=== PATIENT | male | born 1960 | race Two or more races ===

== ENCOUNTER 2017-05-01 08:45 | Inpatient (IN) | payer OTHER ==
[2017-05-01 10:04] VITALS: BMI 36.1
--- NOTE | 2017-05-01 12:11 | HP ---
CIWA Score - CIWA Score Nausea/Vomitin Muscle Tremors: 3 Anxiety: 3 Agitation: 3 Paroxysmal Sweats: 2 Orientation: 0-Oriented Tacttile Disturbances: 1-Very Mild Itch/Numbness Auditory Disturbances: 1-Very Mild Visual Disturbances: 0-None Headache: 2-Mild CIWA-Ar Total Score: 18 Admission ROS BHS - HPI Chief Complaint: I NEED HELP TO STOP DRINKING ALCOHOL AND COCAINE Allergies/Adverse Reactions: Allergies Allergy/AdvReac Type Severity Reaction Status Date / Time No Known Allergies Allergy Verified 05/01/17 10:07 History of Present Illness: THIS 56 YEARS OLD MALE WITH ALCOHOL AND COCAINE DEPENDENCE,SEEKING DETOX,LAST TREATMENT 04/30/16 05/04/16 SYNCOPE ALCOHOL RELATED HTN NO MED GERD LOW BACK PAIN LONGEST PERIOD OF SOBRIETY 3 MONTHS Exam Limitations: No Limitations - Ebola screening Have you been sick,other than usual withdrawal symptoms: No - Review of Systems Constitutional: Loss of Appetite, Malaise, Night Sweats, Changes in sleep, Weakness EENT: reports: Nose Congestion Respiratory: reports: No Symptoms reported GI: reports: Diarrhea, Nausea, Vomiting, Abdominal cramping Musculoskeletal: reports: No Symptoms Reported Integumentary: reports: Dryness Neuro: reports: Headache, Tremors Endocrine: reports: No Symptoms Reported Hematology: reports: No Symptoms Reported Psychiatric: reports: Depressed Other Systems: Reviewed and Negative Patient History - Patient Medical History Hx Anemia: Yes (NO CURRENT MED) Hx Asthma: No Hx Chronic Obstructive Pulmonary Disease (COPD): No Hx Cancer: No Hx Cardiac Disorders: No Hx Congestive Heart Failure: No Hx Hypertension: Yes (NON COMPLIANCE) Hx Hypercholesterolemia: No Hx Pacemaker: No HX Cerebrovascular Accident: No Hx Seizures: No Hx Dementia: No Hx Diabetes: No Hx Gastrointestinal Disorders: Yes (peptic ulcer) Hx Liver Disease: No Hx Genitourinary Disorders: No Hx Sexually Transmitted Disorders: No Hx Renal Disease (ESRD): No Hx Thyroid Disease: No Hx Human Immunodeficiency Virus (HIV): No (NEGATIVE HX) Hx Hepatitis C: No Hx Depression: Yes Hx Suicide Attempt: No Hx Bipolar Disorder: No Hx Schizophrenia: No Other Medical History: NO SUICIDAL,NO HOMICIDAL - Patient Surgical History Past Surgical History: Yes Hx Neurologic Surgery: No Hx Cataract Extraction: No Hx Cardiac Surgery: No Hx Lung Surgery: No Hx Breast Surgery: No Hx Breast Biopsy: No Hx Abdominal Surgery: No Hx Appendectomy: No Hx Cholecystectomy: No Hx Genitourinary Surgery: No Hx Section: No Hx Orthopedic Surgery: Yes (fx, left thumb in 2006) Other Surgical History: nasal fx in 1987 Anesthesia Reaction: No - PPD History Previous Implant?: Yes Documented Results: Negative w/proof Implanted On Prior [facility] Admission?: Yes Date: 05/02/16 Results: 0 mm PPD to be Administered?: Yes - Smoking Cessation Smoking history: Never smoked Have you smoked in the past 12 months: No Aproximately how many cigarettes per day: 0 Hx Chewing Tobacco Use: No Initiated information on smoking cessation: No - Substance & Tx. History Hx Alcohol Use: Yes Hx Substance Use: Yes Substance Use Type: Alcohol, Cocaine Hx Substance Use Treatment: Yes ([facility] 04/30/16 TO 05/04/16) - Substances Abused Cocaine Route: Inhalation Frequency: Daily Amount used: $40 Age of first use: 17 Date of Last Use: 05/01/17 Alcohol-vodka/beer Route: Oral Frequency: Daily Amount used: 2 pts./2-6 pks. Age of first use: 14 Date of Last Use: 05/01/17 Family Disease History - Family Disease History Family Disease History: Other: Father (alcoholic/), Mother () Admission Physical Exam S - Vital Signs Vital Signs: Vital Signs - 24 hr 05/01/17 09:54 Temperature 97.4 F L Pulse Rate 89 Respiratory 20 Rate Blood Pressure 154/93 - Physical General Appearance: Yes: Moderate Distress, Tremorous, Irritable, Sweating, Anxious HEENTM: Yes: Normal ENT Inspection, LISSA, Pharynx Normal Respiratory: Yes: Lungs Clear, Normal Breath Sounds, No Respiratory Distress Neck: Yes: Within Normal Limits, Supple, Trachea in good position Breast: Yes: Within Normal Limits Cardiology: Yes: Within Normal Limits, Regular Rhythm, Regular Rate, S1, S2 Abdominal: Yes: Normal Bowel Sounds, Non Tender, Flat, Soft, Organomegaly Genitourinary: Yes: Within Normal Limits Back: Yes: Muscle Spasm Musculoskeletal: Yes: Back pain, Muscle Pain Extremities: Yes: Tremors 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: Yes: 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 NML intact, Fully Oriented, Alert, Motor Strength 5/5 Integumentary: Yes: Within Normal Limits Lymphatic: Yes: Within Normal Limits - Diagnostic (1) Cocaine dependence Current Visit: No Status: Acute Qualifiers: Substance use status: uncomplicated Qualified Code(s): F14.20 - Cocaine dependence, uncomplicated (2) Acid reflux Current Visit: No Status: Chronic Qualifiers: Esophagitis presence: without esophagitis Qualified Code(s): K21.9 - Gastro-esophageal reflux disease without esophagitis (3) Alcohol dependence with uncomplicated withdrawal Current Visit: No Status: Chronic (4) Hypertension Current Visit: No Status: Chronic Qualifiers: Hypertension type: essential hypertension Cleared for Admission [facility] - Detox or Rehab [facility] Level of Care: Medically Managed Detox Regimen/Protocol: Librium [facility] Breath Alcohol Content Breath Alcohol Content: 0.046 Urine Drug Screen - Results Drug Screen Negative: No Urine Drug Screen Results: MATTIE-Cocaine, BZO-Benzodiazepines
[2017-05-01] MEDS ORDERED: MAGNESIUM CITRATE 300 ML BOTTLE PO PRN (12:22)
[2017-05-01] MEDS ORDERED: IBUPROFEN 400 MG TABLET (FP) PO PRN (12:22)
[2017-05-01] MEDS ORDERED: MAGNESIUM HYDROX 2400MG/30ML ORAL SUSPENSION 30 ML CUP PO PRN (12:22)
[2017-05-01] MEDS ORDERED: P-EPHED 60MG/TRIPROLIDI 2.5MG TABLET PO PRN (12:22)
[2017-05-01] MEDS ORDERED: MAG HYDROX/AL HYDROX/SIMETH 30 ML UNIT-DOSE CUP PO PRN (12:22)
[2017-05-01] MEDS ORDERED: chlordiazePOXIDE HCL 25 MG CAPSULE PO PRN (12:22)
[2017-05-01] MEDS ORDERED: chlordiazePOXIDE HCL 25 MG CAPSULE PO ONE (12:43)
[2017-05-01] MEDS: amLODIPine BESYLATE 5 MG TABLET (FP) PO SCH (14:47)
[2017-05-01 17:10] LABS: URINE APPEARANCE TURBID; URINE BILIRUBIN NEGATIVE (NEGATIVE); URINE BLOOD NEGATIVE (NEGATIVE); URINE COLOR YELLOW; URINE GLUCOSE (UA) NEGATIVE (NEGATIVE); URINE KETONE TRACE (NEGATIVE); URINE LEUK ESTERASE NEGATIVE (NEGATIVE); URINE NITRITE NEGATIVE (NEGATIVE); URINE UROBILINOGEN NEGATIVE mg/dL (0.2-1.0)
[2017-05-01 17:12] LABS: URINE PROTEIN 1+ (NEGATIVE)
[2017-05-01 17:47] LABS: URINE MUCUS MANY; URINE RBC 2 /hpf (0-3); URINE WBC 155 /hpf (3-5)
[2017-05-01] MEDS: chlordiazePOXIDE HCL 25 MG CAPSULE PO SCH ×2 (18:07→22:26)
[2017-05-01 18:49] LABS: HIV 1 & 2 AB NEGATIVE; HIV 1 AGp24 NEGATIVE
[2017-05-01] MEDS: THIAMINE HCL 100 MG TABLET (FP) PO SCH (22:25)
[2017-05-01] MEDS: ACETAMINOPHEN 325 MG TABLET (FP) PO PRN (22:26)
[2017-05-01] MEDS: diphenhydrAMINE HCL 50 MG CAPSULE PO PRN (22:27)
[2017-05-02] MEDS: chlordiazePOXIDE HCL 25 MG CAPSULE PO SCH ×4 (05:40→22:38)
[2017-05-02 10:16] LABS: MCH 28.8 pg (25.7-33.7); MCHC 32.2 g/dl (32.0-35.9); MEAN CELL VOLUME 89.6 fl (80-96); MEAN PLT VOLUME 9.2 fl (7.5-11.1); PLATELET COUNT 201 K/MM3 (134-434); RDW 17.6 % (11.9-15.9); WHITE BLOOD COUNT 4.7 K/mm3 (4.0-10.0)
[2017-05-02 10:35] LABS: ALBUMIN 3.3 g/dl (3.4-5.0); ALK PHOS 115 U/L (45-117); ANION GAP 8 (8-16); BILIRUBIN,TOTAL 0.6 mg/dL (0.2-1.0); CALCIUM 8.5 mg/dL (8.5-10.1); CO2 29 mmol/L (21-32); CREATININE 0.7 mg/dL (0.7-1.3); GLUCOSE,RANDOM 94 mg/dL (74-106); SGOT/AST 75 U/L (15-37); SGPT/ALT 47 U/L (12-78); TOT PROT 7.4 g/dl (6.4-8.2)
[2017-05-02] MEDS ORDERED: CYCLOBENZAPRINE HCL 10 MG TABLET (FP) PO ONE (10:55)
[2017-05-02] MEDS: amLODIPine BESYLATE 5 MG TABLET (FP) PO SCH (11:07)
[2017-05-02] MEDS: PRENATAL VITAMINS W/ FOLIC ACID TABLET (FP) PO SCH (11:07)
[2017-05-02] MEDS: PANTOPRAZOLE 40 MG TABLET (FP) PO SCH (11:07)
--- NOTE | 2017-05-02 11:40 | CONSULT ---
[facility] Psychiatric Consult - Data Date of interview: 05/02/17 Admission source: [facility] Identifying data: This is 56 years old male with psychiatric hospitalization history, history of MDD, intopxicated with: Alcohol and Nicotine Substance Abuse History: - Smoking Cessation. Smoking history: Never smoked. Have you smoked in the past 12 months: No. Aproximately how many cigarettes per day: 0. Hx Chewing Tobacco Use: No. Initiated information on smoking cessation: No. - Substance & Tx. History. Hx Alcohol Use: Yes. Hx Substance Use: Yes. Substance Use Type: Alcohol, Cocaine. Hx Substance Use Treatment: Yes ([facility] 04/30/16 TO 05/04/16). - Substances Abused. Cocaine. Route: Inhalation. Frequency: Daily. Amount used: $40. Age of first use: 17. Date of Last Use: 05/01/17. Alcohol-vodka/beer. Route: Oral. Frequency: Daily. Amount used: 2 pts./2-6 pks. Age of first use: 14. Date of Last Use: Medical History: Anemia history, GERD, Obesity, HTN, PUD, Pancreatitis history, Psychiatric History: Patient reports history of MDD, reports most recent psychiatriuc admission fore safety at [facility] on about 5 yerars ago, reports currently taking: Zoloft 25mg po qhs Physical/Sexual Abuse/Trauma History: Denies Additional Comment: Zoloft 25mg po qhs Mental Status Exam - Mental Status Exam Alert and Oriented to: Person Cognitive Function: Fair Patient Appearance: Unkempt Mood: Sad Affect: Flat Patient Behavior: Sedated Speech Pattern: Delayed Voice Loudness: Normal Thought Process: Circumstantial Thought Disorder: Being Controlled Hallucinations: Denies Suicidal Ideation: Denies Homicidal Ideation: Denies Insight/Judgement: Fair Sleep: Difficulty falling asleep Appetite: Weight gain Muscle strength/Tone: Normal Gait/Station: Shuffling Additional Comments: Zoloft 25mg po qhs Psychiatric Findings - Problem List ([place] 1, 2,3) (1) Alcoholic gastritis Current Visit: No Status: Acute (2) Cocaine dependence Current Visit: No Status: Acute Qualifiers: Substance use status: uncomplicated Qualified Code(s): F14.20 - Cocaine dependence, uncomplicated (3) Major depressive disorder, recurrent severe without psychotic features Current Visit: No Status: Acute (4) Substance induced mood disorder Current Visit: No Status: Acute (5) Alcohol dependence Current Visit: No Status: Chronic (6) Alcohol dependence with uncomplicated withdrawal Current Visit: No Status: Chronic (7) Drug-induced mood disorder Current Visit: Yes Status: Acute - Initial Treatment Plan Initial Treatment Plan: Zoloft 25mg po qhs
[2017-05-02] MEDS: SULFAMETHOXAZOLE/TRIMETHOPRIM 800MG/160MG D.S. TABLET PO SCH ×2 (11:42→22:38)
[2017-05-02] MEDS: hydrOXYzine PAMOATE 50 MG CAPSULE (FP) PO PRN (11:42)
[2017-05-02] MEDS ORDERED: FLU VACCINE QUAD 60 MCG/0.5 ML (MDV 17-18) IM ONE (12:00)
--- NOTE | 2017-05-02 13:08 | PN ---
S CIWA - CIWA Score Nausea/Vomitin Muscle Tremors: 3 Anxiety: 3 Agitation: 3 Paroxysmal Sweats: 1-Minimal Palms Moist Orientation: 0-Oriented Tacttile Disturbances: 1-Very Mild Itch/Numbness Auditory Disturbances: 1-Very Mild Visual Disturbances: 1-Very Mild Sensitivity Headache: 2-Mild CIWA-Ar Total Score: 18 S Progress Note (SOAP) Subjective: alert,irritable,anxious,interrupted sleep,tremor,pain in the back,diarrhea Objective: 05/02/17 13:06 Vital Signs Temperature 97.9 F 05/02/17 09:49 Pulse Rate 92 H 05/02/17 09:49 Respiratory Rate 18 05/02/17 09:49 Blood Pressure 144/78 05/02/17 09:49 O2 Sat by Pulse Oximetry (%) 05/02/17 13:06 ekg nsr inverted t in v2,v3 no chest pain,no sob,no dizziness Laboratory Last Values WBC 4.7 K/mm3 (4.0-10.0) D 05/02/17 06:00 RBC 4.23 M/mm3 (4.00-5.60) 05/02/17 06:00 Hgb 12.2 GM/dL (11.7-16.9) 05/02/17 06:00 Hct 37.9 % (35.4-49) 05/02/17 06:00 MCV 89.6 fl (80-96) 05/02/17 06:00 MCH 28.8 pg (25.7-33.7) 05/02/17 06:00 MCHC 32.2 g/dl (32.0-35.9) 05/02/17 06:00 RDW 17.6 % (11.9-15.9) H D 05/02/17 06:00 Plt Count 201 K/MM3 (134-434) D 05/02/17 06:00 MPV 9.2 fl (7.5-11.1) D 05/02/17 06:00 Sodium 138 mmol/L (136-145) 05/02/17 06:00 Potassium 3.8 mmol/L (3.5-5.1) 05/02/17 06:00 Chloride 101 mmol/L (98-107) 05/02/17 06:00 Carbon Dioxide 29 mmol/L (21-32) 05/02/17 06:00 Anion Gap 8 (8-16) 05/02/17 06:00 BUN 8 mg/dL (7-18) 05/02/17 06:00 Creatinine 0.7 mg/dL (0.7-1.3) D 05/02/17 06:00 Creat Clearance w eGFR > 60 (>60) 05/02/17 06:00 Random Glucose 94 mg/dL (74-106) 05/02/17 06:00 Calcium 8.5 mg/dL (8.5-10.1) 05/02/17 06:00 Total Bilirubin 0.6 mg/dL (0.2-1.0) D 05/02/17 06:00 AST 75 U/L (15-37) H D 05/02/17 06:00 ALT 47 U/L (12-78) D 05/02/17 06:00 Alkaline Phosphatase 115 U/L (45-117) 05/02/17 06:00 Total Protein 7.4 g/dl (6.4-8.2) 05/02/17 06:00 Albumin 3.3 g/dl (3.4-5.0) L 05/02/17 06:00 Urine Color Yellow 05/01/17 15:00 Urine Appearance Turbid 05/01/17 15:00 Urine pH 5.0 (5.0-8.0) 05/01/17 15:00 Ur Specific [place] >= 1.030 (1.005-1.025) H 05/01/17 15:00 Urine Protein 1+ (NEGATIVE) H 05/01/17 15:00 Urine Glucose (UA) Negative (NEGATIVE) 05/01/17 15:00 Urine Ketones Trace (NEGATIVE) H 05/01/17 15:00 Urine Blood Negative (NEGATIVE) 05/01/17 15:00 Urine Nitrite Negative (NEGATIVE) 05/01/17 15:00 Urine Bilirubin Negative (NEGATIVE) 05/01/17 15:00 Urine Urobilinogen Negative mg/dL (0.2-1.0) 05/01/17 15:00 Urine RBC 2 /hpf (0-3) 05/01/17 15:00 Urine WBC 155 /hpf (3-5) 05/01/17 15:00 Ur Epithelial Cells Rare /hpf (FEW) 05/01/17 15:00 Urine Mucus Many 05/01/17 15:00 RPR Titer Nonreactive (NONREACTIVE) 05/02/17 06:00 HIV 1&2 Antibody Screen Negative 05/01/17 12:00 HIV P24 Antigen Negative 05/01/17 12:00 Assessment: 05/02/17 13:06 Plan: continue detox,r/o uti,urine for c/s,bactrim ds 1 tab po bid
[2017-05-02] MEDS: IBUPROFEN 600 MG TABLET (FP) PO PRN (15:02)
--- NOTE | 2017-05-02 16:03 | EKG ---
Test Reason : Blood Pressure : / mmHG Vent. Rate : 087 BPM Atrial Rate : 087 BPM P-R Int : 154 ms QRS Dur : 106 ms QT Int : 432 ms P-R-T Axes : 044 -26 048 degrees QTc Int : 519 ms NORMAL SINUS RHYTHM POSSIBLE LEFT ATRIAL ENLARGEMENT INFERIOR INFARCT , AGE UNDETERMINED ANTEROSEPTAL INFARCT , AGE UNDETERMINED PROLONGED QT ABNORMAL ECG WHEN COMPARED WITH ECG OF 22-SEP-2013 19:33, ANTEROSEPTAL INFARCT IS NOW PRESENT INFERIOR INFARCT IS NOW PRESENT T WAVE INVERSION NOW EVIDENT IN ANTERIOR LEADS Confirmed by SAHIL RAPP MD ([id number]) on 05/02/2017 4:02:53 PM Referred By: Confirmed By:SAHIL RAPP MD
[2017-05-02] MEDS: CYCLOBENZAPRINE HCL 10 MG TABLET (FP) PO PRN ×2 (18:39→22:38)
[2017-05-02] MEDS: THIAMINE HCL 100 MG TABLET (FP) PO SCH (22:38)
[2017-05-02] MEDS: ACETAMINOPHEN 325 MG TABLET (FP) PO PRN (22:39)
[2017-05-02] MEDS: guaiFENesin/D-METHORPHAN HB 10 ML UNIT-DOSE CUPS PO PRN (22:53)
[2017-05-02] MEDS: SERTRALINE HCL 25 MG TABLET (FP) PO SCH (22:53)
[2017-05-03] MEDS: LOPERAMIDE HCL 2 MG CAPSULE PO PRN ×2 (04:41→12:42)
[2017-05-03] MEDS: PRENATAL VITAMINS W/ FOLIC ACID TABLET (FP) PO SCH (11:05)
[2017-05-03] MEDS: diazePAM 5 MG TABLET PO SCH ×2 (11:05→22:55)
[2017-05-03] MEDS: SULFAMETHOXAZOLE/TRIMETHOPRIM 800MG/160MG D.S. TABLET PO SCH ×2 (11:05→23:07)
[2017-05-03] MEDS: IBUPROFEN 600 MG TABLET (FP) PO PRN ×2 (11:05→23:10)
[2017-05-03] MEDS: hydrOXYzine PAMOATE 50 MG CAPSULE (FP) PO PRN (11:05)
[2017-05-03] MEDS: CYCLOBENZAPRINE HCL 10 MG TABLET (FP) PO PRN ×2 (11:06→23:10)
[2017-05-03] MEDS: PANTOPRAZOLE 40 MG TABLET (FP) PO SCH (11:06)
[2017-05-03] MEDS: amLODIPine BESYLATE 5 MG TABLET (FP) PO SCH (11:06)
[2017-05-03] MEDS: guaiFENesin/D-METHORPHAN HB 10 ML UNIT-DOSE CUPS PO PRN ×2 (11:09→18:28)
--- NOTE | 2017-05-03 11:58 | PN ---
BHS CIWA - CIWA Score Nausea/Vomitin Muscle Tremors: 3 Anxiety: 2 Agitation: 3 Paroxysmal Sweats: 1-Minimal Palms Moist Orientation: 0-Oriented Tacttile Disturbances: 1-Very Mild Itch/Numbness Auditory Disturbances: 1-Very Mild Visual Disturbances: 0-None Headache: 2-Mild CIWA-Ar Total Score: 16 BHS Progress Note (SOAP) Subjective: alert,irritable,anxious,interrupted sleep,tremor,lose bowel movement Objective: 05/03/17 11:57 Vital Signs Temperature 97.3 F L 05/03/17 09:54 Pulse Rate 97 H 05/03/17 09:54 Respiratory Rate 18 05/03/17 09:54 Blood Pressure 137/89 05/03/17 09:54 O2 Sat by Pulse Oximetry (%) Assessment: 05/03/17 11:57 withdrawal symptom Plan: continue detox,patient would like regimen to change to valium
[2017-05-03] MEDS ORDERED: chlordiazePOXIDE 5 MG CAPSULE PO SCH (17:00)
[2017-05-03] MEDS: diphenhydrAMINE HCL 50 MG CAPSULE PO PRN (23:12)
[2017-05-03] MEDS: THIAMINE HCL 100 MG TABLET (FP) PO SCH (23:12)
[2017-05-03] MEDS: SERTRALINE HCL 25 MG TABLET (FP) PO SCH (23:13)
[2017-05-04] MEDS: guaiFENesin/D-METHORPHAN HB 10 ML UNIT-DOSE CUPS PO PRN (02:42)
[2017-05-04] MEDS: MENTHOL/PHENOL 1 EACH UD MM PRN ×4 (05:42→19:06)
[2017-05-04] MEDS: chlordiazePOXIDE HCL 25 MG CAPSULE PO SCH (07:49)
[2017-05-04] MEDS: PRENATAL VITAMINS W/ FOLIC ACID TABLET (FP) PO SCH (11:01)
[2017-05-04] MEDS: amLODIPine BESYLATE 5 MG TABLET (FP) PO SCH (11:01)
[2017-05-04] MEDS: PANTOPRAZOLE 40 MG TABLET (FP) PO SCH (11:01)
[2017-05-04] MEDS: IBUPROFEN 600 MG TABLET (FP) PO PRN (11:03)
[2017-05-04] MEDS: diazePAM 5 MG TABLET PO SCH ×2 (11:05→22:59)
[2017-05-04] MEDS: CYCLOBENZAPRINE HCL 10 MG TABLET (FP) PO PRN ×2 (11:06→23:21)
[2017-05-04] MEDS: SULFAMETHOXAZOLE/TRIMETHOPRIM 800MG/160MG D.S. TABLET PO SCH ×2 (11:08→22:59)
--- NOTE | 2017-05-04 13:12 | PN ---
BHS Progress Note (SOAP) Subjective: alert,irritable,anxious,interrupted sleep Objective: 05/04/17 13:10 Vital Signs Temperature 96.3 F L 05/04/17 11:03 Pulse Rate 96 H 05/04/17 11:03 Respiratory Rate 20 05/04/17 11:03 Blood Pressure 125/68 05/04/17 11:03 O2 Sat by Pulse Oximetry (%) Assessment: 05/04/17 13:10 Vital Signs Temperature 96.3 F L 05/04/17 11:03 Pulse Rate 96 H 05/04/17 11:03 Respiratory Rate 05/04/17 11:03 Blood Pressure 125/68 05/04/17 11:03 O2 Sat by Pulse Oximetry (%) 05/04/17 13:10 05/04/17 13:11 urine for c/s no growth Plan: continue detox,fluid,discharge in am
[2017-05-04] MEDS ORDERED: chlordiazePOXIDE HCL 10 MG CAPSULE PO SCH (17:00)
[2017-05-04] MEDS: SERTRALINE HCL 25 MG TABLET (FP) PO SCH (22:59)
[2017-05-04] MEDS: THIAMINE HCL 100 MG TABLET (FP) PO SCH (22:59)
[2017-05-05] MEDS: LOPERAMIDE HCL 2 MG CAPSULE PO PRN (04:34)
[2017-05-05] MEDS: MENTHOL/PHENOL 1 EACH UD MM PRN (05:39)
[2017-05-05] MEDS ORDERED: diazePAM 5 MG TABLET PO ONE (06:00)
[2017-05-05 06:52] VITALS: BP 122/85; PULSE 85; TEMP 97.5
== END 2017-05-05 07:15 | disposition home or self-care (01) | DRG 774 ==
LOC: YASAS 08:45 → Y6N 12:19
PROVIDERS: ADMIT Internal Medicine; ATTEND Internal Medicine
PROC: HZ2ZZZZ Detoxification Services for Substance Abuse Treatment (ICD-10-PCS; principal; 2017-05-01)
DX: F10.230 Alcohol dependence with withdrawal, uncomplicated (principal); F14.20 Cocaine dependence, uncomplicated; F33.2 Major depressive disorder, recurrent severe without psychotic features; F19.24 Other psychoactive substance dependence with psychoactive substance-induced mood disorder; I10 Essential (primary) hypertension; K21.9 Gastro-esophageal reflux disease without esophagitis; D50.9 Iron deficiency anemia, unspecified; Z87.11 Personal history of peptic ulcer disease
CPT/HCPCS: 36415; 80053; 81003; 81015; 85027; 86593; 87086; 87389; 90688; 93005; 93010; G0008

== ENCOUNTER 2017-07-15 08:38 | Inpatient (IN) | payer OTHER ==
[2017-07-15 10:54] VITALS: BMI 33.4
[2017-07-15] MEDS ORDERED: MAGNESIUM CITRATE 300 ML BOTTLE PO PRN (12:34)
[2017-07-15] MEDS ORDERED: MAGNESIUM HYDROX 2400MG/30ML ORAL SUSPENSION 30 ML CUP PO PRN (12:34)
[2017-07-15] MEDS ORDERED: MAG HYDROX/AL HYDROX/SIMETH 30 ML UNIT-DOSE CUP PO PRN (12:34)
[2017-07-15] MEDS ORDERED: ACETAMINOPHEN 325 MG TABLET (FP) PO PRN (12:34)
[2017-07-15] MEDS ORDERED: LOPERAMIDE HCL 2 MG CAPSULE PO PRN (12:34)
[2017-07-15] MEDS ORDERED: chlordiazePOXIDE HCL 25 MG CAPSULE PO PRN (12:34)
[2017-07-15] MEDS ORDERED: hydrOXYzine PAMOATE 50 MG CAPSULE (FP) PO PRN (12:34)
--- NOTE | 2017-07-15 12:34 | HP ---
CIWA Score - CIWA Score Nausea/Vomitin-Int. Nausea w/Dry Heave Muscle Tremors: 3 Anxiety: 3 Agitation: 3 Paroxysmal Sweats: 3 Orientation: 0-Oriented Tacttile Disturbances: 2-Mild Itch/Numbness/Burn Auditory Disturbances: 0-None Visual Disturbances: 0-None Headache: 1-Very Mild CIWA-Ar Total Score: 19 Admission ROS BHS - HPI Chief Complaint: alcohol withdrawal sx Allergies/Adverse Reactions: Allergies Allergy/AdvReac Type Severity Reaction Status Date / Time No Known Allergies Allergy Verified 07/15/17 10:34 History of Present Illness: 56 yo m with h/o chronic alcoholism admitted for inpaient detoxification because of alcohol withdrwal ss, patient reports daily alcohol and sniffing cocaine when he has money. PMHX obesity, no suicidal ideation at this time, depression, reprot being thirsty. no h/o seizures, no DTs. no suicide attmpets in the past. Exam Limitations: No Limitations - Ebola screening Have you traveled outside of the country in the last 21 days: No Have you had contact with anyone from an Ebola affected area: No Have you been sick,other than usual withdrawal symptoms: No - Review of Systems Constitutional: Chills, Diaphoresis, Malaise, Night Sweats, Changes in sleep, Weight Stable EENT: reports: Nose Congestion, Throat Pain, Throat Swelling Respiratory: reports: Cough, SOB with Exertion Cardiac: reports: No Symptoms Reported GI: reports: Diarrhea, Nausea, Poor Appetite, Poor Fluid Intake, Indigestion, Abdominal cramping : reports: No Symptoms Reported Musculoskeletal: reports: Back Pain, Joint Pain, Muscle Pain Integumentary: reports: Flushing, Sweating Neuro: reports: Headache, Numbness, Tingling, Tremors Endocrine: reports: No Symptoms Reported Hematology: reports: No Symptoms Reported Psychiatric: reports: Judgement Intact, Mood/Affect Appropiate, Agitated, Anxious, Depressed Other Systems: Reviewed and Negative Patient History - Patient Medical History Hx Anemia: Yes (NO CURRENT MED) Hx Asthma: No Hx Chronic Obstructive Pulmonary Disease (COPD): No Hx Cancer: No Hx Cardiac Disorders: Yes (reports mi 2 months ago) Hx Congestive Heart Failure: No Hx Hypertension: Yes Hx Hypercholesterolemia: No Hx Pacemaker: No HX Cerebrovascular Accident: No Hx Seizures: No Hx Dementia: No Hx Diabetes: No Hx Gastrointestinal Disorders: Yes (acid reflux) Hx Liver Disease: No Hx Genitourinary Disorders: No Hx Sexually Transmitted Disorders: No Hx Renal Disease (ESRD): No Hx Thyroid Disease: No Hx Human Immunodeficiency Virus (HIV): No (NEGATIVE HX) Hx Hepatitis C: No Hx Depression: Yes Hx Suicide Attempt: No (no SI at his time) Hx Bipolar Disorder: No Hx Schizophrenia: No Other Medical History: no h/o of od - Patient Surgical History Past Surgical History: Yes Hx Neurologic Surgery: No Hx Cataract Extraction: No Hx Cardiac Surgery: No Hx Lung Surgery: No Hx Breast Surgery: No Hx Breast Biopsy: No Hx Abdominal Surgery: No Hx Appendectomy: No Hx Cholecystectomy: No Hx Genitourinary Surgery: No Hx Section: No Hx Orthopedic Surgery: Yes (fx, left thumb in 2006) Other Surgical History: nasal fx in 1987 Anesthesia Reaction: No - PPD History Previous Implant?: Yes Documented Results: Negative w/proof Implanted On Prior [facility] Admission?: Yes Date: 05/03/17 Results: 0 mm PPD to be Administered?: No - Reproductive History Patient is a Female of Child Bearing Age (11 -55 yrs old): No Patient : No - Smoking Cessation Smoking history: Never smoked Have you smoked in the past 12 months: No Aproximately how many cigarettes per day: 0 Hx Chewing Tobacco Use: No Initiated information on smoking cessation: No 'Breaking Loose' booklet given: 07/15/17 - Substance & Tx. History Hx Alcohol Use: Yes Hx Substance Use: Yes Substance Use Type: Alcohol, Cocaine Hx Substance Use Treatment: Yes ([facility] inpatient detox) - Substances Abused Cocaine Route: Inhalation Frequency: 1-2 times per week Amount used: $50 Age of first use: 17 Date of Last Use: 07/14/17 Alcohol-vodka/beer Route: Oral Frequency: Daily Amount used: 2 pts./2-3 6 pks. Age of first use: 14 Date of Last Use: 07/15/17 Family Disease History - Family Disease History Family Disease History: Other: Father (alcoholic/), Mother () Admission Physical Exam BHS - Vital Signs Vital Signs: Vital Signs - 24 hr 07/15/17 10:41 Temperature 96.4 F L Pulse Rate 92 H Respiratory 20 Rate Blood Pressure 140/84 - Physical General Appearance: Yes: Nourished, Appropriately Dressed, Disheveled, Mild Distress, Obese, Tremorous, Irritable, Sweating, Anxious HEENTM: Yes: EOMI, Hearing grossly Normal, Normocephalic, Normal Voice, LISSA, Nasal Congestion, Rhinorrhea Respiratory: Yes: Within Normal Limits, Chest Non-Tender, Lungs Clear, Normal Breath Sounds, No Respiratory Distress, No Accessory Muscle Use Neck: Yes: Within Normal Limits, No masses,lesions,Nodules, Supple, Trachea in good position Breast: Yes: Breast Exam Deferred Cardiology: Yes: Within Normal Limits, Regular Rhythm, Regular Rate, S1, S2 Abdominal: Yes: Normal Bowel Sounds, Non Tender, Soft, Increased Bowel Sounds, Protuberent, Distended Genitourinary: Yes: Within Normal Limits Back: Yes: Within Normal Limits, Normal Inspection Musculoskeletal: Yes: full range of Motion, Gait Steady, Pelvis Stable Extremities: Yes: Normal Capillary Refill, Normal Inspection, Normal Range of Motion, Tremors 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: 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: 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, Fully Oriented, Alert, Motor Strength 5/5, Normal Response Integumentary: Yes: Normal Color, Warm, Diaphoresis, Moist Lymphatic: Yes: Within Normal Limits - Addiitonal Findings: withdrawal sx - Diagnostic (1) Alcoholic gastritis Current Visit: No Status: Acute (2) Cocaine dependence Current Visit: No Status: Acute (3) Drug-induced mood disorder Current Visit: No Status: Acute (4) Major depressive disorder, recurrent severe without psychotic features Current Visit: No Status: Acute (5) Substance induced mood disorder Current Visit: No Status: Acute (6) Acid reflux Current Visit: No Status: Chronic Qualifiers: (7) Alcohol dependence with uncomplicated withdrawal Current Visit: No Status: Chronic (8) Hypertension Current Visit: No Status: Chronic (9) Obesity Current Visit: No Status: Chronic (10) URTI (acute upper respiratory infection) Current Visit: Yes Status: Acute Cleared for Admission [facility] - Detox or Rehab [facility] Level of Care: Medically Managed Detox Regimen/Protocol: Librium [facility] Breath Alcohol Content Breath Alcohol Content: 0.009 Urine Drug Screen - Results Drug Screen Negative: No Urine Drug Screen Results: MATTIE-Cocaine, BZO-Benzodiazepines
[2017-07-15] MEDS ORDERED: PANTOPRAZOLE 40 MG TABLET (FP) PO SCH (12:45)
[2017-07-15] MEDS ORDERED: chlordiazePOXIDE HCL 25 MG CAPSULE PO ONE (14:00)
[2017-07-15 14:22] LABS: MCH 29.6 pg (25.7-33.7); MCHC 32.2 g/dl (32.0-35.9); MEAN CELL VOLUME 92.1 fl (80-96); PLATELET COUNT 176 K/MM3 (134-434); RDW 16.1 % (11.9-15.9); WHITE BLOOD COUNT 5.2 K/mm3 (4.0-10.0)
[2017-07-15 14:31] LABS: ALBUMIN 3.2 g/dl (3.4-5.0); ANION GAP 9 (8-16); CALCIUM 7.8 mg/dL (8.5-10.1); CO2 26 mmol/L (21-32); CREATININE 0.7 mg/dL (0.7-1.3); GLUCOSE,RANDOM 87 mg/dL (74-106); SGOT/AST 60 U/L (15-37); SGPT/ALT 37 U/L (12-78)
[2017-07-15 14:33] LABS: ALK PHOS 119 U/L (45-117); BILIRUBIN,TOTAL 0.6 mg/dL (0.2-1.0); TOT PROT 7.6 g/dl (6.4-8.2)
[2017-07-15] MEDS: PANTOPRAZOLE 40 MG TABLET (FP) PO SCH (14:58)
--- NOTE | 2017-07-15 16:10 | EKG ---
Test Reason : Blood Pressure : / mmHG Vent. Rate : 073 BPM Atrial Rate : 073 BPM P-R Int : 158 ms QRS Dur : 110 ms QT Int : 432 ms P-R-T Axes : 048 -33 032 degrees QTc Int : 475 ms NORMAL SINUS RHYTHM POSSIBLE LEFT ATRIAL ENLARGEMENT LEFT AXIS DEVIATION LEFT VENTRICULAR HYPERTROPHY ANTEROSEPTAL INFARCT (CITED ON OR BEFORE 01-MAY-2017) ABNORMAL ECG WHEN COMPARED WITH ECG OF 01-MAY-2017 13:57, T WAVE VARIATION Confirmed by MARY FLORES MD ([id number]) on 07/15/2017 4:10:07 PM Referred By: Confirmed By:MARY FLORES MD
[2017-07-15] MEDS: chlordiazePOXIDE HCL 25 MG CAPSULE PO SCH ×2 (17:09→22:10)
[2017-07-15] MEDS: IBUPROFEN 400 MG TABLET (FP) PO PRN ×2 (17:11→23:11)
--- NOTE | 2017-07-15 17:13 | CONSULT ---
[facility] Psychiatric Consult - Data Date of interview: 07/15/17 Admission source: [facility] Identifying data: Another admission to [facility] for this 56 y/o male seeking detox treatment on for alcohol and cocaine dependence.Patient is single without children,homeless,unemployed and supported on SSI benefits. Substance Abuse History: Confirmed by patient in this interview.See details in current [facility] report as follows : Smoking Cessation. Smoking history: Never smoked. Have you smoked in the past 12 months: No. Aproximately how many cigarettes per day: 0. Hx Chewing Tobacco Use: No. Initiated information on smoking cessation: No. 'Breaking Loose' booklet given: 07/15/17. - Substance & Tx. History. Hx Alcohol Use: Yes. Hx Substance Use: Yes. Substance Use Type : Alcohol, Cocaine. Hx Substance Use Treatment: Yes ([facility] inpatient detox ). - Substances Abused. Cocaine. Route: Inhalation. Frequency: 1-2 times per week. Amount used: $50. Age of first use: 17. Date of Last Use: . Alcohol-vodka/beer. Route: Oral. Frequency: Daily. Amount used: 2 pts./2-3 6 pks. Age of first use: 14. Date of Last Use: 07/15/17 Medical History: History of peptic ulcer disease,GERD anemia,hypertension, arthritis in right knee and past surgery for fracture of nasal bones (1987). Psychiatric History: History of multiple psychiatric hospitalizations institutions ([facility] and [facility]).Diagnosed with MDD.Prescribed sertraline in the past.Mr Fournier is known for chronic non adherence to OPD care + medications.No regular follow up care." I don't have a psychiatrist." I go to emergency room whenever I need medications." Off psychotropic medications for several months.No reported history of suicide attempts. Physical/Sexual Abuse/Trauma History: Patient denies. Additional Comment: Urine Drug Screen Results: MATTIE-Cocaine, BZO- Benzodiazepines.Noted. Mental Status Exam - Mental Status Exam Alert and Oriented to: Time, Place, Person Cognitive Function: Good Patient Appearance: Unkempt, Disheveled Mood: Nervous, Withdrawn Affect: Mood Congruent Patient Behavior: Fatigued, Cooperative Speech Pattern: Clear, Appropriate Voice Loudness: Normal Thought Process: Goal Oriented Thought Disorder: Not Present Hallucinations: Denies Suicidal Ideation: Denies Homicidal Ideation: Denies Insight/Judgement: Poor Sleep: Poorly, Difficulty falling asleep Appetite: Good Muscle strength/Tone: Normal Gait/Station: Normal Psychiatric Findings - Problem List ([place] 1, 2,3) (1) Alcohol dependence with uncomplicated withdrawal Current Visit: Yes Status: Chronic (2) Cocaine dependence Current Visit: Yes Status: Acute (3) Substance induced mood disorder Current Visit: Yes Status: Acute (4) Insomnia Current Visit: Yes Status: Acute - Initial Treatment Plan Initial Treatment Plan: Psychoeducation.Detoxification.Sleep hygiene.Patient declines to be on any psychotropic medications other than agents for detoxification + ambien for insomnia.Ambien 10 mg po hs prn.Patient is made aware of potential for parasomnias.He agrees with this careplan.Observation.
[2017-07-15 20:20] LABS: URINE APPEARANCE CLEAR; URINE BILIRUBIN NEGATIVE (NEGATIVE); URINE BLOOD NEGATIVE (NEGATIVE); URINE COLOR YELLOW; URINE GLUCOSE (UA) NEGATIVE (NEGATIVE); URINE KETONE 1+ (NEGATIVE); URINE NITRITE NEGATIVE (NEGATIVE); URINE PROTEIN NEGATIVE (NEGATIVE); URINE UROBILINOGEN NEGATIVE mg/dL (0.2-1.0)
[2017-07-15] MEDS: MENTHOL/PHENOL 1 EACH UD MM PRN (21:04)
[2017-07-15] MEDS: P-EPHED 60MG/TRIPROLIDI 2.5MG TABLET PO PRN (21:04)
[2017-07-15] MEDS: THIAMINE HCL 100 MG TABLET (FP) PO SCH (22:09)
[2017-07-15 22:27] LABS: URINE LEUK ESTERASE Negative (NEGATIVE)
[2017-07-15 22:55] LABS: HIV 1 & 2 AB NEGATIVE; HIV 1 AGp24 NEGATIVE
[2017-07-16] MEDS: chlordiazePOXIDE HCL 25 MG CAPSULE PO SCH ×4 (06:15→22:05)
[2017-07-16] MEDS: PRENATAL VITAMINS W/ FOLIC ACID TABLET (FP) PO SCH (10:29)
[2017-07-16] MEDS: PANTOPRAZOLE 40 MG TABLET (FP) PO SCH (10:29)
[2017-07-16] MEDS: IBUPROFEN 400 MG TABLET (FP) PO PRN ×3 (10:30→22:12)
[2017-07-16] MEDS: guaiFENesin/D-METHORPHAN HB 10 ML UNIT-DOSE CUPS PO PRN ×3 (10:32→22:12)
[2017-07-16] MEDS: P-EPHED 60MG/TRIPROLIDI 2.5MG TABLET PO PRN ×2 (10:33→17:06)
--- NOTE | 2017-07-16 13:39 | PN ---
[facility] CIWA - CIWA Score Nausea/Vomitin-No Nausea/No Vomiting Muscle Tremors: 4-Moderate,w/Arms Extend Anxiety: 5 Agitation: 4-Moderately Restless Paroxysmal Sweats: No Perspiration Orientation: 0-Oriented Tacttile Disturbances: 2-Mild Itch/Numbness/Burn Auditory Disturbances: 2-Mild Harshness/Frighten Visual Disturbances: 2-Mild Sensitivity Headache: 0-None Present CIWA-Ar Total Score: 19 S Progress Note (SOAP) Subjective: Stomach Cramping, Body Aches, Tremors, Anxious. Objective: PT. A & O X 3, OBSERVED AMBULATING ON UNIT. NO ACUTE DISTRESS. 07/16/17 13:37 Vital Signs Temperature 96.0 F L 07/16/17 13:31 Pulse Rate 89 07/16/17 13:31 Respiratory Rate 20 07/16/17 13:31 Blood Pressure 112/73 07/16/17 13:31 O2 Sat by Pulse Oximetry (%) Laboratory Tests 07/15/17 07/15/17 07/15/17 10:50 12:00 12:00 WBC 5.2 RBC 4.18 Hgb 12.4 Hct 38.5 MCV 92.1 MCH 29.6 MCHC 32.2 RDW 16.1 H Plt Count 176 MPV 9.0 Sodium 137 Potassium 3.7 Chloride 102 Carbon Dioxide 26 Anion Gap 9 BUN 12 D Creatinine 0.7 Creat Clearance w eGFR > 60 Random Glucose 87 Calcium 7.8 L Total Bilirubin 0.6 AST 60 H ALT 37 D Alkaline Phosphatase 119 H Total Protein 7.6 Albumin 3.2 L Urine Color Urine Appearance Urine pH Ur Specific [place] Urine Protein Urine Glucose (UA) Urine Ketones Urine Blood Urine Nitrite Urine Bilirubin Urine Urobilinogen Ur Leukocyte Esterase RPR Titer HIV 1&2 Antibody Screen Negative HIV P24 Antigen Negative 07/15/17 07/15/17 12:00 19:40 WBC RBC Hgb Hct MCV MCH MCHC RDW Plt Count MPV Sodium Potassium Chloride Carbon Dioxide Anion Gap BUN Creatinine Creat Clearance w eGFR Random Glucose Calcium Total Bilirubin AST ALT Alkaline Phosphatase Total Protein Albumin Urine Color Yellow Urine Appearance Clear Urine pH 5.0 Ur Specific [place] 1.023 Urine Protein Negative Urine Glucose (UA) Negative Urine Ketones 1+ H Urine Blood Negative Urine Nitrite Negative Urine Bilirubin Negative Urine Urobilinogen Negative Ur Leukocyte Esterase Negative RPR Titer Nonreactive HIV 1&2 Antibody Screen HIV P24 Antigen LABS NOTED. Assessment: 07/16/17 13:38 WITHDRAWAL SYMPTOMS. Plan: CONTINUE DETOX.
[2017-07-16] MEDS: MENTHOL/PHENOL 1 EACH UD MM PRN (17:07)
[2017-07-16] MEDS: ZOLPIDEM TARTRATE 10 MG TABLET (PARK CARE ONLY) PO PRN (22:04)
[2017-07-16] MEDS: THIAMINE HCL 100 MG TABLET (FP) PO SCH (22:05)
[2017-07-17] MEDS: P-EPHED 60MG/TRIPROLIDI 2.5MG TABLET PO PRN ×3 (00:03→22:05)
[2017-07-17] MEDS: MENTHOL/PHENOL 1 EACH UD MM PRN ×3 (03:16→22:05)
[2017-07-17] MEDS: guaiFENesin/D-METHORPHAN HB 10 ML UNIT-DOSE CUPS PO PRN ×3 (04:23→22:05)
[2017-07-17] MEDS: PANTOPRAZOLE 40 MG TABLET (FP) PO SCH (05:16)
[2017-07-17] MEDS: chlordiazePOXIDE HCL 25 MG CAPSULE PO SCH ×2 (05:17→10:29)
[2017-07-17] MEDS: PRENATAL VITAMINS W/ FOLIC ACID TABLET (FP) PO SCH (10:29)
[2017-07-17] MEDS: CYCLOBENZAPRINE HCL 10 MG TABLET (FP) PO PRN ×2 (10:29→22:07)
--- NOTE | 2017-07-17 13:18 | PN ---
[facility] CIWA - CIWA Score Nausea/Vomitin-No Nausea/No Vomiting Muscle Tremors: 3 Anxiety: 5 Agitation: 3 Paroxysmal Sweats: No Perspiration Orientation: 0-Oriented Tacttile Disturbances: 2-Mild Itch/Numbness/Burn Auditory Disturbances: 2-Mild Harshness/Frighten Visual Disturbances: 1-Very Mild Sensitivity Headache: 0-None Present CIWA-Ar Total Score: 16 BHS Progress Note (SOAP) Subjective: Anxious, Body Aches, Nasal Congestion. Objective: PT. A & O X 3, OBSERVED AMBULATING ON UNIT. NO ACUTE DISTRESS. 07/17/17 13:15 Vital Signs Temperature 98.0 F 07/17/17 13:05 Pulse Rate 93 H 07/17/17 13:05 Respiratory Rate 20 07/17/17 13:05 Blood Pressure 129/79 07/17/17 13:05 O2 Sat by Pulse Oximetry (%) Laboratory Tests 07/15/17 07/15/17 07/15/17 10:50 12:00 12:00 WBC 5.2 RBC 4.18 Hgb 12.4 Hct 38.5 MCV 92.1 MCH 29.6 MCHC 32.2 RDW 16.1 H Plt Count 176 MPV 9.0 Sodium 137 Potassium 3.7 Chloride 102 Carbon Dioxide 26 Anion Gap 9 BUN 12 D Creatinine 0.7 Creat Clearance w eGFR > 60 Random Glucose 87 Calcium 7.8 L Total Bilirubin 0.6 AST 60 H ALT 37 D Alkaline Phosphatase 119 H Total Protein 7.6 Albumin 3.2 L Urine Color Urine Appearance Urine pH Ur Specific [place] Urine Protein Urine Glucose (UA) Urine Ketones Urine Blood Urine Nitrite Urine Bilirubin Urine Urobilinogen Ur Leukocyte Esterase RPR Titer HIV 1&2 Antibody Screen Negative HIV P24 Antigen Negative 07/15/17 07/15/17 12:00 19:40 WBC RBC Hgb Hct MCV MCH MCHC RDW Plt Count MPV Sodium Potassium Chloride Carbon Dioxide Anion Gap BUN Creatinine Creat Clearance w eGFR Random Glucose Calcium Total Bilirubin AST ALT Alkaline Phosphatase Total Protein Albumin Urine Color Yellow Urine Appearance Clear Urine pH 5.0 Ur Specific [place] 1.023 Urine Protein Negative Urine Glucose (UA) Negative Urine Ketones 1+ H Urine Blood Negative Urine Nitrite Negative Urine Bilirubin Negative Urine Urobilinogen Negative Ur Leukocyte Esterase Negative RPR Titer Nonreactive HIV 1&2 Antibody Screen HIV P24 Antigen LABS NOTED. Assessment: 07/17/17 13:16 WITHDRAWAL SYMPTOMS. Plan: CONTINUE DETOX. INCREASE DAILY PO FLUID INTAKE.
[2017-07-17] MEDS: chlordiazePOXIDE 5 MG CAPSULE PO SCH ×2 (16:39→22:04)
[2017-07-17] MEDS: THIAMINE HCL 100 MG TABLET (FP) PO SCH (22:04)
[2017-07-17] MEDS: ZOLPIDEM TARTRATE 10 MG TABLET (PARK CARE ONLY) PO PRN (22:04)
[2017-07-18] MEDS: PANTOPRAZOLE 40 MG TABLET (FP) PO SCH (05:32)
[2017-07-18] MEDS: chlordiazePOXIDE 5 MG CAPSULE PO SCH ×2 (05:32→10:40)
[2017-07-18] MEDS: PRENATAL VITAMINS W/ FOLIC ACID TABLET (FP) PO SCH (10:40)
[2017-07-18 13:09] VITALS: BP 130/74; PULSE 90; TEMP 97.6
--- NOTE | 2017-07-18 14:03 | DS ---
[facility] Detox Discharge Summary Admission Date: 07/15/17 Discharge Date: 07/18/17 - History Present History: Alcohol Dependence, Cocaine Dependence Additional Comments: PATIENT DOES NOT WISH TO STAY TO COMPLETE DETOX REGIMEN. RISKS OF LEAVING DETOX UNIT PRIOR TO COMPLETION OF DETOX REGIMEN EXPLAINED TO PATIENT. PATIENT ADVISED TO GO IMMEDIATELY TO NEAREST ER SHOULD ANY INTOLERABLE DETOX SYMPTOMS DEVELOP AT ANY TIME. PATIENT LEFT DETOX UNIT IN STABLE MEDICAL CONDITION. Pertinent Past History: History of Anemia, History of [place], Alcoholic Gastritis, Acid Reflux, URTI, Insomnia, HTN, Depression, Nicotine Dependence. - Physical Exam Results Vital Signs: Vital Signs Temperature 97.6 F 07/18/17 13:08 Pulse Rate 90 07/18/17 13:08 Respiratory Rate 20 07/18/17 13:08 Blood Pressure 130/74 07/18/17 13:08 O2 Sat by Pulse Oximetry (%) Pertinent Admission Physical Exam Findings: WITHDRAWAL SYMPTOMS. Laboratory Tests 07/15/17 07/15/17 07/15/17 10:50 12:00 12:00 WBC 5.2 RBC 4.18 Hgb 12.4 Hct 38.5 MCV 92.1 MCH 29.6 MCHC 32.2 RDW 16.1 H Plt Count 176 MPV 9.0 Sodium 137 Potassium 3.7 Chloride 102 Carbon Dioxide 26 Anion Gap 9 BUN 12 D Creatinine 0.7 Creat Clearance w eGFR > 60 Random Glucose 87 Calcium 7.8 L Total Bilirubin 0.6 AST 60 H ALT 37 D Alkaline Phosphatase 119 H Total Protein 7.6 Albumin 3.2 L Urine Color Urine Appearance Urine pH Ur Specific [place] Urine Protein Urine Glucose (UA) Urine Ketones Urine Blood Urine Nitrite Urine Bilirubin Urine Urobilinogen Ur Leukocyte Esterase RPR Titer HIV 1&2 Antibody Screen Negative HIV P24 Antigen Negative 07/15/17 07/15/17 12:00 19:40 WBC RBC Hgb Hct MCV MCH MCHC RDW Plt Count MPV Sodium Potassium Chloride Carbon Dioxide Anion Gap BUN Creatinine Creat Clearance w eGFR Random Glucose Calcium Total Bilirubin AST ALT Alkaline Phosphatase Total Protein Albumin Urine Color Yellow Urine Appearance Clear Urine pH 5.0 Ur Specific [place] 1.023 Urine Protein Negative Urine Glucose (UA) Negative Urine Ketones 1+ H Urine Blood Negative Urine Nitrite Negative Urine Bilirubin Negative Urine Urobilinogen Negative Ur Leukocyte Esterase Negative RPR Titer Nonreactive HIV 1&2 Antibody Screen HIV P24 Antigen LABS NOTED. - Treatment Hospital Course: Detoxed Safely - Medication Discharge Medications: Ambulatory Orders Esomeprazole Magnesium [Nexium 24Hr] 40 mg PO DAILY 04/30/16 Sertraline HCl [Zoloft -] 25 mg PO HS #30 tablet 05/02/17 - Diagnosis (1) Cocaine dependence Current Visit: Yes Status: Acute Qualifiers: Substance use status: uncomplicated Qualified Code(s): F14.20 - Cocaine dependence, uncomplicated (2) Alcohol dependence with uncomplicated withdrawal Current Visit: Yes Status: Acute (3) Insomnia Current Visit: Yes Status: Acute Qualifiers: Insomnia type: unspecified Qualified Code(s): G47.00 - Insomnia, unspecified (4) Substance induced mood disorder Current Visit: Yes Status: Acute (5) URTI (acute upper respiratory infection) Current Visit: Yes Status: Acute (6) Alcoholic gastritis Current Visit: No Status: Acute Qualifiers: Chronicity: unspecified Gastritis bleeding: presence of bleeding unspecified Qualified Code(s): K29.20 - Alcoholic gastritis without bleeding (7) Drug-induced mood disorder Current Visit: No Status: Acute (8) Major depressive disorder, recurrent severe without psychotic features Current Visit: No Status: Acute (9) Acid reflux Current Visit: No Status: Chronic Qualifiers: Esophagitis presence: esophagitis presence not specified Qualified Code(s) : K21.9 - Gastro-esophageal reflux disease without esophagitis (10) Hypertension Current Visit: No Status: Chronic Qualifiers: Hypertension type: unspecified Qualified Code(s): I10 - Essential (primary ) hypertension (11) Obesity Current Visit: No Status: Chronic Qualifiers: Obesity type: unspecified obesity type Obesity classification: adult class 1 (BMI 30 - 34.9) Serious obesity comorbidity presence: unspecified whether serious comorbidity present Body mass index: BMI 33.0-33.9 Qualified Code(s) : E66.9 - Obesity, unspecified; Z68.33 - Body mass index (BMI) 33.0-33.9, adult ; Z68.33 - Body mass index (BMI) 33.0-33.9, adult - AMA Did Patient Leave Against Medical Advice: Yes (PATIENT DOES NOT WISH TO STAY TO COMPLETE DETOX REGIMEN.)
[2017-07-18] MEDS ORDERED: chlordiazePOXIDE HCL 10 MG CAPSULE PO SCH (17:00)
== END 2017-07-18 13:30 | disposition left against medical advice (07) | DRG 770 ==
LOC: YASAS 08:38 → Y3N 13:12
PROVIDERS: ADMIT Internal Medicine; ATTEND Internal Medicine
PROC: HZ2ZZZZ Detoxification Services for Substance Abuse Treatment (ICD-10-PCS; principal; 2017-07-15)
DX: F10.230 Alcohol dependence with withdrawal, uncomplicated (principal); F14.20 Cocaine dependence, uncomplicated; F19.24 Other psychoactive substance dependence with psychoactive substance-induced mood disorder; F33.2 Major depressive disorder, recurrent severe without psychotic features; G47.00 Insomnia, unspecified; I10 Essential (primary) hypertension; K21.9 Gastro-esophageal reflux disease without esophagitis; K29.20 Alcoholic gastritis without bleeding; J06.9 Acute upper respiratory infection, unspecified; E66.9 Obesity, unspecified; Z68.33 Body mass index [BMI] 33.0-33.9, adult
CPT/HCPCS: 36415; 80053; 81003; 85027; 86593; 87389; 93005; 93010

== ENCOUNTER 2018-03-06 09:13 | Inpatient (IN) | payer OTHER ==
[2018-03-06 09:37] VITALS: BMI 31.3
--- NOTE | 2018-03-06 12:50 | HP ---
CIWA Score - CIWA Score Nausea/Vomitin (DIARRHEA) Muscle Tremors: 4-Moderate,w/Arms Extend Anxiety: 4-Mod. Anxious/Guarded Agitation: 2 Paroxysmal Sweats: No Perspiration Orientation: 0-Oriented Tacttile Disturbances: 0-None Auditory Disturbances: 0-None Visual Disturbances: 0-None Headache: 0-None Present CIWA-Ar Total Score: 13 Admission ROS BHS - HPI Chief Complaint: ALCOHOL WITHDRAWAL SX Allergies/Adverse Reactions: Allergies Allergy/AdvReac Type Severity Reaction Status Date / Time No Known Allergies Allergy Verified 03/06/18 09:44 History of Present Illness: 57 Y/O H/MALE WITH AN EXTENSIVE HX OF ALCOHOL AND COCAINE DEPENDENCE SEEKING DETOX TX. PT REPORTS HE WAS AT [facility] LAST NIGHT FOR C/O RIGHT KNEE PAIN AND SEVERE "HEARTBURN" DUE TO "DRINKING TOO MUCH". PT STATES HE WAS DISCHARGED THIS MORNING AND REFERRED TO DETOX. PT DID NOT BRING HIS DISCHARGE PAPERS STATING HE MIGHT HAVE FORGOTTEN THEM ON THE STRETCHER WHERE HE WAS SLEEPING IN THE HOSPITAL. PT REPORTS HE HAS A HX OF FALL 2 WEEKS AGO SUSTAINING PAIN AND SWELLING TO THE RIGHT KNEE. PT STATES " I ALWAYS FALL", WHEN INTOXICATED HE SAYS. PT HAS A HX DM- ON METFORMIN 500 MG PO BID; GERD- ON ZANTAC 150 MG PO BID;HTN- ON AMLODIPINE 5 MG DAILY. HAS NOT BEEN CURRENTLY TAKING MEDS REGULARLY. Exam Limitations: No Limitations - Ebola screening Have you traveled outside of the country in the last 21 days: No Have you had contact with anyone from an Ebola affected area: No Have you been sick,other than usual withdrawal symptoms: No Do you have a fever: No - Review of Systems Constitutional: Changes in sleep (ON ZOLOFT) EENT: reports: Blurred Vision, Nose Congestion, Dental Problems (MISSING UPPER TEETH) Respiratory: reports: No Symptoms reported Cardiac: reports: Lightheadedness GI: reports: Diarrhea, Nausea, Poor Fluid Intake, Vomiting : reports: No Symptoms Reported Musculoskeletal: reports: Back Pain, Joint Pain, Joint Swelling (RIGHT KNEE), Muscle Pain Integumentary: reports: Bruising Neuro: reports: Tremors, Unsteady Gait (FREQUENT FALLS DUE TO ALCOHOL INTOXICATION), Dizziness Endocrine: reports: Increased Thirst Hematology: reports: Anemia Psychiatric: reports: Orientated x3, Anxious, Depressed Other Systems: Reviewed and Negative Patient History - Patient Medical History Hx Anemia: Yes (NO CURRENT MED) Hx Asthma: No Hx Chronic Obstructive Pulmonary Disease (COPD): No Hx Cancer: No Hx Cardiac Disorders: No Hx Congestive Heart Failure: No Hx Hypertension: Yes (AMLODIPINE 5 MG PO DAILY) Hx Hypercholesterolemia: No Hx Pacemaker: No HX Cerebrovascular Accident: No Hx Seizures: No Hx Dementia: No Hx Diabetes: Yes (NIDDM-ON METFORMIN) Hx Gastrointestinal Disorders: Yes (peptic ulcer/acid reflux-ZANTAC) Hx Liver Disease: No Hx Genitourinary Disorders: No Hx Sexually Transmitted Disorders: No Hx Renal Disease (ESRD): No Hx Thyroid Disease: No Hx Human Immunodeficiency Virus (HIV): No (NEGATIVE HX) Hx Hepatitis C: No Hx Depression: Yes (ON ZOLOFT) Hx Suicide Attempt: No Hx Bipolar Disorder: No Hx Schizophrenia: No - Patient Surgical History Past Surgical History: Yes Hx Neurologic Surgery: No Hx Cataract Extraction: No Hx Cardiac Surgery: No Hx Lung Surgery: No Hx Breast Surgery: No Hx Breast Biopsy: No Hx Abdominal Surgery: No Hx Appendectomy: No Hx Cholecystectomy: No Hx Genitourinary Surgery: No Hx Orthopedic Surgery: Yes (fx, left thumb in 2006) Other Surgical History: nasal fx in 1987 Anesthesia Reaction: No - PPD History Previous Implant?: Yes Documented Results: Negative w/proof Implanted On Prior [facility] Admission?: Yes Date: 05/03/17 Results: 0 mm PPD to be Administered?: No - Reproductive History Patient is a Female of Child Bearing Age (11 -55 yrs old): No (MALE) - Smoking Cessation Smoking history: Never smoked Have you smoked in the past 12 months: No Aproximately how many cigarettes per day: 0 Hx Chewing Tobacco Use: No Initiated information on smoking cessation: No - Substance & Tx. History Hx Alcohol Use: Yes (VODKA) Hx Substance Use: Yes (COCAINE) Substance Use Type: Alcohol, Cocaine Hx Substance Use Treatment: Yes (LAST TX AT [facility]) - Substances Abused Cocaine Route: Inhalation Frequency: 1-2 times per week Amount used: $100 Age of first use: 17 Date of Last Use: 03/05/18 Alcohol-vodka/beer Route: Oral Frequency: Daily Amount used: 2 pts./3-6 pks. Age of first use: 14 Date of Last Use: 03/06/18 Family Disease History - Family Disease History Family Disease History: Other: Father (alcoholic/), Mother () Admission Physical Exam [facility] - Vital Signs Vital Signs: Vital Signs - 24 hr 03/06/18 09:33 Temperature 97.9 F Pulse Rate 85 Respiratory 19 Rate Blood Pressure 148/81 - Physical General Appearance: Yes: Moderate Distress, Obese, Irritable, Anxious HEENTM: Yes: EOMI, Normocephalic, LISSA, Pharynx Normal, Nasal Congestion, Rhinorrhea Respiratory: Yes: Chest Non-Tender, Lungs Clear, Normal Breath Sounds, No Respiratory Distress Neck: Yes: No masses,lesions,Nodules, Supple, Trachea in good position Breast: Yes: Breast Exam Deferred Cardiology: Yes: Regular Rhythm, Regular Rate, S1, S2 Abdominal: Yes: Normal Bowel Sounds, Non Tender, Soft, Protuberent Genitourinary: Yes: Other (N/C) Back: Yes: Within Normal Limits Musculoskeletal: Yes: full range of Motion, Gait Steady, Joint swelling (right knee but able to flex and extend actively with verbal slight pain.) Extremities: Yes: Normal Range of Motion, Non-Tender, Tremors, Swelling (lower extremities, non-pitting.) 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: Yes: errand runner II-XII NML intact, Fully Oriented, Alert, Motor Strength 5/5 Integumentary: Yes: Dry, Warm Lymphatic: Yes: Within Normal Limits - Diagnostic (1) Acid reflux Current Visit: Yes Status: Chronic Qualifiers: Esophagitis presence: esophagitis presence not specified Qualified Code(s) : K21.9 - Gastro-esophageal reflux disease without esophagitis (2) Alcohol dependence with uncomplicated withdrawal Current Visit: Yes Status: Acute (3) Anemia Current Visit: Yes Status: Chronic Qualifiers: Anemia type: unspecified type Qualified Code(s): D64.9 - Anemia, unspecified Comment: BY HISTORY--TO CHECK STATUS WITH BLOOD WORK RESULT (4) Cocaine dependence Current Visit: Yes Status: Acute Qualifiers: Substance use status: uncomplicated Qualified Code(s): F14.20 - Cocaine dependence, uncomplicated (5) Diabetes mellitus type II, controlled Current Visit: Yes Status: Chronic Qualifiers: Diabetes mellitus meterman insulin use: without care home use Diabetes mellitus complication status: with unspecified complications Qualified Code(s) : E11.8 - Type 2 diabetes mellitus with unspecified complications (6) Hypertension Current Visit: Yes Status: Chronic Qualifiers: Hypertension type: unspecified Qualified Code(s): I10 - Essential (primary ) hypertension (7) Obesity Current Visit: Yes Status: Chronic Qualifiers: Obesity type: unspecified obesity type Obesity classification: adult class 1 (BMI 30 - 34.9) Serious obesity comorbidity presence: unspecified whether serious comorbidity present Body mass index: BMI 33.0-33.9 Qualified Code(s) : E66.9 - Obesity, unspecified; Z68.33 - Body mass index (BMI) 33.0-33.9, adult ; Z68.33 - Body mass index (BMI) 33.0-33.9, adult Cleared for Admission S - Detox or Rehab [facility] Level of Care: Medically Managed Detox Regimen/Protocol: Librium [facility] Breath Alcohol Content Breath Alcohol Content: 0 Urine Drug Screen - Results Drug Screen Negative: No Urine Drug Screen Results: MATTIE-Cocaine, BZO-Benzodiazepines
[2018-03-06] MEDS ORDERED: guaiFENesin/D-METHORPHAN HB 10 ML UNIT-DOSE CUPS PO PRN (13:04)
[2018-03-06] MEDS ORDERED: MAG HYDROX/AL HYDROX/SIMETH 30 ML UNIT-DOSE CUP PO PRN (13:04)
[2018-03-06] MEDS ORDERED: P-EPHED 60MG/TRIPROLIDI 2.5MG TABLET PO PRN (13:04)
[2018-03-06] MEDS ORDERED: MAGNESIUM HYDROX 2400MG/30ML ORAL SUSPENSION 30 ML CUP PO PRN (13:04)
[2018-03-06] MEDS ORDERED: ACETAMINOPHEN 325 MG TABLET (FP) PO PRN (13:04)
[2018-03-06] MEDS ORDERED: MENTHOL/PHENOL 1 EACH UD MM PRN (13:04)
[2018-03-06] MEDS ORDERED: LOPERAMIDE HCL 2 MG CAPSULE PO PRN (13:04)
[2018-03-06] MEDS ORDERED: chlordiazePOXIDE HCL 25 MG CAPSULE PO PRN (13:04)
[2018-03-06] MEDS ORDERED: MAGNESIUM CITRATE 300 ML BOTTLE PO PRN (13:04)
--- NOTE | 2018-03-06 14:36 | CONSULT ---
[facility] Psychiatric Consult - Data Date of interview: 03/06/18 Admission source: [facility] Identifying data: Patient is a 57 year old single male, father of one, currently in the process of transitioning into an apartment and is supported by [facility] benefits. This is one of multiple admissions for patient. Pt. admitted to for alcohol and cocaine dependence. Substance Abuse History: Smoking Cessation. Smoking history: Never smoked. Have you smoked in the past 12 months: No. Aproximately how many cigarettes per day: 0. Hx Chewing Tobacco Use: No. Initiated information on smoking cessation: No. - Substance & Tx. History. Hx Alcohol Use: Yes (VODKA). Hx Substance Use: Yes (COCAINE). Substance Use Type: Alcohol, Cocaine. Hx Substance Use Treatment: Yes (LAST TX AT [facility]). - Substances Abused. Cocaine. Route: Inhalation. Frequency: 1-2 times per week. Amount used: $ 100. Age of first use: 17. Date of Last Use: 03/05/18. Alcohol-vodka/ beer. Route: Oral. Frequency: Daily. Amount used: 2 pts./3-6 pks. Age of first use: 14. Date of Last Use: 03/06/18 Medical History: Anemia, hypertension, diabetes, fx left thumb in 2006, nasal fx in 1987 Psychiatric History: Patient reports multiple psychiatric hospitalizations, most recently four year ago at [facility] for depression. Pt. is also known to [facility]. OPD is provided at [facility]. States he is prescribed risperdal and zoloft although reports sub- optimal adherence. Pt. denies h/o suicide attempt. Physical/Sexual Abuse/Trauma History: Denies. Mental Status Exam - Mental Status Exam Alert and Oriented to: Time, Place, Person Cognitive Function: Good Patient Appearance: Well Groomed Mood: Euthymic Affect: Mood Congruent Patient Behavior: Cooperative Speech Pattern: Appropriate Voice Loudness: Normal Thought Process: Intact, Goal Oriented Thought Disorder: Not Present Hallucinations: Denies Suicidal Ideation: Denies Homicidal Ideation: Denies Insight/Judgement: Poor Sleep: Fair Appetite: Fair Muscle strength/Tone: Normal Gait/Station: Normal Psychiatric Findings - Problem List ([place] 1, 2,3) (1) Cocaine dependence Current Visit: Yes Status: Acute Qualifiers: Substance use status: uncomplicated Qualified Code(s): F14.20 - Cocaine dependence, uncomplicated (2) Alcohol dependence with uncomplicated withdrawal Current Visit: Yes Status: Acute (3) Substance induced mood disorder Current Visit: Yes Status: Acute - Initial Treatment Plan Initial Treatment Plan: Psychoeducation provided. Detoxification in progress. Patient declines to accept psychotropic medications. Observation.
[2018-03-06] MEDS: amLODIPine BESYLATE 5 MG TABLET (FP) PO SCH (15:35)
[2018-03-06 17:07] LABS: URINE APPEARANCE TURBID; URINE BILIRUBIN NEGATIVE (<2.0 mg/dL); URINE COLOR AMBER; URINE GLUCOSE (UA) NEGATIVE (NEGATIVE); URINE KETONE NEGATIVE (NEGATIVE); URINE LEUK ESTERASE NEGATIVE (NEGATIVE); URINE NITRITE NEGATIVE (NEGATIVE); URINE PROTEIN NEGATIVE (NEGATIVE); URINE UROBILINOGEN NEGATIVE mg/dL (0.2-1.0)
[2018-03-06] MEDS: chlordiazePOXIDE HCL 25 MG CAPSULE PO SCH ×2 (17:25→22:50)
[2018-03-06] MEDS: RANITIDINE HCL 150 MG TABLET (FP) PO SCH (19:27)
[2018-03-06] MEDS: IBUPROFEN 400 MG TABLET (FP) PO PRN (19:30)
[2018-03-06] MEDS: THIAMINE HCL 100 MG TABLET (FP) PO SCH (22:50)
[2018-03-07] MEDS: chlordiazePOXIDE HCL 25 MG CAPSULE PO SCH ×4 (05:36→22:41)
[2018-03-07] MEDS: RANITIDINE HCL 150 MG TABLET (FP) PO SCH ×2 (06:51→18:48)
[2018-03-07 10:05] LABS: HEMATOCRIT 37.8 % (35.4-49); HEMOGLOBIN 12.5 GM/dL (11.7-16.9); MCH 30.8 pg (25.7-33.7); MCHC 33.2 g/dl (32.0-35.9); MEAN CELL VOLUME 92.9 fl (80-96); MEAN PLT VOLUME 9.9 fl (7.5-11.1); PLATELET COUNT 216 K/MM3 (134-434); RBC 4.07 M/mm3 (4.00-5.60); RDW 17.5 % (11.9-15.9); WHITE BLOOD COUNT 3.7 K/mm3 (4.0-10.0)
[2018-03-07 10:06] LABS: CHLORIDE 103 mmol/L (98-107); POTASSIUM 4.1 mmol/L (3.5-5.1); SODIUM 141 mmol/L (136-145)
[2018-03-07 10:12] LABS: ALBUMIN 3.4 g/dl (3.4-5.0); ALK PHOS 95 U/L (45-117); ANION GAP 10 (8-16); BILIRUBIN,TOTAL 0.4 mg/dL (0.2-1.0); BLOOD UREA NITROGEN 11 mg/dL (7-18); CALCIUM 8.5 mg/dL (8.5-10.1); CO2 28 mmol/L (21-32); CREATININE 0.8 mg/dL (0.7-1.3); GLUCOSE,RANDOM 97 mg/dL (74-106); SGOT/AST 47 U/L (15-37); SGPT/ALT 29 U/L (12-78); TOT PROT 7.5 g/dl (6.4-8.2)
[2018-03-07] MEDS: IBUPROFEN 400 MG TABLET (FP) PO PRN ×2 (10:24→18:04)
[2018-03-07] MEDS: PRENATAL VITAMINS W/ FOLIC ACID TABLET (FP) PO SCH (10:24)
[2018-03-07] MEDS: amLODIPine BESYLATE 5 MG TABLET (FP) PO SCH (10:24)
--- NOTE | 2018-03-07 11:36 | EKG ---
Test Reason : Blood Pressure : / mmHG Vent. Rate : 089 BPM Atrial Rate : 089 BPM P-R Int : 166 ms QRS Dur : 104 ms QT Int : 420 ms P-R-T Axes : 050 -42 054 degrees QTc Int : 511 ms NORMAL SINUS RHYTHM POSSIBLE LEFT ATRIAL ENLARGEMENT LEFT AXIS DEVIATION LEFT VENTRICULAR HYPERTROPHY ANTEROSEPTAL INFARCT (CITED ON OR BEFORE 01-MAY-2017) PROLONGED QT ABNORMAL ECG WHEN COMPARED WITH ECG OF 23-OCT-2017 14:00, NO SIGNIFICANT CHANGE WAS FOUND Confirmed by LILLIANA DE JESUS, HAO ([id number]) on 03/07/2018 11:36:03 AM Referred By: Confirmed By:HAO TIJERINA MD
--- NOTE | 2018-03-07 13:00 | PN ---
[facility] CIWA - CIWA Score Nausea/Vomitin-No Nausea/No Vomiting Muscle Tremors: 2 Anxiety: 4-Mod. Anxious/Guarded Agitation: 4-Moderately Restless Paroxysmal Sweats: No Perspiration Orientation: 0-Oriented Tacttile Disturbances: 3-Moderate Itch/Numb/Burn Auditory Disturbances: 3-Moderate Harsh/Frighten Visual Disturbances: 0-None Headache: 0-None Present CIWA-Ar Total Score: 16 S Progress Note (SOAP) Subjective: Body Aches, Fatigue, Anxious, Interrupted Sleep. Objective: PATIENT A & O X 3, OBSERVED AMBULATING ON UNIT. NO ACUTE DISTRESS. 03/07/18 12:57 Vital Signs Temperature 96.9 F L 03/07/18 09:22 Pulse Rate 73 03/07/18 09:22 Respiratory Rate 18 03/07/18 09:22 Blood Pressure 126/71 03/07/18 09:22 O2 Sat by Pulse Oximetry (%) Laboratory Tests 03/06/18 03/06/18 03/06/18 10:03 14:00 14:00 WBC RBC Hgb Hct MCV MCH MCHC RDW Plt Count MPV Sodium Potassium Chloride Carbon Dioxide Anion Gap BUN Creatinine Creat Clearance w eGFR POC Glucometer 96 Random Glucose Calcium Total Bilirubin AST ALT Alkaline Phosphatase Total Protein Albumin Urine Color [place] Urine Appearance Turbid Urine pH 5.0 Ur Specific [place] 1.030 Urine Protein Negative Urine Glucose (UA) Negative Urine Ketones Negative Urine Blood Negative Urine Nitrite Negative Urine Bilirubin Negative Urine Urobilinogen Negative Ur Leukocyte Esterase Negative RPR Titer HIV 1&2 Antibody Screen Negative HIV P24 Antigen Negative 03/06/18 03/07/18 03/07/18 16:21 05:35 06:00 WBC 3.7 L RBC 4.07 Hgb 12.5 Hct 37.8 MCV 92.9 MCH 30.8 MCHC 33.2 RDW 17.5 H Plt Count 216 MPV 9.9 Sodium Potassium Chloride Carbon Dioxide Anion Gap BUN Creatinine Creat Clearance w eGFR POC Glucometer 125 78 Random Glucose Calcium Total Bilirubin AST ALT Alkaline Phosphatase Total Protein Albumin Urine Color Urine Appearance Urine pH Ur Specific [place] Urine Protein Urine Glucose (UA) Urine Ketones Urine Blood Urine Nitrite Urine Bilirubin Urine Urobilinogen Ur Leukocyte Esterase RPR Titer HIV 1&2 Antibody Screen HIV P24 Antigen 03/07/18 03/07/18 03/07/18 06:00 06:00 11:18 WBC RBC Hgb Hct MCV MCH MCHC RDW Plt Count MPV Sodium 141 Potassium 4.1 Chloride 103 Carbon Dioxide 28 D Anion Gap 10 BUN 11 Creatinine 0.8 Creat Clearance w eGFR > 60 POC Glucometer 120 Random Glucose 97 D Calcium 8.5 Total Bilirubin 0.4 AST 47 H D ALT 29 Alkaline Phosphatase 95 Total Protein 7.5 Albumin 3.4 Urine Color Urine Appearance Urine pH Ur Specific [place] Urine Protein Urine Glucose (UA) Urine Ketones Urine Blood Urine Nitrite Urine Bilirubin Urine Urobilinogen Ur Leukocyte Esterase RPR Titer Nonreactive HIV 1&2 Antibody Screen HIV P24 Antigen LABS NOTED. Assessment: 03/07/18 12:57 WITHDRAWAL SYMPTOMS. Plan: CONTINUE DETOX. PATIENT REPORTS THAT HE HAS NOT TAKEN PRESCRIPTION METFORMIN FOR APPROX. 2 MONTHS PRIOR TO TIME OF ADMISSION TO DETOX. WILL CONTINUE TO MONITOR PATIENT'S BGM READINGS BEFORE DETERMINING WHETHER OR NOT TO RE-START METFORMIN.
[2018-03-07] MEDS: THIAMINE HCL 100 MG TABLET (FP) PO SCH (22:41)
[2018-03-07] MEDS: MELATONIN 5 MG TABLETS PO PRN (22:42)
[2018-03-08] MEDS: chlordiazePOXIDE HCL 25 MG CAPSULE PO SCH ×2 (05:28→10:24)
[2018-03-08] MEDS: RANITIDINE HCL 150 MG TABLET (FP) PO SCH ×2 (06:54→20:24)
[2018-03-08] MEDS: PRENATAL VITAMINS W/ FOLIC ACID TABLET (FP) PO SCH (10:24)
[2018-03-08] MEDS: amLODIPine BESYLATE 5 MG TABLET (FP) PO SCH (10:24)
[2018-03-08] MEDS: IBUPROFEN 400 MG TABLET (FP) PO PRN ×2 (10:26→17:45)
[2018-03-08] MEDS: chlordiazePOXIDE 5 MG CAPSULE PO SCH ×2 (17:42→22:20)
--- NOTE | 2018-03-08 18:05 | PN ---
[facility] CIWA - CIWA Score Nausea/Vomitin-No Nausea/No Vomiting Muscle Tremors: None Anxiety: 4-Mod. Anxious/Guarded Agitation: 4-Moderately Restless Paroxysmal Sweats: No Perspiration Orientation: 0-Oriented Tacttile Disturbances: 2-Mild Itch/Numbness/Burn Auditory Disturbances: 0-None Visual Disturbances: 2-Mild Sensitivity Headache: 0-None Present CIWA-Ar Total Score: 12 BHS Progress Note (SOAP) Subjective: Body Aches, Anxious, Interrupted Sleep. Objective: PATIENT A & O X 3, OBSERVED AMBULATING ON UNIT. NO ACUTE DISTRESS. 03/08/18 18:04 Vital Signs Temperature 98.4 F 03/08/18 14:38 Pulse Rate 71 03/08/18 14:38 Respiratory Rate 18 03/08/18 14:38 Blood Pressure 128/80 03/08/18 14:38 O2 Sat by Pulse Oximetry (%) Laboratory Tests 03/06/18 03/06/18 03/06/18 10:03 14:00 14:00 WBC RBC Hgb Hct MCV MCH MCHC RDW Plt Count MPV Sodium Potassium Chloride Carbon Dioxide Anion Gap BUN Creatinine Creat Clearance w eGFR POC Glucometer 96 Random Glucose Calcium Total Bilirubin AST ALT Alkaline Phosphatase Total Protein Albumin Urine Color Elvia Urine Appearance Turbid Urine pH 5.0 Ur Specific [place] 1.030 Urine Protein Negative Urine Glucose (UA) Negative Urine Ketones Negative Urine Blood Negative Urine Nitrite Negative Urine Bilirubin Negative Urine Urobilinogen Negative Ur Leukocyte Esterase Negative RPR Titer HIV 1&2 Antibody Screen Negative HIV P24 Antigen Negative 03/06/18 03/07/18 03/07/18 16:21 05:35 06:00 WBC 3.7 L RBC 4.07 Hgb 12.5 Hct 37.8 MCV 92.9 MCH 30.8 MCHC 33.2 RDW 17.5 H Plt Count 216 MPV 9.9 Sodium Potassium Chloride Carbon Dioxide Anion Gap BUN Creatinine Creat Clearance w eGFR POC Glucometer 125 78 Random Glucose Calcium Total Bilirubin AST ALT Alkaline Phosphatase Total Protein Albumin Urine Color Urine Appearance Urine pH Ur Specific [place] Urine Protein Urine Glucose (UA) Urine Ketones Urine Blood Urine Nitrite Urine Bilirubin Urine Urobilinogen Ur Leukocyte Esterase RPR Titer HIV 1&2 Antibody Screen HIV P24 Antigen 03/07/18 03/07/18 03/07/18 06:00 06:00 11:18 WBC RBC Hgb Hct MCV MCH MCHC RDW Plt Count MPV Sodium 141 Potassium 4.1 Chloride 103 Carbon Dioxide 28 D Anion Gap 10 BUN 11 Creatinine 0.8 Creat Clearance w eGFR > 60 POC Glucometer 120 Random Glucose 97 D Calcium 8.5 Total Bilirubin 0.4 AST 47 H D ALT 29 Alkaline Phosphatase 95 Total Protein 7.5 Albumin 3.4 Urine Color Urine Appearance Urine pH Ur Specific [place] Urine Protein Urine Glucose (UA) Urine Ketones Urine Blood Urine Nitrite Urine Bilirubin Urine Urobilinogen Ur Leukocyte Esterase RPR Titer Nonreactive HIV 1&2 Antibody Screen HIV P24 Antigen 03/07/18 03/07/18 03/08/18 16:20 21:53 05:30 WBC RBC Hgb Hct MCV MCH MCHC RDW Plt Count MPV Sodium Potassium Chloride Carbon Dioxide Anion Gap BUN Creatinine Creat Clearance w eGFR POC Glucometer 101 95 94 Random Glucose Calcium Total Bilirubin AST ALT Alkaline Phosphatase Total Protein Albumin Urine Color Urine Appearance Urine pH Ur Specific [place] Urine Protein Urine Glucose (UA) Urine Ketones Urine Blood Urine Nitrite Urine Bilirubin Urine Urobilinogen Ur Leukocyte Esterase RPR Titer HIV 1&2 Antibody Screen HIV P24 Antigen LABS NOTED. Assessment: 03/08/18 18:04 WITHDRAWAL SYMPTOMS. Plan: CONTINUE DETOX.
[2018-03-08] MEDS: THIAMINE HCL 100 MG TABLET (FP) PO SCH (22:20)
[2018-03-08] MEDS: MELATONIN 5 MG TABLETS PO PRN (22:21)
[2018-03-09] MEDS: chlordiazePOXIDE 5 MG CAPSULE PO SCH ×2 (05:28→10:15)
[2018-03-09] MEDS: RANITIDINE HCL 150 MG TABLET (FP) PO SCH ×2 (06:26→20:33)
[2018-03-09] MEDS: amLODIPine BESYLATE 5 MG TABLET (FP) PO SCH (10:14)
[2018-03-09] MEDS: PRENATAL VITAMINS W/ FOLIC ACID TABLET (FP) PO SCH (10:14)
[2018-03-09] MEDS: IBUPROFEN 400 MG TABLET (FP) PO PRN ×2 (10:16→16:50)
[2018-03-09] MEDS: chlordiazePOXIDE HCL 10 MG CAPSULE PO SCH ×2 (16:49→22:00)
--- NOTE | 2018-03-09 17:03 | PN ---
BHS Progress Note (SOAP) Subjective: pt wants to go home early tomorrow. says all is OK. Objective: 03/09/18 17:01 Vital Signs - 24 hr 03/08/18 03/08/18 03/09/18 18:24 22:36 06:33 Temperature 97.2 F L 97.0 F L 97.2 F L Pulse Rate 74 71 79 Respiratory 20 18 18 Rate Blood Pressure 109/65 135/84 131/85 03/09/18 03/09/18 09:11 13:25 Temperature 96.9 F L 98.2 F Pulse Rate 83 96 H Respiratory 18 20 Rate Blood Pressure 125/78 121/83 Laboratory Tests 03/06/18 03/06/18 03/06/18 10:03 14:00 14:00 WBC RBC Hgb Hct MCV MCH MCHC RDW Plt Count MPV Sodium Potassium Chloride Carbon Dioxide Anion Gap BUN Creatinine Creat Clearance w eGFR POC Glucometer 96 Random Glucose Calcium Total Bilirubin AST ALT Alkaline Phosphatase Total Protein Albumin Urine Color [place]via Urine Appearance Turbid Urine pH 5.0 Ur Specific [place] 1.030 Urine Protein Negative Urine Glucose (UA) Negative Urine Ketones Negative Urine Blood Negative Urine Nitrite Negative Urine Bilirubin Negative Urine Urobilinogen Negative Ur Leukocyte Esterase Negative RPR Titer HIV 1&2 Antibody Screen Negative HIV P24 Antigen Negative 03/06/18 03/07/18 03/07/18 16:21 05:35 06:00 WBC 3.7 L RBC 4.07 Hgb 12.5 Hct 37.8 MCV 92.9 MCH 30.8 MCHC 33.2 RDW 17.5 H Plt Count 216 MPV 9.9 Sodium Potassium Chloride Carbon Dioxide Anion Gap BUN Creatinine Creat Clearance w eGFR POC Glucometer 125 78 Random Glucose Calcium Total Bilirubin AST ALT Alkaline Phosphatase Total Protein Albumin Urine Color Urine Appearance Urine pH Ur Specific [place] Urine Protein Urine Glucose (UA) Urine Ketones Urine Blood Urine Nitrite Urine Bilirubin Urine Urobilinogen Ur Leukocyte Esterase RPR Titer HIV 1&2 Antibody Screen HIV P24 Antigen 03/07/18 03/07/18 03/07/18 06:00 06:00 11:18 WBC RBC Hgb Hct MCV MCH MCHC RDW Plt Count MPV Sodium 141 Potassium 4.1 Chloride 103 Carbon Dioxide 28 D Anion Gap 10 BUN 11 Creatinine 0.8 Creat Clearance w eGFR > 60 POC Glucometer 120 Random Glucose 97 D Calcium 8.5 Total Bilirubin 0.4 AST 47 H D ALT 29 Alkaline Phosphatase 95 Total Protein 7.5 Albumin 3.4 Urine Color Urine Appearance Urine pH Ur Specific [place] Urine Protein Urine Glucose (UA) Urine Ketones Urine Blood Urine Nitrite Urine Bilirubin Urine Urobilinogen Ur Leukocyte Esterase RPR Titer Nonreactive HIV 1&2 Antibody Screen HIV P24 Antigen 03/07/18 03/07/18 03/08/18 16:20 21:53 05:30 WBC RBC Hgb Hct MCV MCH MCHC RDW Plt Count MPV Sodium Potassium Chloride Carbon Dioxide Anion Gap BUN Creatinine Creat Clearance w eGFR POC Glucometer 101 95 94 Random Glucose Calcium Total Bilirubin AST ALT Alkaline Phosphatase Total Protein Albumin Urine Color Urine Appearance Urine pH Ur Specific [place] Urine Protein Urine Glucose (UA) Urine Ketones Urine Blood Urine Nitrite Urine Bilirubin Urine Urobilinogen Ur Leukocyte Esterase RPR Titer HIV 1&2 Antibody Screen HIV P24 Antigen 03/09/18 03/09/18 03/09/18 05:30 11:01 16:14 WBC RBC Hgb Hct MCV MCH MCHC RDW Plt Count MPV Sodium Potassium Chloride Carbon Dioxide Anion Gap BUN Creatinine Creat Clearance w eGFR POC Glucometer 98 109 82 Random Glucose Calcium Total Bilirubin AST ALT Alkaline Phosphatase Total Protein Albumin Urine Color Urine Appearance Urine pH Ur Specific [place] Urine Protein Urine Glucose (UA) Urine Ketones Urine Blood Urine Nitrite Urine Bilirubin Urine Urobilinogen Ur Leukocyte Esterase RPR Titer HIV 1&2 Antibody Screen HIV P24 Antigen labs KATYA AVITIA Assessment: 03/09/18 17:02 ALCOHOL WITHDRAWAL SX Plan: continue alcohol detox protocol d/c order done and home meds ordered/submitted
[2018-03-09] MEDS: THIAMINE HCL 100 MG TABLET (FP) PO SCH (21:58)
[2018-03-09] MEDS: MELATONIN 5 MG TABLETS PO PRN (22:00)
[2018-03-10] MEDS: chlordiazePOXIDE HCL 10 MG CAPSULE PO SCH (04:08)
[2018-03-10] MEDS: IBUPROFEN 400 MG TABLET (FP) PO PRN (05:24)
[2018-03-10 06:18] VITALS: BP 128/75; PULSE 68; TEMP 97
--- NOTE | 2018-03-10 10:19 | PN ---
BHS Progress Note Note: PT D/C'D EARLIER THIS MORNING DURING PREVIOUS SHIFT. Vital Signs 03/10/18 06:00 Temperature 97 F L Pulse Rate 68 Respiratory 18 Rate Blood Pressure 128/75
== END 2018-03-10 06:12 | disposition home or self-care (01) | DRG 774 ==
LOC: YASAS 09:13 → Y3N 13:12
PROVIDERS: ADMIT Surgery; ATTEND Surgery
PROC: HZ2ZZZZ Detoxification Services for Substance Abuse Treatment (ICD-10-PCS; principal; 2018-03-06)
DX: F10.230 Alcohol dependence with withdrawal, uncomplicated (principal); F14.20 Cocaine dependence, uncomplicated; F19.24 Other psychoactive substance dependence with psychoactive substance-induced mood disorder; E11.9 Type 2 diabetes mellitus without complications; Z79.84 Long term (current) use of oral hypoglycemic drugs; I10 Essential (primary) hypertension; K21.9 Gastro-esophageal reflux disease without esophagitis; D64.9 Anemia, unspecified; E66.9 Obesity, unspecified; Z68.31 Body mass index [BMI] 31.0-31.9, adult
CPT/HCPCS: 36415; 80053; 81003; 82962; 85027; 86593; 87389; 93005; 93010

== ENCOUNTER 2018-06-04 09:29 | Inpatient (IN) | payer OTHER ==
[2018-06-04 10:12] VITALS: BMI 31.6
--- NOTE | 2018-06-04 12:06 | HP ---
CIWA Score - CIWA Score Nausea/Vomitin Muscle Tremors: 2 Anxiety: 2 Agitation: 2 Paroxysmal Sweats: 1-Minimal Palms Moist Orientation: 0-Oriented Tacttile Disturbances: 1-Very Mild Itch/Numbness Auditory Disturbances: 1-Very Mild Visual Disturbances: 0-None Headache: 2-Mild CIWA-Ar Total Score: 13 Admission ROS BHS - HPI Chief Complaint: i need help to stop drinking alcohol and cocaine Allergies/Adverse Reactions: Allergies Allergy/AdvReac Type Severity Reaction Status Date / Time No Known Allergies Allergy Verified 06/04/18 10:22 History of Present Illness: this 57 years old male with alcohol,cocaine dependence,seeking detox,withdrawal symptom,last detox [facility] 03/06/18 to 03/10/18 syncope multiple admissions in detox but keep relapsing history of hypertension,type 2 dm,gerd bipolar and depression ambulation with cane arthritis of right knee longest time of sobriety 17 months - Ebola screening Have you traveled outside of the country in the last 21 days: No Have you had contact with anyone from an Ebola affected area: No Have you been sick,other than usual withdrawal symptoms: No Do you have a fever: No - Review of Systems Constitutional: Loss of Appetite, Malaise, Changes in sleep, Weakness EENT: reports: Nose Congestion Respiratory: reports: No Symptoms reported Cardiac: reports: No Symptoms Reported GI: reports: Nausea, Indigestion, Abdominal cramping : reports: No Symptoms Reported Musculoskeletal: reports: Muscle Pain Integumentary: reports: Dryness Neuro: reports: Tremors Endocrine: reports: No Symptoms Reported Hematology: reports: No Symptoms Reported Psychiatric: reports: No Sypmtoms Reported, Judgement Intact, Mood/Affect Appropiate, Orientated x3 (bipolar disorder), Depressed Patient History - Patient Medical History Hx Anemia: Yes (NO CURRENT MED) Hx Asthma: No Hx Chronic Obstructive Pulmonary Disease (COPD): No Hx Cancer: No Hx Cardiac Disorders: No Hx Congestive Heart Failure: No Hx Hypertension: Yes Hx Hypercholesterolemia: No Hx Pacemaker: No HX Cerebrovascular Accident: No Hx Seizures: No Hx Dementia: No Hx Diabetes: Yes (NIDDM non compliance) Hx Gastrointestinal Disorders: Yes (acid reflux) Hx Liver Disease: No Hx Genitourinary Disorders: No Hx Sexually Transmitted Disorders: No Hx Renal Disease (ESRD): No Hx Thyroid Disease: No Hx Human Immunodeficiency Virus (HIV): No (NEGATIVE HX last 02/26) Hx Hepatitis C: No Hx Depression: Yes Hx Suicide Attempt: No Hx Bipolar Disorder: Yes Hx Schizophrenia: No Other Medical History: no suicidal.no homicidal - Patient Surgical History Past Surgical History: Yes Hx Neurologic Surgery: No Hx Cataract Extraction: No Hx Cardiac Surgery: No Hx Lung Surgery: No Hx Breast Surgery: No Hx Breast Biopsy: No Hx Abdominal Surgery: No Hx Appendectomy: No Hx Cholecystectomy: No Hx Genitourinary Surgery: No Hx Section: No Hx Orthopedic Surgery: Yes (fx, left thumb in 2006) Other Surgical History: nasal fx in 1987 Anesthesia Reaction: No - PPD History Previous Implant?: Yes Documented Results: Negative w/o proof Implanted On Prior [facility] Admission?: Yes Date: 05/03/17 Results: 0 mm PPD to be Administered?: Yes - Smoking Cessation Smoking history: Never smoked Have you smoked in the past 12 months: No Aproximately how many cigarettes per day: 0 Hx Chewing Tobacco Use: No Initiated information on smoking cessation: No - Substance & Tx. History Hx Alcohol Use: Yes Hx Substance Use: Yes Substance Use Type: Alcohol, Cocaine Hx Substance Use Treatment: Yes ([facility] 03/06/18 to 03/10/18) - Substances Abused Cocaine Route: Inhalation Frequency: 1-2 times per week Amount used: $200 Age of first use: 17 Date of Last Use: 05/30/18 Alcohol-vodka/beer Route: Oral Frequency: Daily Amount used: 1-2 pts./2-6 pks. Age of first use: 14 Date of Last Use: 06/04/18 Family Disease History - Family Disease History Family Disease History: Other: Father (alcoholic/), Mother () Admission Physical Exam S - Vital Signs Vital Signs: Vital Signs - 24 hr 06/04/18 10:11 Temperature 97.9 F Pulse Rate 81 Respiratory 20 Rate Blood Pressure 152/85 - Physical General Appearance: Yes: Moderate Distress, Tremorous, Anxious HEENTM: Yes: Within Normal Limits, Hearing grossly Normal, Normal ENT Inspection , LISSA Respiratory: Yes: Within Normal Limits, Lungs Clear, Normal Breath Sounds Neck: Yes: Within Normal Limits Breast: Yes: Within Normal Limits Cardiology: Yes: Within Normal Limits, Regular Rhythm, Regular Rate Abdominal: Yes: Within Normal Limits, Normal Bowel Sounds, Non Tender, Soft Genitourinary: Yes: Within Normal Limits Back: Yes: Within Normal Limits, Normal Inspection Musculoskeletal: Yes: Back pain, Muscle Pain Extremities: Yes: Tremors 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: Yes: Within Normal Limits, automatic engraver II-XII NML intact, Fully Oriented, Alert, Motor Strength 5/5 Integumentary: Yes: Dry Lymphatic: Yes: Within Normal Limits - Diagnostic (1) Alcohol dependence with uncomplicated withdrawal Current Visit: Yes Status: Acute (2) Cocaine dependence Current Visit: No Status: Acute Qualifiers: Substance use status: uncomplicated Qualified Code(s): F14.20 - Cocaine dependence, uncomplicated (3) Cannabis dependence Current Visit: Yes Status: Acute (4) Nicotine dependence Current Visit: Yes Status: Acute (5) Acid reflux Current Visit: No Status: Chronic Qualifiers: Esophagitis presence: esophagitis presence not specified Qualified Code(s) : K21.9 - Gastro-esophageal reflux disease without esophagitis (6) Bipolar disorder Current Visit: Yes Status: Acute (7) Arthritis of right knee Current Visit: Yes Status: Acute (8) Ambulates with cane Current Visit: Yes Status: Acute (9) Syncope Current Visit: Yes Status: Acute (10) Acute bronchitis Current Visit: Yes Status: Acute Cleared for Admission [facility] - Detox or Rehab [facility] Level of Care: Medically Managed Detox Regimen/Protocol: Librium [facility] Breath Alcohol Content Breath Alcohol Content: 0.058 Urine Drug Screen - Results Drug Screen Negative: Yes
[2018-06-04] MEDS ORDERED: MAG HYDROX/AL HYDROX/SIMETH 30 ML UNIT-DOSE CUP PO PRN (12:16)
[2018-06-04] MEDS ORDERED: LOPERAMIDE HCL 2 MG CAPSULE PO PRN (12:16)
[2018-06-04] MEDS ORDERED: hydrOXYzine PAMOATE 25 MG CAPSULE (FP) PO PRN (12:16)
[2018-06-04] MEDS ORDERED: guaiFENesin/D-METHORPHAN HB 10 ML UNIT-DOSE CUPS PO PRN (12:16)
[2018-06-04] MEDS ORDERED: MAGNESIUM CITRATE 300 ML BOTTLE PO PRN (12:16)
[2018-06-04] MEDS ORDERED: MAGNESIUM HYDROX 2400MG/30ML ORAL SUSPENSION 30 ML CUP PO PRN (12:16)
[2018-06-04] MEDS ORDERED: IBUPROFEN 400 MG TABLET (FP) PO PRN (12:16)
[2018-06-04] MEDS ORDERED: ACETAMINOPHEN 325 MG TABLET (FP) PO PRN (12:16)
[2018-06-04] MEDS ORDERED: P-EPHED 60MG/TRIPROLIDI 2.5MG TABLET PO PRN (12:16)
[2018-06-04] MEDS ORDERED: MENTHOL/PHENOL 1 EACH UD MM PRN (12:16)
[2018-06-04] MEDS ORDERED: chlordiazePOXIDE HCL 25 MG CAPSULE PO PRN (12:16)
[2018-06-04] MEDS: amLODIPine BESYLATE 5 MG TABLET (FP) PO SCH (13:04)
[2018-06-04] MEDS: AMOXICILLIN 500 MG CAPSULE (FP) PO SCH ×2 (15:15→22:46)
--- NOTE | 2018-06-04 15:15 | EKG ---
Test Reason : Blood Pressure : / mmHG Vent. 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
--- NOTE | 2018-06-04 16:17 | CONSULT ---
[facility] Psychiatric Consult - Data Date of interview: 06/04/18 Admission source: [facility] Identifying data: Patient is a 57 year old single male, without children, unemployed, residing with sister and supported by [facility] benefits. This is one of multiple admissions for patient. Patient admitted to for alcohol dependence. Substance Abuse History: Smoking Cessation. Smoking history: Never smoked. Have you smoked in the past 12 months: No. Aproximately how many cigarettes per day: 0. Hx Chewing Tobacco Use: No. Initiated information on smoking cessation: No. - Substance & Tx. History. Hx Alcohol Use: Yes. Hx Substance Use: Yes. Substance Use Type: Alcohol, Cocaine. Hx Substance Use Treatment: Yes ([facility] 03/06/18 to 03/10/18). - Substances Abused. Cocaine. Route: Inhalation. Frequency: 1-2 times per week. Amount used: $200. Age of first use: 17. Date of Last Use: 05/30/18. Alcohol-vodka/beer. Route: Oral. Frequency: Daily. Amount used: 1-2 pts./2-6 pks. Age of first use: 14. Date of Last Use: 06/04/18 Medical History: Anemia, hypertension, diabetes, nasal fx in 1987, fx, left thumb in 2006 Psychiatric History: Patient's first psychiatric contact was approximately 15 years ago. He was admitted to [facility] and diagnosed with bipolar disorder. Patient is also known to [facility]. Outpatient psychiatric care is [facility]. Patient is currently prescribed risperdal 2mg qhs + Zoloft 50mg. He last took accepted his medications five days ago. He denies h/o suicide attempt. Physical/Sexual Abuse/Trauma History: denies. Mental Status Exam - Mental Status Exam Alert and Oriented to: Time, Place, Person Cognitive Function: Good Patient Appearance: Well Groomed Mood: Euthymic Affect: Mood Congruent Patient Behavior: Appropriate, Cooperative Speech Pattern: Appropriate (Ivorian speaking) Voice Loudness: Normal Thought Process: Intact, Goal Oriented Hallucinations: Denies Suicidal Ideation: Denies Homicidal Ideation: Denies Insight/Judgement: Poor Sleep: Fair Appetite: Fair Muscle strength/Tone: Normal Gait/Station: Normal Psychiatric Findings - Problem List ([place] 1, 2,3) (1) Alcohol dependence with uncomplicated withdrawal Current Visit: Yes Status: Acute (2) Mood disorder Current Visit: Yes Status: Chronic - Initial Treatment Plan Initial Treatment Plan: Psychoeducation provided. Detoxification in progress. Will order Zoloft 50mg + Risperdal 1mg BID. Benefits and side effects discussed. Verbal consent given.
[2018-06-04] MEDS: chlordiazePOXIDE HCL 25 MG CAPSULE PO SCH ×2 (17:34→22:47)
[2018-06-04] MEDS: metFORMIN HCL 500 MG TABLET (FP) PO SCH (17:35)
[2018-06-04 19:02] LABS: URINE APPEARANCE CLEAR; URINE BILIRUBIN NEGATIVE (<2.0 mg/dL); URINE COLOR STRAW; URINE GLUCOSE (UA) NEGATIVE (NEGATIVE); URINE KETONE NEGATIVE (NEGATIVE); URINE LEUK ESTERASE NEGATIVE (NEGATIVE); URINE NITRITE NEGATIVE (NEGATIVE); URINE PROTEIN NEGATIVE (NEGATIVE); URINE UROBILINOGEN NEGATIVE mg/dL (0.2-1.0)
[2018-06-04] MEDS: RANITIDINE HCL 150 MG TABLET (FP) PO SCH (20:00)
[2018-06-04] MEDS ORDERED: risperiDONE 2 MG TABLET PO SCH (22:00)
[2018-06-04] MEDS: SERTRALINE HCL 25 MG TABLET (FP) PO SCH (22:45)
[2018-06-04] MEDS: THIAMINE HCL 100 MG TABLET (FP) PO SCH (22:46)
[2018-06-04] MEDS: MELATONIN 5 MG TABLETS PO PRN (22:48)
[2018-06-05] MEDS: AMOXICILLIN 500 MG CAPSULE (FP) PO SCH ×3 (05:25→22:23)
[2018-06-05] MEDS: chlordiazePOXIDE HCL 25 MG CAPSULE PO SCH ×4 (05:25→22:23)
[2018-06-05] MEDS: metFORMIN HCL 500 MG TABLET (FP) PO SCH ×2 (07:07→17:29)
[2018-06-05] MEDS: RANITIDINE HCL 150 MG TABLET (FP) PO SCH ×2 (07:07→20:00)
[2018-06-05] MEDS: PRENATAL VITAMINS W/ FOLIC ACID TABLET (FP) PO SCH (10:12)
[2018-06-05] MEDS: risperiDONE 1 MG TABLET (FP) PO SCH ×2 (10:12→22:23)
[2018-06-05] MEDS: amLODIPine BESYLATE 5 MG TABLET (FP) PO SCH (10:12)
[2018-06-05 10:56] LABS: HEMOGLOBIN 12.8 GM/dL (11.7-16.9); MCH 28.9 pg (25.7-33.7); MCHC 32.1 g/dl (32.0-35.9); PLATELET COUNT 263 K/MM3 (134-434); RBC 4.45 M/mm3 (4.00-5.60); RDW 17.1 % (11.9-15.9); WHITE BLOOD COUNT 3.8 K/mm3 (4.0-10.0)
[2018-06-05 11:25] LABS: ALBUMIN 3.5 g/dl (3.4-5.0); ALK PHOS 99 U/L (45-117); ANION GAP 11 MMOL/L (8-16); BILIRUBIN,TOTAL 0.4 mg/dL (0.2-1); BLOOD UREA NITROGEN 12 mg/dL (7-18); CALCIUM 8.8 mg/dL (8.5-10.1); CHLORIDE 105 mmol/L (98-107); CO2 25 mmol/L (21-32); CREATININE 0.8 mg/dL (0.55-1.3); GLUCOSE,RANDOM 102 mg/dL (74-106); SGOT/AST 27 U/L (15-37); SGPT/ALT 23 U/L (13-61); SODIUM 142 mmol/L (136-145); TOT PROT 8.2 g/dl (6.4-8.2)
--- NOTE | 2018-06-05 12:44 | PN ---
S CIWA - CIWA Score Nausea/Vomitin Muscle Tremors: None Anxiety: 2 Agitation: 2 Paroxysmal Sweats: 2 Orientation: 0-Oriented Tacttile Disturbances: 0-None Auditory Disturbances: 0-None Visual Disturbances: 0-None Headache: 0-None Present CIWA-Ar Total Score: 8 BHS Progress Note (SOAP) Subjective: PATIENT C/O NAUSEA/DIARRHEA, ANXIETY/RESTLESSNESS AND SWEATING. Objective: 06/05/18 12:42 Vital Signs Temperature 97.1 F L 06/05/18 09:47 Pulse Rate 92 H 06/05/18 09:47 Respiratory Rate 20 06/05/18 09:47 Blood Pressure 137/78 06/05/18 09:47 O2 Sat by Pulse Oximetry (%) Laboratory Tests 06/04/18 06/04/18 06/04/18 10:36 11:50 15:50 WBC RBC Hgb Hct MCV MCH MCHC RDW Plt Count MPV Sodium Potassium Chloride Carbon Dioxide Anion Gap BUN Creatinine Creat Clearance w eGFR POC Glucometer 110 Random Glucose Calcium Total Bilirubin AST ALT Alkaline Phosphatase Total Protein Albumin Urine Color Straw Urine Appearance Clear Urine pH 6.0 Ur Specific [place] 1.005 L Urine Protein Negative Urine Glucose (UA) Negative Urine Ketones Negative Urine Blood Negative Urine Nitrite Negative Urine Bilirubin Negative Urine Urobilinogen Negative Ur Leukocyte Esterase Negative RPR Titer HIV 1&2 Antibody Screen Negative HIV P24 Antigen Negative 06/04/18 06/05/18 06/05/18 16:32 05:25 06:00 WBC 3.8 L RBC 4.45 Hgb 12.8 Hct 40.0 MCV 90.0 MCH 28.9 MCHC 32.1 RDW 17.1 H Plt Count 263 D MPV 10.0 Sodium Potassium Chloride Carbon Dioxide Anion Gap BUN Creatinine Creat Clearance w eGFR POC Glucometer 92 94 Random Glucose Calcium Total Bilirubin AST ALT Alkaline Phosphatase Total Protein Albumin Urine Color Urine Appearance Urine pH Ur Specific [place] Urine Protein Urine Glucose (UA) Urine Ketones Urine Blood Urine Nitrite Urine Bilirubin Urine Urobilinogen Ur Leukocyte Esterase RPR Titer HIV 1&2 Antibody Screen HIV P24 Antigen 06/05/18 06/05/18 06:00 06:00 WBC RBC Hgb Hct MCV MCH MCHC RDW Plt Count MPV Sodium 142 Potassium 4.0 Chloride 105 Carbon Dioxide 25 Anion Gap 11 BUN 12 Creatinine 0.8 Creat Clearance w eGFR > 60 POC Glucometer Random Glucose 102 Calcium 8.8 Total Bilirubin 0.4 AST 27 ALT 23 Alkaline Phosphatase 99 Total Protein 8.2 Albumin 3.5 Urine Color Urine Appearance Urine pH Ur Specific [place] Urine Protein Urine Glucose (UA) Urine Ketones Urine Blood Urine Nitrite Urine Bilirubin Urine Urobilinogen Ur Leukocyte Esterase RPR Titer Nonreactive HIV 1&2 Antibody Screen HIV P24 Antigen SKIN WARM AND MOIST CAR S1S2 RESP CTA BL EXT NO EDEMA, FULL ROM, NO TREMORS ALERT AND ORIENTED X 3 Assessment: 06/05/18 12:43 WITHDRAWAL SX Plan: CONTINUE DETOX ENCOURAGE ORAL FLUIDS CONTINUE TO MONITOR CLINICALLY
--- NOTE | 2018-06-05 16:59 | EKG ---
Test Reason : Blood Pressure : / mmHG Vent. Rate : 088 BPM Atrial Rate : 088 BPM P-R Int : 158 ms QRS Dur : 112 ms QT Int : 396 ms P-R-T Axes : 042 -40 065 degrees QTc Int : 479 ms SINUS RHYTHM WITH OCCASIONAL PREMATURE VENTRICULAR COMPLEXES POSSIBLE LEFT ATRIAL ENLARGEMENT LEFT AXIS DEVIATION LEFT VENTRICULAR HYPERTROPHY ANTEROSEPTAL INFARCT (CITED ON OR BEFORE 01-MAY-2017) ABNORMAL ECG WHEN COMPARED WITH ECG OF 04-JUN-2018 13:35, PREMATURE VENTRICULAR COMPLEXES ARE NOW PRESENT Confirmed by SAHIL RAPP MD ([id number]) on 06/05/2018 4:59:20 PM Referred By: Confirmed By:SAHIL RAPP MD
[2018-06-05] MEDS: THIAMINE HCL 100 MG TABLET (FP) PO SCH (22:23)
[2018-06-05] MEDS: SERTRALINE HCL 25 MG TABLET (FP) PO SCH (22:23)
[2018-06-05] MEDS: MELATONIN 5 MG TABLETS PO PRN (22:24)
[2018-06-06] MEDS: AMOXICILLIN 500 MG CAPSULE (FP) PO SCH ×3 (05:45→22:29)
[2018-06-06] MEDS: chlordiazePOXIDE HCL 25 MG CAPSULE PO SCH ×2 (05:46→10:26)
[2018-06-06] MEDS: RANITIDINE HCL 150 MG TABLET (FP) PO SCH ×2 (06:13→19:20)
[2018-06-06] MEDS: metFORMIN HCL 500 MG TABLET (FP) PO SCH ×2 (06:14→17:44)
[2018-06-06] MEDS: amLODIPine BESYLATE 5 MG TABLET (FP) PO SCH (10:26)
[2018-06-06] MEDS: risperiDONE 1 MG TABLET (FP) PO SCH ×2 (10:26→22:29)
[2018-06-06] MEDS: PRENATAL VITAMINS W/ FOLIC ACID TABLET (FP) PO SCH (10:26)
--- NOTE | 2018-06-06 11:34 | PN ---
S CIWA - CIWA Score Nausea/Vomitin-No Nausea/No Vomiting Muscle Tremors: None Anxiety: 3 Agitation: 1-Slight > Activity Paroxysmal Sweats: No Perspiration Orientation: 0-Oriented Tacttile Disturbances: 0-None Auditory Disturbances: 0-None Visual Disturbances: 0-None Headache: 2-Mild CIWA-Ar Total Score: 6 BHS Progress Note (SOAP) Subjective: PATIENT C/O ANXIETY, INTERMITTENT RESTLESSNESS AND HEADACHE. Objective: 06/06/18 11:32 Vital Signs Temperature 97.9 F 06/06/18 09:22 Pulse Rate 90 06/06/18 09:22 Respiratory Rate 109 H 06/06/18 09:22 Blood Pressure 144/88 06/06/18 09:22 O2 Sat by Pulse Oximetry (%) Laboratory Tests 06/04/18 06/04/18 06/04/18 10:36 11:50 15:50 WBC RBC Hgb Hct MCV MCH MCHC RDW Plt Count MPV Sodium Potassium Chloride Carbon Dioxide Anion Gap BUN Creatinine Creat Clearance w eGFR POC Glucometer 110 Random Glucose Calcium Total Bilirubin AST ALT Alkaline Phosphatase Total Protein Albumin Urine Color Straw Urine Appearance Clear Urine pH 6.0 Ur Specific [place] 1.005 L Urine Protein Negative Urine Glucose (UA) Negative Urine Ketones Negative Urine Blood Negative Urine Nitrite Negative Urine Bilirubin Negative Urine Urobilinogen Negative Ur Leukocyte Esterase Negative RPR Titer HIV 1&2 Antibody Screen Negative HIV P24 Antigen Negative 06/04/18 06/05/18 06/05/18 16:32 05:25 06:00 WBC 3.8 L RBC 4.45 Hgb 12.8 Hct 40.0 MCV 90.0 MCH 28.9 MCHC 32.1 RDW 17.1 H Plt Count 263 D MPV 10.0 Sodium Potassium Chloride Carbon Dioxide Anion Gap BUN Creatinine Creat Clearance w eGFR POC Glucometer 92 94 Random Glucose Calcium Total Bilirubin AST ALT Alkaline Phosphatase Total Protein Albumin Urine Color Urine Appearance Urine pH Ur Specific [place] Urine Protein Urine Glucose (UA) Urine Ketones Urine Blood Urine Nitrite Urine Bilirubin Urine Urobilinogen Ur Leukocyte Esterase RPR Titer HIV 1&2 Antibody Screen HIV P24 Antigen 06/05/18 06/05/18 06/05/18 06:00 06:00 16:21 WBC RBC Hgb Hct MCV MCH MCHC RDW Plt Count MPV Sodium 142 Potassium 4.0 Chloride 105 Carbon Dioxide 25 Anion Gap 11 BUN 12 Creatinine 0.8 Creat Clearance w eGFR > 60 POC Glucometer 93 Random Glucose 102 Calcium 8.8 Total Bilirubin 0.4 AST 27 ALT 23 Alkaline Phosphatase 99 Total Protein 8.2 Albumin 3.5 Urine Color Urine Appearance Urine pH Ur Specific [place] Urine Protein Urine Glucose (UA) Urine Ketones Urine Blood Urine Nitrite Urine Bilirubin Urine Urobilinogen Ur Leukocyte Esterase RPR Titer Nonreactive HIV 1&2 Antibody Screen HIV P24 Antigen 06/06/18 05:45 WBC RBC Hgb Hct MCV MCH MCHC RDW Plt Count MPV Sodium Potassium Chloride Carbon Dioxide Anion Gap BUN Creatinine Creat Clearance w eGFR POC Glucometer 112 Random Glucose Calcium Total Bilirubin AST ALT Alkaline Phosphatase Total Protein Albumin Urine Color Urine Appearance Urine pH Ur Specific [place] Urine Protein Urine Glucose (UA) Urine Ketones Urine Blood Urine Nitrite Urine Bilirubin Urine Urobilinogen Ur Leukocyte Esterase RPR Titer HIV 1&2 Antibody Screen HIV P24 Antigen SKIN WARM AND DRY CAR S1S2 RESP CTA BL EXT FULL ROM NO TREMORS ANXIOUS/PACING IN HALLWAY ALERT AND ORIENTED X 3 Assessment: 06/06/18 11:33 WITHDRAWAL SX Plan: CONTINUE DETOX ENCOURAGE ORAL FLUIDS CONTINUE TO MONITOR CLINICALLY
[2018-06-06] MEDS: chlordiazePOXIDE 5 MG CAPSULE PO SCH ×2 (17:45→22:29)
[2018-06-06] MEDS: SERTRALINE HCL 25 MG TABLET (FP) PO SCH (22:29)
[2018-06-06] MEDS: THIAMINE HCL 100 MG TABLET (FP) PO SCH (22:29)
[2018-06-06] MEDS: MELATONIN 5 MG TABLETS PO PRN (22:30)
[2018-06-07] MEDS: AMOXICILLIN 500 MG CAPSULE (FP) PO SCH ×3 (05:12→22:23)
[2018-06-07] MEDS: chlordiazePOXIDE 5 MG CAPSULE PO SCH ×2 (05:12→10:20)
[2018-06-07] MEDS: metFORMIN HCL 500 MG TABLET (FP) PO SCH ×2 (06:11→17:34)
[2018-06-07] MEDS: RANITIDINE HCL 150 MG TABLET (FP) PO SCH ×2 (06:12→19:23)
[2018-06-07] MEDS: PRENATAL VITAMINS W/ FOLIC ACID TABLET (FP) PO SCH (10:19)
[2018-06-07] MEDS: risperiDONE 1 MG TABLET (FP) PO SCH ×2 (10:20→22:23)
[2018-06-07] MEDS: amLODIPine BESYLATE 5 MG TABLET (FP) PO SCH (10:20)
--- NOTE | 2018-06-07 16:29 | PN ---
[facility] Progress Note Note: Vital Signs Temperature 97.3 F L 06/07/18 14:02 Pulse Rate 85 06/07/18 14:02 Respiratory Rate 18 06/07/18 14:02 Blood Pressure 132/82 06/07/18 14:02 O2 Sat by Pulse Oximetry (%) Laboratory Last Values WBC 3.8 K/mm3 (4.0-10.0) L 06/05/18 06:00 RBC 4.45 M/mm3 (4.00-5.60) 06/05/18 06:00 Hgb 12.8 GM/dL (11.7-16.9) 06/05/18 06:00 Hct 40.0 % (35.4-49) 06/05/18 06:00 MCV 90.0 fl (80-96) 06/05/18 06:00 MCH 28.9 pg (25.7-33.7) 06/05/18 06:00 MCHC 32.1 g/dl (32.0-35.9) 06/05/18 06:00 RDW 17.1 % (11.9-15.9) H 06/05/18 06:00 Plt Count 263 K/MM3 (134-434) D 06/05/18 06:00 MPV 10.0 fl (7.5-11.1) 06/05/18 06:00 Sodium 142 mmol/L (136-145) 06/05/18 06:00 Potassium 4.0 mmol/L (3.5-5.1) 06/05/18 06:00 Chloride 105 mmol/L (98-107) 06/05/18 06:00 Carbon Dioxide 25 mmol/L (21-32) 06/05/18 06:00 Anion Gap 11 MMOL/L (8-16) 06/05/18 06:00 BUN 12 mg/dL (7-18) 06/05/18 06:00 Creatinine 0.8 mg/dL (0.55-1.3) 06/05/18 06:00 Creat Clearance w eGFR > 60 (>60) 06/05/18 06:00 POC Glucometer 104 UNITS (80-120) 06/07/18 06:13 Random Glucose 102 mg/dL (74-106) 06/05/18 06:00 Calcium 8.8 mg/dL (8.5-10.1) 06/05/18 06:00 Total Bilirubin 0.4 mg/dL (0.2-1) 06/05/18 06:00 AST 27 U/L (15-37) 06/05/18 06:00 ALT 23 U/L (13-61) 06/05/18 06:00 Alkaline Phosphatase 99 U/L (45-117) 06/05/18 06:00 Total Protein 8.2 g/dl (6.4-8.2) 06/05/18 06:00 Albumin 3.5 g/dl (3.4-5.0) 06/05/18 06:00 Urine Color Straw 06/04/18 15:50 Urine Appearance Clear 06/04/18 15:50 Urine pH 6.0 (5.0-8.0) 06/04/18 15:50 Ur Specific [place] 1.005 (1.010-1.035) L 06/04/18 15:50 Urine Protein Negative (NEGATIVE) 06/04/18 15:50 Urine Glucose (UA) Negative (NEGATIVE) 06/04/18 15:50 Urine Ketones Negative (NEGATIVE) 06/04/18 15:50 Urine Blood Negative (NEGATIVE) 06/04/18 15:50 Urine Nitrite Negative (NEGATIVE) 06/04/18 15:50 Urine Bilirubin Negative (<2.0 mg/dL) 06/04/18 15:50 Urine Urobilinogen Negative mg/dL (0.2-1.0) 06/04/18 15:50 Ur Leukocyte Esterase Negative (NEGATIVE) 06/04/18 15:50 RPR Titer Nonreactive (NONREACTIVE) 06/05/18 06:00 HIV 1&2 Antibody Screen Negative 06/04/18 11:50 HIV P24 Antigen Negative 06/04/18 11:50 c/o of interrupted sleep, anxious Aox3 no adventitious breath sounds full ROM ambulating in the unit withdrawal symptoms increase po fluids continue detox d/c in the AM Lab results reviewed with patient, patient to follow up with PCP in 1 - 2 weeks
[2018-06-07] MEDS: chlordiazePOXIDE HCL 10 MG CAPSULE PO SCH ×2 (17:34→22:23)
[2018-06-07] MEDS: SERTRALINE HCL 25 MG TABLET (FP) PO SCH (22:23)
[2018-06-07] MEDS: THIAMINE HCL 100 MG TABLET (FP) PO SCH (22:23)
[2018-06-07] MEDS: MELATONIN 5 MG TABLETS PO PRN (22:24)
[2018-06-08] MEDS: AMOXICILLIN 500 MG CAPSULE (FP) PO SCH (05:23)
[2018-06-08] MEDS: chlordiazePOXIDE HCL 10 MG CAPSULE PO SCH (05:23)
[2018-06-08 06:14] VITALS: BP 136/84; PULSE 87; TEMP 96.8
[2018-06-08] MEDS: metFORMIN HCL 500 MG TABLET (FP) PO SCH (06:16)
[2018-06-08] MEDS: RANITIDINE HCL 150 MG TABLET (FP) PO SCH (06:17)
--- NOTE | 2018-06-08 11:01 | DS ---
[facility] Detox Discharge Summary Admission Date: 06/04/18 Discharge Date: 06/08/18 - History Present History: Alcohol Dependence, Cannabis Dependence, Cocaine Dependence Pertinent Past History: Alcohol dependence Cocaine dependence Cannabis dependence DMT2 with hyperglycemia Nicotine dependence GERD Bipolar disorder Arthritis right knee - Physical Exam Results Vital Signs: Vital Signs Temperature 96.8 F L 06/08/18 06:13 Pulse Rate 87 06/08/18 06:13 Respiratory Rate 18 06/08/18 06:13 Blood Pressure 136/84 06/08/18 06:13 O2 Sat by Pulse Oximetry (%) Pertinent Admission Physical Exam Findings: Withdrawal symptoms Laboratory Tests 06/04/18 06/04/18 06/04/18 10:36 11:50 15:50 WBC RBC Hgb Hct MCV MCH MCHC RDW Plt Count MPV Sodium Potassium Chloride Carbon Dioxide Anion Gap BUN Creatinine Creat Clearance w eGFR POC Glucometer 110 Random Glucose Calcium Total Bilirubin AST ALT Alkaline Phosphatase Total Protein Albumin Urine Color Straw Urine Appearance Clear Urine pH 6.0 Ur Specific [place] 1.005 L Urine Protein Negative Urine Glucose (UA) Negative Urine Ketones Negative Urine Blood Negative Urine Nitrite Negative Urine Bilirubin Negative Urine Urobilinogen Negative Ur Leukocyte Esterase Negative RPR Titer HIV 1&2 Antibody Screen Negative HIV P24 Antigen Negative 06/04/18 06/05/18 06/05/18 16:32 05:25 06:00 WBC 3.8 L RBC 4.45 Hgb 12.8 Hct 40.0 MCV 90.0 MCH 28.9 MCHC 32.1 RDW 17.1 H Plt Count 263 D MPV 10.0 Sodium Potassium Chloride Carbon Dioxide Anion Gap BUN Creatinine Creat Clearance w eGFR POC Glucometer 92 94 Random Glucose Calcium Total Bilirubin AST ALT Alkaline Phosphatase Total Protein Albumin Urine Color Urine Appearance Urine pH Ur Specific [place] Urine Protein Urine Glucose (UA) Urine Ketones Urine Blood Urine Nitrite Urine Bilirubin Urine Urobilinogen Ur Leukocyte Esterase RPR Titer HIV 1&2 Antibody Screen HIV P24 Antigen 06/05/18 06/05/18 06/05/18 06:00 06:00 16:21 WBC RBC Hgb Hct MCV MCH MCHC RDW Plt Count MPV Sodium 142 Potassium 4.0 Chloride 105 Carbon Dioxide 25 Anion Gap 11 BUN 12 Creatinine 0.8 Creat Clearance w eGFR > 60 POC Glucometer 93 Random Glucose 102 Calcium 8.8 Total Bilirubin 0.4 AST 27 ALT 23 Alkaline Phosphatase 99 Total Protein 8.2 Albumin 3.5 Urine Color Urine Appearance Urine pH Ur Specific [place] Urine Protein Urine Glucose (UA) Urine Ketones Urine Blood Urine Nitrite Urine Bilirubin Urine Urobilinogen Ur Leukocyte Esterase RPR Titer Nonreactive HIV 1&2 Antibody Screen HIV P24 Antigen 06/06/18 06/06/18 06/07/18 05:45 16:29 06:13 WBC RBC Hgb Hct MCV MCH MCHC RDW Plt Count MPV Sodium Potassium Chloride Carbon Dioxide Anion Gap BUN Creatinine Creat Clearance w eGFR POC Glucometer 112 101 104 Random Glucose Calcium Total Bilirubin AST ALT Alkaline Phosphatase Total Protein Albumin Urine Color Urine Appearance Urine pH Ur Specific [place] Urine Protein Urine Glucose (UA) Urine Ketones Urine Blood Urine Nitrite Urine Bilirubin Urine Urobilinogen Ur Leukocyte Esterase RPR Titer HIV 1&2 Antibody Screen HIV P24 Antigen 06/07/18 06/08/18 16:20 05:25 WBC RBC Hgb Hct MCV MCH MCHC RDW Plt Count MPV Sodium Potassium Chloride Carbon Dioxide Anion Gap BUN Creatinine Creat Clearance w eGFR POC Glucometer 110 106 Random Glucose Calcium Total Bilirubin AST ALT Alkaline Phosphatase Total Protein Albumin Urine Color Urine Appearance Urine pH Ur Specific [place] Urine Protein Urine Glucose (UA) Urine Ketones Urine Blood Urine Nitrite Urine Bilirubin Urine Urobilinogen Ur Leukocyte Esterase RPR Titer HIV 1&2 Antibody Screen HIV P24 Antigen Labs reviewed - Treatment Hospital Course: Detox Protocol Followed, Detoxed Safely, Responded well, Discharged Condition Good - Medication Discharge Medications: Ambulatory Orders Sertraline HCl [Zoloft -] 25 mg PO HS #30 tablet 05/02/17 Amlodipine Besylate 5 mg PO DAILY #30 tablet 03/09/18 Ranitidine [Zantac -] 150 mg PO BID@0700,1900 #60 tablet 03/09/18 metFORMIN HCL [Glucophage -] 500 mg PO BID #60 tablet 03/09/18 Risperidone [Risperdal] 1 mg PO BID 06/04/18 - Diagnosis (1) Alcohol dependence with uncomplicated withdrawal Status: Acute (2) Arthritis of right knee Status: Chronic (3) Bipolar disorder Status: Chronic (4) Cannabis dependence Status: Chronic (5) Cocaine dependence Status: Chronic Qualifiers: Substance use status: uncomplicated Qualified Code(s): F14.20 - Cocaine dependence, uncomplicated (6) Nicotine dependence Status: Chronic (7) Acid reflux Status: Chronic Qualifiers: Esophagitis presence: esophagitis presence not specified Qualified Code(s) : K21.9 - Gastro-esophageal reflux disease without esophagitis (8) Obesity Status: Chronic Qualifiers: Obesity type: unspecified obesity type Obesity classification: adult class 1 (BMI 30 - 34.9) Serious obesity comorbidity presence: unspecified whether serious comorbidity present Body mass index: BMI 33.0-33.9 Qualified Code(s) : E66.9 - Obesity, unspecified; Z68.33 - Body mass index (BMI) 33.0-33.9, adult ; Z68.33 - Body mass index (BMI) 33.0-33.9, adult (9) Diabetes mellitus type II, controlled Status: Chronic Qualifiers: Diabetes mellitus group home insulin use: without group home use Diabetes mellitus complication status: with unspecified complications Qualified Code(s) : E11.8 - Type 2 diabetes mellitus with unspecified complications - AMA Did Patient Leave Against Medical Advice: No (F/U with your PCP within 1-2 weeks )
== END 2018-06-08 08:36 | disposition home or self-care (01) | DRG 774 ==
LOC: YASAS 09:29 → Y3N 12:11
PROC: HZ2ZZZZ Detoxification Services for Substance Abuse Treatment (ICD-10-PCS; principal; 2018-06-04)
DX: F10.230 Alcohol dependence with withdrawal, uncomplicated (principal); F14.20 Cocaine dependence, uncomplicated; F12.20 Cannabis dependence, uncomplicated; F17.210 Nicotine dependence, cigarettes, uncomplicated; F31.9 Bipolar disorder, unspecified; F39 Unspecified mood [affective] disorder; I10 Essential (primary) hypertension; E11.9 Type 2 diabetes mellitus without complications; Z79.84 Long term (current) use of oral hypoglycemic drugs; K21.9 Gastro-esophageal reflux disease without esophagitis; D64.9 Anemia, unspecified; M13.861 Other specified arthritis, right knee; R55 Syncope and collapse; E66.9 Obesity, unspecified; Z68.31 Body mass index [BMI] 31.0-31.9, adult; R26.89 Other abnormalities of gait and mobility; Z99.89 Dependence on other enabling machines and devices; J20.9 Acute bronchitis, unspecified
CPT/HCPCS: 36415; 80053; 81003; 82962; 85027; 86593; 87389; 93005; 93010; J2794

== ENCOUNTER 2018-07-27 08:57 | Inpatient (IN) | payer OTHER ==
[2018-07-27 09:19] VITALS: BMI 31.3
--- NOTE | 2018-07-27 10:55 | HP ---
CIWA Score Nausea/Vomitin-Mild Nausea/No Vomiting Muscle Tremors: 3 Anxiety: 2 Agitation: 2 Paroxysmal Sweats: 3 Orientation: 0-Oriented Tacttile Disturbances: 0-None Auditory Disturbances: 0-None Visual Disturbances: 0-None Headache: 0-None Present CIWA-Ar Total Score: 11 - Admission Criteria OASAS Guidelines: Admission for Medically Managed Detox: Requires at least one of the followin. CIWA greater than 12 2. Seizures within the past 24 hours 3. Delirium tremens within the past 24 hours 4. Hallucinations within the past 24 hours 5. Acute intervention needed for co occurring medical disorder 6. Acute intervention needed for co occurring psychiatric disorder 7. Severe withdrawal that cannot be handled at a lower level of care (continued vomiting, continued diarrhea, abnormal vital signs) requiring intravenous medication and/or fluids 8. Patient presents the following: Seizures, delirium tremens or hallucinations in the past 12 hours Admission Criteria Met: Admission criteria met Admission ROS S - [facility] Chief Complaint: "I want to stop" Allergies/Adverse Reactions: Allergies Allergy/AdvReac Type Severity Reaction Status Date / Time No Known Allergies Allergy Verified 07/27/18 10:03 History of Present Illness: 57 y/o male presents for alcohol detox. Pt is known to this program , last visit last may 2018. WHIT 0.118,CIWA score - 11, Pt states he drinks "everyday, all day", last drink was this a.m prior to coming and starting to feel sick. Pt denies seizures, but endorses blackouts Hx: HTN, DM, Heartburn, Depression, Bipolar, Denies past nor current SI/HI - Ebola screening Have you traveled outside of the country in the last 21 days: No Have you had contact with anyone from an Ebola affected area: No Have you been sick,other than usual withdrawal symptoms: No Do you have a fever: No - Review of Systems Constitutional: Night Sweats, Changes in sleep EENT: reports: No Symptoms Reported Respiratory: reports: No Symptoms reported Cardiac: reports: No Symptoms Reported GI: reports: No Symptoms Reported : reports: No Symptoms Reported Musculoskeletal: reports: Back Pain, Joint Pain, Muscle Pain Integumentary: reports: No Symptoms Reported Neuro: reports: No Symptoms reported Endocrine: reports: No Symptoms Reported Hematology: reports: No Symptoms Reported Psychiatric: reports: No Sypmtoms Reported Other Systems: Reviewed and Negative Patient History - Patient Medical History Hx Anemia: Yes (NO CURRENT MED) Hx Asthma: No Hx Chronic Obstructive Pulmonary Disease (COPD): No Hx Cancer: No Hx Cardiac Disorders: No Hx Congestive Heart Failure: No Hx Hypertension: Yes Hx Hypercholesterolemia: No Hx Pacemaker: No HX Cerebrovascular Accident: No Hx Seizures: No Hx Dementia: No Hx Diabetes: Yes Hx Gastrointestinal Disorders: Yes (GERD) Hx Liver Disease: No Hx Genitourinary Disorders: No Hx Sexually Transmitted Disorders: No Hx Renal Disease (ESRD): No Hx Thyroid Disease: No Hx Human Immunodeficiency Virus (HIV): No (NEGATIVE HX last 02/26) Hx Hepatitis C: No Hx Depression: Yes Hx Suicide Attempt: No Hx Bipolar Disorder: Yes Hx Schizophrenia: No - Patient Surgical History Past Surgical History: Yes Hx Neurologic Surgery: No Hx Cataract Extraction: No Hx Cardiac Surgery: No Hx Lung Surgery: No Hx Breast Surgery: No Hx Breast Biopsy: No Hx Abdominal Surgery: No Hx Appendectomy: No Hx Cholecystectomy: No Hx Genitourinary Surgery: No Hx Section: No Hx Orthopedic Surgery: Yes (fx, left thumb in 2006) Other Surgical History: nasal fx in 1987 Anesthesia Reaction: No - PPD History Previous Implant?: Yes Documented Results: Negative w/proof Date: 06/06/18 Results: 0 mm PPD to be Administered?: No - Reproductive History Patient is a Female of Child Bearing Age (11 -55 yrs old): No - Smoking Cessation Smoking history: Never smoked Have you smoked in the past 12 months: No Aproximately how many cigarettes per day: 0 Hx Chewing Tobacco Use: No - Substance & Tx. History Hx Alcohol Use: Yes Hx Substance Use: Yes Substance Use Type: Alcohol, Cocaine Hx Substance Use Treatment: Yes - Substances Abused Alcohol Route: Oral Frequency: Daily Amount used: 2-3 PINTS OF VODKA Age of first use: 14 Date of Last Use: 07/27/18 Cocaine Route: Inhalation Frequency: Daily Amount used: 1 GRAM Age of first use: 17 Date of Last Use: 07/26/18 Family Disease History - Family Disease History Family Disease History: Other: Father (alcoholic/), Mother () Admission Physical Exam BHS - Vital Signs Vital Signs: Vital Signs - 24 hr 07/27/18 09:17 Temperature 96.4 F L Pulse Rate 79 Respiratory 20 Rate Blood Pressure 138/73 - Physical General Appearance: Yes: Disheveled, Mild Distress HEENTM: Yes: Within Normal Limits Respiratory: Yes: Lungs Clear, Normal Breath Sounds, No Respiratory Distress Neck: Yes: No masses,lesions,Nodules, Trachea in good position Breast: Yes: Breast Exam Deferred Cardiology: Yes: Regular Rate Abdominal: Yes: Non Tender, Soft, Distended Genitourinary: Yes: Within Normal Limits Back: Yes: Normal Inspection Musculoskeletal: Yes: full range of Motion, Gait Steady Extremities: Yes: Normal Capillary Refill, Normal Range of Motion 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: Yes: Fully Oriented, Alert, Motor Strength 5/5 Integumentary: Yes: Normal Color, Warm Lymphatic: Yes: Within Normal Limits - Diagnostic (1) Alcohol dependence with uncomplicated withdrawal Current Visit: Yes Status: Acute (2) Cocaine dependence Current Visit: No Status: Chronic Qualifiers: Substance use status: uncomplicated Qualified Code(s): F14.20 - Cocaine dependence, uncomplicated (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 Qualifiers: Chronicity: unspecified Gastritis bleeding: presence of bleeding unspecified Qualified Code(s): K29.20 - Alcoholic gastritis without bleeding (4) Drug-induced mood disorder Current Visit: Yes Status: Chronic (5) Major depressive disorder, recurrent severe without psychotic features Current Visit: No Status: Acute (6) Bipolar disorder Current Visit: Yes Status: Chronic (7) Diabetes mellitus type II, controlled Current Visit: No Status: Chronic Qualifiers: Diabetes 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 insulin use: without detention use Diabetes mellitus complication status: with unspecified complications Qualified Code(s) : E11.8 - Type 2 diabetes mellitus with unspecified complications (8) Hypertension Current Visit: Yes Status: Chronic Qualifiers: Hypertension type: unspecified Qualified Code(s): I10 - Essential (primary ) hypertension (9) Substance induced mood disorder Current Visit: Yes Status: Chronic Cleared for Admission S - Detox or Rehab [facility] Level of Care: Medically Managed Detox Regimen/Protocol: Librium [facility] Breath Alcohol Content Breath Alcohol Content: 0.118 Urine Drug Screen - Results Drug Screen Negative: No Urine Drug Screen Results: MATTIE-Cocaine, BZO-Benzodiazepines
[2018-07-27] MEDS ORDERED: MAGNESIUM HYDROX 2400MG/30ML ORAL SUSPENSION 30 ML CUP PO PRN (11:15)
[2018-07-27] MEDS ORDERED: chlordiazePOXIDE HCL 25 MG CAPSULE PO PRN (11:15)
[2018-07-27] MEDS ORDERED: MAG HYDROX/AL HYDROX/SIMETH 30 ML UNIT-DOSE CUP PO PRN (11:15)
[2018-07-27] MEDS ORDERED: P-EPHED 60MG/TRIPROLIDI 2.5MG TABLET PO PRN (11:15)
[2018-07-27] MEDS ORDERED: MAGNESIUM CITRATE 300 ML BOTTLE PO PRN (11:15)
[2018-07-27] MEDS ORDERED: ACETAMINOPHEN 325 MG TABLET (FP) PO PRN (11:15)
[2018-07-27] MEDS ORDERED: MENTHOL/PHENOL 1 EACH UD MM PRN (11:15)
[2018-07-27] MEDS ORDERED: PANTOPRAZOLE 20 MG TABLET (FP) PO SCH (11:30)
[2018-07-27] MEDS ORDERED: chlordiazePOXIDE HCL 25 MG CAPSULE PO ONE (12:00)
[2018-07-27] MEDS: amLODIPine BESYLATE 5 MG TABLET (FP) PO SCH (12:35)
[2018-07-27] MEDS: IBUPROFEN 400 MG TABLET (FP) PO PRN ×2 (12:37→22:53)
[2018-07-27] MEDS: chlordiazePOXIDE HCL 25 MG CAPSULE PO SCH ×2 (17:39→22:52)
[2018-07-27] MEDS: LOPERAMIDE HCL 2 MG CAPSULE PO PRN (20:58)
[2018-07-27] MEDS: THIAMINE HCL 100 MG TABLET (FP) PO SCH (22:52)
[2018-07-27] MEDS: MELATONIN 5 MG TABLETS PO PRN (22:53)
[2018-07-28] MEDS: chlordiazePOXIDE HCL 25 MG CAPSULE PO SCH ×4 (05:34→22:09)
[2018-07-28] MEDS: PANTOPRAZOLE 20 MG TABLET (FP) PO SCH ×2 (06:42)
[2018-07-28] MEDS: amLODIPine BESYLATE 5 MG TABLET (FP) PO SCH (10:10)
[2018-07-28] MEDS: PRENATAL VITAMINS W/ FOLIC ACID TABLET (FP) PO SCH (10:10)
[2018-07-28 10:12] LABS: HEMATOCRIT 39.9 % (35.4-49); HEMOGLOBIN 12.5 GM/dL (11.7-16.9); MCH 28.2 pg (25.7-33.7); MCHC 31.4 g/dl (32.0-35.9); MEAN CELL VOLUME 89.8 fl (80-96); MEAN PLT VOLUME 9.7 fl (7.5-11.1); PLATELET COUNT 182 K/MM3 (134-434); RBC 4.44 M/mm3 (4.00-5.60); RDW 17.6 % (11.9-15.9); WHITE BLOOD COUNT 3.6 K/mm3 (4.0-10.0)
[2018-07-28] MEDS: IBUPROFEN 400 MG TABLET (FP) PO PRN ×2 (10:12→22:11)
[2018-07-28] MEDS: guaiFENesin/D-METHORPHAN HB 10 ML UNIT-DOSE CUPS PO PRN ×2 (10:13→22:09)
[2018-07-28 10:25] LABS: ALBUMIN 3.1 g/dl (3.4-5.0); ALK PHOS 142 U/L (45-117); ANION GAP 8 MMOL/L (8-16); BILIRUBIN,TOTAL 0.8 mg/dL (0.2-1); BLOOD UREA NITROGEN 11 mg/dL (7-18); CALCIUM 8.1 mg/dL (8.5-10.1); CHLORIDE 102 mmol/L (98-107); CO2 25 mmol/L (21-32); CREATININE 0.7 mg/dL (0.55-1.3); GLUCOSE,RANDOM 82 mg/dL (74-106); POTASSIUM 3.6 mmol/L (3.5-5.1); SGOT/AST 64 U/L (15-37); SGPT/ALT 32 U/L (13-61); SODIUM 136 mmol/L (136-145); TOT PROT 7.2 g/dl (6.4-8.2)
--- NOTE | 2018-07-28 12:40 | PN ---
S CIWA - CIWA Score Nausea/Vomitin-Mild Nausea/No Vomiting Muscle Tremors: 3 Anxiety: 3 Agitation: 2 Paroxysmal Sweats: 1-Minimal Palms Moist Orientation: 1-Uncertain about Date Tacttile Disturbances: 1-Very Mild Itch/Numbness Auditory Disturbances: 0-None Visual Disturbances: 0-None Headache: 1-Very Mild CIWA-Ar Total Score: 13 BHS Progress Note (SOAP) Subjective: tremor sweat anxious dry skin trouble sleep through the night Objective: 07/28/18 12:44 Vital Signs Temperature 96.8 F L 07/28/18 09:55 Pulse Rate 90 07/28/18 09:55 Respiratory Rate 18 07/28/18 09:55 Blood Pressure 134/81 07/28/18 09:55 O2 Sat by Pulse Oximetry (%) Laboratory Last Values WBC 3.6 K/mm3 (4.0-10.0) L 07/28/18 07:00 RBC 4.44 M/mm3 (4.00-5.60) 07/28/18 07:00 Hgb 12.5 GM/dL (11.7-16.9) 07/28/18 07:00 Hct 39.9 % (35.4-49) 07/28/18 07:00 MCV 89.8 fl (80-96) 07/28/18 07:00 MCH 28.2 pg (25.7-33.7) 07/28/18 07:00 MCHC 31.4 g/dl (32.0-35.9) L 07/28/18 07:00 RDW 17.6 % (11.9-15.9) H 07/28/18 07:00 Plt Count 182 K/MM3 (134-434) D 07/28/18 07:00 MPV 9.7 fl (7.5-11.1) 07/28/18 07:00 Sodium 136 mmol/L (136-145) 07/28/18 07:00 Potassium 3.6 mmol/L (3.5-5.1) 07/28/18 07:00 Chloride 102 mmol/L (98-107) 07/28/18 07:00 Carbon Dioxide 25 mmol/L (21-32) 07/28/18 07:00 Anion Gap 8 MMOL/L (8-16) 07/28/18 07:00 BUN 11 mg/dL (7-18) 07/28/18 07:00 Creatinine 0.7 mg/dL (0.55-1.3) 07/28/18 07:00 Creat Clearance w eGFR > 60 (>60) 07/28/18 07:00 POC Glucometer 77 UNITS (80-120) 07/28/18 05:32 Random Glucose 82 mg/dL (74-106) 07/28/18 07:00 Calcium 8.1 mg/dL (8.5-10.1) L 07/28/18 07:00 Total Bilirubin 0.8 mg/dL (0.2-1) 07/28/18 07:00 AST 64 U/L (15-37) H 07/28/18 07:00 ALT 32 U/L (13-61) 07/28/18 07:00 Alkaline Phosphatase 142 U/L (45-117) H 07/28/18 07:00 Total Protein 7.2 g/dl (6.4-8.2) 07/28/18 07:00 Albumin 3.1 g/dl (3.4-5.0) L 07/28/18 07:00 lab noted Assessment: 07/28/18 12:45 withdrawal sx Plan: continue detox
--- NOTE | 2018-07-28 14:24 | CONSULT ---
[facility] Psychiatric Consult - Data Date of interview: 07/28/18 Admission source: [facility] Identifying data: Readmission to [facility] for this 57 y/o male seeking detox treatment, on , for alcohol and cocaine dependence. Patient is single without children, homeless, unemployed and supported on SSI benefits. Substance Abuse History: Confirmed by the patient in this session. Details in current session : Smoking history: Never smoked. Have you smoked in the past 12 months: No. Aproximately how many cigarettes per day: 0. Hx Chewing Tobacco Use: No. - Substance & Tx. History. Hx Alcohol Use: Yes. Hx Substance Use: Yes. Substance Use Type: Alcohol, Cocaine. Hx Substance Use Treatment: Yes. - Substances Abused. Alcohol. Route: Oral. Frequency: Daily. Amount used: 2-3 PINTS OF VODKA. Age of first use: 14. Date of Last Use: 07/27/18. Cocaine. Route: Inhalation. Frequency: Daily. Amount used : 1 GRAM. Age of first use: 17. Date of Last Use: 07/26/18 Medical History: History of myocardial infarction in 2016, peptic ulcer disease , GERD anemia, hypertension, arthritis (right knee) and past surgery for fracture of nasal bones (1987). Psychiatric History: Patient endorses a history of multiple psychiatric hospitalizations ([facility] and [facility]). Diagnosed with MDD.Mr Fournier states that he is prescribed risperdal and sertraline. Keeps no contact with psychiatric care providers. Uses CPEP settings to get refills of medications. Patient denies history of suicide attempts. Physical/Sexual Abuse/Trauma History: Patient denies. Additional Comment: Urine Drug Screen Results: MATTIE-Cocaine, BZO- Benzodiazepines. Noted. Mental Status Exam - Mental Status Exam Alert and Oriented to: Time, Place, Person Patient Appearance: Well Groomed Mood: Withdrawn Affect: Mood Congruent, Constricted Patient Behavior: Fatigued, Cooperative Speech Pattern: Clear Voice Loudness: Normal Thought Process: Goal Oriented Thought Disorder: Not Present Hallucinations: Denies Suicidal Ideation: Denies Homicidal Ideation: Denies Insight/Judgement: Poor Sleep: Well Appetite: Good Muscle strength/Tone: Normal Gait/Station: Normal Psychiatric Findings - Problem List ([place] 1, 2,3) (1) Alcohol dependence with uncomplicated withdrawal Current Visit: Yes Status: Acute (2) Cocaine dependence Current Visit: Yes Status: Chronic Qualifiers: Substance use status: uncomplicated Qualified Code(s): F14.20 - Cocaine dependence, uncomplicated (3) Substance induced mood disorder Current Visit: Yes Status: Chronic (4) Schizoaffective disorder Current Visit: Yes Status: Chronic (5) Non-compliant patient Current Visit: Yes Status: Chronic - Initial Treatment Plan Initial Treatment Plan: Psychoeducation. Sleep hygiene. Detoxification. Medications : zoloft 50 mg po daily + risperdal 1 mg po bid. Side effects/ benefits of both drugs are discussed with the patient. Made aware of the risk of sexual dysfunction, abnormal involuntary movements, dyskinesias, cardiovacular adverse events, galactorrhea and gynecomastia. Mr Fournier insists on staying on these medications (confirmed by refills of 07/02/18 at [facility]). 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 Observation.
[2018-07-28] MEDS: CLOTRIMAZOLE 1% CREAM 15 GM TUBE TP SCH ×2 (15:06→22:27)
[2018-07-28] MEDS: MINERAL OIL/PETROLAT/WATER TOPICAL CREAM 113 GM JAR TP SCH (15:06)
[2018-07-28] MEDS: THIAMINE HCL 100 MG TABLET (FP) PO SCH (22:09)
[2018-07-28] MEDS: risperiDONE 1 MG TABLET (FP) PO SCH (22:09)
[2018-07-28] MEDS: MELATONIN 5 MG TABLETS PO PRN (22:10)
[2018-07-29] MEDS: chlordiazePOXIDE HCL 25 MG CAPSULE PO SCH ×2 (05:42→10:31)
[2018-07-29] MEDS: PANTOPRAZOLE 20 MG TABLET (FP) PO SCH (05:42)
[2018-07-29] MEDS: PRENATAL VITAMINS W/ FOLIC ACID TABLET (FP) PO SCH (10:31)
[2018-07-29] MEDS: amLODIPine BESYLATE 5 MG TABLET (FP) PO SCH (10:31)
[2018-07-29] MEDS: CLOTRIMAZOLE 1% CREAM 15 GM TUBE TP SCH ×2 (10:31→22:17)
[2018-07-29] MEDS: MINERAL OIL/PETROLAT/WATER TOPICAL CREAM 113 GM JAR TP SCH (10:32)
[2018-07-29] MEDS: risperiDONE 1 MG TABLET (FP) PO SCH ×2 (10:33→22:15)
[2018-07-29] MEDS: SERTRALINE HCL 50 MG TABLET (FP) PO SCH (10:33)
[2018-07-29] MEDS: IBUPROFEN 400 MG TABLET (FP) PO PRN ×2 (10:35→22:15)
[2018-07-29] MEDS: guaiFENesin/D-METHORPHAN HB 10 ML UNIT-DOSE CUPS PO PRN ×2 (10:35→22:16)
[2018-07-29] MEDS: LOPERAMIDE HCL 2 MG CAPSULE PO PRN (13:45)
[2018-07-29] MEDS: SODIUM CHLORIDE NASAL SPRAY 44 ML BOTTLE NS SCH ×2 (13:45→22:16)
--- NOTE | 2018-07-29 14:50 | PN ---
S CIWA - CIWA Score Nausea/Vomitin-Mild Nausea/No Vomiting Muscle Tremors: 3 Anxiety: 3 Agitation: 2 Paroxysmal Sweats: 1-Minimal Palms Moist Orientation: 0-Oriented Tacttile Disturbances: 0-None Auditory Disturbances: 0-None Visual Disturbances: 0-None Headache: 2-Mild CIWA-Ar Total Score: 12 BHS Progress Note (SOAP) Subjective: tremor stuffy nose sweat restlessness anxiety trouble concentration Objective: 07/29/18 14:49 Vital Signs Temperature 96.5 F L 07/29/18 09:16 Pulse Rate 109 H 07/29/18 09:16 Respiratory Rate 17 07/29/18 09:16 Blood Pressure 128/78 07/29/18 09:16 O2 Sat by Pulse Oximetry (%) Laboratory Last Values WBC 3.6 K/mm3 (4.0-10.0) L 07/28/18 07:00 RBC 4.44 M/mm3 (4.00-5.60) 07/28/18 07:00 Hgb 12.5 GM/dL (11.7-16.9) 07/28/18 07:00 Hct 39.9 % (35.4-49) 07/28/18 07:00 MCV 89.8 fl (80-96) 07/28/18 07:00 MCH 28.2 pg (25.7-33.7) 07/28/18 07:00 MCHC 31.4 g/dl (32.0-35.9) L 07/28/18 07:00 RDW 17.6 % (11.9-15.9) H 07/28/18 07:00 Plt Count 182 K/MM3 (134-434) D 07/28/18 07:00 MPV 9.7 fl (7.5-11.1) 07/28/18 07:00 Sodium 136 mmol/L (136-145) 07/28/18 07:00 Potassium 3.6 mmol/L (3.5-5.1) 07/28/18 07:00 Chloride 102 mmol/L (98-107) 07/28/18 07:00 Carbon Dioxide 25 mmol/L (21-32) 07/28/18 07:00 Anion Gap 8 MMOL/L (8-16) 07/28/18 07:00 BUN 11 mg/dL (7-18) 07/28/18 07:00 Creatinine 0.7 mg/dL (0.55-1.3) 07/28/18 07:00 Creat Clearance w eGFR > 60 (>60) 07/28/18 07:00 POC Glucometer 116 UNITS (80-120) 07/28/18 16:34 Random Glucose 82 mg/dL (74-106) 07/28/18 07:00 Calcium 8.1 mg/dL (8.5-10.1) L 07/28/18 07:00 Total Bilirubin 0.8 mg/dL (0.2-1) 07/28/18 07:00 AST 64 U/L (15-37) H 07/28/18 07:00 ALT 32 U/L (13-61) 07/28/18 07:00 Alkaline Phosphatase 142 U/L (45-117) H 07/28/18 07:00 Total Protein 7.2 g/dl (6.4-8.2) 07/28/18 07:00 Albumin 3.1 g/dl (3.4-5.0) L 07/28/18 07:00 RPR Titer Nonreactive (NONREACTIVE) 07/28/18 07:00 lab noted Assessment: 07/29/18 14:50 withdrawal sx Plan: continue detox
[2018-07-29] MEDS: chlordiazePOXIDE 5 MG CAPSULE PO SCH ×2 (17:08→22:15)
[2018-07-29] MEDS: THIAMINE HCL 100 MG TABLET (FP) PO SCH (22:18)
[2018-07-30] MEDS: chlordiazePOXIDE 5 MG CAPSULE PO SCH ×2 (05:36→10:15)
[2018-07-30] MEDS: SODIUM CHLORIDE NASAL SPRAY 44 ML BOTTLE NS SCH ×3 (06:10→22:05)
[2018-07-30] MEDS: PANTOPRAZOLE 20 MG TABLET (FP) PO SCH (06:10)
[2018-07-30] MEDS: CLOTRIMAZOLE 1% CREAM 15 GM TUBE TP SCH ×2 (09:29→22:05)
[2018-07-30] MEDS: MINERAL OIL/PETROLAT/WATER TOPICAL CREAM 113 GM JAR TP SCH (09:29)
[2018-07-30] MEDS: PRENATAL VITAMINS W/ FOLIC ACID TABLET (FP) PO SCH (09:30)
[2018-07-30] MEDS: risperiDONE 1 MG TABLET (FP) PO SCH ×2 (09:30→22:04)
[2018-07-30] MEDS: amLODIPine BESYLATE 5 MG TABLET (FP) PO SCH (09:30)
[2018-07-30] MEDS: SERTRALINE HCL 50 MG TABLET (FP) PO SCH (09:30)
[2018-07-30] MEDS: guaiFENesin/D-METHORPHAN HB 10 ML UNIT-DOSE CUPS PO PRN ×2 (09:32→22:29)
[2018-07-30] MEDS: IBUPROFEN 400 MG TABLET (FP) PO PRN ×2 (09:33→22:07)
[2018-07-30] MEDS ORDERED: LIDOCAINE 5% TOPICAL PATCH TP SCH (10:00)
--- NOTE | 2018-07-30 11:11 | PN ---
[facility] Progress Note Note: PATIENT CONTINUES WITH DETOX REGIMEN. C/O LBP BUT OTHERWISE, REPORTS FEELING BETTER. Vital Signs Temperature 97.5 F L 07/30/18 06:12 Pulse Rate 93 H 07/30/18 09:03 Respiratory Rate 18 07/30/18 09:03 Blood Pressure 122/81 07/30/18 09:03 O2 Sat by Pulse Oximetry (%) Laboratory Tests 07/27/18 07/28/18 07/28/18 10:26 05:32 07:00 WBC 3.6 L RBC 4.44 Hgb 12.5 Hct 39.9 MCV 89.8 MCH 28.2 MCHC 31.4 L RDW 17.6 H Plt Count 182 D MPV 9.7 Sodium Potassium Chloride Carbon Dioxide Anion Gap BUN Creatinine Creat Clearance w eGFR POC Glucometer 173 77 Random Glucose Calcium Total Bilirubin AST ALT Alkaline Phosphatase Total Protein Albumin RPR Titer 07/28/18 07/28/18 07/28/18 07:00 07:00 16:34 WBC RBC Hgb Hct MCV MCH MCHC RDW Plt Count MPV Sodium 136 Potassium 3.6 Chloride 102 Carbon Dioxide 25 Anion Gap 8 BUN 11 Creatinine 0.7 Creat Clearance w eGFR > 60 POC Glucometer 116 Random Glucose 82 Calcium 8.1 L Total Bilirubin 0.8 AST 64 H ALT 32 Alkaline Phosphatase 142 H Total Protein 7.2 Albumin 3.1 L RPR Titer Nonreactive PE: ALERT AND ORIENTED X 3 SKIN WARM AND DRY CAR S1S2 RESP CTA BL EXT FULL ROM, AMB AD YARITZA A/P WITHDRAWAL SX CONTINUE DETOX FOR D/C IN AM ALL HOME MEDS REFILLED 07/02/18, PATIENT REPORTS HAVING MEDS AT HOME PATIENT TO FOLLOW UP WITH PCP WITHIN ON E WEEK OF D/C ORAL FLUIDS ENCOURAGED.
[2018-07-30] MEDS: chlordiazePOXIDE HCL 10 MG CAPSULE PO SCH ×2 (17:31→22:04)
[2018-07-30] MEDS ORDERED: LIDOCAINE PATCH REMOVAL MC SCH (22:00)
[2018-07-30] MEDS: THIAMINE HCL 100 MG TABLET (FP) PO SCH (22:06)
[2018-07-30] MEDS: MELATONIN 5 MG TABLETS PO PRN (22:08)
[2018-07-31] MEDS: SODIUM CHLORIDE NASAL SPRAY 44 ML BOTTLE NS SCH (05:41)
[2018-07-31] MEDS: PANTOPRAZOLE 20 MG TABLET (FP) PO SCH (05:41)
[2018-07-31] MEDS: chlordiazePOXIDE HCL 10 MG CAPSULE PO SCH (05:41)
[2018-07-31 06:25] VITALS: BP 132/83; PULSE 88; TEMP 97.9
--- NOTE | 2018-07-31 13:23 | DS ---
[facility] Detox Discharge Summary Admission Date: 07/27/18 Discharge Date: 07/31/18 - History Present History: Alcohol Dependence Pertinent Past History: PATIENT COMPLETED DETOX WITHOUT ADVERSE EVENT. PATIENT D/C HOME CLINICALLY STABLE AND DENIES SI/HI. PATIENT ENCOURAGED TO ATTEND AA TO PREVENT RELAPSE AND TO FOLLOW UP WITH PCP WITHIN ONE WEEK OF D/C. D/C INSTRUCTIONS PROVIDED TO PATIENT BY STAFF. - Physical Exam Results Vital Signs: Vital Signs Temperature 97.9 F 07/31/18 06:24 Pulse Rate 88 07/31/18 06:24 Respiratory Rate 18 07/31/18 06:24 Blood Pressure 132/83 07/31/18 06:24 O2 Sat by Pulse Oximetry (%) - Treatment Hospital Course: Detox Protocol Followed, Detoxed Safely, Responded well, Discharged Condition Good - Medication Discharge Medications: Ambulatory Orders Sertraline HCl [Zoloft -] 25 mg PO HS #30 tablet 05/02/17 Amlodipine Besylate 5 mg PO DAILY #30 tablet 03/09/18 Risperidone [Risperdal] 1 mg PO BID 06/04/18 Omeprazole 20 mg PO DAILY 06/30/18 - Diagnosis (1) Alcohol dependence with uncomplicated withdrawal Status: Resolved - AMA Did Patient Leave Against Medical Advice: No
== END 2018-07-31 09:25 | disposition home or self-care (01) | DRG 774 ==
LOC: YASAS 08:57 → Y3N 11:38
PROC: HZ2ZZZZ Detoxification Services for Substance Abuse Treatment (ICD-10-PCS; principal; 2018-07-27)
DX: F10.230 Alcohol dependence with withdrawal, uncomplicated (principal); F14.20 Cocaine dependence, uncomplicated; F25.9 Schizoaffective disorder, unspecified; F19.24 Other psychoactive substance dependence with psychoactive substance-induced mood disorder; F33.2 Major depressive disorder, recurrent severe without psychotic features; I10 Essential (primary) hypertension; I25.2 Old myocardial infarction; K21.9 Gastro-esophageal reflux disease without esophagitis; K29.20 Alcoholic gastritis without bleeding; M13.861 Other specified arthritis, right knee; E11.9 Type 2 diabetes mellitus without complications; Z91.14 Patient's other noncompliance with medication regimen
CPT/HCPCS: 36415; 80053; 82962; 85027; 86593; J2794

== ENCOUNTER 2018-10-31 21:02 | Inpatient (IN) | payer OTHER ==
[2018-10-31 22:17] VITALS: BMI 25.8
--- NOTE | 2018-10-31 22:29 | HP ---
CIWA Score Nausea/Vomitin-Mild Nausea/No Vomiting Muscle Tremors: 4-Moderate,w/Arms Extend Anxiety: 4-Mod. Anxious/Guarded Agitation: 4-Moderately Restless Paroxysmal Sweats: 3 Orientation: 1-Uncertain about Date Tacttile Disturbances: 0-None Auditory Disturbances: 2-Mild Harshness/Frighten Visual Disturbances: 2-Mild Sensitivity Headache: 3-Moderate CIWA-Ar Total Score: 24 - Admission Criteria OASAS Guidelines: Admission for Medically Managed Detox: Requires at least one of the followin. CIWA greater than 12 2. Seizures within the past 24 hours 3. Delirium tremens within the past 24 hours 4. Hallucinations within the past 24 hours 5. Acute intervention needed for co occurring medical disorder 6. Acute intervention needed for co occurring psychiatric disorder 7. Severe withdrawal that cannot be handled at a lower level of care (continued vomiting, continued diarrhea, abnormal vital signs) requiring intravenous medication and/or fluids 8. Patient presents the following: CIWA greater than 12 (ciwa 24), Acute intervention needed for co-occurring med or psych disorder (htn, gerd, anemia, hx/o pancreatitis) Admission Criteria Met: Admission criteria met Admission ROS [facility] Chief Complaint: C/O WORSENING WITHDRAWAL SX'S. SEEKING DETOX Allergies/Adverse Reactions: Allergies Allergy/AdvReac Type Severity Reaction Status Date / Time No Known Allergies Allergy Verified 10/31/18 21:57 History of Present Illness: 58 Y.O. MALE WITH HX/O ALCOHOLISM HERE FOR DETOX. HE ADMITS TO OTHER ILLICIT SUBSTANCE ABUSE COCAINE.CLIENT IS KNOWN TO THIS THIS PROGRAM. SELF REFERRED. LAST ADMIT 07/2018. PRESENTS TODAY WITH C/O WORSENING WITHDRAWAL SX'S. CIWA 24. WHIT 0.139 UTOX + MATTIE, BZO. REPORTS LONGEST CLEAN TIME 17 MONTHS WHILE INCARCERATED. DENIES ANY RECENT CLEAN TIME. REPORTS HX/O BLACK OUTS BUT DENIES HX/O SEIZURES, SI/HI, AVH. HOMELESS, UNEMPLOYED, DENIES LEGALS. PMHX- GERD, HTN, ANEMIA,HX/O PANCREATITIS PSYCH- BIPOLAR, DEPRESSION Exam Limitations: No Limitations - Ebola screening Have you traveled outside of the country in the last 21 days: No (N) Have you had contact with anyone from an Ebola affected area: No Have you been sick,other than usual withdrawal symptoms: Yes Do you have a fever: No - Review of Systems Constitutional: Changes in sleep EENT: reports: Dental Problems (MISSING TEETH) Respiratory: reports: Cough, Shortness of Breath Cardiac: reports: No Symptoms Reported GI: reports: Nausea, Poor Fluid Intake, Indigestion : reports: No Symptoms Reported Musculoskeletal: reports: No Symptoms Reported Integumentary: reports: Flushing Neuro: reports: Other Endocrine: reports: Other (PRE- DM) Hematology: reports: Anemia (HX/O) Psychiatric: reports: Orientated x3, Agitated, Anxious, Depressed Other Systems: Reviewed and Negative Patient History - Patient Medical History Hx Anemia: Yes (NO CURRENT MED) Hx Asthma: No Hx Chronic Obstructive Pulmonary Disease (COPD): No Hx Cancer: No Hx Cardiac Disorders: No Hx Congestive Heart Failure: No Hx Hypertension: Yes Hx Hypercholesterolemia: No Hx Pacemaker: No HX Cerebrovascular Accident: No Hx Seizures: No Hx Dementia: No Hx Diabetes: No Hx Gastrointestinal Disorders: Yes (GERD) Hx Liver Disease: No Hx Genitourinary Disorders: No Hx Sexually Transmitted Disorders: No Hx Renal Disease (ESRD): No Hx Thyroid Disease: No Hx Human Immunodeficiency Virus (HIV): No Hx Hepatitis C: No Hx Depression: Yes Hx Suicide Attempt: No Hx Bipolar Disorder: Yes Hx Schizophrenia: No Other Medical History: DENIES - Patient Surgical History Past Surgical History: Yes Hx Neurologic Surgery: No Hx Cataract Extraction: No Hx Cardiac Surgery: No Hx Lung Surgery: No Hx Breast Surgery: No Hx Breast Biopsy: No Hx Abdominal Surgery: No Hx Appendectomy: No Hx Cholecystectomy: No Hx Genitourinary Surgery: No Hx Section: No Hx Orthopedic Surgery: Yes (fx, left thumb in 2006) Other Surgical History: nasal fx in 1987 Anesthesia Reaction: No - PPD History Previous Implant?: Yes Documented Results: Negative w/o proof Implanted On Prior [facility] Admission?: Yes Date: 06/06/18 Results: 0 mm PPD to be Administered?: No - Smoking Cessation Smoking history: Never smoked Have you smoked in the past 12 months: No Aproximately how many cigarettes per day: 0 Cigars Per Day: 0 Hx Chewing Tobacco Use: No Initiated information on smoking cessation: No - Substance & Tx. History Hx Alcohol Use: Yes Hx Substance Use: Yes Substance Use Type: Alcohol, Cocaine Hx Substance Use Treatment: Yes ([facility]) - Substances Abused Alcohol Route: Oral Frequency: Daily Amount used: liquor- 5 pints, beer- 2 six packs Age of first use: 14 Date of Last Use: 10/31/18 Cocaine Route: Inhalation Frequency: Daily Amount used: 5 bags Age of first use: 17 Date of Last Use: 10/31/18 Family Disease History - Family Disease History Family Disease History: Other: Father (alcoholic/), Mother () Admission Physical Exam S - Vital Signs Vital Signs: Vital Signs - 24 hr 10/31/18 21:58 Temperature 97.5 F L Pulse Rate 97 H Respiratory 18 Rate Blood Pressure 128/72 - Physical General Appearance: Yes: Appropriately Dressed, Moderate Distress, Tremorous, Irritable, Sweating, Anxious HEENTM: Yes: EOMI, Normocephalic, Normal Voice, LISSA, Pharynx Normal, Other ( POOR DENTITION WITH MISSING TEETH) Respiratory: Yes: Chest Non-Tender, Lungs Clear, Normal Breath Sounds, No Respiratory Distress, No Accessory Muscle Use Neck: Yes: No masses,lesions,Nodules, Supple, Trachea in good position Breast: Yes: Breast Exam Deferred Cardiology: Yes: Regular Rhythm, Regular Rate, S1, S2 Abdominal: Yes: Soft, Increased Bowel Sounds, Protuberent, Tenderness (LLQ) Genitourinary: Yes: Other (NO C/O OFFERED) Back: Yes: Normal Inspection Musculoskeletal: Yes: Gait Steady Extremities: Yes: Normal Range of Motion, Non-Tender, Tremors 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: Yes: Fully Oriented, Alert, Motor Strength 5/5, Depressed Affect Integumentary: Yes: Warm, Other (FLUSHED SKIN) Lymphatic: Yes: Within Normal Limits - Diagnostic (1) Alcohol induced insomnia Current Visit: Yes Status: Chronic (2) Acid reflux Current Visit: Yes Status: Chronic Qualifiers: Esophagitis presence: esophagitis presence not specified Qualified Code(s) : K21.9 - Gastro-esophageal reflux disease without esophagitis (3) Anemia Current Visit: Yes Status: Chronic Qualifiers: Anemia type: unspecified type Qualified Code(s): D64.9 - Anemia, unspecified (4) Bipolar disorder Current Visit: Yes Status: Chronic (5) Cocaine dependence Current Visit: Yes Status: Chronic Qualifiers: Substance use status: uncomplicated Qualified Code(s): F14.20 - Cocaine dependence, uncomplicated (6) Hypertension Current Visit: Yes Status: Chronic Qualifiers: Hypertension type: unspecified Qualified Code(s): I10 - Essential (primary ) hypertension (7) PUD (peptic ulcer disease) Current Visit: Yes Status: Chronic (8) Schizoaffective disorder Current Visit: Yes Status: Chronic Qualifiers: Schizoaffective disorder type: bipolar Qualified Code(s): F25.0 - Schizoaffective disorder, bipolar type (9) Substance induced mood disorder Current Visit: Yes Status: Chronic (10) Depressive disorder Current Visit: Yes Status: Chronic (11) Alcohol dependence with uncomplicated withdrawal Current Visit: Yes Status: Acute Cleared for Admission [facility] - Detox or Rehab [facility] Level of Care: Medically Managed Detox Regimen/Protocol: Librium Claeared for Rehab Admission: No S Breath Alcohol Content Breath Alcohol Content: 0.162 Urine Drug Screen - Results Drug Screen Negative: No Urine Drug Screen Results: MATTIE-Cocaine, BZO-Benzodiazepines Inpatient Rehab Admission - Rehab Decision to Admit Inpatient rehab admission?: No
[2018-10-31] MEDS ORDERED: MELATONIN 5 MG TABLETS PO PRN (22:45)
[2018-10-31] MEDS ORDERED: P-EPHED 60MG/TRIPROLIDI 2.5MG TABLET PO PRN (22:45)
[2018-10-31] MEDS ORDERED: guaiFENesin 200 MG/10 ML 10 ML UNIT-DOSE CUPS PO PRN (22:45)
[2018-10-31] MEDS ORDERED: hydrOXYzine PAMOATE 25 MG CAPSULE (FP) PO PRN (22:45)
[2018-10-31] MEDS ORDERED: MAGNESIUM CITRATE 300 ML BOTTLE PO PRN (22:45)
[2018-10-31] MEDS ORDERED: chlordiazePOXIDE HCL 25 MG CAPSULE PO PRN (22:45)
[2018-10-31] MEDS ORDERED: MAGNESIUM HYDROX 2400MG/30ML ORAL SUSPENSION 30 ML CUP PO PRN (22:45)
[2018-10-31] MEDS ORDERED: ONDANSETRON *ODT* 4 MG TABLET SL PRN (22:45)
[2018-10-31] MEDS ORDERED: ACETAMINOPHEN 325 MG TABLET (FP) PO PRN (22:45)
[2018-10-31] MEDS ORDERED: MAG HYDROX/AL HYDROX/SIMETH 30 ML UNIT-DOSE CUP PO PRN (22:45)
[2018-10-31] MEDS: IBUPROFEN 400 MG TABLET (FP) PO PRN (23:26)
[2018-10-31] MEDS: chlordiazePOXIDE HCL 25 MG CAPSULE PO SCH (23:26)
[2018-11-01] MEDS: chlordiazePOXIDE HCL 25 MG CAPSULE PO SCH ×4 (05:35→22:50)
[2018-11-01] MEDS: DICYCLOMINE HCL 10 MG CAPSULE PO PRN ×2 (05:37→17:43)
[2018-11-01] MEDS: PRENATAL VITAMINS W/ FOLIC ACID TABLET (FP) PO SCH (10:30)
[2018-11-01] MEDS: METHOCARBAMOL 500 MG TABLET PO PRN ×2 (10:31→23:04)
[2018-11-01 10:59] LABS: ALK PHOS 92 U/L (45-117); ANION GAP 7 MMOL/L (8-16); BILIRUBIN,TOTAL 0.5 mg/dL (0.2-1); BLOOD UREA NITROGEN 12 mg/dL (7-18); CALCIUM 8.1 mg/dL (8.5-10.1); CHLORIDE 103 mmol/L (98-107); CO2 27 mmol/L (21-32); CREATININE 0.7 mg/dL (0.55-1.3); GLUCOSE,RANDOM 83 mg/dL (74-106); POTASSIUM 3.6 mmol/L (3.5-5.1); SGOT/AST 30 U/L (15-37); SGPT/ALT 25 U/L (13-61); SODIUM 137 mmol/L (136-145); TOT PROT 6.7 g/dl (6.4-8.2)
[2018-11-01 11:16] LABS: HEMATOCRIT 31.2 % (35.4-49); HEMOGLOBIN 10.6 GM/dL (11.7-16.9); MCH 30.4 pg (25.7-33.7); MCHC 33.9 g/dl (32.0-35.9); MEAN CELL VOLUME 89.7 fl (80-96); MEAN PLT VOLUME 8.5 fl (7.5-11.1); PLATELET COUNT 211 K/MM3 (134-434); RBC 3.48 M/mm3 (4.00-5.60); WHITE BLOOD COUNT 2.8 K/mm3 (4.0-10.0)
[2018-11-01] MEDS: FLUTICASONE PROP 0.05% 16 GM NASAL SPRAY NS SCH ×2 (11:21→22:50)
--- NOTE | 2018-11-01 13:27 | PN ---
[facility] CIWA - CIWA Score Nausea/Vomitin-No Nausea/No Vomiting Muscle Tremors: 3 Anxiety: 3 Agitation: 2 Paroxysmal Sweats: No Perspiration Orientation: 0-Oriented Tacttile Disturbances: 3-Moderate Itch/Numb/Burn Auditory Disturbances: 1-Very Mild Visual Disturbances: 2-Mild Sensitivity Headache: 0-None Present CIWA-Ar Total Score: 14 S Progress Note (SOAP) Subjective: Anxious, Tremors, Body Aches. Objective: PATIENT A & O X 3, OBSERVED AMBULATING ON UNIT. IN NO ACUTE DISTRESS. 11/01/18 13:28 Vital Signs Temperature 97 F L 11/01/18 09:43 Pulse Rate 109 H 11/01/18 09:43 Respiratory Rate 20 11/01/18 09:43 Blood Pressure 147/84 11/01/18 09:43 O2 Sat by Pulse Oximetry (%) Laboratory Tests 11/01/18 11/01/18 11/01/18 07:30 07:30 07:30 WBC 2.8 L RBC 3.48 L Hgb 10.6 L Hct 31.2 L D MCV 89.7 MCH 30.4 MCHC 33.9 RDW 17.0 H Plt Count 211 MPV 8.5 D Sodium 137 Potassium 3.6 Chloride 103 Carbon Dioxide 27 Anion Gap 7 L BUN 12 Creatinine 0.7 Creat Clearance w eGFR 115.83 Random Glucose 83 Calcium 8.1 L Total Bilirubin 0.5 AST 30 ALT 25 Alkaline Phosphatase 92 Total Protein 6.7 Albumin 3.0 L RPR Titer Nonreactive LABS NOTED. PATIENT HAS HAD LOW WBC LEVELS AND BEEN ANEMIC ON PREVIOUS ADMISSIONS. 11/01/18 13:34 Assessment: 11/01/18 13:30 WITHDRAWAL SYMPTOMS. ANEMIA. LEUKOPENIA. 11/01/18 13:32 Plan: CONTINUE DETOX. INCREASE DAILY PO FLUID INTAKE. PATIENT IS CURRENTLY RECEIVING DAILY MVI CONTAINING B VITAMINS AND IRON WHILE ADMITTED FOR DETOX. REPEAT CBC ON 11/03/2018 TO SEE IF ANY CHANGE IN WBC, HGB, HCT, AND RBC LEVELS.
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
--- NOTE | 2018-11-01 14:15 | CONSULT ---
[facility] Psychiatric Consult - Data Date of interview: 11/01/18 Admission source: [facility] Identifying data: Another admission to [facility] for this 58 y/o male self-referred for detoxification (alcohol, cocaine). Interviewed on . Patient is single without children, homeless, unemployed and supported on SSI benefits. Substance Abuse History: Confirmed by the patient in this interview. Details in current [facility] report as follows : Smoking history: Never smoked. Have you smoked in the past 12 months: No. Aproximately how many cigarettes per day: 0. Cigars Per Day: 0. Hx Chewing Tobacco Use: No. Initiated information on smoking cessation: No. - Substance & Tx. History. Hx Alcohol Use: Yes. Hx Substance Use: Yes. Substance Use Type: Alcohol, Cocaine. Hx Substance Use Treatment: Yes ([facility]). - Substances Abused. Alcohol. Route: Oral. Frequency: Daily. Amount used: liquor- 5 pints, beer- 2 six packs. Age of first use: 14. Date of Last Use: 10/31/18. Cocaine. Route: Inhalation. Frequency: Daily. Amount used: 5 bags. Age of first use: 17. Date of Last Use : 10/31/18 Medical History: History of myocardial infarction in 2017, peptic ulcer disease , GERD anemia, hypertension, arthritis (right knee) and past surgery for fracture of nasal bones (1987). Psychiatric History: History of multiple psychiatric hospitalizations ([facility], [facility], [facility], [facility]) . Diagnosed with MDD and bipolar Disorder.Mr Fournier is reportedly prescribed risperdal 2 mg/hs + zoloft (dose not recalled). No afiliation with psychiatric care providers. Patient admits to frequent utilization of local [facility] settings for refills of medications. No history of suicide attempts. Physical/Sexual Abuse/Trauma History: None reported. Additional Comment: Urine Drug Screen Results: MATTIE-Cocaine, BZO- Benzodiazepines. Noted. Mental Status Exam - Mental Status Exam Alert and Oriented to: Time, Place, Person Cognitive Function: Good Patient Appearance: Well Groomed Mood: Hopeful, Euthymic Affect: Appropriate, Normal Range Patient Behavior: Fatigued, Appropriate, Cooperative Speech Pattern: Clear Voice Loudness: Normal Thought Process: Goal Oriented Thought Disorder: Not Present Hallucinations: Denies Suicidal Ideation: Denies Homicidal Ideation: Denies Insight/Judgement: Poor Sleep: Well, Poorly Appetite: Good Muscle strength/Tone: Normal Gait/Station: Normal Psychiatric Findings - Problem List ([place] 1, 2,3) (1) Alcohol dependence with uncomplicated withdrawal Current Visit: Yes Status: Acute (2) Cocaine dependence Current Visit: Yes Status: Chronic Qualifiers: Substance use status: uncomplicated Qualified Code(s): F14.20 - Cocaine dependence, uncomplicated (3) Schizoaffective disorder Current Visit: Yes Status: Chronic Qualifiers: Schizoaffective disorder type: bipolar Qualified Code(s): F25.0 - Schizoaffective disorder, bipolar type (4) Non-compliant patient Current Visit: Yes Status: Chronic - Initial Treatment Plan Initial Treatment Plan: Psychoeducation. Groups. AA meetings. MAT (medication- assisted treatment for relapse prevention) and AA fellowships : discussed in this session. Mr Fournier has expressed the wish to resume risperdal. Records revisited. Ordered : risperdal 1 mg po bid. Side effects/benefits discussed with the patient (abnormal involuntary movements, dyskinesias, akathisia, neuroleptic malignant syndrome, cardiovascular adverse events, endocrine complications such as galactorrhea, gynecomastia, sexual impotence). Paient denies any history of adverse effects while on risperidone. Consent (verbal) received from patient. Observation.
[2018-11-01] MEDS: CALCIUM 500MG/VIT-D 200 UNITS COMBO TABLET (FP) PO SCH ×2 (14:47→22:50)
[2018-11-01] MEDS: AMMONIUM LACTATE 12% LOTION 225 GM BOTTLE TP SCH ×2 (14:47→22:50)
[2018-11-01] MEDS: TOLNAFTATE 1% CREAM 15 GM TUBE TP SCH ×2 (14:47→23:01)
[2018-11-01] MEDS: MENTHOL/PHENOL 1 EACH UD MM PRN (14:48)
[2018-11-01] MEDS: BISMUTH SUBSALICYLATE 524 MG/30 ML UD PO PRN (18:43)
--- NOTE | 2018-11-01 18:48 | PN ---
[facility] Progress Note Note: REPORTED BY RN PATIENT HAD TWO EPISODES OF DIARRHEA WITH BLOOD PRESENT. NURSE STATES TOILET WATER WAS PINK WHEN SHE LOOKED IN TOILET. PATIENT HAS HX OF GERD, PANCREATITIS AND ANEMIA. PATIENT STATES IT HAS HAPPENED IN PAST BUT DID NOT HAVE COLONOSCOPY. PATIENT DENIES N/V/D, ABDOMINAL PAIN AND FEVER. Vital Signs Temperature 98 F 11/01/18 17:32 Pulse Rate 79 11/01/18 17:32 Respiratory Rate 18 11/01/18 17:32 Blood Pressure 128/81 11/01/18 17:32 O2 Sat by Pulse Oximetry (%) Laboratory Tests 11/01/18 11/01/18 11/01/18 07:30 07:30 07:30 WBC 2.8 L RBC 3.48 L Hgb 10.6 L Hct 31.2 L D MCV 89.7 MCH 30.4 MCHC 33.9 RDW 17.0 H Plt Count 211 MPV 8.5 D Sodium 137 Potassium 3.6 Chloride 103 Carbon Dioxide 27 Anion Gap 7 L BUN 12 Creatinine 0.7 Creat Clearance w eGFR 115.83 Random Glucose 83 Calcium 8.1 L Total Bilirubin 0.5 AST 30 ALT 25 Alkaline Phosphatase 92 Total Protein 6.7 Albumin 3.0 L RPR Titer Nonreactive PE: ALERT AND ORIENTED X 3 SKIN WARM AND DRY CAR S1S2 RESP CTA BL GI SOFT, BS+, NT EXT FULL ROM, NO TREMORS A/P: DIARRHEA BLOODY STOOLS ANEMIA CONTINUE ORAL FLUIDS PEPTO BISMUL PER PRN REPEAT CBC MONITOR CLINICALLY, IF CONTINUES CONSIDER TRANSFER TO ER
[2018-11-01 18:59] LABS: EPI CELLS 1.3 /HPF (0-5); HYALINE CASTS 2 /hpf (0-8); PH,URINE 8.5 (5.0-8.0); URINE APPEARANCE CLEAR; URINE BACTERIA 21.33 /hpf (NEGATIVE); URINE BILIRUBIN NEGATIVE (<2.0 mg/dL); URINE COLOR DK YELLOW; URINE GLUCOSE (UA) NEGATIVE (NEGATIVE); URINE KETONE TRACE (NEGATIVE); URINE LEUK ESTERASE TRACE (NEGATIVE); URINE NITRITE NEGATIVE (NEGATIVE); URINE PROTEIN 1+ (NEGATIVE); URINE RBC 4 /hpf (0-4); URINE WBC 0 /hpf (0-5)
[2018-11-01] MEDS ORDERED: SERTRALINE HCL 25 MG TABLET (FP) PO SCH (22:00)
[2018-11-01] MEDS: THIAMINE HCL 100 MG TABLET (FP) PO SCH (22:03)
[2018-11-01] MEDS: risperiDONE 1 MG TABLET (FP) PO SCH (22:50)
[2018-11-02] MEDS: chlordiazePOXIDE HCL 25 MG CAPSULE PO SCH ×3 (05:26→17:14)
[2018-11-02] MEDS: DICYCLOMINE HCL 10 MG CAPSULE PO PRN (05:27)
[2018-11-02] MEDS: CALCIUM 500MG/VIT-D 200 UNITS COMBO TABLET (FP) PO SCH ×2 (10:11→22:00)
[2018-11-02] MEDS: TOLNAFTATE 1% CREAM 15 GM TUBE TP SCH ×2 (10:11→22:02)
[2018-11-02] MEDS: PRENATAL VITAMINS W/ FOLIC ACID TABLET (FP) PO SCH (10:11)
[2018-11-02] MEDS: risperiDONE 1 MG TABLET (FP) PO SCH ×2 (10:11→22:00)
[2018-11-02] MEDS: FLUTICASONE PROP 0.05% 16 GM NASAL SPRAY NS SCH ×2 (10:12→22:01)
[2018-11-02] MEDS: AMMONIUM LACTATE 12% LOTION 225 GM BOTTLE TP SCH ×2 (10:12→22:01)
[2018-11-02] MEDS: METHOCARBAMOL 500 MG TABLET PO PRN ×2 (10:13→17:17)
[2018-11-02] MEDS: MENTHOL/PHENOL 1 EACH UD MM PRN (10:14)
[2018-11-02 11:10] LABS: BASO % 0.6 % (0-2.0); EOS % 4.2 % (0-4.5); HEMATOCRIT 31.4 % (35.4-49); HEMOGLOBIN 10.6 GM/dL (11.7-16.9); LYMPH % 30.6 % (8-40); MCH 30.6 pg (25.7-33.7); MCHC 33.8 g/dl (32.0-35.9); MEAN CELL VOLUME 90.4 fl (80-96); MEAN PLT VOLUME 8.4 fl (7.5-11.1); MONO % 7.6 % (3.8-10.2); PLATELET COUNT 195 K/MM3 (134-434); RBC 3.47 M/mm3 (4.00-5.60); RDW 17.1 % (11.9-15.9); WHITE BLOOD COUNT 2.8 K/mm3 (4.0-10.0)
[2018-11-02] MEDS: BISMUTH SUBSALICYLATE 524 MG/30 ML UD PO PRN ×2 (15:28→17:17)
--- NOTE | 2018-11-02 15:29 | PN ---
S CIWA - CIWA Score Nausea/Vomitin-No Nausea/No Vomiting Muscle Tremors: 3 Anxiety: 1-Mildly Anxious Agitation: 2 Paroxysmal Sweats: 1-Minimal Palms Moist Orientation: 1-Uncertain about Date Tacttile Disturbances: 0-None Auditory Disturbances: 0-None Visual Disturbances: 0-None Headache: 1-Very Mild CIWA-Ar Total Score: 9 B[facility] Progress Note (SOAP) Subjective: doing well denies body aches ambulating on hallway social with peers in day room Objective: 11/02/18 15:29 Vital Signs Temperature 98.3 F 11/02/18 13:06 Pulse Rate 85 11/02/18 13:06 Respiratory Rate 18 11/02/18 13:06 Blood Pressure 140/79 11/02/18 13:06 O2 Sat by Pulse Oximetry (%) Laboratory Last Values WBC 2.8 K/mm3 (4.0-10.0) L 11/02/18 07:20 RBC 3.47 M/mm3 (4.00-5.60) L 11/02/18 07:20 Hgb 10.6 GM/dL (11.7-16.9) L 11/02/18 07:20 Hct 31.4 % (35.4-49) L 11/02/18 07:20 MCV 90.4 fl (80-96) 11/02/18 07:20 MCH 30.6 pg (25.7-33.7) 11/02/18 07:20 MCHC 33.8 g/dl (32.0-35.9) 11/02/18 07:20 RDW 17.1 % (11.9-15.9) H 11/02/18 07:20 Plt Count 195 K/MM3 (134-434) 11/02/18 07:20 MPV 8.4 fl (7.5-11.1) 11/02/18 07:20 Absolute Neuts (auto) 1.6 K/mm3 (1.5-8.0) 11/02/18 07:20 Neutrophils % 57.0 % (42.8-82.8) 11/02/18 07:20 Lymphocytes % 30.6 % (8-40) 11/02/18 07:20 Monocytes % 7.6 % (3.8-10.2) 11/02/18 07:20 Eosinophils % 4.2 % (0-4.5) 11/02/18 07:20 Basophils % 0.6 % (0-2.0) 11/02/18 07:20 Nucleated RBC % 0 % (0-0) 11/02/18 07:20 Sodium 137 mmol/L (136-145) 11/01/18 07:30 Potassium 3.6 mmol/L (3.5-5.1) 11/01/18 07:30 Chloride 103 mmol/L (98-107) 11/01/18 07:30 Carbon Dioxide 27 mmol/L (21-32) 11/01/18 07:30 Anion Gap 7 MMOL/L (8-16) L 11/01/18 07:30 BUN 12 mg/dL (7-18) 11/01/18 07:30 Creatinine 0.7 mg/dL (0.55-1.3) 11/01/18 07:30 Creat Clearance w eGFR 115.83 (>60) 11/01/18 07:30 Random Glucose 83 mg/dL (74-106) 11/01/18 07:30 Calcium 8.1 mg/dL (8.5-10.1) L 11/01/18 07:30 Total Bilirubin 0.5 mg/dL (0.2-1) 11/01/18 07:30 AST 30 U/L (15-37) 11/01/18 07:30 ALT 25 U/L (13-61) 11/01/18 07:30 Alkaline Phosphatase 92 U/L (45-117) 11/01/18 07:30 Total Protein 6.7 g/dl (6.4-8.2) 11/01/18 07:30 Albumin 3.0 g/dl (3.4-5.0) L 11/01/18 07:30 Urine Color Dk yellow 11/01/18 09:05 Urine Appearance Clear 11/01/18 09:05 Urine pH 8.5 (5.0-8.0) H D 11/01/18 09:05 Ur Specific [place] 1.025 (1.010-1.035) 11/01/18 09:05 Urine Protein 1+ (NEGATIVE) 11/01/18 09:05 Urine Glucose (UA) Negative (NEGATIVE) 11/01/18 09:05 Urine Ketones Trace (NEGATIVE) H 03/23/19 09:05 Urine Blood Negative (NEGATIVE) 11/01/18 09:05 Urine Nitrite Negative (NEGATIVE) 11/01/18 09:05 Urine Bilirubin Negative (<2.0 mg/dL) 11/01/18 09:05 Urine Urobilinogen 1.0 mg/dL (0.2-1.0) 11/01/18 09:05 Ur Leukocyte Esterase Trace (NEGATIVE) 11/01/18 09:05 Urine WBC (Auto) 0 /hpf (0-5) 11/01/18 09:05 Urine RBC (Auto) 4 /hpf (0-4) 11/01/18 09:05 Urine Casts (Auto) 2 /hpf (0-8) 11/01/18 09:05 U Epithel Cells (Auto) 1.3 /HPF (0-5) 11/01/18 09:05 Urine Bacteria (Auto) 21.33 /hpf (NEGATIVE) 11/01/18 09:05 RPR Titer Nonreactive (NONREACTIVE) 11/01/18 07:30 lab noted 11/02/18 15:31 leukocytosis encourage the patient follow up with community primary care provider for low wbc bring lab report to [facility] hemotology for follow up 11/02/18 15:32 Assessment: 11/02/18 15:31 alcohol withdrawal sx Plan: continue detox
[2018-11-02] MEDS: chlordiazePOXIDE HCL 10 MG CAPSULE PO SCH (22:00)
[2018-11-02] MEDS: THIAMINE HCL 100 MG TABLET (FP) PO SCH (22:00)
[2018-11-02] MEDS: IBUPROFEN 400 MG TABLET (FP) PO PRN (22:03)
[2018-11-02] MEDS ORDERED: chlordiazePOXIDE HCL 10 MG CAPSULE PO PRN (23:00)
[2018-11-03] MEDS: chlordiazePOXIDE HCL 10 MG CAPSULE PO SCH (05:08)
[2018-11-03] MEDS: DICYCLOMINE HCL 10 MG CAPSULE PO PRN (05:49)
[2018-11-03 09:24] VITALS: BP 135/80; PULSE 77; TEMP 96.5
--- NOTE | 2018-11-03 11:23 | DS ---
[facility] Detox Discharge Summary Admission Date: 10/31/18 Discharge Date: 11/03/18 - History Present History: Alcohol Dependence Additional Comments: 58 years old male admitted on 10/31/18 for alcohol withdrawal stabilization completed detox patient refused revelation Pertinent Past History: keep medication list in wallet bring in medication list and bottles of medication to follow up appointment bring in lab report to aftercare appointment strong recommend the patient to engage with community health services bring in lab report to [facility] etc - Physical Exam Results Vital Signs: Vital Signs Temperature 96.5 F L 11/03/18 09:23 Pulse Rate 77 11/03/18 09:23 Respiratory Rate 18 11/03/18 09:23 Blood Pressure 135/80 11/03/18 09:23 O2 Sat by Pulse Oximetry (%) Pertinent Admission Physical Exam Findings: alcohol withdrawal sx Laboratory Last Values WBC 2.8 K/mm3 (4.0-10.0) L 11/02/18 07:20 RBC 3.47 M/mm3 (4.00-5.60) L 11/02/18 07:20 Hgb 10.6 GM/dL (11.7-16.9) L 11/02/18 07:20 Hct 31.4 % (35.4-49) L 11/02/18 07:20 MCV 90.4 fl (80-96) 11/02/18 07:20 MCH 30.6 pg (25.7-33.7) 11/02/18 07:20 MCHC 33.8 g/dl (32.0-35.9) 11/02/18 07:20 RDW 17.1 % (11.9-15.9) H 11/02/18 07:20 Plt Count 195 K/MM3 (134-434) 11/02/18 07:20 MPV 8.4 fl (7.5-11.1) 11/02/18 07:20 Absolute Neuts (auto) 1.6 K/mm3 (1.5-8.0) 11/02/18 07:20 Neutrophils % 57.0 % (42.8-82.8) 11/02/18 07:20 Lymphocytes % 30.6 % (8-40) 11/02/18 07:20 Monocytes % 7.6 % (3.8-10.2) 11/02/18 07:20 Eosinophils % 4.2 % (0-4.5) 11/02/18 07:20 Basophils % 0.6 % (0-2.0) 11/02/18 07:20 Nucleated RBC % 0 % (0-0) 11/02/18 07:20 Sodium 137 mmol/L (136-145) 11/01/18 07:30 Potassium 3.6 mmol/L (3.5-5.1) 11/01/18 07:30 Chloride 103 mmol/L (98-107) 11/01/18 07:30 Carbon Dioxide 27 mmol/L (21-32) 11/01/18 07:30 Anion Gap 7 MMOL/L (8-16) L 11/01/18 07:30 BUN 12 mg/dL (7-18) 11/01/18 07:30 Creatinine 0.7 mg/dL (0.55-1.3) 11/01/18 07:30 Creat Clearance w eGFR 115.83 (>60) 11/01/18 07:30 Random Glucose 83 mg/dL (74-106) 11/01/18 07:30 Calcium 8.1 mg/dL (8.5-10.1) L 11/01/18 07:30 Total Bilirubin 0.5 mg/dL (0.2-1) 11/01/18 07:30 AST 30 U/L (15-37) 11/01/18 07:30 ALT 25 U/L (13-61) 11/01/18 07:30 Alkaline Phosphatase 92 U/L (45-117) 11/01/18 07:30 Total Protein 6.7 g/dl (6.4-8.2) 11/01/18 07:30 Albumin 3.0 g/dl (3.4-5.0) L 11/01/18 07:30 Urine Color Dk yellow 11/01/18 09:05 Urine Appearance Clear 11/01/18 09:05 Urine pH 8.5 (5.0-8.0) H D 11/01/18 09:05 Ur Specific [place] 1.025 (1.010-1.035) 11/01/18 09:05 Urine Protein 1+ (NEGATIVE) 11/01/18 09:05 Urine Glucose (UA) Negative (NEGATIVE) 11/01/18 09:05 Urine Ketones Trace (NEGATIVE) H 03/23/19 09:05 Urine Blood Negative (NEGATIVE) 11/01/18 09:05 Urine Nitrite Negative (NEGATIVE) 11/01/18 09:05 Urine Bilirubin Negative (<2.0 mg/dL) 11/01/18 09:05 Urine Urobilinogen 1.0 mg/dL (0.2-1.0) 11/01/18 09:05 Ur Leukocyte Esterase Trace (NEGATIVE) 11/01/18 09:05 Urine WBC (Auto) 0 /hpf (0-5) 11/01/18 09:05 Urine RBC (Auto) 4 /hpf (0-4) 11/01/18 09:05 Urine Casts (Auto) 2 /hpf (0-8) 11/01/18 09:05 U Epithel Cells (Auto) 1.3 /HPF (0-5) 11/01/18 09:05 Urine Bacteria (Auto) 21.33 /hpf (NEGATIVE) 11/01/18 09:05 RPR Titer Nonreactive (NONREACTIVE) 11/01/18 07:30 lab noted low wbc - Treatment Hospital Course: Detox Protocol Followed, Detoxed Safely, Responded well, Discharged Condition Good, Rehab Referral Accepted Patient has Accepted a Rehab Referral to: [facility] - Medication Discharge Medications: Ambulatory Orders Sertraline HCl [Zoloft -] 25 mg PO HS #30 tablet 05/02/17 Amlodipine Besylate 5 mg PO DAILY #30 tablet 03/09/18 Risperidone [Risperdal] 1 mg PO BID 06/04/18 Omeprazole 20 mg PO DAILY 06/30/18 - Diagnosis (1) Nicotine dependence Status: Acute Qualifiers: Nicotine product type: cigarettes Substance use status: in withdrawal Qualified Code(s): F17.213 - Nicotine dependence, cigarettes, with withdrawal (2) Ambulates with cane Status: Chronic (3) Hypertension Status: Chronic Qualifiers: Hypertension type: unspecified Qualified Code(s): I10 - Essential (primary ) hypertension (4) Alcohol dependence with uncomplicated withdrawal Status: Acute (5) Substance induced mood disorder Status: Suspected - AMA Did Patient Leave Against Medical Advice: No
[2018-11-03] MEDS ORDERED: chlordiazePOXIDE HCL 10 MG CAPSULE PO SCH (23:00)
== END 2018-11-03 10:02 | disposition home or self-care (01) | DRG 774 ==
LOC: YASAS 21:02 → Y3N 22:42
PROVIDERS: ADMIT Surgery; ATTEND Surgery
PROC: HZ2ZZZZ Detoxification Services for Substance Abuse Treatment (ICD-10-PCS; principal; 2018-10-31)
DX: F10.230 Alcohol dependence with withdrawal, uncomplicated (principal); F14.20 Cocaine dependence, uncomplicated; F17.213 Nicotine dependence, cigarettes, with withdrawal; F19.24 Other psychoactive substance dependence with psychoactive substance-induced mood disorder; F25.9 Schizoaffective disorder, unspecified; I10 Essential (primary) hypertension; D64.9 Anemia, unspecified; K92.1 Melena; K21.9 Gastro-esophageal reflux disease without esophagitis; I25.2 Old myocardial infarction; M13.861 Other specified arthritis, right knee; D72.819 Decreased white blood cell count, unspecified; R26.2 Difficulty in walking, not elsewhere classified; Z99.89 Dependence on other enabling machines and devices; Z91.19 Patient's noncompliance with other medical treatment and regimen; Z87.11 Personal history of peptic ulcer disease
CPT/HCPCS: 36415; 80053; 81003; 85025; 85027; 86593; J2794; Q0162

== ENCOUNTER 2018-11-21 19:19 | Inpatient (IN) | payer OTHER ==
[2018-11-21 20:27] VITALS: BMI 31.0
--- NOTE | 2018-11-21 21:54 | HP ---
CIWA Score Nausea/Vomitin-Mild Nausea/No Vomiting Muscle Tremors: 5 Anxiety: 4-Mod. Anxious/Guarded Agitation: 2 Paroxysmal Sweats: 1-Minimal Palms Moist Orientation: 0-Oriented Tacttile Disturbances: 0-None Auditory Disturbances: 0-None Visual Disturbances: 0-None Headache: 0-None Present CIWA-Ar Total Score: 13 - Admission Criteria OASAS Guidelines: Admission for Medically Managed Detox: Requires at least one of the followin. CIWA greater than 12 2. Seizures within the past 24 hours 3. Delirium tremens within the past 24 hours 4. Hallucinations within the past 24 hours 5. Acute intervention needed for co occurring medical disorder 6. Acute intervention needed for co occurring psychiatric disorder 7. Severe withdrawal that cannot be handled at a lower level of care (continued vomiting, continued diarrhea, abnormal vital signs) requiring intravenous medication and/or fluids 8. Admission ROS [facility] Chief Complaint: Alcohol withdrawal symptoms Allergies/Adverse Reactions: Allergies Allergy/AdvReac Type Severity Reaction Status Date / Time No Known Allergies Allergy Verified 11/21/18 20:17 History of Present Illness: 58 years old male with a long history of alcohol dependence is seeking admission to detox. Patient's last detox was 10/31/2018- 11/03/2018. He reports 17 months of sobriety. He has medical history of hypertension, GERD and depression. He denies suicide attempt and suicidal ideation at this time. Patient reports alcohol induced black outs. Exam Limitations: No Limitations - Ebola screening Have you traveled outside of the country in the last 21 days: No Have you had contact with anyone from an Ebola affected area: No Have you been sick,other than usual withdrawal symptoms: No Do you have a fever: No - Review of Systems Constitutional: Chills, Loss of Appetite, Malaise EENT: reports: Nose Congestion Respiratory: reports: No Symptoms reported Cardiac: reports: No Symptoms Reported GI: reports: Difficulty Swallowing, Poor Fluid Intake, Vomiting, Abdominal cramping : reports: No Symptoms Reported Musculoskeletal: reports: Back Pain, Joint Pain, Muscle Weakness Integumentary: reports: Dryness Neuro: reports: Tremors Endocrine: reports: [place] Hematology: reports: No Symptoms Reported Psychiatric: reports: Depressed Other Systems: Reviewed and Negative Patient History - Patient Medical History Hx Anemia: Yes (NO CURRENT MED) Hx Asthma: No Hx Chronic Obstructive Pulmonary Disease (COPD): No Hx Cancer: No Hx Cardiac Disorders: No Hx Congestive Heart Failure: No Hx Hypertension: Yes (NOT ON MEDICATION) Hx Hypercholesterolemia: No Hx Pacemaker: No HX Cerebrovascular Accident: No Hx Seizures: No Hx Dementia: No Hx Diabetes: No Hx Gastrointestinal Disorders: Yes (GERD- XEXIUM) Hx Liver Disease: No Hx Genitourinary Disorders: No Hx Sexually Transmitted Disorders: No Hx Renal Disease (ESRD): No Hx Thyroid Disease: No Hx Human Immunodeficiency Virus (HIV): No Hx Hepatitis C: No Hx Depression: Yes (RISPERDAL) Hx Suicide Attempt: No Hx Bipolar Disorder: Yes (RISPERDAL AND ZOLOFT) Hx Schizophrenia: No - Patient Surgical History Past Surgical History: Yes Hx Neurologic Surgery: No Hx Cataract Extraction: No Hx Cardiac Surgery: No Hx Lung Surgery: No Hx Breast Surgery: No Hx Breast Biopsy: No Hx Abdominal Surgery: No Hx Appendectomy: No Hx Cholecystectomy: No Hx Genitourinary Surgery: No Hx Section: No Hx Orthopedic Surgery: Yes (fx, left thumb in 2006) Other Surgical History: nasal fx in 1987 Anesthesia Reaction: No - PPD History Previous Implant?: Yes Documented Results: Negative w/proof Date: 06/06/18 Results: 0 mm PPD to be Administered?: No - Reproductive History Patient is a Female of Child Bearing Age (11 -55 yrs old): No (MALE) - Smoking Cessation Smoking history: Never smoked Have you smoked in the past 12 months: No Aproximately how many cigarettes per day: 0 Cigars Per Day: 0 Hx Chewing Tobacco Use: No Initiated information on smoking cessation: No - Substance & Tx. History Hx Alcohol Use: No Hx Substance Use: Yes Substance Use Type: Alcohol Hx Substance Use Treatment: Yes ([facility]) - Substances abused Alcohol Substance route: Oral Frequency: Daily Amount used: VODKA -2 pints Age of first use: 14 Date of last use: 11/21/18 Cocaine Substance route: Inhalation Frequency: 3-6 times per week Amount used: 1 gram Age of first use: 17 Date of last use: 11/20/18 Family Disease History - Family Disease History Family Disease History: Other: Father (alcoholic/), Mother () Admission Physical Exam BHS - Vital Signs Vital Signs: Vital Signs - 24 hr 11/21/18 20:16 Temperature 98.2 F Pulse Rate 80 Respiratory 18 Rate Blood Pressure 126/80 - Physical General Appearance: Yes: Moderate Distress, Tremorous, Sweating HEENTM: Yes: EOMI, Normal Voice Respiratory: Yes: Lungs Clear, Normal Breath Sounds, No Respiratory Distress Neck: Yes: Supple Breast: Yes: Breast Exam Deferred Cardiology: Yes: Regular Rhythm, Regular Rate Abdominal: Yes: Normal Bowel Sounds Genitourinary: Yes: Within Normal Limits Back: Yes: Normal Inspection Musculoskeletal: Yes: Within Normal Limits Extremities: Yes: Tremors 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: Yes: Alert, Normal Mood/Affect Integumentary: Yes: Warm Lymphatic: Yes: Within Normal Limits - Diagnostic (1) Alcohol dependence with uncomplicated withdrawal Current Visit: Yes Status: Chronic (2) Anemia Current Visit: Yes Status: Chronic Qualifiers: Anemia type: unspecified type Qualified Code(s): D64.9 - Anemia, unspecified (3) Cannabis dependence Current Visit: Yes Status: Chronic (4) Depressive disorder Current Visit: Yes Status: Chronic (5) Hypertension Current Visit: No Status: Chronic Qualifiers: Hypertension type: unspecified Qualified Code(s): I10 - Essential (primary ) hypertension Cleared for Admission S - Detox or Rehab [facility] Level of Care: Medically Managed Detox Regimen/Protocol: Librium Breathalyzer - Breathalyzer Breathalyzer: 0.045 Urine Drug Screen - Test Device Lot number: [id number] Expiration date: 07/11/20 - Control Is test valid?: Yes - Results Drug screen NEGATIVE: No Urine drug screen results: BZO-Benzodiazepines Inpatient Rehab Admission - Rehab Decision to Admit Inpatient rehab admission?: No
[2018-11-21] MEDS ORDERED: MAGNESIUM CITRATE 300 ML BOTTLE PO PRN (22:06)
[2018-11-21] MEDS ORDERED: hydrOXYzine PAMOATE 25 MG CAPSULE (FP) PO PRN (22:06)
[2018-11-21] MEDS ORDERED: METHOCARBAMOL 500 MG TABLET PO PRN (22:06)
[2018-11-21] MEDS ORDERED: MENTHOL/PHENOL 1 EACH UD MM PRN (22:06)
[2018-11-21] MEDS ORDERED: chlordiazePOXIDE HCL 25 MG CAPSULE PO PRN (22:06)
[2018-11-21] MEDS ORDERED: MAGNESIUM HYDROX 2400MG/30ML ORAL SUSPENSION 30 ML CUP PO PRN (22:06)
[2018-11-21] MEDS ORDERED: ACETAMINOPHEN 325 MG TABLET (FP) PO PRN ×2 (22:06)
[2018-11-21] MEDS ORDERED: MAG HYDROX/AL HYDROX/SIMETH 30 ML UNIT-DOSE CUP PO PRN (22:06)
[2018-11-21] MEDS ORDERED: BISMUTH SUBSALICYLATE 524 MG/30 ML UD PO PRN (22:06)
[2018-11-21] MEDS: chlordiazePOXIDE HCL 25 MG CAPSULE PO SCH (23:10)
[2018-11-22] MEDS: chlordiazePOXIDE HCL 25 MG CAPSULE PO SCH ×4 (05:15→22:08)
[2018-11-22] MEDS: PRENATAL VITAMINS W/ FOLIC ACID TABLET (FP) PO SCH (09:56)
[2018-11-22] MEDS: amLODIPine BESYLATE 5 MG TABLET (FP) PO SCH (09:56)
[2018-11-22] MEDS: IBUPROFEN 400 MG TABLET (FP) PO PRN ×2 (09:59→22:10)
[2018-11-22 10:57] LABS: ALK PHOS 78 U/L (45-117); ANION GAP 7 MMOL/L (8-16); BILIRUBIN,TOTAL 0.5 mg/dL (0.2-1); BLOOD UREA NITROGEN 12 mg/dL (7-18); CALCIUM 7.7 mg/dL (8.5-10.1); CHLORIDE 104 mmol/L (98-107); CO2 28 mmol/L (21-32); CREATININE 0.7 mg/dL (0.55-1.3); GLUCOSE,RANDOM 87 mg/dL (74-106); POTASSIUM 3.2 mmol/L (3.5-5.1); SGOT/AST 22 U/L (15-37); SGPT/ALT 18 U/L (13-61); SODIUM 138 mmol/L (136-145); TOT PROT 6.7 g/dl (6.4-8.2)
[2018-11-22 11:02] LABS: HEMATOCRIT 33.8 % (35.4-49); HEMOGLOBIN 10.9 GM/dL (11.7-16.9); MCH 29.3 pg (25.7-33.7); MCHC 32.3 g/dl (32.0-35.9); MEAN CELL VOLUME 90.7 fl (80-96); MEAN PLT VOLUME 8.8 fl (7.5-11.1); PLATELET COUNT 184 K/MM3 (134-434); RBC 3.73 M/mm3 (4.00-5.60); RDW 16.8 % (11.9-15.9); WHITE BLOOD COUNT 2.9 K/mm3 (4.0-10.0)
[2018-11-22] MEDS ORDERED: guaiFENesin 200 MG/10 ML 10 ML UNIT-DOSE CUPS PO PRN (11:48)
--- NOTE | 2018-11-22 12:10 | PN ---
S CIWA - CIWA Score Nausea/Vomitin Muscle Tremors: 2 Anxiety: 2 Agitation: 2 Paroxysmal Sweats: 2 Orientation: 0-Oriented Tacttile Disturbances: 2-Mild Itch/Numbness/Burn Auditory Disturbances: 0-None Visual Disturbances: 0-None Headache: 2-Mild CIWA-Ar Total Score: 14 S Progress Note (SOAP) Subjective: Sweats, tremors,body aches, cough with runny nose Objective: 11/22/18 12:10 Vital Signs 11/22/18 11/22/18 06:28 10:00 Temperature 97.8 F 98.1 F Pulse Rate 95 H 74 Respiratory 18 16 Rate Blood Pressure 134/70 141/80 Laboratory Last Values WBC 2.9 K/mm3 (4.0-10.0) L 11/22/18 07:30 RBC 3.73 M/mm3 (4.00-5.60) L 11/22/18 07:30 Hgb 10.9 GM/dL (11.7-16.9) L 11/22/18 07:30 Hct 33.8 % (35.4-49) L 11/22/18 07:30 MCV 90.7 fl (80-96) 11/22/18 07:30 MCH 29.3 pg (25.7-33.7) 11/22/18 07:30 MCHC 32.3 g/dl (32.0-35.9) 11/22/18 07:30 RDW 16.8 % (11.9-15.9) H 11/22/18 07:30 Plt Count 184 K/MM3 (134-434) 11/22/18 07:30 MPV 8.8 fl (7.5-11.1) 11/22/18 07:30 Sodium 138 mmol/L (136-145) 11/22/18 07:30 Potassium 3.2 mmol/L (3.5-5.1) L 11/22/18 07:30 Chloride 104 mmol/L (98-107) 11/22/18 07:30 Carbon Dioxide 28 mmol/L (21-32) 11/22/18 07:30 Anion Gap 7 MMOL/L (8-16) L 11/22/18 07:30 BUN 12 mg/dL (7-18) 11/22/18 07:30 Creatinine 0.7 mg/dL (0.55-1.3) 11/22/18 07:30 Creat Clearance w eGFR 115.83 (>60) 11/22/18 07:30 Random Glucose 87 mg/dL (74-106) 11/22/18 07:30 Calcium 7.7 mg/dL (8.5-10.1) L 11/22/18 07:30 Total Bilirubin 0.5 mg/dL (0.2-1) 11/22/18 07:30 AST 22 U/L (15-37) 11/22/18 07:30 ALT 18 U/L (13-61) 11/22/18 07:30 Alkaline Phosphatase 78 U/L (45-117) 11/22/18 07:30 Total Protein 6.7 g/dl (6.4-8.2) 11/22/18 07:30 Albumin 3.0 g/dl (3.4-5.0) L 11/22/18 07:30 RPR Titer Nonreactive (NONREACTIVE) 11/22/18 07:30 Labs noted-low potassium level Alert with no distress, lungs clear, no SOB or dyspnea Epigastric discomfort Assessment: 11/22/18 12:12 Withdrawal sx Hyponatremia GERD-On Prilosec at home Common cold Plan: Continue detox Potassium supplement, repeat BMP on 11/24 Pantoprazole 20mg 6AM as per resident's request Robitussin 10ml Q6hrs PRN
[2018-11-22] MEDS ORDERED: POTASSIUM CHLORIDE TABS 20 MEQ TABLET.ER (FP) PO ONE (12:15)
--- NOTE | 2018-11-22 13:11 | CONSULT ---
[facility] Psychiatric Consult - Data Date of interview: 11/22/18 Admission source: [facility] Identifying data: Readmission to [facility] for this 58 y/o male who presented to [facility] with a withdrawal syndrome (alcohol) and requested admission to undergo detoxification treatment. Substances of abuse : alcohol + cocaine. Examined on . Patient is single without children, domiciled (lives with sisiter), unemployed and supported on SSI benefits. Substance Abuse History: Confirmed by the patient. Details in current [facility] report : Smoking history: Never smoked. Have you smoked in the past 12 months: No. Aproximately how many cigarettes per day: 0. Cigars Per Day: 0. Hx Chewing Tobacco Use: No. Initiated information on smoking cessation: No. - Substance & Tx. History. Hx Alcohol Use: No. Hx Substance Use: Yes. Substance Use Type: Alcohol. Hx Substance Use Treatment: Yes ([facility]). - Substances abused. Alcohol. Substance route: Oral. Frequency: Daily. Amount used: VODKA -2 pints. Age of first use: 14. Date of last use: . Cocaine. Substance route: Inhalation. Frequency: 3-6 times per week. Amount used: 1 gram. Age of first use: 17. Date of last use: 11/20/18 Medical History: Remarkable for a history of myocardial infarction (2016), peptic ulcer disease, GERD, anemia, hypertension, arthritis (right knee) and past surgery for fracture of nasal bones (1987). Psychiatric History: No change in psychiatric profile since encounter of 2018. History as follows : patient admits to a history of multiple psychiatric hospitalizations ([facility], [facility], [facility], [facility]). Diagnosed with MDD and bipolar Disorder.Mr Fournier is reportedly prescribed risperdal 2 mg/hs + zoloft (dose not recalled). No afiliation with psychiatric care providers. Patient admits to frequent utilization of local [facility] settings for refills of medications. No history of suicide attempts. Physical/Sexual Abuse/Trauma History: Patient denies. Additional Comment: Urine drug screen results: BZO-Benzodiazepines. Noted. Mental Status Exam - Mental Status Exam Alert and Oriented to: Time, Place, Person Cognitive Function: Good Patient Appearance: Disheveled Mood: Nervous, Withdrawn Affect: Appropriate, Normal Range Patient Behavior: Fatigued, Cooperative Speech Pattern: Clear, Appropriate Voice Loudness: Normal Thought Process: Goal Oriented Thought Disorder: Not Present Hallucinations: Denies Suicidal Ideation: Denies Homicidal Ideation: Denies Insight/Judgement: Poor Sleep: Fair Appetite: Good Muscle strength/Tone: Normal Gait/Station: Normal Psychiatric Findings - Problem List ([place] 1, 2,3) (1) Alcohol dependence with uncomplicated withdrawal Current Visit: Yes Status: Acute (2) Substance induced mood disorder Current Visit: Yes Status: Chronic (3) Mood disorder Current Visit: Yes Status: Chronic (4) Schizoaffective disorder Current Visit: Yes Status: Chronic Qualifiers: Schizoaffective disorder type: bipolar Qualified Code(s): F25.0 - Schizoaffective disorder, bipolar type Comment: By history. (5) Non-compliant patient Current Visit: Yes Status: Chronic - Initial Treatment Plan Initial Treatment Plan: Psychoeducation. Sleep hygiene. Support. Detoxification in progress. AA meetings. Relapse prevention (MAT options) : discussed with the patient. Medications : risperdal 1 mg po bid + zoloft 50 mg po daily. Side effects/benefits of both drugs are discussed with the patient. This includes the risk fo abnomal involuntary movement disorders, tardive dyskinesia, akathisia, neuroleptic malignant syndrome, galactorrhea, gynecomastia,sexual impotence, suicidal ideation and priapism. Patient is agreeable with this plan of care. Consent (verbal) granted to MD. Dunne.
[2018-11-22] MEDS: THIAMINE HCL 100 MG TABLET (FP) PO SCH (22:08)
[2018-11-22] MEDS: MELATONIN 5 MG TABLETS PO PRN (22:08)
[2018-11-23] MEDS: PANTOPRAZOLE 20 MG TABLET (FP) PO SCH ×2 (05:49→10:25)
[2018-11-23] MEDS: chlordiazePOXIDE HCL 25 MG CAPSULE PO SCH ×3 (05:49→17:10)
[2018-11-23] MEDS ORDERED: TOLNAFTATE 1% CREAM 15 GM TUBE TP SCH (10:00)
[2018-11-23] MEDS: amLODIPine BESYLATE 5 MG TABLET (FP) PO SCH (10:25)
[2018-11-23] MEDS: POTASSIUM CHLORIDE TABS 20 MEQ TABLET.ER (FP) PO SCH (10:25)
[2018-11-23] MEDS: PRENATAL VITAMINS W/ FOLIC ACID TABLET (FP) PO SCH (10:25)
[2018-11-23] MEDS: IBUPROFEN 400 MG TABLET (FP) PO PRN ×2 (10:28→22:09)
--- NOTE | 2018-11-23 11:54 | PN ---
S CIWA - CIWA Score Nausea/Vomitin-No Nausea/No Vomiting Muscle Tremors: None Anxiety: 2 Agitation: 2 Paroxysmal Sweats: No Perspiration Orientation: 0-Oriented Tacttile Disturbances: 2-Mild Itch/Numbness/Burn Auditory Disturbances: 0-None Visual Disturbances: 0-None Headache: 0-None Present CIWA-Ar Total Score: 6 BHS Progress Note (SOAP) Subjective: PATIENT C/O ITCHING TO FEET, NASAL STUFFINESS, MILD ANXIETY AND RESTLESSNESS. Objective: 11/23/18 11:51 Laboratory Tests 11/22/18 11/22/18 11/22/18 07:30 07:30 07:30 WBC 2.9 L RBC 3.73 L Hgb 10.9 L Hct 33.8 L MCV 90.7 MCH 29.3 MCHC 32.3 RDW 16.8 H Plt Count 184 MPV 8.8 Sodium 138 Potassium 3.2 L Chloride 104 Carbon Dioxide 28 Anion Gap 7 L BUN 12 Creatinine 0.7 Creat Clearance w eGFR 115.83 Random Glucose 87 Calcium 7.7 L Total Bilirubin 0.5 AST 22 ALT 18 Alkaline Phosphatase 78 Total Protein 6.7 Albumin 3.0 L RPR Titer Nonreactive Vital Signs Temperature 98 F 11/23/18 09:23 Pulse Rate 80 11/23/18 09:23 Respiratory Rate 16 11/23/18 09:23 Blood Pressure 113/77 11/23/18 09:23 O2 Sat by Pulse Oximetry (%) PE: ALERT AND ORIENTED X 3 SKIN WARM AND DRY ENT+PERRLA, +NASAL CONGESTION GI SOFT, BS+, NT, ND EXT NO VISIBLE TREMORS, NO SWELLING MILD REDNESS IN BETWEEN TOES Assessment: 11/23/18 11:52 WITHDRAWAL SX ATHLETES FOOT RHINITIS ANEMIA (KNOWN HX) Plan: CONTINUE DETOX FLONASE/TINACTIN POWDER ORDERED ENCOURAGE FLUIDS REPEAT CBC, BMP IN AM
[2018-11-23] MEDS: FLUTICASONE PROP 0.05% 16 GM NASAL SPRAY NS SCH (13:47)
[2018-11-23] MEDS: TOLNAFTATE 1% POWDER 45 GM POW TP SCH ×2 (13:48→22:08)
[2018-11-23] MEDS: MELATONIN 5 MG TABLETS PO PRN (22:07)
[2018-11-23] MEDS: chlordiazePOXIDE HCL 10 MG CAPSULE PO SCH (22:08)
[2018-11-23] MEDS: THIAMINE HCL 100 MG TABLET (FP) PO SCH (22:08)
[2018-11-23] MEDS ORDERED: chlordiazePOXIDE HCL 10 MG CAPSULE PO PRN (23:00)
[2018-11-24] MEDS: chlordiazePOXIDE HCL 10 MG CAPSULE PO SCH ×3 (05:27→16:56)
[2018-11-24] MEDS: PANTOPRAZOLE 20 MG TABLET (FP) PO SCH (06:29)
[2018-11-24 10:02] LABS: ANION GAP 6 MMOL/L (8-16); BLOOD UREA NITROGEN 13 mg/dL (7-18); CHLORIDE 105 mmol/L (98-107); CO2 29 mmol/L (21-32); CREATININE 0.7 mg/dL (0.55-1.3); GLUCOSE,RANDOM 93 mg/dL (74-106); HEMOGLOBIN 11.4 GM/dL (11.7-16.9); MCHC 32.5 g/dl (32.0-35.9); MEAN CELL VOLUME 92.4 fl (80-96); MEAN PLT VOLUME 9.5 fl (7.5-11.1); PLATELET COUNT 179 K/MM3 (134-434); RBC 3.78 M/mm3 (4.00-5.60); RDW 17.1 % (11.9-15.9); SODIUM 139 mmol/L (136-145); WHITE BLOOD COUNT 2.6 K/mm3 (4.0-10.0)
[2018-11-24] MEDS: PRENATAL VITAMINS W/ FOLIC ACID TABLET (FP) PO SCH (10:06)
[2018-11-24] MEDS: amLODIPine BESYLATE 5 MG TABLET (FP) PO SCH (10:06)
[2018-11-24] MEDS: POTASSIUM CHLORIDE TABS 20 MEQ TABLET.ER (FP) PO SCH (10:06)
[2018-11-24] MEDS: TOLNAFTATE 1% POWDER 45 GM POW TP SCH (10:06)
[2018-11-24] MEDS: FLUTICASONE PROP 0.05% 16 GM NASAL SPRAY NS SCH (10:08)
--- NOTE | 2018-11-24 10:28 | PN ---
BHS Progress Note (SOAP) Subjective: agitation sweats shakes interrupted sleep Objective: 11/24/18 10:27 Vital Signs Temperature 97.8 F 11/24/18 09:48 Pulse Rate 92 H 11/24/18 09:48 Respiratory Rate 18 11/24/18 09:48 Blood Pressure 124/74 11/24/18 09:48 O2 Sat by Pulse Oximetry (%) Laboratory Tests 11/22/18 11/22/18 11/22/18 07:30 07:30 07:30 WBC 2.9 L RBC 3.73 L Hgb 10.9 L Hct 33.8 L MCV 90.7 MCH 29.3 MCHC 32.3 RDW 16.8 H Plt Count 184 MPV 8.8 Sodium 138 Potassium 3.2 L Chloride 104 Carbon Dioxide 28 Anion Gap 7 L BUN 12 Creatinine 0.7 Creat Clearance w eGFR 115.83 Random Glucose 87 Calcium 7.7 L Total Bilirubin 0.5 AST 22 ALT 18 Alkaline Phosphatase 78 Total Protein 6.7 Albumin 3.0 L RPR Titer Nonreactive 11/24/18 11/24/18 07:00 07:00 WBC 2.6 L RBC 3.78 L Hgb 11.4 L Hct 35.0 L MCV 92.4 MCH 30.0 MCHC 32.5 RDW 17.1 H Plt Count 179 MPV 9.5 Sodium 139 Potassium 4.0 Chloride 105 Carbon Dioxide 29 Anion Gap 6 L BUN 13 Creatinine 0.7 Creat Clearance w eGFR 115.83 Random Glucose 93 Calcium 8.0 L Total Bilirubin AST ALT Alkaline Phosphatase Total Protein Albumin RPR Titer labs noted H:H slowly improving iron supplements ordered aaox3 ambulating no acute distress Assessment: 11/24/18 10:28 withdrawal sx Plan: continue detox increase fluids
[2018-11-24] MEDS ORDERED: FERROUS SO4 325 MG TABLET (FP) PO ONE (10:45)
[2018-11-24] MEDS: FERROUS SO4 325 MG TABLET (FP) PO SCH ×2 (12:35→16:56)
[2018-11-24] MEDS: IBUPROFEN 400 MG TABLET (FP) PO PRN (12:36)
[2018-11-24 16:26] VITALS: BP 137/77; PULSE 76; TEMP 98.3
--- NOTE | 2018-11-24 18:27 | PN ---
S Progress Note Note: Vital Signs Temperature 98.3 F 11/24/18 16:25 Pulse Rate 76 11/24/18 16:25 Respiratory Rate 18 11/24/18 16:25 Blood Pressure 137/77 11/24/18 16:25 O2 Sat by Pulse Oximetry (%) Patient insist on leaving AMA. Patient aware of risk. Patient to follow up with out patient referrals. If worsening symptoms to seek medical attention.
--- NOTE | 2018-11-24 19:04 | DS ---
[facility] Detox Discharge Summary Admission Date: 11/21/18 Discharge Date: 11/24/18 - History Present History: Alcohol Dependence, Cannabis Dependence - Physical Exam Results Vital Signs: Vital Signs Temperature 98.3 F 11/24/18 16:25 Pulse Rate 76 11/24/18 16:25 Respiratory Rate 18 11/24/18 16:25 Blood Pressure 137/77 11/24/18 16:25 O2 Sat by Pulse Oximetry (%) Pertinent Admission Physical Exam Findings: Patient left AMA. Left ins table condition. Follow up with out patient referrals. If worsening symptoms, seek medical attention. - Treatment Hospital Course: Discharged Condition Good - Medication Discharge Medications: Ambulatory Orders Sertraline HCl [Zoloft -] 25 mg PO HS #30 tablet 05/02/17 Amlodipine Besylate 5 mg PO DAILY #30 tablet 03/09/18 Risperidone [Risperdal] 1 mg PO BID 06/04/18 Omeprazole 20 mg PO DAILY 06/30/18 - Diagnosis (1) Alcohol dependence with uncomplicated withdrawal Current Visit: Yes Status: Acute (2) Anemia Current Visit: Yes Status: Chronic Qualifiers: Anemia type: unspecified type Qualified Code(s): D64.9 - Anemia, unspecified (3) Non-compliant patient Current Visit: Yes Status: Chronic (4) Nicotine dependence Current Visit: Yes Status: Acute Qualifiers: Nicotine product type: cigarettes Substance use status: in withdrawal Qualified Code(s): F17.213 - Nicotine dependence, cigarettes, with withdrawal (5) Acid reflux Current Visit: Yes Status: Chronic Qualifiers: Esophagitis presence: esophagitis presence not specified Qualified Code(s) : K21.9 - Gastro-esophageal reflux disease without esophagitis (6) Hypertension Current Visit: No Status: Chronic Qualifiers: Hypertension type: unspecified Qualified Code(s): I10 - Essential (primary ) hypertension - AMA Did Patient Leave Against Medical Advice: Yes
[2018-11-24] MEDS ORDERED: risperiDONE 1 MG TABLET (FP) PO SCH (22:00)
[2018-11-24] MEDS ORDERED: SERTRALINE HCL 25 MG TABLET (FP) PO SCH (22:00)
[2018-11-24] MEDS ORDERED: chlordiazePOXIDE HCL 10 MG CAPSULE PO SCH (23:00)
[2018-11-25] MEDS ORDERED: PANTOPRAZOLE 20 MG TABLET (FP) PO SCH (06:00)
== END 2018-11-24 07:01 | disposition left against medical advice (07) | DRG 770 ==
LOC: YASAS 19:19 → Y6N 22:13
PROVIDERS: ADMIT Surgery; ATTEND Surgery
PROC: HZ2ZZZZ Detoxification Services for Substance Abuse Treatment (ICD-10-PCS; principal; 2018-11-21)
DX: F10.230 Alcohol dependence with withdrawal, uncomplicated (principal); F17.213 Nicotine dependence, cigarettes, with withdrawal; F32.9 Major depressive disorder, single episode, unspecified; F19.24 Other psychoactive substance dependence with psychoactive substance-induced mood disorder; F39 Unspecified mood [affective] disorder; F25.9 Schizoaffective disorder, unspecified; D64.9 Anemia, unspecified; K21.9 Gastro-esophageal reflux disease without esophagitis; I10 Essential (primary) hypertension; B35.3 Tinea pedis; J31.0 Chronic rhinitis; I25.2 Old myocardial infarction; M13.861 Other specified arthritis, right knee; E87.1 Hypo-osmolality and hyponatremia; Z91.19 Patient's noncompliance with other medical treatment and regimen
CPT/HCPCS: 36415; 80048; 80053; 85027; 86593

== ENCOUNTER 2019-01-13 17:47 | Emergency (ER) | payer OTHER | END 2019-01-13 22:06 | disposition short-term general hospital (02) | LOC: JER 17:47 ==

== ENCOUNTER 2019-01-14 04:06 | Inpatient (IN) | payer OTHER ==
[2019-01-14 08:43] VITALS: BMI 30.1
--- NOTE | 2019-01-14 08:53 | HP ---
CIWA Score Nausea/Vomitin Muscle Tremors: 2 Anxiety: 2 Agitation: 2 Paroxysmal Sweats: 1-Minimal Palms Moist Orientation: 0-Oriented Tacttile Disturbances: 1-Very Mild Itch/Numbness Auditory Disturbances: 1-Very Mild Visual Disturbances: 0-None Headache: 2-Mild CIWA-Ar Total Score: 13 - Admission Criteria OASAS Guidelines: Admission for Medically Managed Detox: Requires at least one of the followin. CIWA greater than 12 2. Seizures within the past 24 hours 3. Delirium tremens within the past 24 hours 4. Hallucinations within the past 24 hours 5. Acute intervention needed for co occurring medical disorder 6. Acute intervention needed for co occurring psychiatric disorder 7. Severe withdrawal that cannot be handled at a lower level of care (continued vomiting, continued diarrhea, abnormal vital signs) requiring intravenous medication and/or fluids 8. Admission ROS [facility]HS - HPI Chief Complaint: i need help to stop drinking alcohol and cocaine Allergies/Adverse Reactions: Allergies Allergy/AdvReac Type Severity Reaction Status Date / Time No Known Allergies Allergy Verified 01/14/19 08:32 History of Present Illness: this58 years old male with alcohol and cocaine dependence,seeking detox, withdrawal symptom, seen in er at [facility] 01/13/19 multiple admission in detox last detox [facility] 11/21/18 to 11/24/18 hypertension, bipolar and depression longest sobriety 17 months plan for rehab after detox history of gerd Exam Limitations: No Limitations - Ebola screening Have you traveled outside of the country in the last 21 days: No - Review of Systems Constitutional: Loss of Appetite, Malaise, Night Sweats, Changes in sleep, Weakness EENT: reports: Nose Congestion Respiratory: reports: No Symptoms reported Cardiac: reports: No Symptoms Reported GI: reports: Nausea, Vomiting, Abdominal cramping : reports: No Symptoms Reported Musculoskeletal: reports: Back Pain, Muscle Pain Integumentary: reports: Dryness Neuro: reports: Headache, Tremors Endocrine: reports: No Symptoms Reported Hematology: reports: No Symptoms Reported Psychiatric: reports: No Sypmtoms Reported, Judgement Intact, Mood/Affect Appropiate, Orientated x3, Depressed, other (bipolar disorder) Patient History - Patient Medical History Hx Anemia: Yes (NO CURRENT MED) Hx Asthma: No Hx Chronic Obstructive Pulmonary Disease (COPD): No Hx Cancer: No Hx Cardiac Disorders: No Hx Congestive Heart Failure: No Hx Hypertension: Yes (NOT ON MEDICATION) Hx Hypercholesterolemia: No Hx Pacemaker: No HX Cerebrovascular Accident: No Hx Seizures: No Hx Dementia: No Hx Diabetes: No Hx Gastrointestinal Disorders: Yes (GERD- NEXIUM) Hx Liver Disease: No Hx Genitourinary Disorders: No Hx Sexually Transmitted Disorders: No Hx Renal Disease (ESRD): No Hx Thyroid Disease: No Hx Human Immunodeficiency Virus (HIV): No (last 11/28 negative) Hx Hepatitis C: No Hx Depression: Yes (RISPERDAL) Hx Suicide Attempt: No Hx Bipolar Disorder: Yes (RISPERDAL AND ZOLOFT) Hx Schizophrenia: No Other Medical History: no suicidal,no suicidal - Patient Surgical History Past Surgical History: Yes Hx Neurologic Surgery: No Hx Cataract Extraction: No Hx Cardiac Surgery: No Hx Lung Surgery: No Hx Breast Surgery: No Hx Breast Biopsy: No Hx Abdominal Surgery: No Hx Appendectomy: No Hx Cholecystectomy: No Hx Genitourinary Surgery: No Hx Section: No Hx Orthopedic Surgery: Yes (fx, left thumb in 2006) Other Surgical History: nasal fx in 1987 Anesthesia Reaction: No - PPD History Previous Implant?: Yes Documented Results: Negative w/proof Date: 06/06/18 Results: 0 mm PPD to be Administered?: No - Smoking Cessation Smoking history: Never smoked Have you smoked in the past 12 months: No Aproximately how many cigarettes per day: 0 Cigars Per Day: 0 Hx Chewing Tobacco Use: No - Substance & Tx. History Hx Alcohol Use: Yes Hx Substance Use: Yes Substance Use Type: Alcohol, Cocaine Hx Substance Use Treatment: Yes ([facility] 11/21/18 to 11/24/18) - Substances abused Alcohol Substance route: Oral Frequency: Daily Amount used: VODKA -2 pints Age of first use: 14 Date of last use: 01/13/19 Cocaine Substance route: Inhalation Frequency: 1-2 times per week Amount used: 1 gram Age of first use: 17 Date of last use: 01/13/19 Family Disease History - Family Disease History Family Disease History: Other: Father (alcoholic/), Mother () Admission Physical Exam BHS - Vital Signs Vital Signs: Vital Signs - 24 hr 01/14/19 08:37 Temperature 96.9 F L Pulse Rate 53 L Respiratory 18 Rate Blood Pressure 138/77 - Physical General Appearance: Yes: Moderate Distress, Tremorous, Sweating, Anxious HEENTM: Yes: Normocephalic, LISSA, Pharynx Normal Respiratory: Yes: Within Normal Limits, Lungs Clear, Normal Breath Sounds Neck: Yes: Within Normal Limits, Supple, Trachea in good position Breast: Yes: Within Normal Limits Cardiology: Yes: Bradycardia Abdominal: Yes: Within Normal Limits, Normal Bowel Sounds, Non Tender, Flat, Soft Genitourinary: Yes: Within Normal Limits Back: Yes: Muscle Spasm Musculoskeletal: Yes: Back pain, Muscle Pain Extremities: Yes: Tremors 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: Yes: Within Normal Limits, Alert, Motor Strength 5/5 Integumentary: Yes: Dry, Other (tinea pedis) Lymphatic: Yes: Within Normal Limits - Diagnostic (1) Alcohol dependence with uncomplicated withdrawal Current Visit: No Status: Acute (2) Syncope Current Visit: No Status: Acute (3) Arthritis of right knee Current Visit: No Status: Chronic (4) Bipolar disorder Current Visit: No Status: Chronic (5) GERD (gastroesophageal reflux disease) Current Visit: Yes Status: Acute (6) Acid reflux Current Visit: No Status: Chronic Qualifiers: Esophagitis presence: esophagitis presence not specified Qualified Code(s) : K21.9 - Gastro-esophageal reflux disease without esophagitis (7) Tinea pedis Current Visit: Yes Status: Acute (8) Arthritis of right knee Current Visit: Yes Status: Acute (9) Cocaine abuse Current Visit: Yes Status: Acute Cleared for Admission S - Detox or Rehab [facility] Level of Care: Medically Managed Detox Regimen/Protocol: Librium Breathalyzer - Breathalyzer Breathalyzer: 0.045 Urine Drug Screen - Test Device Lot number: [id number] Expiration date: 07/11/20 - Control Is test valid?: Yes - Results Drug screen NEGATIVE: No Urine drug screen results: BZO-Benzodiazepines Inpatient Rehab Admission - Rehab Decision to Admit Inpatient rehab admission?: No
[2019-01-14] MEDS ORDERED: MAG HYDROX/AL HYDROX/SIMETH 30 ML UNIT-DOSE CUP PO PRN (09:00)
[2019-01-14] MEDS ORDERED: MAGNESIUM CITRATE 300 ML BOTTLE PO PRN (09:00)
[2019-01-14] MEDS ORDERED: chlordiazePOXIDE HCL 25 MG CAPSULE PO PRN (09:00)
[2019-01-14] MEDS ORDERED: METHOCARBAMOL 500 MG TABLET PO PRN (09:00)
[2019-01-14] MEDS ORDERED: MAGNESIUM HYDROX 2400MG/30ML ORAL SUSPENSION 30 ML CUP PO PRN (09:00)
[2019-01-14] MEDS ORDERED: P-EPHED 60MG/TRIPROLIDI 2.5MG TABLET PO PRN (09:00)
[2019-01-14] MEDS ORDERED: hydrOXYzine PAMOATE 25 MG CAPSULE (FP) PO PRN (09:00)
[2019-01-14] MEDS ORDERED: BISMUTH SUBSALICYLATE 262 MG/15 ML BTL PO PRN (09:00)
[2019-01-14] MEDS ORDERED: MENTHOL/PHENOL 1 EACH UD MM PRN (09:00)
[2019-01-14] MEDS ORDERED: ACETAMINOPHEN 325 MG TABLET (FP) PO PRN ×2 (09:00)
[2019-01-14] MEDS ORDERED: guaiFENesin 200 MG/10 ML 10 ML UNIT-DOSE CUPS PO PRN (09:00)
[2019-01-14] MEDS: amLODIPine BESYLATE 5 MG TABLET (FP) PO SCH (10:03)
[2019-01-14] MEDS: chlordiazePOXIDE HCL 25 MG CAPSULE PO SCH ×3 (10:03→22:11)
[2019-01-14] MEDS: PRENATAL VITAMINS W/ FOLIC ACID TABLET (FP) PO SCH (10:03)
[2019-01-14] MEDS: PANTOPRAZOLE 40 MG TABLET (FP) PO SCH (10:03)
[2019-01-14 12:47] LABS: HEMATOCRIT 38.7 % (35.4-49); HEMOGLOBIN 12.4 GM/dL (11.7-16.9); MCH 28.3 pg (25.7-33.7); MCHC 31.9 g/dl (32.0-35.9); MEAN CELL VOLUME 88.6 fl (80-96); PLATELET COUNT 183 K/MM3 (134-434); RBC 4.37 M/mm3 (4.00-5.60); RDW 16.8 % (11.9-15.9); WHITE BLOOD COUNT 3.2 K/mm3 (4.0-10.0)
[2019-01-14 12:51] LABS: ALBUMIN 3.5 g/dl (3.4-5.0); BILIRUBIN,TOTAL 0.3 mg/dL (0.2-1); CALCIUM 9.1 mg/dL (8.5-10.1); CREATININE 0.7 mg/dL (0.55-1.3); POTASSIUM 3.8 mmol/L (3.5-5.1); TOT PROT 7.8 g/dl (6.4-8.2)
[2019-01-14 15:09] LABS: URINE APPEARANCE TURBID; URINE BILIRUBIN 1+ (NEGATIVE); URINE COLOR DK YELLOW; URINE GLUCOSE (UA) NEGATIVE (NEGATIVE); URINE KETONE TRACE (NEGATIVE); URINE LEUK ESTERASE NEGATIVE (NEGATIVE); URINE NITRITE NEGATIVE (NEGATIVE); URINE PROTEIN TRACE (NEGATIVE)
[2019-01-14] MEDS: TOLNAFTATE 1% CREAM 15 GM TUBE TP SCH ×2 (15:59→22:53)
[2019-01-14] MEDS: THIAMINE HCL 100 MG TABLET (FP) PO SCH (22:11)
[2019-01-14] MEDS: MELATONIN 5 MG TABLETS PO PRN (22:13)
[2019-01-15] MEDS: chlordiazePOXIDE HCL 25 MG CAPSULE PO SCH ×4 (06:28→22:04)
--- NOTE | 2019-01-15 10:31 | PN ---
S CIWA - CIWA Score Nausea/Vomitin Muscle Tremors: 2 Anxiety: 2 Agitation: 2 Paroxysmal Sweats: 1-Minimal Palms Moist Orientation: 0-Oriented Tacttile Disturbances: 1-Very Mild Itch/Numbness Auditory Disturbances: 1-Very Mild Visual Disturbances: 0-None Headache: 2-Mild CIWA-Ar Total Score: 13 BHS Progress Note (SOAP) Subjective: alert,irritable,anxious,interrupted sleep Objective: 01/15/19 10:29 Vital Signs Temperature 97.7 F 01/15/19 09:13 Pulse Rate 92 H 01/15/19 09:13 Respiratory Rate 18 01/15/19 09:13 Blood Pressure 133/74 01/15/19 09:13 O2 Sat by Pulse Oximetry (%) 01/15/19 10:30 Laboratory Last Values WBC 3.2 K/mm3 (4.0-10.0) L 01/14/19 09:35 RBC 4.37 M/mm3 (4.00-5.60) 01/14/19 09:35 Hgb 12.4 GM/dL (11.7-16.9) 01/14/19 09:35 Hct 38.7 % (35.4-49) 01/14/19 09:35 MCV 88.6 fl (80-96) 01/14/19 09:35 MCH 28.3 pg (25.7-33.7) 01/14/19 09:35 MCHC 31.9 g/dl (32.0-35.9) L 01/14/19 09:35 RDW 16.8 % (11.9-15.9) H 01/14/19 09:35 Plt Count 183 K/MM3 (134-434) 01/14/19 09:35 MPV 10.0 fl (7.5-11.1) 01/14/19 09:35 Sodium 135 mmol/L (136-145) L 01/14/19 09:35 Potassium 3.8 mmol/L (3.5-5.1) 01/14/19 09:35 Chloride 101 mmol/L (98-107) 01/14/19 09:35 Carbon Dioxide 26 mmol/L (21-32) 01/14/19 09:35 Anion Gap 8 MMOL/L (8-16) 01/14/19 09:35 BUN 10 mg/dL (7-18) 01/14/19 09:35 Creatinine 0.7 mg/dL (0.55-1.3) 01/14/19 09:35 Est GFR (CKD-EPI)AfAm 120.56 01/14/19 09:35 Est GFR (CKD-EPI)NonAf 104.02 01/14/19 09:35 Random Glucose 96 mg/dL (74-106) 01/14/19 09:35 Calcium 9.1 mg/dL (8.5-10.1) 01/14/19 09:35 Total Bilirubin 0.3 mg/dL (0.2-1) 01/14/19 09:35 AST 43 U/L (15-37) H 01/14/19 09:35 ALT 30 U/L (13-61) 01/14/19 09:35 Alkaline Phosphatase 95 U/L (45-117) 01/14/19 09:35 Total Protein 7.8 g/dl (6.4-8.2) 01/14/19 09:35 Albumin 3.5 g/dl (3.4-5.0) 01/14/19 09:35 Urine Color Dk yellow 01/14/19 12:10 Urine Appearance Turbid 01/14/19 12:10 Urine pH 5.0 (5.0-8.0) D 01/14/19 12:10 Ur Specific [place] 1.036 (1.010-1.035) H 01/14/19 12:10 Urine Protein Trace (NEGATIVE) 01/14/19 12:10 Urine Glucose (UA) Negative (NEGATIVE) 01/14/19 12:10 Urine Ketones Trace (NEGATIVE) H 01/14/19 12:10 Urine Blood Negative (NEGATIVE) 01/14/19 12:10 Urine Nitrite Negative (NEGATIVE) 01/14/19 12:10 Urine Bilirubin 1+ (NEGATIVE) H 01/14/19 12:10 Urine Urobilinogen 1.0 mg/dL (0.2-1.0) 01/14/19 12:10 Ur Leukocyte Esterase Negative (NEGATIVE) 01/14/19 12:10 RPR Titer Nonreactive (NONREACTIVE) 01/14/19 09:35 HIV 1&2 Antibody Screen Negative 01/14/19 09:35 HIV P24 Antigen Negative 01/14/19 09:35 Assessment: 01/15/19 10:30 withdrawal symptom Plan: continue detox
[2019-01-15] MEDS: PRENATAL VITAMINS W/ FOLIC ACID TABLET (FP) PO SCH (10:42)
[2019-01-15] MEDS: amLODIPine BESYLATE 5 MG TABLET (FP) PO SCH (10:42)
[2019-01-15] MEDS: PANTOPRAZOLE 40 MG TABLET (FP) PO SCH (10:42)
[2019-01-15] MEDS: IBUPROFEN 400 MG TABLET (FP) PO PRN ×2 (10:48→22:06)
--- NOTE | 2019-01-15 11:28 | CONSULT ---
[facility] Psychiatric Consult - Data Date of interview: 01/15/19 Admission source: Self-referred Identifying data: Mr Fournier is 58 years old single , unemployed receiving SSI, homeless seeking detox treatment for alcohol and cocaine Substance Abuse History: Reports history of alcohol and cocaine use. Refer to addiction counselor's summary for further information Medical History: Significant for peptic ulcer disease, GERD, anemia, hypertension, arthritis (right knee), history of myocardial infarction x2 in 2017 and 5 months ago, and surgery for fracture of nasal bones (1987) and left thumb. Psychiatric History: Patient is well known to this facility from multiple previous admissions. History remains consistent. Reports being diagnosed with Bipolar Depression approximately 15 years ago. Reports at least 5 previous psychiatric hospitalizations at various facilities including [facility], [facility], formerly [facility] and [facility]. Reports chronic non adherence to OPD care but visits [facility] for refills of medications. Reports currently taking Risperdal 1 mg/bid and Zoloft 50 mg / daily. Denies previoud suicidal attempt. At present, denies experiencing psychotic, manic or depressive symptoms, S/H ideations. However, reports sleeping poorly. Physical/Sexual Abuse/Trauma History: Denies history of emotional, physical or sexual abuse as well as DV relationship Additional Comment: Reports history of multiple previous arrests including one felony conviction. No parole/probation at present Mental Status Exam - Mental Status Exam Alert and Oriented to: Time, Place Patient Appearance: Disheveled Mood: Hopeful, Euthymic Patient Behavior: Cooperative Speech Pattern: Clear Thought Process: Intact, Goal Oriented Thought Disorder: Not Present Hallucinations: Denies Suicidal Ideation: Denies Homicidal Ideation: Denies Insight/Judgement: Poor Sleep: Poorly Appetite: Good Muscle strength/Tone: Normal Gait/Station: Normal Psychiatric Findings - Problem List ([place] 1, 2,3) (1) Schizoaffective disorder Current Visit: No Status: Chronic Qualifiers: Schizoaffective disorder type: bipolar Qualified Code(s): F25.0 - Schizoaffective disorder, bipolar type Comment: By history. (2) Bipolar disorder Current Visit: No Status: Ruled-out (3) Substance-induced sleep disorder Current Visit: Yes Status: Acute (4) Alcohol dependence with uncomplicated withdrawal Current Visit: No Status: Acute (5) Cocaine dependence Current Visit: Yes Status: Acute (6) Arthritis of right knee Current Visit: Yes Status: Acute (7) GERD (gastroesophageal reflux disease) Current Visit: Yes Status: Acute (8) Anemia Current Visit: No Status: Chronic Qualifiers: Anemia type: unspecified type Qualified Code(s): D64.9 - Anemia, unspecified (9) Hypertension Current Visit: No Status: Chronic Qualifiers: Hypertension type: unspecified Qualified Code(s): I10 - Essential (primary ) hypertension (10) Obesity Current Visit: No Status: Chronic Qualifiers: Obesity type: unspecified obesity type Obesity classification: adult class 1 (BMI 30 - 34.9) Serious obesity comorbidity presence: unspecified whether serious comorbidity present Body mass index: BMI 33.0-33.9 Qualified Code(s) : E66.9 - Obesity, unspecified; Z68.33 - Body mass index (BMI) 33.0-33.9, adult (11) PUD (peptic ulcer disease) Current Visit: No Status: Resolved - Initial Treatment Plan Initial Treatment Plan: 1) Resume Risperdal 1 mg po BID and Zoloft 50 mg po daily. 2) Continue inpatient detoxification
[2019-01-15] MEDS: TOLNAFTATE 1% CREAM 15 GM TUBE TP SCH ×2 (15:10→22:04)
[2019-01-15] MEDS: MELATONIN 5 MG TABLETS PO PRN (22:04)
[2019-01-15] MEDS: THIAMINE HCL 100 MG TABLET (FP) PO SCH (22:07)
[2019-01-16] MEDS: chlordiazePOXIDE HCL 25 MG CAPSULE PO SCH ×2 (05:55→06:18)
[2019-01-16] MEDS ORDERED: PANTOPRAZOLE 40 MG TABLET (FP) PO SCH (06:15)
--- NOTE | 2019-01-16 09:35 | PN ---
S CIWA - CIWA Score Nausea/Vomitin Muscle Tremors: 2 Anxiety: 2 Agitation: 2 Paroxysmal Sweats: 1-Minimal Palms Moist Orientation: 0-Oriented Tacttile Disturbances: 1-Very Mild Itch/Numbness Auditory Disturbances: 1-Very Mild Visual Disturbances: 0-None Headache: 2-Mild CIWA-Ar Total Score: 13 BHS Progress Note (SOAP) Subjective: alert,irritable,anxious,interrupted sleep,tremor Objective: 01/16/19 09:33 Vital Signs Temperature 98.1 F 01/16/19 09:15 Pulse Rate 76 01/16/19 09:15 Respiratory Rate 18 01/16/19 09:15 Blood Pressure 141/81 01/16/19 09:15 O2 Sat by Pulse Oximetry (%) 01/16/19 09:33 Laboratory Last Values WBC 3.2 K/mm3 (4.0-10.0) L 01/14/19 09:35 RBC 4.37 M/mm3 (4.00-5.60) 01/14/19 09:35 Hgb 12.4 GM/dL (11.7-16.9) 01/14/19 09:35 Hct 38.7 % (35.4-49) 01/14/19 09:35 MCV 88.6 fl (80-96) 01/14/19 09:35 MCH 28.3 pg (25.7-33.7) 01/14/19 09:35 MCHC 31.9 g/dl (32.0-35.9) L 01/14/19 09:35 RDW 16.8 % (11.9-15.9) H 01/14/19 09:35 Plt Count 183 K/MM3 (134-434) 01/14/19 09:35 MPV 10.0 fl (7.5-11.1) 01/14/19 09:35 Sodium 135 mmol/L (136-145) L 01/14/19 09:35 Potassium 3.8 mmol/L (3.5-5.1) 01/14/19 09:35 Chloride 101 mmol/L (98-107) 01/14/19 09:35 Carbon Dioxide 26 mmol/L (21-32) 01/14/19 09:35 Anion Gap 8 MMOL/L (8-16) 01/14/19 09:35 BUN 10 mg/dL (7-18) 01/14/19 09:35 Creatinine 0.7 mg/dL (0.55-1.3) 01/14/19 09:35 Est GFR (CKD-EPI)AfAm 120.56 01/14/19 09:35 Est GFR (CKD-EPI)NonAf 104.02 01/14/19 09:35 Random Glucose 96 mg/dL (74-106) 01/14/19 09:35 Calcium 9.1 mg/dL (8.5-10.1) 01/14/19 09:35 Total Bilirubin 0.3 mg/dL (0.2-1) 01/14/19 09:35 AST 43 U/L (15-37) H 01/14/19 09:35 ALT 30 U/L (13-61) 01/14/19 09:35 Alkaline Phosphatase 95 U/L (45-117) 01/14/19 09:35 Total Protein 7.8 g/dl (6.4-8.2) 01/14/19 09:35 Albumin 3.5 g/dl (3.4-5.0) 01/14/19 09:35 Urine Color Dk yellow 01/14/19 12:10 Urine Appearance Turbid 01/14/19 12:10 Urine pH 5.0 (5.0-8.0) D 01/14/19 12:10 Ur Specific [place] 1.036 (1.010-1.035) H 01/14/19 12:10 Urine Protein Trace (NEGATIVE) 01/14/19 12:10 Urine Glucose (UA) Negative (NEGATIVE) 01/14/19 12:10 Urine Ketones Trace (NEGATIVE) H 01/14/19 12:10 Urine Blood Negative (NEGATIVE) 01/14/19 12:10 Urine Nitrite Negative (NEGATIVE) 01/14/19 12:10 Urine Bilirubin 1+ (NEGATIVE) H 01/14/19 12:10 Urine Urobilinogen 1.0 mg/dL (0.2-1.0) 01/14/19 12:10 Ur Leukocyte Esterase Negative (NEGATIVE) 01/14/19 12:10 RPR Titer Nonreactive (NONREACTIVE) 01/14/19 09:35 HIV 1&2 Antibody Screen Negative 01/14/19 09:35 HIV P24 Antigen Negative 01/14/19 09:35 Assessment: 01/16/19 09:34 withdrawal symptom Plan: continue detox,discharge in am
--- NOTE | 2019-01-16 09:38 | PN ---
[facility] Progress Note Note: addendum possible discharge on 02/07/19
[2019-01-16] MEDS: PRENATAL VITAMINS W/ FOLIC ACID TABLET (FP) PO SCH (10:08)
[2019-01-16] MEDS: TOLNAFTATE 1% CREAM 15 GM TUBE TP SCH (10:08)
[2019-01-16] MEDS: IBUPROFEN 400 MG TABLET (FP) PO PRN (10:11)
[2019-01-16] MEDS ORDERED: chlordiazePOXIDE HCL 10 MG CAPSULE PO SCH (11:00)
[2019-01-16] MEDS ORDERED: chlordiazePOXIDE HCL 10 MG CAPSULE PO PRN (11:00)
[2019-01-16] MEDS: amLODIPine BESYLATE 5 MG TABLET (FP) PO SCH (11:46)
--- NOTE | 2019-01-16 13:34 | PN ---
[facility] Progress Note Note: patient did not want to complete treatment due to personal issue,all attempts to convince patient to stay with no avail, high risk of relapsing explained,patient understood,patient signed release ama, advise to call 911 if any problem or go to nearest emergency room
--- NOTE | 2019-01-16 13:36 | DS ---
[facility] Detox Discharge Summary Admission Date: 01/14/19 Discharge Date: 01/16/19 - History Present History: Alcohol Dependence, Cocaine Dependence Additional Comments: patient signed release ama Pertinent Past History: hypertension gerd arthritis of right knee tinea pedis bipolar disorder - Physical Exam Results Vital Signs: Vital Signs Temperature 98.1 F 01/16/19 09:15 Pulse Rate 76 01/16/19 09:15 Respiratory Rate 18 01/16/19 09:15 Blood Pressure 141/81 01/16/19 09:15 O2 Sat by Pulse Oximetry (%) Pertinent Admission Physical Exam Findings: withdrawal sign and symptom Vital Signs Temperature 98.1 F 01/16/19 09:15 Pulse Rate 76 01/16/19 09:15 Respiratory Rate 18 01/16/19 09:15 Blood Pressure 141/81 01/16/19 09:15 O2 Sat by Pulse Oximetry (%) Laboratory Last Values WBC 3.2 K/mm3 (4.0-10.0) L 01/14/19 09:35 RBC 4.37 M/mm3 (4.00-5.60) 01/14/19 09:35 Hgb 12.4 GM/dL (11.7-16.9) 01/14/19 09:35 Hct 38.7 % (35.4-49) 01/14/19 09:35 MCV 88.6 fl (80-96) 01/14/19 09:35 MCH 28.3 pg (25.7-33.7) 01/14/19 09:35 MCHC 31.9 g/dl (32.0-35.9) L 01/14/19 09:35 RDW 16.8 % (11.9-15.9) H 01/14/19 09:35 Plt Count 183 K/MM3 (134-434) 01/14/19 09:35 MPV 10.0 fl (7.5-11.1) 01/14/19 09:35 Sodium 135 mmol/L (136-145) L 01/14/19 09:35 Potassium 3.8 mmol/L (3.5-5.1) 01/14/19 09:35 Chloride 101 mmol/L (98-107) 01/14/19 09:35 Carbon Dioxide 26 mmol/L (21-32) 01/14/19 09:35 Anion Gap 8 MMOL/L (8-16) 01/14/19 09:35 BUN 10 mg/dL (7-18) 01/14/19 09:35 Creatinine 0.7 mg/dL (0.55-1.3) 01/14/19 09:35 Est GFR (CKD-EPI)AfAm 120.56 01/14/19 09:35 Est GFR (CKD-EPI)NonAf 104.02 01/14/19 09:35 Random Glucose 96 mg/dL (74-106) 01/14/19 09:35 Calcium 9.1 mg/dL (8.5-10.1) 01/14/19 09:35 Total Bilirubin 0.3 mg/dL (0.2-1) 01/14/19 09:35 AST 43 U/L (15-37) H 01/14/19 09:35 ALT 30 U/L (13-61) 01/14/19 09:35 Alkaline Phosphatase 95 U/L (45-117) 01/14/19 09:35 Total Protein 7.8 g/dl (6.4-8.2) 01/14/19 09:35 Albumin 3.5 g/dl (3.4-5.0) 01/14/19 09:35 Urine Color Dk yellow 01/14/19 12:10 Urine Appearance Turbid 01/14/19 12:10 Urine pH 5.0 (5.0-8.0) D 01/14/19 12:10 Ur Specific [place] 1.036 (1.010-1.035) H 01/14/19 12:10 Urine Protein Trace (NEGATIVE) 01/14/19 12:10 Urine Glucose (UA) Negative (NEGATIVE) 01/14/19 12:10 Urine Ketones Trace (NEGATIVE) H 01/14/19 12:10 Urine Blood Negative (NEGATIVE) 01/14/19 12:10 Urine Nitrite Negative (NEGATIVE) 01/14/19 12:10 Urine Bilirubin 1+ (NEGATIVE) H 01/14/19 12:10 Urine Urobilinogen 1.0 mg/dL (0.2-1.0) 01/14/19 12:10 Ur Leukocyte Esterase Negative (NEGATIVE) 01/14/19 12:10 RPR Titer Nonreactive (NONREACTIVE) 01/14/19 09:35 HIV 1&2 Antibody Screen Negative 01/14/19 09:35 HIV P24 Antigen Negative 01/14/19 09:35 - Medication Discharge Medications: Ambulatory Orders Sertraline HCl [Zoloft -] 25 mg PO HS #30 tablet 05/02/17 Amlodipine Besylate 5 mg PO DAILY #30 tablet 03/09/18 Risperidone [Risperdal] 1 mg PO BID 06/04/18 Omeprazole 20 mg PO DAILY 06/30/18 - Diagnosis (1) Alcohol dependence with uncomplicated withdrawal Current Visit: No Status: Acute (2) Syncope Current Visit: No Status: Acute (3) Arthritis of right knee Current Visit: No Status: Chronic (4) GERD (gastroesophageal reflux disease) Current Visit: Yes Status: Acute (5) Acid reflux Current Visit: No Status: Chronic Qualifiers: Esophagitis presence: esophagitis presence not specified Qualified Code(s) : K21.9 - Gastro-esophageal reflux disease without esophagitis (6) Tinea pedis Current Visit: Yes Status: Acute (7) Arthritis of right knee Current Visit: Yes Status: Acute (8) Cocaine abuse Current Visit: Yes Status: Acute - AMA Did Patient Leave Against Medical Advice: Yes
[2019-01-16 13:50] VITALS: BP 145/76; PULSE 75; TEMP 97.9
[2019-01-17] MEDS ORDERED: chlordiazePOXIDE HCL 10 MG CAPSULE PO SCH (11:00)
== END 2019-01-16 13:29 | disposition left against medical advice (07) | DRG 770 ==
LOC: YASAS 04:06 → Y6N 08:55
PROVIDERS: ADMIT Surgery; ATTEND Surgery
PROC: HZ2ZZZZ Detoxification Services for Substance Abuse Treatment (ICD-10-PCS; principal; 2019-01-14)
DX: F10.230 Alcohol dependence with withdrawal, uncomplicated (principal); F14.20 Cocaine dependence, uncomplicated; F25.0 Schizoaffective disorder, bipolar type; F19.282 Other psychoactive substance dependence with psychoactive substance-induced sleep disorder; F31.9 Bipolar disorder, unspecified; I10 Essential (primary) hypertension; K21.9 Gastro-esophageal reflux disease without esophagitis; B35.3 Tinea pedis; M17.11 Unilateral primary osteoarthritis, right knee; D64.9 Anemia, unspecified; Z68.30 Body mass index [BMI] 30.0-30.9, adult; Z87.11 Personal history of peptic ulcer disease; Z86.79 Personal history of other diseases of the circulatory system
CPT/HCPCS: 36415; 80053; 81003; 85027; 86593; 87389

== ENCOUNTER 2019-03-08 10:48 | Inpatient (IN) | payer OTHER ==
[2019-03-08 11:39] VITALS: BMI 30.4
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
[2019-03-08] MEDS ORDERED: chlordiazePOXIDE HCL 10 MG CAPSULE PO PRN (12:37)
[2019-03-08] MEDS ORDERED: hydrOXYzine PAMOATE 25 MG CAPSULE (FP) PO PRN (12:37)
[2019-03-08] MEDS ORDERED: MENTHOL/PHENOL 1 EACH UD MM PRN (12:37)
[2019-03-08] MEDS ORDERED: ACETAMINOPHEN 325 MG TABLET (FP) PO PRN (12:37)
[2019-03-08] MEDS ORDERED: MAG HYDROX/AL HYDROX/SIMETH 30 ML UNIT-DOSE CUP PO PRN (12:37)
[2019-03-08] MEDS ORDERED: IBUPROFEN 400 MG TABLET (FP) PO PRN (12:37)
[2019-03-08] MEDS ORDERED: BISMUTH SUBSALICYLATE 524 MG/30 ML UD PO PRN (12:37)
[2019-03-08] MEDS ORDERED: MAGNESIUM HYDROX 2400MG/30ML ORAL SUSPENSION 30 ML CUP PO PRN (12:37)
[2019-03-08] MEDS ORDERED: MAGNESIUM CITRATE 300 ML BOTTLE PO PRN (12:37)
[2019-03-08] MEDS: chlordiazePOXIDE HCL 25 MG CAPSULE PO SCH ×2 (13:51→22:06)
--- NOTE | 2019-03-08 13:54 | PN ---
[facility] Progress Note Note: patient has long history of gerd treated with naxium patient does not bring in his own medication naxium naxium is non formulary medication discontinue motrin discontinue naxium begin zantac 150 mg po bid
[2019-03-08] MEDS: RANITIDINE HCL 150 MG TABLET (FP) PO SCH ×2 (14:21→22:06)
[2019-03-08] MEDS: THIAMINE HCL 100 MG TABLET (FP) PO SCH (22:06)
[2019-03-08] MEDS: MELATONIN 5 MG TABLETS PO PRN (22:08)
[2019-03-08] MEDS: ACETAMINOPHEN 325 MG TABLET (FP) PO PRN (22:08)
[2019-03-09] MEDS: chlordiazePOXIDE HCL 25 MG CAPSULE PO SCH ×3 (05:31→21:50)
[2019-03-09] MEDS ORDERED: PATIENT'S OWN MEDICATION (NON-FORMULARY) (Omeprazole 20 MG) PO SCH (06:00)
[2019-03-09] MEDS: RANITIDINE HCL 150 MG TABLET (FP) PO SCH (10:18)
[2019-03-09] MEDS: amLODIPine BESYLATE 5 MG TABLET (FP) PO SCH (10:18)
[2019-03-09] MEDS: ACETAMINOPHEN 325 MG TABLET (FP) PO PRN (10:18)
[2019-03-09] MEDS: PRENATAL VITAMINS W/ FOLIC ACID TABLET (FP) PO SCH (10:20)
[2019-03-09] MEDS ORDERED: IBUPROFEN 400 MG TABLET (FP) PO ONE (10:26)
[2019-03-09] MEDS ORDERED: RANITIDINE HCL 150 MG TABLET (FP) PO SCH (10:40)
[2019-03-09] MEDS: CLOTRIMAZOLE 1% CREAM 15 GM TUBE TP SCH ×2 (12:18→22:16)
[2019-03-09 12:32] LABS: HEMATOCRIT 38.7 % (35.4-49); HEMOGLOBIN 12.2 GM/dL (11.7-16.9); MCH 28.1 pg (25.7-33.7); MCHC 31.5 g/dl (32.0-35.9); MEAN PLT VOLUME 9.2 fl (7.5-11.1); PLATELET COUNT 210 K/MM3 (134-434); RBC 4.35 M/mm3 (4.00-5.60); RDW 18.6 % (11.9-15.9); WHITE BLOOD COUNT 3.6 K/mm3 (4.0-10.0)
[2019-03-09 12:58] LABS: ALBUMIN 3.3 g/dl (3.4-5.0); BLOOD UREA NITROGEN 14.9 mg/dL (7-18); CALCIUM 8.6 mg/dL (8.5-10.1); CREATININE 0.7 mg/dL (0.55-1.3); POTASSIUM 3.6 mmol/L (3.5-5.1); TOT PROT 7.6 g/dl (6.4-8.2)
[2019-03-09] MEDS: METHYL SALICYLATE/MENTHOL OINT 30 GM TUBE TP SCH ×2 (14:06→22:16)
--- NOTE | 2019-03-09 16:43 | PN ---
S CIWA - CIWA Score Nausea/Vomitin-No Nausea/No Vomiting Muscle Tremors: None Anxiety: 3 Agitation: 1-Slight > Activity Paroxysmal Sweats: No Perspiration Orientation: 0-Oriented Tacttile Disturbances: 2-Mild Itch/Numbness/Burn Auditory Disturbances: 2-Mild Harshness/Frighten Visual Disturbances: 0-None Headache: 0-None Present CIWA-Ar Total Score: 8 [facility] Progress Note (SOAP) Subjective: Body Aches, Anxious. Objective: PATIENT A & O X 3, OBSERVED AMBULATING ON UNIT UNASSISTED. IN NO ACUTE DISTRESS. 03/09/19 16:41 Vital Signs Temperature 96.2 F L 03/09/19 13:21 Pulse Rate 62 03/09/19 13:21 Respiratory Rate 18 03/09/19 13:21 Blood Pressure 144/79 03/09/19 13:21 O2 Sat by Pulse Oximetry (%) Laboratory Tests 03/09/19 03/09/19 03/09/19 07:00 07:00 07:00 WBC 3.6 L RBC 4.35 Hgb 12.2 Hct 38.7 MCV 89.0 MCH 28.1 MCHC 31.5 L RDW 18.6 H Plt Count 210 MPV 9.2 Sodium 137 Potassium 3.6 Chloride 101 Carbon Dioxide 29 Anion Gap 7 L BUN 14.9 Creatinine 0.7 Est GFR (CKD-EPI)AfAm 120.56 Est GFR (CKD-EPI)NonAf 104.02 Random Glucose 91 Calcium 8.6 Total Bilirubin 1.0 AST 38 H ALT 21 Alkaline Phosphatase 91 Total Protein 7.6 Albumin 3.3 L RPR Titer HIV 1&2 Antibody Screen Negative HIV P24 Antigen Negative 03/09/19 07:00 WBC RBC Hgb Hct MCV MCH MCHC RDW Plt Count MPV Sodium Potassium Chloride Carbon Dioxide Anion Gap BUN Creatinine Est GFR (CKD-EPI)AfAm Est GFR (CKD-EPI)NonAf Random Glucose Calcium Total Bilirubin AST ALT Alkaline Phosphatase Total Protein Albumin RPR Titer Nonreactive HIV 1&2 Antibody Screen HIV P24 Antigen LABS NOTED. PATIENT HAS HAD LOW WBC LEVELS ON PREVIOUS ADMISSIONS. 03/09/19 16:42 Assessment: 03/09/19 16:42 WITHDRAWAL SYMPTOMS. LEUKOPENIA. 03/09/19 16:42 Plan: CONTINUE DETOX.
[2019-03-09] MEDS: THIAMINE HCL 100 MG TABLET (FP) PO SCH (21:50)
[2019-03-09] MEDS: IBUPROFEN 400 MG TABLET (FP) PO PRN (21:51)
[2019-03-09] MEDS: MELATONIN 5 MG TABLETS PO PRN (21:53)
[2019-03-10] MEDS: chlordiazePOXIDE 5 MG CAPSULE PO SCH ×3 (05:46→22:21)
[2019-03-10] MEDS: RANITIDINE HCL 150 MG TABLET (FP) PO SCH ×2 (06:29→22:23)
[2019-03-10] MEDS: PRENATAL VITAMINS W/ FOLIC ACID TABLET (FP) PO SCH (09:54)
[2019-03-10] MEDS: CLOTRIMAZOLE 1% CREAM 15 GM TUBE TP SCH ×2 (09:54→22:21)
[2019-03-10] MEDS: amLODIPine BESYLATE 5 MG TABLET (FP) PO SCH (09:54)
[2019-03-10] MEDS: METHYL SALICYLATE/MENTHOL OINT 30 GM TUBE TP SCH ×2 (09:54→22:21)
[2019-03-10] MEDS: IBUPROFEN 400 MG TABLET (FP) PO PRN (09:55)
--- NOTE | 2019-03-10 16:23 | PN ---
S CIWA - CIWA Score Nausea/Vomitin-No Nausea/No Vomiting Muscle Tremors: None Anxiety: 2 Agitation: 1-Slight > Activity Paroxysmal Sweats: No Perspiration Orientation: 0-Oriented Tacttile Disturbances: 2-Mild Itch/Numbness/Burn Auditory Disturbances: 0-None Visual Disturbances: 1-Very Mild Sensitivity Headache: 0-None Present CIWA-Ar Total Score: 6 [facility]HS Progress Note (SOAP) Subjective: Body Aches (Improving). Objective: PATIENT A & O X 3, OBSERVED AMBULATING ON UNIT UNASSISTED. IN NO ACUTE DISTRESS. 03/10/19 16:21 Vital Signs Temperature 98 F 03/10/19 13:00 Pulse Rate 70 03/10/19 13:00 Respiratory Rate 18 03/10/19 13:00 Blood Pressure 135/78 03/10/19 13:00 O2 Sat by Pulse Oximetry (%) Laboratory Tests 03/09/19 03/09/19 03/09/19 07:00 07:00 07:00 WBC 3.6 L RBC 4.35 Hgb 12.2 Hct 38.7 MCV 89.0 MCH 28.1 MCHC 31.5 L RDW 18.6 H Plt Count 210 MPV 9.2 Sodium 137 Potassium 3.6 Chloride 101 Carbon Dioxide 29 Anion Gap 7 L BUN 14.9 Creatinine 0.7 Est GFR (CKD-EPI)AfAm 120.56 Est GFR (CKD-EPI)NonAf 104.02 Random Glucose 91 Calcium 8.6 Total Bilirubin 1.0 AST 38 H ALT 21 Alkaline Phosphatase 91 Total Protein 7.6 Albumin 3.3 L RPR Titer HIV 1&2 Antibody Screen Negative HIV P24 Antigen Negative 03/09/19 07:00 WBC RBC Hgb Hct MCV MCH MCHC RDW Plt Count MPV Sodium Potassium Chloride Carbon Dioxide Anion Gap BUN Creatinine Est GFR (CKD-EPI)AfAm Est GFR (CKD-EPI)NonAf Random Glucose Calcium Total Bilirubin AST ALT Alkaline Phosphatase Total Protein Albumin RPR Titer Nonreactive HIV 1&2 Antibody Screen HIV P24 Antigen LABS NOTED. Assessment: 03/10/19 16:21 WITHDRAWAL SYMPTOMS. Plan: REPORTS THAT HE IS TOLERATING CURRENT WITHDRAWAL / DETOX SYMPTOMS WELL. AT PATIENT'S REQUEST, CURRENT DETOX MEDICATION REGIMEN MODIFIED SO THAT PATIENT MAY BE DISCHARGED TOMORROW, 03/11/2019.
[2019-03-10] MEDS: ACETAMINOPHEN 325 MG TABLET (FP) PO PRN (22:21)
[2019-03-10] MEDS: MELATONIN 5 MG TABLETS PO PRN (22:21)
[2019-03-10] MEDS: THIAMINE HCL 100 MG TABLET (FP) PO SCH (22:21)
[2019-03-11] MEDS ORDERED: chlordiazePOXIDE HCL 10 MG CAPSULE PO PRN
[2019-03-11] MEDS: MELATONIN 5 MG TABLETS PO PRN (02:14)
[2019-03-11] MEDS ORDERED: chlordiazePOXIDE HCL 10 MG CAPSULE PO ONE (05:00)
[2019-03-11] MEDS ORDERED: chlordiazePOXIDE HCL 10 MG CAPSULE PO SCH (05:00)
[2019-03-11] MEDS: RANITIDINE HCL 150 MG TABLET (FP) PO SCH (06:15)
[2019-03-11 09:20] VITALS: BP 125/75; PULSE 86; TEMP 98.6
--- NOTE | 2019-03-11 13:28 | DS ---
[facility] Detox Discharge Summary Admission Date: 03/08/19 Discharge Date: 03/11/19 - History Present History: Alcohol Dependence Additional Comments: 58 years old male admitted on 03/08/19 for acute alcohol withdrawal sx management doing well with librium detox protocol no complication through out the detox stay patient is alert oriented x 3 denies dizziness no shortness of breath patient has consistently bp elevation encourage the patient to follow up with [facility] for bp monitoring as well as continue antihypertensive if necessary - Physical Exam Results Vital Signs: Vital Signs Temperature 98.6 F 03/11/19 09:00 Pulse Rate 86 03/11/19 09:00 Respiratory Rate 18 03/11/19 09:00 Blood Pressure 125/75 03/11/19 09:00 O2 Sat by Pulse Oximetry (%) Pertinent Admission Physical Exam Findings: alcohol withdrawal sx - Treatment Hospital Course: Detox Protocol Followed, Detoxed Safely, Responded well, Discharged Condition Good, Rehab Referral Accepted Patient has Accepted a Rehab Referral to: jennifer - Medication Discharge Medications: Ambulatory Orders Sertraline HCl [Zoloft -] 25 mg PO HS #30 tablet 05/02/17 Amlodipine Besylate 5 mg PO DAILY #30 tablet 03/09/18 Risperidone [Risperdal] 1 mg PO BID 06/04/18 Omeprazole 20 mg PO DAILY 06/30/18 Amlodipine Besylate [Norvasc -] 5 mg PO DAILY #30 tablet 03/11/19 - Diagnosis (1) GERD (gastroesophageal reflux disease) Status: Chronic Qualifiers: Esophagitis presence: without esophagitis Qualified Code(s): K21.9 - Gastro -esophageal reflux disease without esophagitis (2) Nicotine dependence Status: Acute Qualifiers: Nicotine product type: cigarettes Substance use status: in withdrawal Qualified Code(s): F17.213 - Nicotine dependence, cigarettes, with withdrawal (3) Alcohol dependence with uncomplicated withdrawal Status: Acute (4) Ambulates with cane Status: Chronic (5) Hypertension Status: Chronic Qualifiers: Hypertension type: unspecified Qualified Code(s): I10 - Essential (primary ) hypertension (6) Substance induced mood disorder Status: Suspected - AMA Did Patient Leave Against Medical Advice: No
[2019-03-12] MEDS ORDERED: chlordiazePOXIDE HCL 10 MG CAPSULE PO ONE (05:00)
== END 2019-03-11 09:30 | disposition home or self-care (01) | DRG 774 ==
LOC: YASAS 10:48 → Y3N 12:57
PROVIDERS: ADMIT Surgery; ATTEND Surgery
PROC: HZ2ZZZZ Detoxification Services for Substance Abuse Treatment (ICD-10-PCS; principal; 2019-03-08)
DX: F10.230 Alcohol dependence with withdrawal, uncomplicated (principal); F10.220 Alcohol dependence with intoxication, uncomplicated; F14.10 Cocaine abuse, uncomplicated; F17.213 Nicotine dependence, cigarettes, with withdrawal; F19.24 Other psychoactive substance dependence with psychoactive substance-induced mood disorder; K21.9 Gastro-esophageal reflux disease without esophagitis; D72.819 Decreased white blood cell count, unspecified; J45.909 Unspecified asthma, uncomplicated; R26.2 Difficulty in walking, not elsewhere classified; Z99.89 Dependence on other enabling machines and devices
CPT/HCPCS: 36415; 80053; 85027; 86593; 87389

== ENCOUNTER 2019-04-14 12:24 | Inpatient (IN) | payer OTHER ==
[2019-04-14 17:10] VITALS: BMI 29.6
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
[2019-04-14] MEDS ORDERED: MAGNESIUM CITRATE 300 ML BOTTLE PO PRN (18:49)
[2019-04-14] MEDS ORDERED: BISMUTH SUBSALICYLATE 524 MG/30 ML UD PO PRN (18:49)
[2019-04-14] MEDS ORDERED: diazePAM 5 MG TABLET PO PRN (18:49)
[2019-04-14] MEDS ORDERED: ACETAMINOPHEN 325 MG TABLET (FP) PO PRN ×2 (18:49)
[2019-04-14] MEDS ORDERED: MENTHOL/PHENOL 1 EACH UD MM PRN (18:49)
[2019-04-14] MEDS ORDERED: MAGNESIUM HYDROX 2400MG/30ML ORAL SUSPENSION 30 ML CUP PO PRN (18:49)
[2019-04-14] MEDS ORDERED: hydrOXYzine PAMOATE 25 MG CAPSULE (FP) PO PRN (18:49)
[2019-04-14] MEDS ORDERED: MAG HYDROX/AL HYDROX/SIMETH 30 ML UNIT-DOSE CUP PO PRN (18:49)
[2019-04-14] MEDS: PANTOPRAZOLE 20 MG TABLET (FP) PO SCH (20:00)
[2019-04-14] MEDS: amLODIPine BESYLATE 5 MG TABLET (FP) PO SCH (20:00)
[2019-04-14] MEDS: THIAMINE HCL 100 MG TABLET (FP) PO SCH (22:14)
[2019-04-14] MEDS: TOLNAFTATE 1% CREAM 15 GM TUBE TP SCH (22:14)
[2019-04-14] MEDS: diazePAM 5 MG TABLET PO SCH (22:14)
[2019-04-15] MEDS: diazePAM 5 MG TABLET PO SCH ×3 (05:10→22:09)
[2019-04-15] MEDS: amLODIPine BESYLATE 5 MG TABLET (FP) PO SCH (10:44)
[2019-04-15] MEDS: PANTOPRAZOLE 20 MG TABLET (FP) PO SCH (10:44)
[2019-04-15] MEDS: TOLNAFTATE 1% CREAM 15 GM TUBE TP SCH ×2 (10:44→22:09)
[2019-04-15] MEDS: PRENATAL VITAMINS W/ FOLIC ACID TABLET (FP) PO SCH (10:45)
[2019-04-15] MEDS: METHOCARBAMOL 500 MG TABLET PO PRN (10:46)
[2019-04-15 12:27] LABS: HEMATOCRIT 41.7 % (35.4-49); HEMOGLOBIN 13.7 GM/dL (11.7-16.9); MCH 29.4 pg (25.7-33.7); MCHC 32.9 g/dl (32.0-35.9); MEAN CELL VOLUME 89.4 fl (80-96); MEAN PLT VOLUME 9.3 fl (7.5-11.1); PLATELET COUNT 195 K/MM3 (134-434); RBC 4.67 M/mm3 (4.00-5.60); RDW 17.2 % (11.9-15.9); WHITE BLOOD COUNT 2.7 K/mm3 (4.0-10.0)
[2019-04-15 12:30] LABS: ALBUMIN 3.6 g/dl (3.4-5.0); BILIRUBIN,TOTAL 0.7 mg/dL (0.2-1); BLOOD UREA NITROGEN 9.1 mg/dL (7-18); CALCIUM 9.1 mg/dL (8.5-10.1); CREATININE 0.7 mg/dL (0.55-1.3); POTASSIUM 3.2 mmol/L (3.5-5.1)
--- NOTE | 2019-04-15 13:45 | PN ---
S CIWA - CIWA Score Nausea/Vomitin-Mild Nausea/No Vomiting Muscle Tremors: 4-Moderate,w/Arms Extend Anxiety: 1-Mildly Anxious Agitation: 2 Paroxysmal Sweats: 1-Minimal Palms Moist Orientation: 1-Uncertain about Date (date of the week) Tacttile Disturbances: 1-Very Mild Itch/Numbness Auditory Disturbances: 0-None Visual Disturbances: 0-None Headache: 2-Mild CIWA-Ar Total Score: 13 BHS Progress Note (SOAP) Subjective: 58 years old male formerly [facility] patient [facility] since 2017 was admitted on 04/14/19 for alcohol withdrawal sx management doing well with valium detox regimen reporting taking GI medication around 6 am daily at home adjust schedule to meet the need of the patient Objective: 04/15/19 13:48 Vital Signs Temperature 96 F L 04/15/19 09:12 Pulse Rate 80 04/15/19 09:12 Respiratory Rate 20 04/15/19 09:12 Blood Pressure 129/69 04/15/19 09:12 O2 Sat by Pulse Oximetry (%) Laboratory Last Values WBC 2.7 K/mm3 (4.0-10.0) L 04/15/19 08:30 RBC 4.67 M/mm3 (4.00-5.60) 04/15/19 08:30 Hgb 13.7 GM/dL (11.7-16.9) 04/15/19 08:30 Hct 41.7 % (35.4-49) 04/15/19 08:30 MCV 89.4 fl (80-96) 04/15/19 08:30 MCH 29.4 pg (25.7-33.7) 04/15/19 08:30 MCHC 32.9 g/dl (32.0-35.9) 04/15/19 08:30 RDW 17.2 % (11.9-15.9) H 04/15/19 08:30 Plt Count 195 K/MM3 (134-434) 04/15/19 08:30 MPV 9.3 fl (7.5-11.1) 04/15/19 08:30 Sodium 136 mmol/L (136-145) 04/15/19 08:30 Potassium 3.2 mmol/L (3.5-5.1) L 04/15/19 08:30 Chloride 99 mmol/L (98-107) 04/15/19 08:30 Carbon Dioxide 30 mmol/L (21-32) 04/15/19 08:30 Anion Gap 7 MMOL/L (8-16) L 04/15/19 08:30 BUN 9.1 mg/dL (7-18) 04/15/19 08:30 Creatinine 0.7 mg/dL (0.55-1.3) 04/15/19 08:30 Est GFR (CKD-EPI)AfAm 120.56 04/15/19 08:30 Est GFR (CKD-EPI)NonAf 104.02 04/15/19 08:30 Random Glucose 92 mg/dL (74-106) 04/15/19 08:30 Calcium 9.1 mg/dL (8.5-10.1) 04/15/19 08:30 Total Bilirubin 0.7 mg/dL (0.2-1) 04/15/19 08:30 AST 58 U/L (15-37) H 04/15/19 08:30 ALT 27 U/L (13-61) 04/15/19 08:30 Alkaline Phosphatase 108 U/L (45-117) 04/15/19 08:30 Total Protein 8.0 g/dl (6.4-8.2) 04/15/19 08:30 Albumin 3.6 g/dl (3.4-5.0) 04/15/19 08:30 RPR Titer Nonreactive (NONREACTIVE) 04/15/19 08:30 lab noted long history of hypertension and gerd bp well managed 04/15/19 13:49 Assessment: 04/15/19 13:50 alcohol withdrawal sx alert oriented x 3 tolerate food and fluid well 04/15/19 13:52 no dizziness no shortness of breath Plan: continue valium detox regimen
--- NOTE | 2019-04-15 16:08 | CONSULT ---
[facility] Psychiatric Consult - Data Date of interview: 04/15/19 Admission source: [facility] Identifying data: This is one of multiple admissions to [facility] for this 58 y/ o male who presented to [facility] for detoxification (alcohol + cocaine). Examined on . Patient is single without children, domiciled (lives with sister), unemployed and supported on SSI benefits. Substance Abuse History: Confirmed by patient in this interview. Details in current [facility] report as follows : Smoking history: Never smoked. Have you smoked in the past 12 months: No. Aproximately how many cigarettes per day: 0. Cigars Per Day: 0. Hx Chewing Tobacco Use: No. - Substances abused. Alcohol. Substance route: Oral. Frequency: Daily. Amount used: VODKA -2 pints. Age of first use: 14. Date of last use: 04/14/19. Cocaine. Substance route: Inhalation. Frequency: 1-2 times per week. Amount used: 2 gram. Age of first use: 17. Date of last use: 04/14/19 Medical History: Medical profile is remarkable for a history of myocardial infarction (2016), peptic ulcer disease, GERD, anemia, hypertension, arthritis ( right knee) and past surgery for fracture of nasal bones (1987). Psychiatric History: History of multiple psychiatric hospitalizations ([facility], [facility], [facility], [facility]). Patient has been diagnosed with MDD and Bipolar Disorder.Mr Fournier informs that he is still going to [facility] for psychiatric aftercare. Prescribed risperdal 2 mg/hs + zoloft 50 mg/hs. Patient remains a questionable historian with a pattern of frequent utilization of local CPEP settings for refills of medications (which suggests poor adherence to OPD care). No reported history of suicide attempts. Physical/Sexual Abuse/Trauma History: Patient denies. Additional Comment: Urine drug screen results: MATTIE-Cocaine, BZO- Benzodiazepines. Noted. Mental Status Exam - Mental Status Exam Alert and Oriented to: Time, Place, Person Cognitive Function: Good Patient Appearance: Well Groomed Mood: Withdrawn Affect: Mood Congruent, Constricted Patient Behavior: Fatigued, Appropriate, Cooperative Speech Pattern: Clear, Appropriate Voice Loudness: Normal Thought Process: Goal Oriented Thought Disorder: Not Present Hallucinations: Denies Suicidal Ideation: Denies Homicidal Ideation: Denies Insight/Judgement: Poor Sleep: Well Appetite: Good Muscle strength/Tone: Normal Gait/Station: Normal Psychiatric Findings - Problem List ([place] 1, 2,3) (1) Alcohol dependence with uncomplicated withdrawal Current Visit: Yes Status: Acute (2) Cocaine dependence Current Visit: Yes Status: Chronic Qualifiers: Substance use status: uncomplicated Qualified Code(s): F14.20 - Cocaine dependence, uncomplicated (3) Nicotine dependence Current Visit: Yes Status: Chronic Qualifiers: Nicotine product type: cigarettes Substance use status: in withdrawal Qualified Code(s): F17.213 - Nicotine dependence, cigarettes, with withdrawal (4) Drug-induced mood disorder Current Visit: Yes Status: Chronic (5) Schizoaffective disorder Current Visit: Yes Status: Chronic Qualifiers: Schizoaffective disorder type: bipolar Qualified Code(s): F25.0 - Schizoaffective disorder, bipolar type Comment: By history. (6) Non-compliant patient Current Visit: Yes Status: Chronic - Initial Treatment Plan Initial Treatment Plan: Psychoeducation. Sleep hygiene. Detoxification. AA meetings. Groups. Resumed : risperdal 2 mg po hs + zoloft 50 mg po daily. Side effects/benefits of both drugs are discussed with the patient. Mr Fournier is made aware of risk of EPS, abnormal involuntary movements, NMS, dyskinesias, cardiovascular adverse events, suicidal ideation and sexual dysfunction. gave verbal consent to MD. Dunne.
[2019-04-15] MEDS: THIAMINE HCL 100 MG TABLET (FP) PO SCH (22:08)
[2019-04-15] MEDS: risperiDONE 1 MG TABLET (FP) PO SCH (22:08)
[2019-04-15] MEDS: MELATONIN 5 MG TABLETS PO PRN (22:10)
--- NOTE | 2019-04-16 01:51 | PN ---
[facility] Progress Note Note: Labs reviewed. CMP Sodium 136 mmol/L (136-145) 04/15/19 08:30 Potassium 3.2 mmol/L (3.5-5.1) L 04/15/19 08:30 Chloride 99 mmol/L (98-107) 04/15/19 08:30 Carbon Dioxide 30 mmol/L (21-32) 04/15/19 08:30 Anion Gap 7 MMOL/L (8-16) L 04/15/19 08:30 BUN 9.1 mg/dL (7-18) 04/15/19 08:30 Creatinine 0.7 mg/dL (0.55-1.3) 04/15/19 08:30 Est GFR (CKD-EPI)AfAm 120.56 04/15/19 08:30 Est GFR (CKD-EPI)NonAf 104.02 04/15/19 08:30 Random Glucose 92 mg/dL (74-106) 04/15/19 08:30 Calcium 9.1 mg/dL (8.5-10.1) 04/15/19 08:30 Total Bilirubin 0.7 mg/dL (0.2-1) 04/15/19 08:30 AST 58 U/L (15-37) H 04/15/19 08:30 ALT 27 U/L (13-61) 04/15/19 08:30 Alkaline Phosphatase 108 U/L (45-117) 04/15/19 08:30 Total Protein 8.0 g/dl (6.4-8.2) 04/15/19 08:30 Albumin 3.6 g/dl (3.4-5.0) 04/15/19 08:30 Vital Signs - 24 hr 04/15/19 04/15/19 04/15/19 06:43 09:12 17:07 Temperature 97.6 F 96 F L 97.4 F L Pulse Rate 63 80 60 Respiratory 18 20 18 Rate Blood Pressure 131/72 129/69 131/76 04/15/19 04/16/19 21:09 00:30 Temperature 98.2 F Pulse Rate 79 Respiratory 18 18 Rate Blood Pressure 132/84 Will start on KCL for days. Repeat electrolytes.
[2019-04-16] MEDS: diazePAM 5 MG TABLET PO SCH ×2 (05:34→17:17)
[2019-04-16] MEDS: PANTOPRAZOLE 20 MG TABLET (FP) PO SCH (05:34)
[2019-04-16] MEDS ORDERED: SERTRALINE HCL 50 MG TABLET (FP) PO SCH (10:00)
[2019-04-16] MEDS ORDERED: POTASSIUM CHLORIDE TABS 20 MEQ TABLET.ER (FP) PO SCH (10:00)
[2019-04-16] MEDS ORDERED: POTASSIUM CHLORIDE TABS 10 MEQ TABLET.ER (FP) PO SCH (10:00)
[2019-04-16] MEDS: amLODIPine BESYLATE 5 MG TABLET (FP) PO SCH (10:37)
[2019-04-16] MEDS: PRENATAL VITAMINS W/ FOLIC ACID TABLET (FP) PO SCH (10:37)
[2019-04-16] MEDS: risperiDONE 1 MG TABLET (FP) PO SCH ×2 (10:37→21:41)
[2019-04-16] MEDS: METHOCARBAMOL 500 MG TABLET PO PRN (10:39)
[2019-04-16] MEDS: TOLNAFTATE 1% CREAM 15 GM TUBE TP SCH ×2 (10:50→21:41)
[2019-04-16 12:12] LABS: POTASSIUM 3.2 mmol/L (3.5-5.1)
--- NOTE | 2019-04-16 16:58 | PN ---
[facility] CIWA - CIWA Score Nausea/Vomitin-No Nausea/No Vomiting Muscle Tremors: None Anxiety: 0-No Anxiety, at Ease Agitation: 2 Paroxysmal Sweats: No Perspiration Orientation: 0-Oriented Tacttile Disturbances: 0-None Auditory Disturbances: 0-None Visual Disturbances: 0-None Headache: 0-None Present CIWA-Ar Total Score: 2 S Progress Note (SOAP) Subjective: Patient denies current Withdrawal / Detox symptoms and reports that he feels well overall at this time. Objective: PATIENT A & O X 3, OBSERVED AMBULATING ON UNIT UNASSISTED. IN NO ACUTE DISTRESS. 04/16/19 16:51 Vital Signs Temperature 96.4 F L 04/16/19 13:47 Pulse Rate 70 04/16/19 13:47 Respiratory Rate 18 04/16/19 13:47 Blood Pressure 137/78 04/16/19 13:47 O2 Sat by Pulse Oximetry (%) Laboratory Tests 04/15/19 04/15/19 04/15/19 08:30 08:30 08:30 WBC 2.7 L RBC 4.67 Hgb 13.7 Hct 41.7 MCV 89.4 MCH 29.4 MCHC 32.9 RDW 17.2 H Plt Count 195 MPV 9.3 Sodium 136 Potassium 3.2 L Chloride 99 Carbon Dioxide 30 Anion Gap 7 L BUN 9.1 Creatinine 0.7 Est GFR (CKD-EPI)AfAm 120.56 Est GFR (CKD-EPI)NonAf 104.02 Random Glucose 92 Calcium 9.1 Total Bilirubin 0.7 AST 58 H ALT 27 Alkaline Phosphatase 108 Total Protein 8.0 Albumin 3.6 RPR Titer Nonreactive 04/16/19 09:00 WBC RBC Hgb Hct MCV MCH MCHC RDW Plt Count MPV Sodium 142 Potassium 3.2 L Chloride 103 Carbon Dioxide 29 Anion Gap 10 BUN Creatinine Est GFR (CKD-EPI)AfAm Est GFR (CKD-EPI)NonAf Random Glucose Calcium Total Bilirubin AST ALT Alkaline Phosphatase Total Protein Albumin RPR Titer LABS NOTED. PATIENT HAS HAD ELEVATED AST LEVELS AND LOW WBC LEVSLS ON PREVIOUS ADMISSIONS. RESULT OF REPEAT K LEVEL NOTED (UNCHANGED FROM ADMISSION K LEVEL). 04/16/19 16:51 Assessment: 04/16/19 16:52 WITHDRAWAL SYMPTOMS. HYPOKALEMIA. LEUKOPENIA. ELEVATED AST LEVEL. Plan: CONTINUE DETOX. SINCE REPEAT K LEVEL UNCHANGED FROM ADMISSION K LEVEL, PATIENT STRONGLY ADVISED TO REMAIN ON DETOX UNIT TOMORROW AM SO THAT K LEVEL CAN BE RE-CHECKED AGAIN TOMORROW. HOWEVER, PATIENT WISHES TO LEAVE EARLY IN AM TOMORROW, ANYWAY. K-DUR, 40 MEQ PO X 1 DOSE ORDERED FOR THIS EVENING. PATIENT ADVISED TO FOLLOW-UP WITH COMPUTING SYSTEMS MECHANIC SOON POSSIBLE AFTER DISCHARGE FROM DETOX FOR GENERAL MEDICAL ASSESSMENT AND FOR LOW POTASSIUM LEVEL NOTED ON DETOX ADMISSION AND REPEAT LABORATORY ASSESSMENTS. PATIENT VERBALIZED UNDERSTANDING OF RECOMMENDATION. COPIES OF RESULTS OF ALL LABS DRAWN WHILE ADMITTED FOR DETOX GIVEN TO PATIENT AT TIME OF DISCHARGE FROM DETOX UNIT.
[2019-04-16] MEDS ORDERED: POTASSIUM CHLORIDE TABS 20 MEQ TABLET.ER (FP) PO ONE ×2 (18:00→22:00)
[2019-04-16] MEDS: MELATONIN 5 MG TABLETS PO PRN (21:41)
[2019-04-16] MEDS: THIAMINE HCL 100 MG TABLET (FP) PO SCH (21:41)
[2019-04-17] MEDS ORDERED: diazePAM 5 MG TABLET PO ONE (06:00)
[2019-04-17] MEDS: PANTOPRAZOLE 20 MG TABLET (FP) PO SCH (06:11)
[2019-04-17 06:46] VITALS: BP 137/87; PULSE 90; TEMP 96.7
--- NOTE | 2019-04-18 09:19 | DS ---
[facility] Detox Discharge Summary Admission Date: 04/14/19 Discharge Date: 04/17/19 - History Present History: Alcohol Dependence, Cocaine Dependence Additional Comments: PATIENT LEFT DETOX UNIT EARLY IN AM PRIOR TO TIME OR ARRIVAL OF PACKAGE WORKER ONTO DETOX UNIT. AFTERCARE MEDICAL PLANNING DISCUSSED WITH PATIENT ON 04/16/2019 (SEE C.I.W.A. / S.O.A.P. NOTE FOR 04/16/2019). PATIENT WAS ADVISED TO GO TO SEE PCP FOR FOLLOW-UP MEDICAL ASSESSMENT AND FOR LOW POTASSIUM LEVEL NOTED ON DETOX ADMISSION AND REPEAT LABORATORY ASSESSMENTS. PATIENT VERBALIZED UNDERSTANDING OF RECOMMENDATION AND NOTED THAT HE WOULD DO SO IN THE NEXT FEW DAYS. PER REEL WINDER Karime LEIGH, PATIENT REFERRED TO [facility] ([place], [place]) FOR AFTERCARE. Pertinent Past History: HTN, Depression, Bipolar Disorder, GERD, Borderline DM, History Of Dislocation of Right Thumb, Nicotine Dependence, History Of Anemia, Schizoaffective Disorder , Hypokalemia, Leukopenia, Elevated AST Level. - Physical Exam Results Vital Signs: Vital Signs Temperature 96.7 F L 04/17/19 06:45 Pulse Rate 90 04/17/19 06:45 Respiratory Rate 18 04/17/19 06:45 Blood Pressure 137/87 04/17/19 06:45 O2 Sat by Pulse Oximetry (%) Pertinent Admission Physical Exam Findings: WITHDRAWAL SYMPTOMS. Laboratory Tests 04/15/19 04/15/19 04/15/19 08:30 08:30 08:30 WBC 2.7 L RBC 4.67 Hgb 13.7 Hct 41.7 MCV 89.4 MCH 29.4 MCHC 32.9 RDW 17.2 H Plt Count 195 MPV 9.3 Sodium 136 Potassium 3.2 L Chloride 99 Carbon Dioxide 30 Anion Gap 7 L BUN 9.1 Creatinine 0.7 Est GFR (CKD-EPI)AfAm 120.56 Est GFR (CKD-EPI)NonAf 104.02 Random Glucose 92 Calcium 9.1 Total Bilirubin 0.7 AST 58 H ALT 27 Alkaline Phosphatase 108 Total Protein 8.0 Albumin 3.6 RPR Titer Nonreactive 04/16/19 09:00 WBC RBC Hgb Hct MCV MCH MCHC RDW Plt Count MPV Sodium 142 Potassium 3.2 L Chloride 103 Carbon Dioxide 29 Anion Gap 10 BUN Creatinine Est GFR (CKD-EPI)AfAm Est GFR (CKD-EPI)NonAf Random Glucose Calcium Total Bilirubin AST ALT Alkaline Phosphatase Total Protein Albumin RPR Titer LABS NOTED. - Treatment Hospital Course: Detox Protocol Followed, Detoxed Safely, Responded well, Discharged Condition Good Patient has Accepted a Rehab Referral to: PT. REFERRED TO [facility] ([place], [place]). - Medication Discharge Medications: Ambulatory Orders Sertraline HCl [Zoloft -] 25 mg PO HS #30 tablet 05/02/17 Risperidone [Risperdal] 1 mg PO BID 06/04/18 Omeprazole 20 mg PO DAILY 06/30/18 Amlodipine Besylate [Norvasc -] 5 mg PO DAILY #30 tablet 03/11/19 - Diagnosis (1) Alcohol dependence with uncomplicated withdrawal Status: Acute (2) Leukopenia Status: Acute Qualifiers: Leukopenia type: unspecified Qualified Code(s): D72.819 - Decreased white blood cell count, unspecified (3) Drug-induced mood disorder Status: Chronic (4) Non-compliant patient Status: Chronic (5) Schizoaffective disorder Status: Chronic Qualifiers: Schizoaffective disorder type: bipolar Qualified Code(s): F25.0 - Schizoaffective disorder, bipolar type (6) Hypokalemia Status: Acute (7) Cocaine dependence Status: Chronic Qualifiers: Substance use status: uncomplicated Qualified Code(s): F14.20 - Cocaine dependence, uncomplicated - AMA Did Patient Leave Against Medical Advice: No
== END 2019-04-17 07:19 | disposition home or self-care (01) | DRG 774 ==
LOC: YASAS 12:24 → Y3N 19:39
PROVIDERS: ADMIT Surgery; ATTEND Surgery
PROC: HZ2ZZZZ Detoxification Services for Substance Abuse Treatment (ICD-10-PCS; principal; 2019-04-14)
DX: F10.230 Alcohol dependence with withdrawal, uncomplicated (principal); F10.220 Alcohol dependence with intoxication, uncomplicated; F14.20 Cocaine dependence, uncomplicated; F19.24 Other psychoactive substance dependence with psychoactive substance-induced mood disorder; F25.9 Schizoaffective disorder, unspecified; I25.2 Old myocardial infarction; D72.819 Decreased white blood cell count, unspecified; R74.0 Nonspecific elevation of levels of transaminase and lactic acid dehydrogenase [LDH]; K21.9 Gastro-esophageal reflux disease without esophagitis; M17.11 Unilateral primary osteoarthritis, right knee; Z87.11 Personal history of peptic ulcer disease; Z91.19 Patient's noncompliance with other medical treatment and regimen
CPT/HCPCS: 36415; 80051; 80053; 85027; 86593; J2794

== ENCOUNTER 2019-06-06 18:50 | Inpatient (IN) | payer OTHER ==
[2019-06-06 20:18] VITALS: BMI 29.2
--- NOTE | 2019-06-06 23:01 | HP ---
CIWA Score Nausea/Vomitin-Int. Nausea w/Dry Heave Muscle Tremors: 4-Moderate,w/Arms Extend Anxiety: 3 Agitation: 3 Paroxysmal Sweats: 3 Orientation: 0-Oriented Tacttile Disturbances: 2-Mild Itch/Numbness/Burn Auditory Disturbances: 2-Mild Harshness/Frighten Visual Disturbances: 2-Mild Sensitivity Headache: 2-Mild CIWA-Ar Total Score: 25 - Admission Criteria OASAS Guidelines: Admission for Medically Managed Detox: Requires at least one of the followin. CIWA greater than 12 2. Seizures within the past 24 hours 3. Delirium tremens within the past 24 hours 4. Hallucinations within the past 24 hours 5. Acute intervention needed for co occurring medical disorder 6. Acute intervention needed for co occurring psychiatric disorder 7. Severe withdrawal that cannot be handled at a lower level of care (continued vomiting, continued diarrhea, abnormal vital signs) requiring intravenous medication and/or fluids 8. 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 IS REQUESTING ADMISSION TO THE DETOX UNIT AND CAME FOR MEDICAL CLEARANCE Exam Limitations: No Limitations - Ebola screening Have you traveled outside of the country in the last 21 days: No (N) Have you had contact with anyone from an Ebola affected area: No Have you been sick,other than usual withdrawal symptoms: No Do you have a fever: No - Review of Systems Constitutional: See HPI, Malaise, Weakness EENT: reports: See HPI Respiratory: reports: See HPI Cardiac: reports: See HPI, Syncope GI: reports: See HPI, Diarrhea, Nausea, Abdominal cramping : reports: See HPI Musculoskeletal: reports: See HPI, Muscle Pain, Muscle Weakness Integumentary: reports: See HPI, Erythema, Flushing, Sweating Neuro: reports: See HPI, Headache, Tremors, Weakness Hematology: reports: See HPI Psychiatric: reports: Judgement Intact, Orientated x3, Anxious, Depressed Patient History - Patient Medical History Hx Anemia: Yes (NO CURRENT MED) Hx Asthma: No Hx Chronic Obstructive Pulmonary Disease (COPD): No Hx Cancer: No Hx Cardiac Disorders: No Hx Congestive Heart Failure: No Hx Hypertension: Yes (NOT ON MEDICATION) Hx Hypercholesterolemia: No Hx Pacemaker: No HX Cerebrovascular Accident: No Hx Seizures: No Hx Dementia: No Hx Diabetes: No Hx Gastrointestinal Disorders: Yes (GERD- NEXIUM) Hx Liver Disease: No Hx Genitourinary Disorders: No Hx Sexually Transmitted Disorders: No Hx Renal Disease (ESRD): No Hx Thyroid Disease: No Hx Human Immunodeficiency Virus (HIV): No (last 11/28 negative) Hx Hepatitis C: No Hx Depression: Yes (RISPERDAL) Hx Suicide Attempt: No Hx Bipolar Disorder: Yes (RISPERDAL AND ZOLOFT) Hx Schizophrenia: No Other Medical History: ANXIETY DISORDER - Patient Surgical History Past Surgical History: Yes Hx Neurologic Surgery: No Hx Cataract Extraction: No Hx Cardiac Surgery: No Hx Lung Surgery: No Hx Breast Surgery: No Hx Breast Biopsy: No Hx Abdominal Surgery: No Hx Appendectomy: No Hx Cholecystectomy: No Hx Genitourinary Surgery: No Hx Section: No Hx Orthopedic Surgery: Yes (fx, left thumb in 2006) Other Surgical History: nasal fx in 1987 Anesthesia Reaction: No - PPD History Date: 06/06/18 Results: 0 mm - Smoking Cessation Smoking history: Never smoked Have you smoked in the past 12 months: No Aproximately how many cigarettes per day: 0 Cigars Per Day: 0 Hx Chewing Tobacco Use: No Initiated information on smoking cessation: No - Substance & Tx. History Hx Alcohol Use: Yes Hx Substance Use: Yes Substance Use Type: Alcohol, Cocaine Hx Substance Use Treatment: Yes - Substances abused Alcohol Substance route: Oral Frequency: Daily Amount used: 2 pints of vodka. Age of first use: 14 Date of last use: 06/06/19 Cocaine Substance route: Inhalation Frequency: Daily Amount used: 1 gram Age of first use: 17 Date of last use: 06/06/19 Admission Physical Exam BHS - Vital Signs Vital Signs: Vital Signs - 24 hr 06/06/19 20:05 Temperature 97.1 F L Pulse Rate 81 Respiratory 16 Rate Blood Pressure 146/83 - Physical General Appearance: Yes: No Apparent Distress, Nourished, Appropriately Dressed , Alcohol on Breath, Tremorous, Irritable, Sweating, Anxious HEENTM: Yes: Hearing grossly Normal, Normocephalic, Normal Voice, LISSA, Pharynx Normal Respiratory: Yes: Chest Non-Tender, Lungs Clear, Normal Breath Sounds, No Respiratory Distress, No Accessory Muscle Use Neck: Yes: No masses,lesions,Nodules, Supple, Trachea in good position Breast: Yes: Breast Exam Deferred, Axillae without masses Cardiology: Yes: Regular Rhythm, S1, S2, Tachycardia Abdominal: Yes: Normal Bowel Sounds, Non Tender, Soft, Protuberent Back: Yes: Normal Inspection Musculoskeletal: Yes: full range of Motion, Muscle Pain, Muscle weakness Extremities: Yes: Normal Capillary Refill, Normal Range of Motion 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: 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, Fully Oriented, Alert, Normal Response , Depressed Affect Integumentary: Yes: Normal Color, Warm, Erythema, Moist, Pitting Edema - Diagnostic (1) Alcohol dependence with uncomplicated withdrawal Current Visit: No Status: Chronic (2) Acid reflux Current Visit: No Status: Chronic Qualifiers: Esophagitis presence: esophagitis presence not specified Qualified Code(s) : K21.9 - Gastro-esophageal reflux disease without esophagitis (3) Alcohol dependence Current Visit: No Status: Chronic Qualifiers: Substance use status: uncomplicated Qualified Code(s): F10.20 - Alcohol dependence, uncomplicated (4) Alcoholic gastritis Current Visit: No Status: Chronic Qualifiers: Chronicity: unspecified Gastritis bleeding: presence of bleeding unspecified Qualified Code(s): K29.20 - Alcoholic gastritis without bleeding (5) Cocaine dependence Current Visit: No Status: Chronic Qualifiers: Substance use status: uncomplicated Qualified Code(s): F14.20 - Cocaine dependence, uncomplicated (6) GERD (gastroesophageal reflux disease) Current Visit: No Status: Chronic Qualifiers: Esophagitis presence: without esophagitis Qualified Code(s): K21.9 - Gastro -esophageal reflux disease without esophagitis (7) Bipolar disorder Current Visit: No Status: Chronic Qualifiers: Active/Remission status: remission status unspecified Qualified Code(s): F31.9 - Bipolar disorder, unspecified Cleared for Admission BHS - Detox or Rehab BHS Level of Care: Medically Managed Detox Regimen/Protocol: Librium Breathalyzer - Breathalyzer Breathalyzer: 0.157 Urine Drug Screen - Test Device Lot number: [id number] Expiration date: 02/08/21 - Control Is test valid?: Yes - Results Drug screen NEGATIVE: No Urine drug screen results: BZO-Benzodiazepines Inpatient Rehab Admission - Rehab Decision to Admit Inpatient rehab admission?: No
[2019-06-06] MEDS ORDERED: MAG HYDROX/AL HYDROX/SIMETH 30 ML UNIT-DOSE CUP PO PRN (23:08)
[2019-06-06] MEDS ORDERED: MAGNESIUM CITRATE 300 ML BOTTLE PO PRN (23:08)
[2019-06-06] MEDS ORDERED: MAGNESIUM HYDROX 2400MG/30ML ORAL SUSPENSION 30 ML CUP PO PRN (23:08)
[2019-06-06] MEDS ORDERED: MENTHOL/PHENOL 1 EACH UD MM PRN (23:08)
[2019-06-06] MEDS ORDERED: chlordiazePOXIDE HCL 25 MG CAPSULE PO PRN (23:08)
[2019-06-06] MEDS ORDERED: BISMUTH SUBSALICYLATE 524 MG/30 ML UD PO PRN (23:08)
[2019-06-06] MEDS ORDERED: ACETAMINOPHEN 325 MG TABLET (FP) PO PRN ×2 (23:08)
[2019-06-06] MEDS ORDERED: chlordiazePOXIDE HCL 25 MG CAPSULE PO ONE (23:08)
[2019-06-06] MEDS ORDERED: hydrOXYzine PAMOATE 25 MG CAPSULE (FP) PO PRN (23:08)
[2019-06-07] MEDS: risperiDONE 2 MG TABLET PO SCH ×3 (00:38→22:26)
[2019-06-07] MEDS: chlordiazePOXIDE HCL 25 MG CAPSULE PO SCH ×5 (00:38→22:26)
[2019-06-07] MEDS ORDERED: PATIENT'S OWN MEDICATION (NON-FORMULARY) (Omeprazole 20 MG) PO SCH (10:00)
[2019-06-07 10:02] LABS: HEMATOCRIT 34.4 % (35.4-49); HEMOGLOBIN 11.3 GM/dL (11.7-16.9); MCH 29.9 pg (25.7-33.7); MCHC 32.8 g/dl (32.0-35.9); MEAN CELL VOLUME 91.2 fl (80-96); MEAN PLT VOLUME 8.8 fl (7.5-11.1); PLATELET COUNT 231 K/MM3 (134-434); RBC 3.77 M/mm3 (4.00-5.60); RDW 18.3 % (11.9-15.9); WHITE BLOOD COUNT 2.9 K/mm3 (4.0-10.0)
[2019-06-07 10:13] LABS: ALBUMIN 3.2 g/dl (3.4-5.0); BILIRUBIN,TOTAL 0.4 mg/dL (0.2-1); CALCIUM 8.1 mg/dL (8.5-10.1); CREATININE 0.8 mg/dL (0.55-1.3); POTASSIUM 3.5 mmol/L (3.5-5.1); TOT PROT 6.8 g/dl (6.4-8.2)
[2019-06-07] MEDS: amLODIPine BESYLATE 5 MG TABLET (FP) PO SCH (10:16)
[2019-06-07] MEDS: PANTOPRAZOLE 20 MG TABLET (FP) PO SCH (10:16)
[2019-06-07] MEDS: PRENATAL VITAMINS W/ FOLIC ACID TABLET (FP) PO SCH (10:16)
--- NOTE | 2019-06-07 11:53 | PN ---
[facility] CIWA - CIWA Score Nausea/Vomitin-Mild Nausea/No Vomiting Muscle Tremors: 4-Moderate,w/Arms Extend Anxiety: 4-Mod. Anxious/Guarded Agitation: 4-Moderately Restless Paroxysmal Sweats: 3 Orientation: 0-Oriented Tacttile Disturbances: 0-None Auditory Disturbances: 0-None Visual Disturbances: 0-None Headache: 0-None Present CIWA-Ar Total Score: 16 BHS Progress Note (SOAP) Subjective: Lower back pain, tremor, diarrhea Objective: 06/07/19 11:50 Last Vital Signs Temp Pulse Resp BP Pulse Ox 98.1 F 69 16 146/81 06/07/19 09:28 06/07/19 09:28 06/07/19 09:28 06/07/19 09:28 Elevated b/p: has htn (on medication) Laboratory Tests 06/07/19 06/07/19 06/07/19 07:40 07:40 07:40 WBC 2.9 L RBC 3.77 L Hgb 11.3 L Hct 34.4 L D MCV 91.2 MCH 29.9 MCHC 32.8 RDW 18.3 H Plt Count 231 MPV 8.8 Sodium 140 Potassium 3.5 Chloride 106 Carbon Dioxide 24 Anion Gap 10 BUN 13.0 Creatinine 0.8 Est GFR (CKD-EPI)AfAm 114.13 Est GFR (CKD-EPI)NonAf 98.47 Random Glucose 74 Calcium 8.1 L Total Bilirubin 0.4 AST 41 H ALT 27 Alkaline Phosphatase 99 Total Protein 6.8 Albumin 3.2 L RPR Titer Nonreactive Labs reviewed: calcium 8.1, h/h 11.3/34.4 Assessment: 06/07/19 11:53 Withdrawal sxs Noted with hypocalcemia and mild anemia Plan: Continue detox Encouraged PO water intake HTN: on medication Hypocalcemia, mild: start calcium carbonate 650mg PO BID x 3 days, repeat serum calcium level on 06/09 Anemia, mild: most likely related to chronic alcoholism, send iron studies, start FESO4 325mg PO daily (consider increasing if warranted)
[2019-06-07] MEDS: FERROUS SO4 325 MG TABLET (FP) PO SCH (13:48)
[2019-06-07] MEDS ORDERED: SERTRALINE HCL 25 MG TABLET (FP) PO SCH (22:00)
[2019-06-07] MEDS: CALCIUM CARBONATE 650 MG TABLET PO SCH (22:26)
[2019-06-07] MEDS: THIAMINE HCL 100 MG TABLET (FP) PO SCH (22:26)
[2019-06-07] MEDS: IBUPROFEN 400 MG TABLET (FP) PO PRN (22:27)
[2019-06-08] MEDS: chlordiazePOXIDE HCL 25 MG CAPSULE PO SCH ×4 (06:09→22:14)
[2019-06-08] MEDS: FERROUS SO4 325 MG TABLET (FP) PO SCH (10:19)
[2019-06-08] MEDS: CALCIUM CARBONATE 650 MG TABLET PO SCH ×2 (10:19→22:12)
[2019-06-08] MEDS: risperiDONE 2 MG TABLET PO SCH ×2 (10:20→22:13)
[2019-06-08] MEDS: PRENATAL VITAMINS W/ FOLIC ACID TABLET (FP) PO SCH (10:20)
[2019-06-08] MEDS: PANTOPRAZOLE 20 MG TABLET (FP) PO SCH (10:20)
[2019-06-08] MEDS: amLODIPine BESYLATE 5 MG TABLET (FP) PO SCH (10:21)
[2019-06-08] MEDS: IBUPROFEN 400 MG TABLET (FP) PO PRN ×2 (10:24→22:13)
--- NOTE | 2019-06-08 11:29 | CONSULT ---
[facility] Psychiatric Consult - Data Date of interview: 06/08/19 Admission source: Self-referred Identifying data: Mr Fournier is a 58 years old single male, unemployed receiving SSI, domiciled seeking detox treatment for alcohol and cocaine Substance Abuse History: Reports history of alcohol and cocaine use. Refer to addiction counselor's summary for further information Medical History: Significant for peptic ulcer disease, GERD, anemia, hypertension, arthritis (right knee), hitory of myocardial infarction in 2006 and surgery for fracture of nasal bones (1987). Psychiatric History: Reports being diagnosed with Bipolar Disorder and MDD more than 15 years ago. Reports multiple previous psychiatric admissions to various facilities including [facility], [facility] , [facility] and [facility]. Reports receiving outpatient psychiatric treatment at [facility] and he is prescribed Risperdal 1 mg/bid and Zoloft 50 mg/day. He was recently seen on 04/15/[address] العلي while admittedcto this facility and prescribed Risperdal 2 mg/hs and Zoloft 50 mg/day. According to previous entry on EMR, patient's adherence to medication is questionable. Denies previous suicide attempt. At present, denies experiecing psychotic, manic or depressive symptoms, S/H ideations. Physical/Sexual Abuse/Trauma History: Denies history of emotional, physical or sexual abuse as well as DV relationship Additional Comment: Reports history of multiple previous arrests including one felony conviction. No parole/probation at present Psychiatric Findings - Problem List ([place] 1, 2,3) (1) Schizoaffective disorder Current Visit: No Status: Chronic Qualifiers: Schizoaffective disorder type: bipolar Qualified Code(s): F25.0 - Schizoaffective disorder, bipolar type Comment: By history. (2) Major depressive disorder, recurrent severe without psychotic features Current Visit: No Status: Ruled-out (3) Alcohol dependence with uncomplicated withdrawal Current Visit: No Status: Acute (4) Cocaine dependence Current Visit: No Status: Acute Qualifiers: Substance use status: uncomplicated Qualified Code(s): F14.20 - Cocaine dependence, uncomplicated (5) Anemia Current Visit: No Status: Chronic Qualifiers: Anemia type: unspecified type Qualified Code(s): D64.9 - Anemia, unspecified (6) GERD (gastroesophageal reflux disease) Current Visit: No Status: Chronic Qualifiers: Esophagitis presence: without esophagitis Qualified Code(s): K21.9 - Gastro -esophageal reflux disease without esophagitis (7) Hypertension Current Visit: No Status: Chronic Qualifiers: Hypertension type: unspecified Qualified Code(s): I10 - Essential (primary ) hypertension - Initial Treatment Plan Initial Treatment Plan: 1) Continue Risperdal 1 mg po BID and Zoloft 50 mg po daily. 2) Continue inpatient detoxification
--- NOTE | 2019-06-08 14:31 | PN ---
S CIWA - CIWA Score Nausea/Vomitin-Mild Nausea/No Vomiting Muscle Tremors: 2 Anxiety: 2 Agitation: 2 Paroxysmal Sweats: No Perspiration Orientation: 0-Oriented Tacttile Disturbances: 0-None Auditory Disturbances: 0-None Visual Disturbances: 0-None Headache: 1-Very Mild CIWA-Ar Total Score: 8 BHS Progress Note (SOAP) Subjective: alert,irritable,anxious,interrupted sleep,pain in the body Objective: 06/08/19 14:30 Laboratory Last Values WBC 2.9 K/mm3 (4.0-10.0) L 06/07/19 07:40 RBC 3.77 M/mm3 (4.00-5.60) L 06/07/19 07:40 Hgb 11.3 GM/dL (11.7-16.9) L 06/07/19 07:40 Hct 34.4 % (35.4-49) L D 06/07/19 07:40 MCV 91.2 fl (80-96) 06/07/19 07:40 MCH 29.9 pg (25.7-33.7) 06/07/19 07:40 MCHC 32.8 g/dl (32.0-35.9) 06/07/19 07:40 RDW 18.3 % (11.9-15.9) H 06/07/19 07:40 Plt Count 231 K/MM3 (134-434) 06/07/19 07:40 MPV 8.8 fl (7.5-11.1) 06/07/19 07:40 Sodium 140 mmol/L (136-145) 06/07/19 07:40 Potassium 3.5 mmol/L (3.5-5.1) 06/07/19 07:40 Chloride 106 mmol/L (98-107) 06/07/19 07:40 Carbon Dioxide 24 mmol/L (21-32) 06/07/19 07:40 Anion Gap 10 MMOL/L (8-16) 06/07/19 07:40 BUN 13.0 mg/dL (7-18) 06/07/19 07:40 Creatinine 0.8 mg/dL (0.55-1.3) 06/07/19 07:40 Est GFR (CKD-EPI)AfAm 114.13 06/07/19 07:40 Est GFR (CKD-EPI)NonAf 98.47 06/07/19 07:40 Random Glucose 74 mg/dL (74-106) 06/07/19 07:40 Calcium 8.1 mg/dL (8.5-10.1) L 06/07/19 07:40 Iron 53 ug/dL (50-175) 06/08/19 08:20 TIBC 348 ug/dL (250-450) 06/08/19 08:20 Iron Saturation 15 % (17.5-39) L 06/08/19 08:20 Unsaturated IBC 295 ug/dL (200-275) H 06/08/19 08:20 Ferritin 18.3 ng/ml (8-388) 06/08/19 08:20 Total Bilirubin 0.4 mg/dL (0.2-1) 06/07/19 07:40 AST 41 U/L (15-37) H 06/07/19 07:40 ALT 27 U/L (13-61) 06/07/19 07:40 Alkaline Phosphatase 99 U/L (45-117) 06/07/19 07:40 Total Protein 6.8 g/dl (6.4-8.2) 06/07/19 07:40 Albumin 3.2 g/dl (3.4-5.0) L 06/07/19 07:40 Vitamin B12 377 pg/ml (193-986) 06/08/19 08:20 Serum Folate 13 ng/mL (3.1-17.5) 06/08/19 08:20 RPR Titer Nonreactive (NONREACTIVE) 06/07/19 07:40 Assessment: 06/08/19 14:30 withdrawal symptom Plan: continue detox librium regimen,continue ferrous sulfate 325 mgs po daily
--- NOTE | 2019-06-08 15:53 | PN ---
BHS Progress Note Note: low back pain,coughing with yellowish mucous, bronchitis low back pain amoxicillin 500 mgs po tid for 7days, lidocaine patch 5 % to back
[2019-06-08] MEDS: METHOCARBAMOL 500 MG TABLET PO PRN ×2 (15:56→22:11)
[2019-06-08] MEDS: LIDOCAINE 5% TOPICAL PATCH TP SCH (17:19)
[2019-06-08] MEDS: AMOXICILLIN 500 MG CAPSULE (FP) PO SCH ×2 (17:19→22:11)
[2019-06-08] MEDS: LIDOCAINE PATCH REMOVAL MC SCH (22:09)
[2019-06-08] MEDS: THIAMINE HCL 100 MG TABLET (FP) PO SCH (22:12)
[2019-06-09] MEDS ORDERED: chlordiazePOXIDE HCL 10 MG CAPSULE PO PRN
[2019-06-09] MEDS: AMOXICILLIN 500 MG CAPSULE (FP) PO SCH ×3 (05:10→22:18)
[2019-06-09] MEDS: chlordiazePOXIDE HCL 10 MG CAPSULE PO SCH ×4 (05:10→22:19)
[2019-06-09] MEDS: PRENATAL VITAMINS W/ FOLIC ACID TABLET (FP) PO SCH (10:33)
[2019-06-09] MEDS: PANTOPRAZOLE 20 MG TABLET (FP) PO SCH (10:33)
[2019-06-09] MEDS: FERROUS SO4 325 MG TABLET (FP) PO SCH (10:33)
[2019-06-09] MEDS: IBUPROFEN 400 MG TABLET (FP) PO PRN ×2 (10:34→17:36)
[2019-06-09] MEDS: amLODIPine BESYLATE 5 MG TABLET (FP) PO SCH (10:34)
[2019-06-09] MEDS: METHOCARBAMOL 500 MG TABLET PO PRN ×2 (10:35→17:36)
[2019-06-09] MEDS: LIDOCAINE 5% TOPICAL PATCH TP SCH (10:35)
[2019-06-09] MEDS: CALCIUM CARBONATE 650 MG TABLET PO SCH ×2 (10:35→22:22)
[2019-06-09] MEDS: risperiDONE 2 MG TABLET PO SCH ×2 (10:37→22:19)
[2019-06-09] MEDS: SERTRALINE HCL 50 MG TABLET (FP) PO SCH (10:37)
--- NOTE | 2019-06-09 11:36 | PN ---
S CIWA - CIWA Score Nausea/Vomitin-Mild Nausea/No Vomiting Muscle Tremors: 1-None Visible, but [place] Anxiety: 2 Agitation: 2 Paroxysmal Sweats: No Perspiration Orientation: 0-Oriented Tacttile Disturbances: 1-Very Mild Itch/Numbness Auditory Disturbances: 0-None Visual Disturbances: 0-None Headache: 1-Very Mild CIWA-Ar Total Score: 8 BHS Progress Note (SOAP) Subjective: alert,irritable,anxious,interrupted sleep,pain in the body Objective: 06/09/19 11:35 Vital Signs Temperature 97.9 F 06/09/19 09:38 Pulse Rate 72 06/09/19 09:38 Respiratory Rate 18 06/09/19 09:38 Blood Pressure 138/77 06/09/19 09:38 O2 Sat by Pulse Oximetry (%) Assessment: 06/09/19 11:35 withdrawal symptom Plan: continue detox librium regimen
[2019-06-09] MEDS: MELATONIN 5 MG TABLETS PO PRN (22:19)
[2019-06-09] MEDS: THIAMINE HCL 100 MG TABLET (FP) PO SCH (22:19)
[2019-06-09] MEDS: LIDOCAINE PATCH REMOVAL MC SCH (22:21)
[2019-06-10] MEDS: AMOXICILLIN 500 MG CAPSULE (FP) PO SCH ×3 (05:53→22:55)
[2019-06-10] MEDS: chlordiazePOXIDE HCL 10 MG CAPSULE PO SCH ×2 (05:53→17:59)
[2019-06-10] MEDS: PRENATAL VITAMINS W/ FOLIC ACID TABLET (FP) PO SCH (10:12)
[2019-06-10] MEDS: FERROUS SO4 325 MG TABLET (FP) PO SCH (10:12)
[2019-06-10] MEDS: amLODIPine BESYLATE 5 MG TABLET (FP) PO SCH (10:12)
[2019-06-10] MEDS: PANTOPRAZOLE 20 MG TABLET (FP) PO SCH (10:12)
[2019-06-10] MEDS: LIDOCAINE 5% TOPICAL PATCH TP SCH (10:13)
[2019-06-10] MEDS: SERTRALINE HCL 50 MG TABLET (FP) PO SCH (10:13)
[2019-06-10] MEDS: risperiDONE 2 MG TABLET PO SCH ×2 (10:13→22:50)
[2019-06-10] MEDS: METHOCARBAMOL 500 MG TABLET PO PRN (10:15)
[2019-06-10] MEDS: IBUPROFEN 400 MG TABLET (FP) PO PRN ×2 (10:15→23:08)
[2019-06-10] MEDS: CALCIUM CARBONATE 650 MG TABLET PO SCH (10:16)
--- NOTE | 2019-06-10 10:51 | PN ---
S CIWA - CIWA Score Nausea/Vomitin-Mild Nausea/No Vomiting Muscle Tremors: 1-None Visible, but [place] Anxiety: 2 Agitation: 1-Slight > Activity Paroxysmal Sweats: No Perspiration Orientation: 0-Oriented Tacttile Disturbances: 1-Very Mild Itch/Numbness Auditory Disturbances: 0-None Visual Disturbances: 0-None Headache: 1-Very Mild CIWA-Ar Total Score: 7 BHS Progress Note (SOAP) Subjective: alert,irritable,anxious,interrupted sleep Objective: 06/10/19 10:50 Vital Signs Temperature 98.1 F 06/10/19 09:18 Pulse Rate 97 H 06/10/19 09:18 Respiratory Rate 18 06/10/19 09:18 Blood Pressure 150/79 06/10/19 09:18 O2 Sat by Pulse Oximetry (%) Assessment: 06/10/19 10:51 withdrawal symptom Plan: continue detox librium regimen,discharge in am
[2019-06-10 20:52] VITALS: TEMP 98.2
[2019-06-10] MEDS: THIAMINE HCL 100 MG TABLET (FP) PO SCH (22:56)
[2019-06-10] MEDS: LIDOCAINE PATCH REMOVAL MC SCH (23:07)
[2019-06-10] MEDS: MELATONIN 5 MG TABLETS PO PRN (23:07)
[2019-06-11] MEDS ORDERED: chlordiazePOXIDE HCL 10 MG CAPSULE PO ONE (05:00)
[2019-06-11] MEDS: AMOXICILLIN 500 MG CAPSULE (FP) PO SCH (06:32)
[2019-06-11 07:23] VITALS: BP 145/76; PULSE 88
== END 2019-06-11 06:30 | disposition home or self-care (01) | DRG 774 ==
LOC: YASAS 18:50 → Y6N 23:08
PROVIDERS: ADMIT Allergy & Immunology; ATTEND Allergy & Immunology
PROC: HZ2ZZZZ Detoxification Services for Substance Abuse Treatment (ICD-10-PCS; principal; 2019-06-06)
DX: F10.230 Alcohol dependence with withdrawal, uncomplicated (principal); F14.20 Cocaine dependence, uncomplicated; F25.0 Schizoaffective disorder, bipolar type; F31.9 Bipolar disorder, unspecified; F41.8 Other specified anxiety disorders; E83.51 Hypocalcemia; I10 Essential (primary) hypertension; K21.9 Gastro-esophageal reflux disease without esophagitis; K29.20 Alcoholic gastritis without bleeding; D64.9 Anemia, unspecified; J40 Bronchitis, not specified as acute or chronic; M54.5 Low back pain
CPT/HCPCS: 36415; 80053; 82607; 82728; 82746; 83540; 83550; 85027; 86593; 93005; 93010

== ENCOUNTER 2019-08-02 11:52 | Inpatient (IN) | payer OTHER ==
[2019-08-02 13:34] VITALS: BMI 30.1
--- NOTE | 2019-08-02 14:09 | HP ---
CIWA Score Nausea/Vomitin Muscle Tremors: 3 Anxiety: 3 Agitation: 3 Paroxysmal Sweats: 1-Minimal Palms Moist Orientation: 0-Oriented Tacttile Disturbances: 1-Very Mild Itch/Numbness Auditory Disturbances: 0-None Visual Disturbances: 0-None Headache: 2-Mild CIWA-Ar Total Score: 15 - Admission Criteria OASAS Guidelines: Admission for Medically Managed Detox: Requires at least one of the followin. CIWA greater than 12 2. Seizures within the past 24 hours 3. Delirium tremens within the past 24 hours 4. Hallucinations within the past 24 hours 5. Acute intervention needed for co occurring medical disorder 6. Acute intervention needed for co occurring psychiatric disorder 7. Severe withdrawal that cannot be handled at a lower level of care (continued vomiting, continued diarrhea, abnormal vital signs) requiring intravenous medication and/or fluids 8. 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 Cardiovascular: Yes: HTN Gastrointestinal: Yes: Gastritis, GERD Psych: Yes: Bipolar Endocrine: Yes: Diabetes Insipidus - Past Surgical History Past Surgical History: Yes: None Additional Past Surgical History: surgery for fx left thumb surgery in 2009 surgery of nose in 2010 - Smoking History Smoking history: Never smoked Have you smoked in the past 12 months: No Aproximately how many cigarettes per day: 0 - Alcohol/Substance Use Hx Alcohol Use: Yes - Social History Usual Living Arrangement: Yes: Alone ADL: Support Services 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 seen in [facility] last night Admission ROS BHS - HPI Chief Complaint: i need help to stop drinking alcohol and cocaine abused Allergies/Adverse Reactions: Allergies Allergy/AdvReac Type Severity Reaction Status Date / Time No Known Allergies Allergy Verified 08/02/19 13:11 History of Present Illness: this 58 years old male with alcohol and cocaine dependence,seeking detox, withdrawal symptom,, seen in er at [facility] last night receiving librium had syncope denied seizure never smoke bipolar disorder multiple admissions in detox,last 06/06/19 to 06/11/19 longest sobriety 17 months encourage to go to rehab after detox type 2 dm - Ebola screening Have you traveled outside of the country in the last 21 days: No (N) Have you had contact with anyone from an Ebola affected area: No Do you have a fever: No - Review of Systems Constitutional: Chills, Loss of Appetite, Malaise, Night Sweats, Changes in sleep, Weakness EENT: reports: Nose Congestion Respiratory: reports: No Symptoms reported Cardiac: reports: No Symptoms Reported GI: reports: Nausea, Poor Appetite, Indigestion, Abdominal cramping : reports: No Symptoms Reported Musculoskeletal: reports: Back Pain, Muscle Pain Integumentary: reports: Dryness Neuro: reports: Headache, Tremors Endocrine: reports: No Symptoms Reported Hematology: reports: No Symptoms Reported Psychiatric: reports: No Sypmtoms Reported, Judgement Intact, Mood/Affect Appropiate, Orientated x3, other (bipolar disorder) Patient History - Patient Medical History Hx Anemia: Yes (NO CURRENT MED) Hx Asthma: No Hx Chronic Obstructive Pulmonary Disease (COPD): No Hx Cancer: No Hx Cardiac Disorders: No Hx Congestive Heart Failure: No Hx Hypertension: Yes (NOT ON MEDICATION) Hx Hypercholesterolemia: No Hx Pacemaker: No HX Cerebrovascular Accident: No Hx Seizures: No Hx Dementia: No Hx Diabetes: No Hx Gastrointestinal Disorders: Yes (GERD- NEXIUM) Hx Liver Disease: No Hx Genitourinary Disorders: No Hx Sexually Transmitted Disorders: No Hx Renal Disease (ESRD): No Hx Thyroid Disease: No Hx Human Immunodeficiency Virus (HIV): No (last 11/28 negative) Hx Hepatitis C: No Hx Depression: Yes (RISPERDAL) Hx Suicide Attempt: No Hx Bipolar Disorder: Yes (RISPERDAL AND ZOLOFT) Hx Schizophrenia: No Other Medical History: no suicidal,no homicidal - Patient Surgical History Past Surgical History: Yes Hx Neurologic Surgery: No Hx Cataract Extraction: No Hx Cardiac Surgery: No Hx Lung Surgery: No Hx Breast Surgery: No Hx Breast Biopsy: No Hx Abdominal Surgery: No Hx Appendectomy: No Hx Cholecystectomy: No Hx Genitourinary Surgery: No Hx Section: No Hx Orthopedic Surgery: Yes (fx, left thumb in 2006) Other Surgical History: nasal fx in 1987 Anesthesia Reaction: No - PPD History Previous Implant?: Yes Documented Results: Negative w/o proof Implanted On Prior R Admission?: Yes Date: 06/06/18 Results: 0 mm PPD to be Administered?: Yes - Smoking Cessation Smoking history: Never smoked Have you smoked in the past 12 months: No Aproximately how many cigarettes per day: 0 Cigars Per Day: 0 Hx Chewing Tobacco Use: No - Substance & Tx. History Hx Alcohol Use: Yes Hx Substance Use: Yes Substance Use Type: Cocaine Hx Substance Use Treatment: Yes ([facility] to ) - Substances abused Alcohol Substance route: Oral Frequency: Daily Amount used: 2 pints of vodka. Age of first use: 14 Date of last use: 08/02/19 Cocaine Substance route: Inhalation Frequency: Daily Amount used: 1 gram Age of first use: 17 Date of last use: 07/30/19 Admission Physical Exam BHS - Vital Signs Vital Signs: Vital Signs - 24 hr 08/02/19 13:25 Temperature 96.8 F L Pulse Rate 71 Respiratory 18 Rate Blood Pressure 151/80 - Physical General Appearance: Yes: Moderate Distress, Tremorous, Irritable, Sweating, Anxious HEENTM: Yes: Normal ENT Inspection, LISSA, Pharynx Normal, Other (fx of nose) Respiratory: Yes: Lungs Clear, Normal Breath Sounds, No Respiratory Distress Neck: Yes: Within Normal Limits, Supple, Trachea in good position Breast: Yes: Within Normal Limits Cardiology: Yes: Within Normal Limits, Regular Rhythm, Regular Rate, S1, S2 Abdominal: Yes: Within Normal Limits, Normal Bowel Sounds, Non Tender, Flat, Soft Genitourinary: Yes: Within Normal Limits Back: Yes: Muscle Spasm Musculoskeletal: Yes: Back pain, Muscle Pain Extremities: Yes: Within Normal Limits, Normal Range of Motion, Tremors 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, Fully Oriented, Alert, Motor Strength 5/5 Integumentary: Yes: Dry Lymphatic: Yes: Within Normal Limits - Diagnostic (1) Alcohol dependence with uncomplicated withdrawal Current Visit: No Status: Acute (2) Bipolar disorder Current Visit: Yes Status: Acute (3) Cocaine dependence Current Visit: No Status: Acute Qualifiers: Substance use status: uncomplicated Qualified Code(s): F14.20 - Cocaine dependence, uncomplicated (4) Syncope Current Visit: No Status: Acute (5) Nicotine dependence Current Visit: No Status: Chronic Qualifiers: Nicotine product type: cigarettes Substance use status: in withdrawal Qualified Code(s): F17.213 - Nicotine dependence, cigarettes, with withdrawal (6) GERD (gastroesophageal reflux disease) Current Visit: Yes Status: Acute (7) DM2 (diabetes mellitus, type 2) Current Visit: Yes Status: Acute Cleared for Admission S - Detox or Rehab [facility] Level of Care: Medically Managed Detox Regimen/Protocol: Librium Breathalyzer - Breathalyzer Breathalyzer: 0 Urine Drug Screen - Test Device Lot number: [id number] Expiration date: 03/11/21 - Control Is test valid?: Yes - Results Drug screen NEGATIVE: No Urine drug screen results: BZO-Benzodiazepines Inpatient Rehab Admission - Rehab Decision to Admit Inpatient rehab admission?: No
[2019-08-02] MEDS ORDERED: hydrOXYzine PAMOATE 25 MG CAPSULE (FP) PO PRN (14:25)
[2019-08-02] MEDS ORDERED: MAGNESIUM HYDROX 2400MG/30ML ORAL SUSPENSION 30 ML CUP PO PRN (14:25)
[2019-08-02] MEDS ORDERED: chlordiazePOXIDE HCL 25 MG CAPSULE PO PRN (14:25)
[2019-08-02] MEDS ORDERED: MAG HYDROX/AL HYDROX/SIMETH 30 ML UNIT-DOSE CUP PO PRN (14:25)
[2019-08-02] MEDS ORDERED: MAGNESIUM CITRATE 300 ML BOTTLE PO PRN (14:25)
[2019-08-02] MEDS ORDERED: ACETAMINOPHEN 325 MG TABLET (FP) PO PRN ×2 (14:25)
[2019-08-02] MEDS: chlordiazePOXIDE HCL 25 MG CAPSULE PO SCH ×2 (17:53→22:38)
[2019-08-02] MEDS ORDERED: FAMOTIDINE 20 MG TABLET PO SCH (22:00)
[2019-08-02] MEDS: ATORVASTATIN CA 80 MG TABLET (FP) PO SCH (22:38)
[2019-08-02] MEDS: THIAMINE HCL 100 MG TABLET (FP) PO SCH (22:38)
[2019-08-02] MEDS: METHOCARBAMOL 500 MG TABLET PO PRN (22:41)
[2019-08-03] MEDS: chlordiazePOXIDE HCL 25 MG CAPSULE PO SCH ×4 (05:16→22:17)
--- NOTE | 2019-08-03 09:09 | PN ---
[facility] CIWA - CIWA Score Nausea/Vomitin Muscle Tremors: 3 Anxiety: 3 Agitation: 2 Paroxysmal Sweats: No Perspiration Orientation: 0-Oriented Tacttile Disturbances: 1-Very Mild Itch/Numbness Auditory Disturbances: 1-Very Mild Visual Disturbances: 0-None Headache: 2-Mild CIWA-Ar Total Score: 14 BHS Progress Note (SOAP) Subjective: 58 years old male admitted on 08/02/19 for alcohol withdrawal sx management treating with librium detox regimen reports long history of GERD taking pepcid bid requests first dose of the day at 0600 am change pepcid bid schedule to 0600 and 1800 Objective: 08/03/19 09:11 Vital Signs Temperature 97.0 F L 08/03/19 06:47 Pulse Rate 61 08/03/19 06:47 Respiratory Rate 18 08/03/19 06:47 Blood Pressure 129/75 08/03/19 06:47 O2 Sat by Pulse Oximetry (%) Laboratory Last Values POC Glucometer 108 UNITS (80-120) 08/03/19 06:10 08/03/19 09:11 lab pending 08/03/19 09:12 bgm within acceptable range encourage weight loss and no concentrated sugar 08/03/19 09:14 discontinue regular diet begin ncs diet Assessment: 08/03/19 09:14 alcohol withdrawal Plan: librium regimen
[2019-08-03] MEDS: ASPIRIN 81 MG CHEWABLE TABLETS PO SCH (10:03)
[2019-08-03] MEDS: PRENATAL VITAMINS W/ FOLIC ACID TABLET (FP) PO SCH (10:03)
[2019-08-03] MEDS: ISOSORBIDE MONONITRATE 30 MG TAB.SR.24H (FP) PO SCH (10:03)
[2019-08-03] MEDS: FAMOTIDINE 20 MG TABLET PO SCH ×2 (10:03→17:36)
[2019-08-03] MEDS: IBUPROFEN 400 MG TABLET (FP) PO PRN ×2 (10:06→17:39)
[2019-08-03] MEDS: LISINOPRIL 5 MG TABLET (FP) PO SCH (10:07)
[2019-08-03 10:42] LABS: HEMATOCRIT 36.3 % (35.4-49); HEMOGLOBIN 11.9 GM/dL (11.7-16.9); MCH 30.3 pg (25.7-33.7); MCHC 32.7 g/dl (32.0-35.9); MEAN CELL VOLUME 92.6 fl (80-96); MEAN PLT VOLUME 9.1 fl (7.5-11.1); PLATELET COUNT 178 K/MM3 (134-434); RBC 3.92 M/mm3 (4.00-5.60); RDW 17.8 % (11.9-15.9); WHITE BLOOD COUNT 2.3 K/mm3 (4.0-10.0)
[2019-08-03 10:48] LABS: ALBUMIN 2.9 g/dl (3.4-5.0); BILIRUBIN,TOTAL 0.6 mg/dL (0.2-1); BLOOD UREA NITROGEN 7.2 mg/dL (7-18); CALCIUM 8.9 mg/dL (8.5-10.1); CREATININE 0.7 mg/dL (0.55-1.3); POTASSIUM 3.3 mmol/L (3.5-5.1); TOT PROT 6.7 g/dl (6.4-8.2)
[2019-08-03 11:52] LABS: PH,URINE 7.5 (5.0-8.0); URINE APPEARANCE CLEAR; URINE BILIRUBIN NEGATIVE (NEGATIVE); URINE COLOR YELLOW; URINE GLUCOSE (UA) NEGATIVE (NEGATIVE); URINE KETONE NEGATIVE (NEGATIVE); URINE LEUK ESTERASE NEGATIVE (NEGATIVE); URINE NITRITE NEGATIVE (NEGATIVE); URINE PROTEIN NEGATIVE (NEGATIVE)
--- NOTE | 2019-08-03 13:45 | CONSULT ---
[facility] Psychiatric Consult - Data Date of interview: 08/03/19 Admission source: [facility] Identifying data: Revisit to [facility] and admission to [address] [place] [address] for this 58 y/o male self-referred for detoxification (alcohol + cocaine). Patient is single without children, domiciled (lives in a rented room), unemployed and supported on SSI benefits. Substance Abuse History: Discussed with the patient. Details in current [facility] report as follows : Smoking history: Never smoked. Have you smoked in the past 12 months: No. Aproximately how many cigarettes per day: 0. Cigars Per Day: 0. Hx Chewing Tobacco Use: No. - Substance & Tx. History. Hx Alcohol Use: Yes. Hx Substance Use: Yes. Substance Use Type: Cocaine. Hx Substance Use Treatment: Yes ([facility] to ). - Substances abused. Alcohol. Substance route: Oral. Frequency: Daily. Amount used: 2 pints of vodka. Age of first use: 14. Date of last use: 08/02/19. Cocaine. Substance route: Inhalation. Frequency: Daily. Amount used: 1 gram. Age of first use: 17. Date of last use: 07/30/19 Medical History: History of myocardial infarction (2016), peptic ulcer disease, GERD, anemia, hypertension, arthritis (right knee) and past surgery for fracture of nasal bones (1987). Psychiatric History: Patient presents with a history of multiple psychiatric hospitalizations ([facility], [facility], [facility], [facility]). Reportedly diagnosed with MDD and Bipolar Disorder. Mr Fournier is still affilkiated with [facility] OPD clinic for psychiatric aftercare. Chronically non-adherent to psychiatric follow -up or medications. Patient reports treatment maintenance on a regimen of risperdal 2 mg/hs + zoloft 50 mg/hs. He is known as a frequent user of local [facility] settings for refills of medications. Denies history of suicide attempts. Physical/Sexual Abuse/Trauma History: Patient denies. Additional Comment: Urine drug screen results: BZO-Benzodiazepines. Noted. Mental Status Exam - Mental Status Exam Alert and Oriented to: Time, Place, Person Cognitive Function: Good Patient Appearance: Well Groomed Mood: Nervous, Withdrawn Affect: Mood Congruent, Constricted Patient Behavior: Fatigued, Appropriate, Cooperative Speech Pattern: Clear Voice Loudness: Normal Thought Process: Intact, Goal Oriented Thought Disorder: Not Present Hallucinations: Denies Suicidal Ideation: Denies Homicidal Ideation: Denies Insight/Judgement: Poor Sleep: Poorly, Difficulty falling asleep Appetite: Good Muscle strength/Tone: Normal Gait/Station: Normal Psychiatric Findings - Problem List ([place] 1, 2,3) (1) Alcohol dependence with uncomplicated withdrawal Current Visit: Yes Status: Acute (2) Cocaine dependence Current Visit: Yes Status: Chronic Qualifiers: Substance use status: uncomplicated Qualified Code(s): F14.20 - Cocaine dependence, uncomplicated Comment: Toxicology negative for cocaine but the patient has verbally reporting enduring use of that drug (as recently as 07/30/19). (3) History of depression Current Visit: Yes Status: Chronic (4) Substance induced mood disorder Current Visit: Yes Status: Chronic (5) History of bipolar disorder Current Visit: Yes Status: Chronic (6) Insomnia Current Visit: Yes Status: Chronic (7) Non-compliant patient Current Visit: Yes Status: Chronic - Initial Treatment Plan Initial Treatment Plan: Psychoeducation. Sleep hygiene. Detoxification. Support. AA meetings. Resumed : zoloft 50 mg po daily + risperdal 1 mg po bid. Side effects/benefits of both drugs are discussed with the patient. Mr Fournier has expressed his agreement with this plan of care (he requested to get back on these medications). Gave consent (verbal) to MD. Dunne.
[2019-08-03] MEDS: MENTHOL/PHENOL 1 EACH UD MM PRN (14:06)
[2019-08-03] MEDS: SPIRONOLACTONE 25 MG TABLET (FP) PO SCH (14:07)
[2019-08-03] MEDS: METHOCARBAMOL 500 MG TABLET PO PRN (17:39)
[2019-08-03] MEDS ORDERED: POTASSIUM CHLORIDE TABS 20 MEQ TABLET.ER (FP) PO ONE (22:01)
[2019-08-03] MEDS: risperiDONE 1 MG TABLET (FP) PO SCH (22:17)
[2019-08-03] MEDS: THIAMINE HCL 100 MG TABLET (FP) PO SCH (22:17)
[2019-08-03] MEDS: ATORVASTATIN CA 80 MG TABLET (FP) PO SCH (22:17)
[2019-08-04] MEDS: chlordiazePOXIDE HCL 25 MG CAPSULE PO SCH ×4 (05:25→22:23)
[2019-08-04] MEDS: FAMOTIDINE 20 MG TABLET PO SCH ×2 (05:25→17:19)
[2019-08-04] MEDS ORDERED: POTASSIUM CHLORIDE TABS 20 MEQ TABLET.ER (FP) PO ONE (10:00)
[2019-08-04] MEDS: PRENATAL VITAMINS W/ FOLIC ACID TABLET (FP) PO SCH (10:03)
[2019-08-04] MEDS: LISINOPRIL 5 MG TABLET (FP) PO SCH (10:03)
[2019-08-04] MEDS: risperiDONE 1 MG TABLET (FP) PO SCH ×2 (10:03→22:23)
[2019-08-04] MEDS: SPIRONOLACTONE 25 MG TABLET (FP) PO SCH (10:04)
[2019-08-04] MEDS: ASPIRIN 81 MG CHEWABLE TABLETS PO SCH (10:04)
[2019-08-04] MEDS: ISOSORBIDE MONONITRATE 30 MG TAB.SR.24H (FP) PO SCH (10:04)
[2019-08-04] MEDS: SERTRALINE HCL 50 MG TABLET (FP) PO SCH (10:04)
[2019-08-04] MEDS: IBUPROFEN 400 MG TABLET (FP) PO PRN (10:06)
[2019-08-04] MEDS: METHOCARBAMOL 500 MG TABLET PO PRN (10:06)
--- NOTE | 2019-08-04 10:42 | PN ---
[facility] CIWA - CIWA Score Nausea/Vomitin-No Nausea/No Vomiting Muscle Tremors: 2 Anxiety: 3 Agitation: 1-Slight > Activity Paroxysmal Sweats: 3 Orientation: 0-Oriented Tacttile Disturbances: 0-None Auditory Disturbances: 0-None Visual Disturbances: 0-None Headache: 2-Mild CIWA-Ar Total Score: 11 S Progress Note (SOAP) Subjective: c/o anxiety, headache, shakes, and sweats. Objective: 08/04/19 10:41 Vital Signs 08/04/19 08/04/19 08/04/19 03:30 06:12 09:05 Temperature 97.2 F L 96.7 F L Pulse Rate 64 90 Respiratory 18 18 18 Rate Blood Pressure 113/59 L 135/84 Laboratory Last Values WBC 2.3 K/mm3 (4.0-10.0) L 08/03/19 07:45 RBC 3.92 M/mm3 (4.00-5.60) L 08/03/19 07:45 Hgb 11.9 GM/dL (11.7-16.9) 08/03/19 07:45 Hct 36.3 % (35.4-49) 08/03/19 07:45 MCV 92.6 fl (80-96) 08/03/19 07:45 MCH 30.3 pg (25.7-33.7) 08/03/19 07:45 MCHC 32.7 g/dl (32.0-35.9) 08/03/19 07:45 RDW 17.8 % (11.9-15.9) H 08/03/19 07:45 Plt Count 178 K/MM3 (134-434) D 08/03/19 07:45 MPV 9.1 fl (7.5-11.1) 08/03/19 07:45 Sodium 140 mmol/L (136-145) 08/03/19 07:45 Potassium 3.3 mmol/L (3.5-5.1) L 08/03/19 07:45 Chloride 101 mmol/L (98-107) 08/03/19 07:45 Carbon Dioxide 31 mmol/L (21-32) 08/03/19 07:45 Anion Gap 8 MMOL/L (8-16) 08/03/19 07:45 BUN 7.2 mg/dL (7-18) 08/03/19 07:45 Creatinine 0.7 mg/dL (0.55-1.3) 08/03/19 07:45 Est GFR (CKD-EPI)AfAm 120.56 08/03/19 07:45 Est GFR (CKD-EPI)NonAf 104.02 08/03/19 07:45 POC Glucometer 103 UNITS (80-120) 08/04/19 05:58 Random Glucose 100 mg/dL (74-106) 08/03/19 07:45 Calcium 8.9 mg/dL (8.5-10.1) 08/03/19 07:45 Total Bilirubin 0.6 mg/dL (0.2-1) 08/03/19 07:45 AST 32 U/L (15-37) 08/03/19 07:45 ALT 22 U/L (13-61) 08/03/19 07:45 Alkaline Phosphatase 90 U/L (45-117) 08/03/19 07:45 Total Protein 6.7 g/dl (6.4-8.2) 08/03/19 07:45 Albumin 2.9 g/dl (3.4-5.0) L 08/03/19 07:45 Urine Color Yellow 08/03/19 08:00 Urine Appearance Clear 08/03/19 08:00 Urine pH 7.5 (5.0-8.0) D 08/03/19 08:00 Ur Specific [place] 1.011 (1.010-1.035) 08/03/19 08:00 Urine Protein Negative (NEGATIVE) 08/03/19 08:00 Urine Glucose (UA) Negative (NEGATIVE) 08/03/19 08:00 Urine Ketones Negative (NEGATIVE) 08/03/19 08:00 Urine Blood Negative (NEGATIVE) 08/03/19 08:00 Urine Nitrite Negative (NEGATIVE) 08/03/19 08:00 Urine Bilirubin Negative (NEGATIVE) 08/03/19 08:00 Urine Urobilinogen 1.0 mg/dL (0.2-1.0) 08/03/19 08:00 Ur Leukocyte Esterase Negative (NEGATIVE) 08/03/19 08:00 RPR Titer Nonreactive (NONREACTIVE) 08/03/19 07:45 Labs noted. Assessment: 08/04/19 10:41 AOX3, in no acute respiratory distress. Full ROM, ambulating in the unit. Withdrawal symptoms. Plan: continue detox.
[2019-08-04] MEDS: BISMUTH SUBSALICYLATE 524 MG/30 ML UD PO PRN ×2 (15:23→17:20)
[2019-08-04] MEDS ORDERED: LOPERAMIDE HCL 2 MG CAPSULE PO PRN (19:13)
[2019-08-04] MEDS: MELATONIN 5 MG TABLETS PO PRN (22:23)
[2019-08-04] MEDS: ATORVASTATIN CA 80 MG TABLET (FP) PO SCH (22:23)
[2019-08-04] MEDS: THIAMINE HCL 100 MG TABLET (FP) PO SCH (22:23)
[2019-08-05] MEDS ORDERED: chlordiazePOXIDE HCL 10 MG CAPSULE PO PRN
[2019-08-05] MEDS: chlordiazePOXIDE HCL 10 MG CAPSULE PO SCH ×4 (05:23→22:24)
[2019-08-05] MEDS: FAMOTIDINE 20 MG TABLET PO SCH ×2 (05:24→17:35)
[2019-08-05] MEDS: SERTRALINE HCL 50 MG TABLET (FP) PO SCH (10:12)
[2019-08-05] MEDS: LISINOPRIL 5 MG TABLET (FP) PO SCH (10:12)
[2019-08-05] MEDS: ASPIRIN 81 MG CHEWABLE TABLETS PO SCH (10:13)
[2019-08-05] MEDS: PRENATAL VITAMINS W/ FOLIC ACID TABLET (FP) PO SCH (10:13)
[2019-08-05] MEDS: risperiDONE 1 MG TABLET (FP) PO SCH ×2 (10:13→22:23)
[2019-08-05] MEDS: ISOSORBIDE MONONITRATE 30 MG TAB.SR.24H (FP) PO SCH (10:13)
[2019-08-05] MEDS: SPIRONOLACTONE 25 MG TABLET (FP) PO SCH (10:13)
[2019-08-05] MEDS: METHOCARBAMOL 500 MG TABLET PO PRN ×2 (10:14→22:23)
[2019-08-05] MEDS: IBUPROFEN 400 MG TABLET (FP) PO PRN (10:14)
[2019-08-05 10:51] LABS: POTASSIUM 3.5 mmol/L (3.5-5.1)
--- NOTE | 2019-08-05 11:48 | PN ---
S CIWA - CIWA Score Nausea/Vomitin-No Nausea/No Vomiting Muscle Tremors: 2 Anxiety: 2 Agitation: 2 Paroxysmal Sweats: 1-Minimal Palms Moist Orientation: 0-Oriented Tacttile Disturbances: 0-None Auditory Disturbances: 0-None Visual Disturbances: 0-None Headache: 0-None Present CIWA-Ar Total Score: 7 [facility]HS Progress Note (SOAP) Subjective: 58 years old male admitted on 08/02/19 for alcohol withdrawal sx management treating with librium detox regimen feeling ok today slept through the night less tremor Objective: 08/05/19 12:18 Vital Signs Temperature 96.4 F L 08/05/19 09:08 Pulse Rate 77 08/05/19 09:08 Respiratory Rate 18 08/05/19 09:08 Blood Pressure 140/80 08/05/19 09:08 O2 Sat by Pulse Oximetry (%) Laboratory Last Values WBC 2.3 K/mm3 (4.0-10.0) L 08/03/19 07:45 RBC 3.92 M/mm3 (4.00-5.60) L 08/03/19 07:45 Hgb 11.9 GM/dL (11.7-16.9) 08/03/19 07:45 Hct 36.3 % (35.4-49) 08/03/19 07:45 MCV 92.6 fl (80-96) 08/03/19 07:45 MCH 30.3 pg (25.7-33.7) 08/03/19 07:45 MCHC 32.7 g/dl (32.0-35.9) 08/03/19 07:45 RDW 17.8 % (11.9-15.9) H 08/03/19 07:45 Plt Count 178 K/MM3 (134-434) D 08/03/19 07:45 MPV 9.1 fl (7.5-11.1) 08/03/19 07:45 Sodium 140 mmol/L (136-145) 08/05/19 07:50 Potassium 3.5 mmol/L (3.5-5.1) 08/05/19 07:50 Chloride 108 mmol/L (98-107) H 08/05/19 07:50 Carbon Dioxide 25 mmol/L (21-32) 08/05/19 07:50 Anion Gap 7 MMOL/L (8-16) L 08/05/19 07:50 BUN 7.2 mg/dL (7-18) 08/03/19 07:45 Creatinine 0.7 mg/dL (0.55-1.3) 08/03/19 07:45 Est GFR (CKD-EPI)AfAm 120.56 08/03/19 07:45 Est GFR (CKD-EPI)NonAf 104.02 08/03/19 07:45 POC Glucometer 100 UNITS (80-120) 08/05/19 06:24 Random Glucose 100 mg/dL (74-106) 08/03/19 07:45 Calcium 8.9 mg/dL (8.5-10.1) 08/03/19 07:45 Total Bilirubin 0.6 mg/dL (0.2-1) 08/03/19 07:45 AST 32 U/L (15-37) 08/03/19 07:45 ALT 22 U/L (13-61) 08/03/19 07:45 Alkaline Phosphatase 90 U/L (45-117) 08/03/19 07:45 Total Protein 6.7 g/dl (6.4-8.2) 08/03/19 07:45 Albumin 2.9 g/dl (3.4-5.0) L 08/03/19 07:45 Urine Color Yellow 08/03/19 08:00 Urine Appearance Clear 08/03/19 08:00 Urine pH 7.5 (5.0-8.0) D 08/03/19 08:00 Ur Specific [place] 1.011 (1.010-1.035) 08/03/19 08:00 Urine Protein Negative (NEGATIVE) 08/03/19 08:00 Urine Glucose (UA) Negative (NEGATIVE) 08/03/19 08:00 Urine Ketones Negative (NEGATIVE) 08/03/19 08:00 Urine Blood Negative (NEGATIVE) 08/03/19 08:00 Urine Nitrite Negative (NEGATIVE) 08/03/19 08:00 Urine Bilirubin Negative (NEGATIVE) 08/03/19 08:00 Urine Urobilinogen 1.0 mg/dL (0.2-1.0) 08/03/19 08:00 Ur Leukocyte Esterase Negative (NEGATIVE) 08/03/19 08:00 RPR Titer Nonreactive (NONREACTIVE) 08/03/19 07:45 lab noted 08/05/19 12:21 long history of low wbc patient is asymptomatic Assessment: 08/05/19 12:22 alcohol withdrawal Plan: librium regimen
[2019-08-05] MEDS: MENTHOL/PHENOL 1 EACH UD MM PRN (17:36)
[2019-08-05] MEDS: MELATONIN 5 MG TABLETS PO PRN (22:23)
[2019-08-05] MEDS: ATORVASTATIN CA 80 MG TABLET (FP) PO SCH (22:23)
[2019-08-05] MEDS: THIAMINE HCL 100 MG TABLET (FP) PO SCH (22:23)
[2019-08-06] MEDS: FAMOTIDINE 20 MG TABLET PO SCH ×2 (05:45→17:35)
[2019-08-06] MEDS: chlordiazePOXIDE HCL 10 MG CAPSULE PO SCH ×2 (05:45→17:36)
--- NOTE | 2019-08-06 09:35 | PN ---
[facility] CIWA - CIWA Score Nausea/Vomitin-No Nausea/No Vomiting Muscle Tremors: None Anxiety: 2 Agitation: 0-Normal Activity Paroxysmal Sweats: 2 Orientation: 0-Oriented Tacttile Disturbances: 0-None Auditory Disturbances: 0-None Visual Disturbances: 0-None Headache: 0-None Present CIWA-Ar Total Score: 4 BHS Progress Note (SOAP) Subjective: c/o mild withdrawal symptoms. Objective: 08/06/19 09:31 Vital Signs 08/06/19 08/06/19 08/06/19 03:30 06:00 09:14 Temperature 97.8 F 97.5 F L Pulse Rate 78 84 Respiratory 18 18 18 Rate Blood Pressure 126/79 150/79 Laboratory Last Values WBC 2.3 K/mm3 (4.0-10.0) L 08/03/19 07:45 RBC 3.92 M/mm3 (4.00-5.60) L 08/03/19 07:45 Hgb 11.9 GM/dL (11.7-16.9) 08/03/19 07:45 Hct 36.3 % (35.4-49) 08/03/19 07:45 MCV 92.6 fl (80-96) 08/03/19 07:45 MCH 30.3 pg (25.7-33.7) 08/03/19 07:45 MCHC 32.7 g/dl (32.0-35.9) 08/03/19 07:45 RDW 17.8 % (11.9-15.9) H 08/03/19 07:45 Plt Count 178 K/MM3 (134-434) D 08/03/19 07:45 MPV 9.1 fl (7.5-11.1) 08/03/19 07:45 Sodium 140 mmol/L (136-145) 08/05/19 07:50 Potassium 3.5 mmol/L (3.5-5.1) 08/05/19 07:50 Chloride 108 mmol/L (98-107) H 08/05/19 07:50 Carbon Dioxide 25 mmol/L (21-32) 08/05/19 07:50 Anion Gap 7 MMOL/L (8-16) L 08/05/19 07:50 BUN 7.2 mg/dL (7-18) 08/03/19 07:45 Creatinine 0.7 mg/dL (0.55-1.3) 08/03/19 07:45 Est GFR (CKD-EPI)AfAm 120.56 08/03/19 07:45 Est GFR (CKD-EPI)NonAf 104.02 08/03/19 07:45 POC Glucometer 115 UNITS (80-120) 08/06/19 05:48 Random Glucose 100 mg/dL (74-106) 08/03/19 07:45 Calcium 8.9 mg/dL (8.5-10.1) 08/03/19 07:45 Total Bilirubin 0.6 mg/dL (0.2-1) 08/03/19 07:45 AST 32 U/L (15-37) 08/03/19 07:45 ALT 22 U/L (13-61) 08/03/19 07:45 Alkaline Phosphatase 90 U/L (45-117) 08/03/19 07:45 Total Protein 6.7 g/dl (6.4-8.2) 08/03/19 07:45 Albumin 2.9 g/dl (3.4-5.0) L 08/03/19 07:45 Urine Color Yellow 08/03/19 08:00 Urine Appearance Clear 08/03/19 08:00 Urine pH 7.5 (5.0-8.0) D 08/03/19 08:00 Ur Specific [place] 1.011 (1.010-1.035) 08/03/19 08:00 Urine Protein Negative (NEGATIVE) 08/03/19 08:00 Urine Glucose (UA) Negative (NEGATIVE) 08/03/19 08:00 Urine Ketones Negative (NEGATIVE) 08/03/19 08:00 Urine Blood Negative (NEGATIVE) 08/03/19 08:00 Urine Nitrite Negative (NEGATIVE) 08/03/19 08:00 Urine Bilirubin Negative (NEGATIVE) 08/03/19 08:00 Urine Urobilinogen 1.0 mg/dL (0.2-1.0) 08/03/19 08:00 Ur Leukocyte Esterase Negative (NEGATIVE) 08/03/19 08:00 RPR Titer Nonreactive (NONREACTIVE) 08/03/19 07:45 Labs noted. Assessment: 08/06/19 09:31 AOX3, in no acute respiratory distress. Full ROM, ambulating in the unit. Mild Withdrawal symptoms. For d/c tomorrow. 08/06/19 09:34 Plan: continue detox. D/C in AM.
[2019-08-06] MEDS: ASPIRIN 81 MG CHEWABLE TABLETS PO SCH (10:40)
[2019-08-06] MEDS: ISOSORBIDE MONONITRATE 30 MG TAB.SR.24H (FP) PO SCH (10:41)
[2019-08-06] MEDS: LISINOPRIL 5 MG TABLET (FP) PO SCH (10:41)
[2019-08-06] MEDS: PRENATAL VITAMINS W/ FOLIC ACID TABLET (FP) PO SCH (10:41)
[2019-08-06] MEDS: SERTRALINE HCL 50 MG TABLET (FP) PO SCH (10:42)
[2019-08-06] MEDS: risperiDONE 1 MG TABLET (FP) PO SCH ×2 (10:44→22:42)
[2019-08-06] MEDS: METHOCARBAMOL 500 MG TABLET PO PRN (10:47)
[2019-08-06] MEDS: SPIRONOLACTONE 25 MG TABLET (FP) PO SCH (12:46)
[2019-08-06] MEDS: ATORVASTATIN CA 80 MG TABLET (FP) PO SCH (22:05)
[2019-08-06] MEDS: MELATONIN 5 MG TABLETS PO PRN (22:05)
[2019-08-06] MEDS: THIAMINE HCL 100 MG TABLET (FP) PO SCH (22:05)
[2019-08-07] MEDS ORDERED: chlordiazePOXIDE HCL 10 MG CAPSULE PO ONE (05:00)
[2019-08-07] MEDS: FAMOTIDINE 20 MG TABLET PO SCH (05:48)
[2019-08-07 06:07] VITALS: BP 142/78; PULSE 65; TEMP 97.8
--- NOTE | 2019-08-07 13:55 | DS ---
[facility] Detox Discharge Summary Admission Date: 08/02/19 Discharge Date: 08/07/19 - History Present History: Alcohol Dependence, Cocaine Dependence Additional Comments: Pt is medically cleared and discharged. Pt completed the detox protocol. Pt is encouraged to follow-up with an outpatient CD program and also to follow-up with his pmd. Pt verbalized understanding. Pt is alert and oriented x3 and in no acute respiratory distress. Pertinent Past History: h/o HTN, GERD, alcohol, and cocaine use disorder. - Physical Exam Results Vital Signs: Vital Signs Temperature 97.8 F 08/07/19 06:07 Pulse Rate 65 08/07/19 06:07 Respiratory Rate 18 08/07/19 06:07 Blood Pressure 142/78 08/07/19 06:07 O2 Sat by Pulse Oximetry (%) Vital Signs 08/07/19 06:07 Temperature 97.8 F Pulse Rate 65 Respiratory 18 Rate Blood Pressure 142/78 Laboratory Last Values WBC 2.3 K/mm3 (4.0-10.0) L 08/03/19 07:45 RBC 3.92 M/mm3 (4.00-5.60) L 08/03/19 07:45 Hgb 11.9 GM/dL (11.7-16.9) 08/03/19 07:45 Hct 36.3 % (35.4-49) 08/03/19 07:45 MCV 92.6 fl (80-96) 08/03/19 07:45 MCH 30.3 pg (25.7-33.7) 08/03/19 07:45 MCHC 32.7 g/dl (32.0-35.9) 08/03/19 07:45 RDW 17.8 % (11.9-15.9) H 08/03/19 07:45 Plt Count 178 K/MM3 (134-434) D 08/03/19 07:45 MPV 9.1 fl (7.5-11.1) 08/03/19 07:45 Sodium 140 mmol/L (136-145) 08/05/19 07:50 Potassium 3.5 mmol/L (3.5-5.1) 08/05/19 07:50 Chloride 108 mmol/L (98-107) H 08/05/19 07:50 Carbon Dioxide 25 mmol/L (21-32) 08/05/19 07:50 Anion Gap 7 MMOL/L (8-16) L 08/05/19 07:50 BUN 7.2 mg/dL (7-18) 08/03/19 07:45 Creatinine 0.7 mg/dL (0.55-1.3) 08/03/19 07:45 Est GFR (CKD-EPI)AfAm 120.56 08/03/19 07:45 Est GFR (CKD-EPI)NonAf 104.02 08/03/19 07:45 POC Glucometer 120 UNITS (80-120) 08/07/19 05:53 Random Glucose 100 mg/dL (74-106) 08/03/19 07:45 Calcium 8.9 mg/dL (8.5-10.1) 08/03/19 07:45 Total Bilirubin 0.6 mg/dL (0.2-1) 08/03/19 07:45 AST 32 U/L (15-37) 08/03/19 07:45 ALT 22 U/L (13-61) 08/03/19 07:45 Alkaline Phosphatase 90 U/L (45-117) 08/03/19 07:45 Total Protein 6.7 g/dl (6.4-8.2) 08/03/19 07:45 Albumin 2.9 g/dl (3.4-5.0) L 08/03/19 07:45 Urine Color Yellow 08/03/19 08:00 Urine Appearance Clear 08/03/19 08:00 Urine pH 7.5 (5.0-8.0) D 08/03/19 08:00 Ur Specific [place] 1.011 (1.010-1.035) 08/03/19 08:00 Urine Protein Negative (NEGATIVE) 08/03/19 08:00 Urine Glucose (UA) Negative (NEGATIVE) 08/03/19 08:00 Urine Ketones Negative (NEGATIVE) 08/03/19 08:00 Urine Blood Negative (NEGATIVE) 08/03/19 08:00 Urine Nitrite Negative (NEGATIVE) 08/03/19 08:00 Urine Bilirubin Negative (NEGATIVE) 08/03/19 08:00 Urine Urobilinogen 1.0 mg/dL (0.2-1.0) 08/03/19 08:00 Ur Leukocyte Esterase Negative (NEGATIVE) 08/03/19 08:00 RPR Titer Nonreactive (NONREACTIVE) 08/03/19 07:45 Labs noted. Pertinent Admission Physical Exam Findings: withdrawal symptoms. - Treatment Hospital Course: Detox Protocol Followed, Detoxed Safely, Responded well, Discharged Condition Good - Medication Discharge Medications: Ambulatory Orders Risperidone [Risperdal] 1 mg PO BID 06/04/18 Ferrous Sulfate [Feosol] 325 mg PO DAILY #30 ud 06/10/19 Aspirin [ASA -] 81 mg PO DAILY 08/02/19 Atorvastatin Ca [Lipitor] 80 mg PO HS 08/02/19 Famotidine 20 mg PO BID 08/02/19 Folic Acid 1 mg PO DAILY 08/02/19 Isosorbide Mononitrate [Isosorbide Mononitrate ER] 30 mg PO DAILY 08/02/19 Lisinopril [Zestril] 2.5 mg PO DAILY 08/02/19 Multivitamins [Tab-A-Vit -] 1 tab PO DAILY 08/02/19 Naltrexone HCl [Revia -] 50 mg PO DAILY 08/02/19 Spironolactone [Aldactone] 25 mg PO DAILY 08/02/19 Thiamine Mononitrate [Vitamin B-1] 100 mg PO DAILY 08/02/19 - Diagnosis (1) Acute bronchitis Status: Acute (2) Alcohol dependence with uncomplicated withdrawal Status: Acute (3) Arthritis of right knee Status: Acute (4) GERD (gastroesophageal reflux disease) Status: Acute (5) Alcohol dependence Status: Chronic Qualifiers: Substance use status: uncomplicated Qualified Code(s): F10.20 - Alcohol dependence, uncomplicated (6) Cocaine dependence Status: Chronic Qualifiers: Substance use status: uncomplicated Qualified Code(s): F14.20 - Cocaine dependence, uncomplicated (7) GERD (gastroesophageal reflux disease) Status: Chronic Qualifiers: Esophagitis presence: without esophagitis Qualified Code(s): K21.9 - Gastro -esophageal reflux disease without esophagitis (8) Nicotine dependence Status: Chronic Qualifiers: Nicotine product type: cigarettes Substance use status: in withdrawal Qualified Code(s): F17.213 - Nicotine dependence, cigarettes, with withdrawal - AMA Did Patient Leave Against Medical Advice: No
== END 2019-08-07 08:54 | disposition home or self-care (01) | DRG 774 ==
LOC: YASAS 11:52 → Y3N 14:11
PROVIDERS: ADMIT Allergy & Immunology; ATTEND Allergy & Immunology
PROC: HZ2ZZZZ Detoxification Services for Substance Abuse Treatment (ICD-10-PCS; principal; 2019-08-02)
DX: F10.230 Alcohol dependence with withdrawal, uncomplicated (principal); F14.20 Cocaine dependence, uncomplicated; F17.210 Nicotine dependence, cigarettes, uncomplicated; F19.24 Other psychoactive substance dependence with psychoactive substance-induced mood disorder; F31.9 Bipolar disorder, unspecified; G47.00 Insomnia, unspecified; E23.2 Diabetes insipidus; I10 Essential (primary) hypertension; J20.9 Acute bronchitis, unspecified; K21.9 Gastro-esophageal reflux disease without esophagitis; M17.11 Unilateral primary osteoarthritis, right knee; D72.818 Other decreased white blood cell count; Z91.19 Patient's noncompliance with other medical treatment and regimen
CPT/HCPCS: 36415; 80051; 80053; 81003; 82962; 85027; 86593; J2794

== ENCOUNTER 2019-09-10 20:11 | Inpatient (IN) | payer OTHER ==
[2019-09-10 22:17] VITALS: BMI 28.5
--- NOTE | 2019-09-11 | HP ---
CIWA Score Nausea/Vomitin-Mild Nausea/No Vomiting Muscle Tremors: 4-Moderate,w/Arms Extend Anxiety: 1-Mildly Anxious Agitation: 1-Slight > Activity Paroxysmal Sweats: 1-Minimal Palms Moist Orientation: 1-Uncertain about Date Tacttile Disturbances: 0-None Auditory Disturbances: 0-None Visual Disturbances: 2-Mild Sensitivity (to light) Headache: 0-None Present CIWA-Ar Total Score: 11 - Admission Criteria OASAS Guidelines: Admission for Medically Managed Detox: Requires at least one of the followin. CIWA greater than 12 2. Seizures within the past 24 hours 3. Delirium tremens within the past 24 hours 4. Hallucinations within the past 24 hours 5. Acute intervention needed for co occurring medical disorder 6. Acute intervention needed for co occurring psychiatric disorder 7. Severe withdrawal that cannot be handled at a lower level of care (continued vomiting, continued diarrhea, abnormal vital signs) requiring intravenous medication and/or fluids 8. 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 Allergies/Adverse Reactions: Allergies Allergy/AdvReac Type Severity Reaction Status Date / Time No Known Allergies Allergy Verified 09/10/19 22:00 History of Present Illness: here for alcohol detox. referred by outreach. client is known to the program. last here 1 month ago. reports immediate relapse after dc. client reports daily alcohol intake. 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 presents with alcohol intoxication with onset of withdrawal sx's. client presents with abrasion to nose and forehead ( healing) reports fall was 1 week ago. + black outs, denies hx/o seizures, avh. denies any significant period of clean time. lives w/ sister, unemployed- ssi, denies legals Exam Limitations: Intoxication (a/ox 3) - Ebola screening Have you traveled outside of the country in the last 21 days: No Have you had contact with anyone from an Ebola affected area: No Have you been sick,other than usual withdrawal symptoms: No Do you have a fever: No - Review of Systems Constitutional: Chills, Loss of Appetite, Malaise, Night Sweats, Changes in sleep EENT: reports: Nose Congestion (c/o uri), Other (missing teeth) Respiratory: reports: No Symptoms reported Cardiac: reports: No Symptoms Reported GI: reports: Poor Fluid Intake, Indigestion (heart burn), Other : reports: No Symptoms Reported Musculoskeletal: reports: Other (gen maliase) Integumentary: reports: No Symptoms Reported Neuro: reports: Tremors, Unsteady Gait Endocrine: reports: Other (pre dm) Hematology: reports: Anemia (hx) Psychiatric: reports: Orientated x3, Depressed (denies si) Other Systems: Reviewed and Negative Patient History - Patient Medical History Hx Anemia: Yes (NO CURRENT MED) Hx Asthma: No Hx Chronic Obstructive Pulmonary Disease (COPD): No Hx Cancer: No Hx Cardiac Disorders: No Hx Congestive Heart Failure: No Hx Hypertension: Yes (NOT ON MEDICATION) Hx Hypercholesterolemia: No Hx Pacemaker: No HX Cerebrovascular Accident: No Hx Seizures: No Hx Dementia: No Hx Diabetes: Yes (pre dm) Hx Gastrointestinal Disorders: Yes (GERD- NEXIUM) Hx Liver Disease: No Hx Genitourinary Disorders: No Hx Sexually Transmitted Disorders: No Hx Renal Disease (ESRD): No Hx Thyroid Disease: No Hx Human Immunodeficiency Virus (HIV): No (last 11/28 negative) Hx Hepatitis C: No Hx Depression: Yes (RISPERDAL) Hx Suicide Attempt: No Hx Bipolar Disorder: Yes (RISPERDAL AND ZOLOFT) Hx Schizophrenia: No - Patient Surgical History Past Surgical History: Yes Hx Neurologic Surgery: No Hx Cataract Extraction: No Hx Cardiac Surgery: No Hx Lung Surgery: No Hx Breast Surgery: No Hx Breast Biopsy: No Hx Abdominal Surgery: No Hx Appendectomy: No Hx Cholecystectomy: No Hx Genitourinary Surgery: No Hx Section: No Hx Orthopedic Surgery: Yes (fx, left thumb in 2006) Other Surgical History: nasal fx in 1987 Anesthesia Reaction: No - PPD History Previous Implant?: Yes Documented Results: Negative w/proof Implanted On Prior [facility] Admission?: Yes Date: 08/04/19 Results: 0 mm PPD to be Administered?: No - Smoking Cessation Smoking history: Never smoked Have you smoked in the past 12 months: No Aproximately how many cigarettes per day: 0 Cigars Per Day: 0 Hx Chewing Tobacco Use: No Initiated information on smoking cessation: No - Substance & Tx. History Hx Alcohol Use: Yes Hx Substance Use: Yes Substance Use Type: Alcohol Hx Substance Use Treatment: Yes ([facility]) - Substances abused Alcohol Substance route: Oral Frequency: Daily Amount used: 3 pints of vodka/ 6 packs of beer. Age of first use: 14 Date of last use: 09/10/19 Admission Physical Exam [facility] - Vital Signs Vital Signs: Vital Signs - 24 hr 09/10/19 21:59 Temperature 96.8 F L Pulse Rate 69 Respiratory 20 Rate Blood Pressure 149/88 - Physical General Appearance: Yes: Mild Distress, Alcohol on Breath, Tremorous HEENTM: Yes: EOMI, Normocephalic, LISSA, Other (healing abrasion to nose and forhead) Respiratory: Yes: Chest Non-Tender, Lungs Clear, Normal Breath Sounds, No Respiratory Distress, No Accessory Muscle Use Neck: Yes: No masses,lesions,Nodules, Supple, Trachea in good position Breast: Yes: Breasts Symetrical Cardiology: Yes: Regular Rhythm, Regular Rate, S1, S2 Abdominal: Yes: Non Tender, Soft, Protuberent Genitourinary: Yes: Within Normal Limits Back: Yes: Normal Inspection Musculoskeletal: Yes: full range of Motion, Other (unsteady gait) Extremities: Yes: Normal Range of Motion, Non-Tender, Tremors 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: Yes: Fully Oriented, Alert, Motor Strength 5/5, Depressed Affect Integumentary: Yes: Dry Lymphatic: Yes: Within Normal Limits - Diagnostic (1) Depressed affect Current Visit: Yes Status: Acute (2) Risk for falls Current Visit: Yes Status: Acute (3) At risk for dehydration due to poor fluid intake Current Visit: Yes Status: Acute (4) Alcohol dependence with uncomplicated withdrawal Current Visit: Yes Status: Acute (5) DM2 (diabetes mellitus, type 2) Current Visit: Yes Status: Chronic Comment: pre dm not on meds (6) GERD (gastroesophageal reflux disease) Current Visit: Yes Status: Chronic Qualifiers: Esophagitis presence: esophagitis presence not specified Qualified Code(s) : K21.9 - Gastro-esophageal reflux disease without esophagitis (7) Substance-induced sleep disorder Current Visit: Yes Status: Suspected (8) Acid reflux Current Visit: Yes Status: Chronic Qualifiers: Esophagitis presence: esophagitis presence not specified Qualified Code(s) : K21.9 - Gastro-esophageal reflux disease without esophagitis (9) Alcoholic gastritis Current Visit: Yes Status: Chronic Qualifiers: Chronicity: unspecified Gastritis bleeding: presence of bleeding unspecified Qualified Code(s): K29.20 - Alcoholic gastritis without bleeding (10) Drug-induced mood disorder Current Visit: Yes Status: Suspected (11) History of bipolar disorder Current Visit: Yes Status: Chronic (12) History of depression Current Visit: Yes Status: Chronic (13) Hypertension Current Visit: Yes Status: Chronic Qualifiers: Hypertension type: essential hypertension Qualified Code(s): I10 - Essential (primary) hypertension (14) Insomnia Current Visit: Yes Status: Chronic Qualifiers: Insomnia type: alcohol-induced Qualified Code(s): F10.982 - Alcohol use, unspecified with alcohol-induced sleep disorder (15) Non-compliant patient Current Visit: Yes Status: Suspected (16) Substance induced mood disorder Current Visit: Yes Status: Suspected Cleared for Admission S - Detox or Rehab [facility] Level of Care: Medically Managed Detox Regimen/Protocol: Librium Claeared for Rehab Admission: No Breathalyzer - Breathalyzer Breathalyzer: 177 Urine Drug Screen - Test Device Lot number: [id number] Expiration date: 07/11/21 - Control Is test valid?: Yes - Results Drug screen NEGATIVE: No Urine drug screen results: BZO-Benzodiazepines Inpatient Rehab Admission - Rehab Decision to Admit Inpatient rehab admission?: No
[2019-09-11] MEDS ORDERED: ACETAMINOPHEN 325 MG TABLET (FP) PO PRN ×2 (00:05)
[2019-09-11] MEDS ORDERED: ONDANSETRON *ODT* 4 MG TABLET SL PRN (00:05)
[2019-09-11] MEDS ORDERED: DICYCLOMINE HCL 10 MG CAPSULE PO PRN (00:05)
[2019-09-11] MEDS ORDERED: guaiFENesin 200 MG/10 ML 10 ML UNIT-DOSE CUPS PO PRN (00:05)
[2019-09-11] MEDS ORDERED: P-EPHED 60MG/TRIPROLIDI 2.5MG TABLET PO PRN (00:05)
[2019-09-11] MEDS ORDERED: chlordiazePOXIDE HCL 25 MG CAPSULE PO PRN (00:05)
[2019-09-11] MEDS ORDERED: MAG HYDROX/AL HYDROX/SIMETH 30 ML UNIT-DOSE CUP PO PRN (00:05)
[2019-09-11] MEDS ORDERED: hydrOXYzine PAMOATE 25 MG CAPSULE (FP) PO PRN (00:05)
[2019-09-11] MEDS ORDERED: MAGNESIUM CITRATE 300 ML BOTTLE PO PRN (00:05)
[2019-09-11] MEDS ORDERED: MENTHOL/PHENOL 1 EACH UD MM PRN (00:05)
[2019-09-11] MEDS ORDERED: METHOCARBAMOL 500 MG TABLET PO PRN (00:05)
[2019-09-11] MEDS ORDERED: MAGNESIUM HYDROX 2400MG/30ML ORAL SUSPENSION 30 ML CUP PO PRN (00:05)
[2019-09-11] MEDS ORDERED: BISMUTH SUBSALICYLATE 524 MG/30 ML UD PO PRN (00:05)
[2019-09-11] MEDS ORDERED: PATIENT'S OWN MEDICATION (NON-FORMULARY) (Lisinopril [Zestril] 2.5 MG) PO SCH (10:00)
[2019-09-11] MEDS: FAMOTIDINE 20 MG TABLET PO SCH ×2 (10:28→21:59)
[2019-09-11] MEDS: ISOSORBIDE MONONITRATE 30 MG TAB.SR.24H (FP) PO SCH (10:28)
[2019-09-11] MEDS: LISINOPRIL 5 MG TABLET (FP) PO SCH (10:29)
[2019-09-11] MEDS: PRENATAL VITAMINS W/ FOLIC ACID TABLET (FP) PO SCH (10:30)
[2019-09-11] MEDS: ASPIRIN 81 MG CHEWABLE TABLETS PO SCH (10:30)
--- NOTE | 2019-09-11 11:11 | PN ---
S CIWA - CIWA Score Nausea/Vomitin-Mild Nausea/No Vomiting Muscle Tremors: 3 Anxiety: 2 Agitation: 2 Paroxysmal Sweats: No Perspiration Orientation: 0-Oriented Tacttile Disturbances: 0-None Auditory Disturbances: 0-None Visual Disturbances: 0-None Headache: 3-Moderate CIWA-Ar Total Score: 11 S Progress Note (SOAP) Subjective: Patient seen ambulating and in the community room. Alert, oriented and communicating appropriately Objective: 09/11/19 11:08 Bp: 144/82 P:106 R: 18 T: 96.9 Patient ambulating somewhat generalized uncomfort. Non-specific complaints Assessment: 09/11/19 11:09 Labs still pending. 09/11/19 11:09 1. Alcohol dependence with withdrawals: Plan: 1. Continue Librium detox and encouraged to hydrate and ask for comfort meds as necessary. Dr. Ferguson
--- NOTE | 2019-09-11 11:39 | CONSULT ---
[facility] Psychiatric Consult - Data Date of interview: 09/11/19 Admission source: [facility] Identifying data: Readmission to [address] [place] [address] for this 58 y/o male, self- referred for detoxification (alcohol + cocaine). Patient is single without children, domiciled (lives in a rented room), unemployed and supported on SSI benefits. Substance Abuse History: Discussed in this session. Details are concordant with current [facility] report as follows : Smoking history: Never smoked. Have you smoked in the past 12 months: No. Aproximately how many cigarettes per day: 0. Cigars Per Day: 0. Hx Chewing Tobacco Use: No. Initiated information on smoking cessation: No. - Substance & Tx. History. Hx Alcohol Use: Yes. Hx Substance Use: Yes. Substance Use Type: Alcohol. Hx Substance Use Treatment: Yes ([facility]). - Substances abused. Alcohol. Substance route: Oral. Frequency: Daily. Amount used: 3 pints of vodka/ 6 packs of beer. Age of first use: 14. Date of last use: 09/10/19 Medical History: Medical profile is remarkable for history of myocardial infarction (2016), peptic ulcer disease, GERD, anemia, hypertension, arthritis ( right knee) and past surgery for fracture of nasal bones (1987). Psychiatric History: History of multiple psychiatric hospitalizations ([facility], [facility], [facility], [facility]). Patient has been diagnosed with MDD and Bipolar Disorder. Mr Fournier continues to get psychiatric OPD care at the [facility] mental health clinic. He is known for chronic non-adherence to psychiatric follow-up or medications. Patient reports treatment maintenance on a regimen of risperdal 2 mg/hs + zoloft 50 mg/hs. Patient has, over the years, exhibited a preference for local [facility] settings to get medications refills. No reported history of suicide attempts. Physical/Sexual Abuse/Trauma History: Patient denies. Additional Comment: Urine drug screen results: BZO-Benzodiazepines. Noted. Mental Status Exam - Mental Status Exam Alert and Oriented to: Time, Place, Person Cognitive Function: Good Patient Appearance: Well Groomed Mood: Hopeful, Euthymic Affect: Appropriate, Normal Range Patient Behavior: Appropriate, Cooperative Speech Pattern: Clear, Appropriate Voice Loudness: Normal Thought Process: Intact, Goal Oriented Thought Disorder: Not Present Hallucinations: Denies Suicidal Ideation: Denies Homicidal Ideation: Denies Insight/Judgement: Poor Sleep: Fair Appetite: Good Gait/Station: Normal Psychiatric Findings - Problem List ([place] 1, 2,3) (1) Alcohol dependence with uncomplicated withdrawal Current Visit: Yes Status: Acute (2) Substance induced mood disorder Current Visit: Yes Status: Chronic (3) History of bipolar disorder Current Visit: Yes Status: Chronic (4) Non-compliant patient Current Visit: Yes Status: Chronic - Initial Treatment Plan Initial Treatment Plan: Psychoeducation. Sleep hygiene. Detoxification. AA meetings. MAT services discussed with patient. Resumed : risperdal 1 mg po bid + zoloft 50 mg po daily. Side effects/benefits of both drugs are discussed with the patient. Mr Fournier is made aware, in particular, of potential for EPS side effects, akathisia, diskynesias, dystonias, galactorrhea, gynecomastia sexual dysfunction, suicidal ideation anfd neuroleptic malignant syndrome. Patient is in agreement with this plan of care. Gave verbal consent to MD. Dunne.
[2019-09-11] MEDS: SPIRONOLACTONE 25 MG TABLET (FP) PO SCH (12:19)
[2019-09-11 17:28] LABS: PH,URINE 5.5 (5.0-8.0); URINE APPEARANCE CLEAR; URINE BILIRUBIN NEGATIVE (NEGATIVE); URINE COLOR DK YELLOW; URINE GLUCOSE (UA) NEGATIVE (NEGATIVE); URINE KETONE NEGATIVE (NEGATIVE); URINE LEUK ESTERASE NEGATIVE (NEGATIVE); URINE NITRITE NEGATIVE (NEGATIVE); URINE PROTEIN TRACE (NEGATIVE)
[2019-09-11] MEDS: chlordiazePOXIDE HCL 25 MG CAPSULE PO SCH (21:59)
[2019-09-11] MEDS: ATORVASTATIN CA 80 MG TABLET (FP) PO SCH (22:00)
[2019-09-11] MEDS: THIAMINE HCL 100 MG TABLET (FP) PO SCH (22:00)
[2019-09-11] MEDS: risperiDONE 1 MG TABLET PO SCH (22:00)
[2019-09-11] MEDS: IBUPROFEN 400 MG TABLET (FP) PO PRN (22:01)
[2019-09-11] MEDS: MELATONIN 5 MG TABLETS PO PRN (22:02)
[2019-09-12] MEDS: chlordiazePOXIDE HCL 25 MG CAPSULE PO SCH ×4 (06:11→22:04)
[2019-09-12 10:41] LABS: HEMATOCRIT 35.2 % (35.4-49); HEMOGLOBIN 11.5 GM/dL (11.7-16.9); MCHC 32.5 g/dl (32.0-35.9); MEAN CELL VOLUME 92.1 fl (80-96); MEAN PLT VOLUME 9.6 fl (7.5-11.1); PLATELET COUNT 163 K/MM3 (134-434); RBC 3.82 M/mm3 (4.00-5.60); RDW 16.6 % (11.9-15.9); WHITE BLOOD COUNT 2.9 K/mm3 (4.0-10.0)
[2019-09-12] MEDS: PRENATAL VITAMINS W/ FOLIC ACID TABLET (FP) PO SCH (10:54)
[2019-09-12] MEDS: SPIRONOLACTONE 25 MG TABLET (FP) PO SCH (10:54)
[2019-09-12] MEDS: ISOSORBIDE MONONITRATE 30 MG TAB.SR.24H (FP) PO SCH (10:54)
[2019-09-12] MEDS: FAMOTIDINE 20 MG TABLET PO SCH ×2 (10:57→22:04)
[2019-09-12] MEDS: IBUPROFEN 400 MG TABLET (FP) PO PRN ×2 (10:57→23:01)
[2019-09-12] MEDS: ASPIRIN 81 MG CHEWABLE TABLETS PO SCH (10:57)
[2019-09-12] MEDS: LISINOPRIL 5 MG TABLET (FP) PO SCH (10:57)
[2019-09-12] MEDS: risperiDONE 1 MG TABLET PO SCH ×2 (10:58→22:04)
[2019-09-12] MEDS: SERTRALINE HCL 50 MG TABLET (FP) PO SCH (10:58)
[2019-09-12 11:02] LABS: BILIRUBIN,TOTAL 0.4 mg/dL (0.2-1); BLOOD UREA NITROGEN 8.3 mg/dL (7-18); CALCIUM 8.8 mg/dL (8.5-10.1); CREATININE 0.7 mg/dL (0.55-1.3); POTASSIUM 3.4 mmol/L (3.5-5.1); TOT PROT 6.8 g/dl (6.4-8.2)
--- NOTE | 2019-09-12 12:21 | PN ---
[facility] CIWA - CIWA Score Nausea/Vomitin-No Nausea/No Vomiting Muscle Tremors: 2 Anxiety: 3 Agitation: 2 Paroxysmal Sweats: 3 Orientation: 0-Oriented Tacttile Disturbances: 0-None Auditory Disturbances: 0-None Visual Disturbances: 0-None Headache: 0-None Present CIWA-Ar Total Score: 10 S Progress Note (SOAP) Subjective: c/o anxiety, sweats, shakes, and irritability. Objective: 09/12/19 12:16 Vital Signs 09/12/19 09/12/19 06:47 08:55 Temperature 97.7 F 96.4 F L Pulse Rate 59 L 97 H Respiratory 20 18 Rate Blood Pressure 108/65 125/73 Laboratory Last Values WBC 2.9 K/mm3 (4.0-10.0) L 09/12/19 07:30 RBC 3.82 M/mm3 (4.00-5.60) L 09/12/19 07:30 Hgb 11.5 GM/dL (11.7-16.9) L 09/12/19 07:30 Hct 35.2 % (35.4-49) L 09/12/19 07:30 MCV 92.1 fl (80-96) 09/12/19 07:30 MCH 30.0 pg (25.7-33.7) 09/12/19 07:30 MCHC 32.5 g/dl (32.0-35.9) 09/12/19 07:30 RDW 16.6 % (11.9-15.9) H 09/12/19 07:30 Plt Count 163 K/MM3 (134-434) 09/12/19 07:30 MPV 9.6 fl (7.5-11.1) 09/12/19 07:30 Sodium 138 mmol/L (136-145) 09/12/19 07:30 Potassium 3.4 mmol/L (3.5-5.1) L 09/12/19 07:30 Chloride 106 mmol/L (98-107) 09/12/19 07:30 Carbon Dioxide 23 mmol/L (21-32) 09/12/19 07:30 Anion Gap 9 MMOL/L (8-16) 09/12/19 07:30 BUN 8.3 mg/dL (7-18) 09/12/19 07:30 Creatinine 0.7 mg/dL (0.55-1.3) 09/12/19 07:30 Est GFR (CKD-EPI)AfAm 120.56 09/12/19 07:30 Est GFR (CKD-EPI)NonAf 104.02 09/12/19 07:30 Random Glucose 142 mg/dL (74-106) H 09/12/19 07:30 Calcium 8.8 mg/dL (8.5-10.1) 09/12/19 07:30 Total Bilirubin 0.4 mg/dL (0.2-1) 09/12/19 07:30 AST 28 U/L (15-37) 09/12/19 07:30 ALT 17 U/L (13-61) 09/12/19 07:30 Alkaline Phosphatase 123 U/L (45-117) H 09/12/19 07:30 Total Protein 6.8 g/dl (6.4-8.2) 09/12/19 07:30 Albumin 3.0 g/dl (3.4-5.0) L 09/12/19 07:30 Urine Color Dk yellow 09/11/19 14:30 Urine Appearance Clear 09/11/19 14:30 Urine pH 5.5 (5.0-8.0) D 09/11/19 14:30 Ur Specific [place] 1.032 (1.010-1.035) 09/11/19 14:30 Urine Protein Trace (NEGATIVE) 09/11/19 14:30 Urine Glucose (UA) Negative (NEGATIVE) 09/11/19 14:30 Urine Ketones Negative (NEGATIVE) 09/11/19 14:30 Urine Blood Negative (NEGATIVE) 09/11/19 14:30 Urine Nitrite Negative (NEGATIVE) 09/11/19 14:30 Urine Bilirubin Negative (NEGATIVE) 09/11/19 14:30 Urine Urobilinogen 1.0 mg/dL (0.2-1.0) 09/11/19 14:30 Ur Leukocyte Esterase Negative (NEGATIVE) 09/11/19 14:30 Labs noted with low wbc, hgb, hct, low K+ level Assessment: 09/12/19 12:18 AOX3, in no acute respiratory distress. Full ROM, ambulating in the unit. Withdrawal symptoms. Leukopenia hypokalemia. Plan: continue detox. Increase fluids. Give potassium chloride 20meq po x1 dose. Repeat K+ level in AM.
[2019-09-12] MEDS ORDERED: POTASSIUM CHLORIDE TABS 20 MEQ TABLET.ER (FP) PO ONE (13:00)
--- NOTE | 2019-09-12 16:36 | EKG ---
Test Reason : Blood Pressure : / mmHG Vent. Rate : 075 BPM Atrial Rate : 075 BPM P-R Int : 174 ms QRS Dur : 130 ms QT Int : 470 ms P-R-T Axes : 054 -31 051 degrees QTc Int : 524 ms NORMAL SINUS RHYTHM LEFT ATRIAL ENLARGEMENT LEFT AXIS DEVIATION LEFT VENTRICULAR HYPERTROPHY WITH QRS WIDENING ANTEROSEPTAL INFARCT (CITED ON OR BEFORE 01-MAY-2017) ABNORMAL ECG Confirmed by MD TRIPP, NICOLE ([id number]) on 09/12/2019 4:35:56 PM Referred By: Confirmed By:NICOLE ALMAGUER MD
[2019-09-12] MEDS: ATORVASTATIN CA 80 MG TABLET (FP) PO SCH (22:04)
[2019-09-12] MEDS: THIAMINE HCL 100 MG TABLET (FP) PO SCH (22:06)
[2019-09-13] MEDS: chlordiazePOXIDE HCL 25 MG CAPSULE PO SCH ×4 (06:09→22:03)
[2019-09-13] MEDS: risperiDONE 1 MG TABLET PO SCH ×2 (10:28→22:04)
[2019-09-13] MEDS: LISINOPRIL 5 MG TABLET (FP) PO SCH (10:34)
[2019-09-13] MEDS: SERTRALINE HCL 50 MG TABLET (FP) PO SCH (10:34)
[2019-09-13] MEDS: ISOSORBIDE MONONITRATE 30 MG TAB.SR.24H (FP) PO SCH (10:34)
[2019-09-13] MEDS: SPIRONOLACTONE 25 MG TABLET (FP) PO SCH (10:35)
[2019-09-13] MEDS: PRENATAL VITAMINS W/ FOLIC ACID TABLET (FP) PO SCH (10:35)
[2019-09-13] MEDS: FAMOTIDINE 20 MG TABLET PO SCH (10:35)
[2019-09-13] MEDS: ASPIRIN 81 MG CHEWABLE TABLETS PO SCH (10:36)
--- NOTE | 2019-09-13 11:46 | PN ---
[facility] CIWA - CIWA Score Nausea/Vomitin-Mild Nausea/No Vomiting Muscle Tremors: 3 Anxiety: 2 Agitation: 0-Normal Activity Paroxysmal Sweats: 2 Orientation: 0-Oriented Tacttile Disturbances: 0-None Auditory Disturbances: 0-None Visual Disturbances: 1-Very Mild Sensitivity Headache: 0-None Present CIWA-Ar Total Score: 9 S Progress Note (SOAP) Subjective: 58 years old male admitted on 09/10/19 for alcohol withdrawal sx management treating with librium detox regiment feeling ok today ate breakfast social with peers in day room discussed the benefits of aftercare as pathway for recovery Objective: 09/13/19 11:52 Vital Signs Temperature 97.3 F L 09/13/19 08:56 Pulse Rate 77 09/13/19 08:56 Respiratory Rate 16 09/13/19 08:56 Blood Pressure 145/81 09/13/19 08:56 O2 Sat by Pulse Oximetry (%) Laboratory Last Values WBC 2.9 K/mm3 (4.0-10.0) L 09/12/19 07:30 RBC 3.82 M/mm3 (4.00-5.60) L 09/12/19 07:30 Hgb 11.5 GM/dL (11.7-16.9) L 09/12/19 07:30 Hct 35.2 % (35.4-49) L 09/12/19 07:30 MCV 92.1 fl (80-96) 09/12/19 07:30 MCH 30.0 pg (25.7-33.7) 09/12/19 07:30 MCHC 32.5 g/dl (32.0-35.9) 09/12/19 07:30 RDW 16.6 % (11.9-15.9) H 09/12/19 07:30 Plt Count 163 K/MM3 (134-434) 09/12/19 07:30 MPV 9.6 fl (7.5-11.1) 09/12/19 07:30 Sodium 138 mmol/L (136-145) 09/12/19 07:30 Potassium 3.4 mmol/L (3.5-5.1) L 09/12/19 07:30 Chloride 106 mmol/L (98-107) 09/12/19 07:30 Carbon Dioxide 23 mmol/L (21-32) 09/12/19 07:30 Anion Gap 9 MMOL/L (8-16) 09/12/19 07:30 BUN 8.3 mg/dL (7-18) 09/12/19 07:30 Creatinine 0.7 mg/dL (0.55-1.3) 09/12/19 07:30 Est GFR (CKD-EPI)AfAm 120.56 09/12/19 07:30 Est GFR (CKD-EPI)NonAf 104.02 09/12/19 07:30 Random Glucose 142 mg/dL (74-106) H 09/12/19 07:30 Calcium 8.8 mg/dL (8.5-10.1) 09/12/19 07:30 Total Bilirubin 0.4 mg/dL (0.2-1) 09/12/19 07:30 AST 28 U/L (15-37) 09/12/19 07:30 ALT 17 U/L (13-61) 09/12/19 07:30 Alkaline Phosphatase 123 U/L (45-117) H 09/12/19 07:30 Total Protein 6.8 g/dl (6.4-8.2) 09/12/19 07:30 Albumin 3.0 g/dl (3.4-5.0) L 09/12/19 07:30 Urine Color Dk yellow 09/11/19 14:30 Urine Appearance Clear 09/11/19 14:30 Urine pH 5.5 (5.0-8.0) D 09/11/19 14:30 Ur Specific [place] 1.032 (1.010-1.035) 09/11/19 14:30 Urine Protein Trace (NEGATIVE) 09/11/19 14:30 Urine Glucose (UA) Negative (NEGATIVE) 09/11/19 14:30 Urine Ketones Negative (NEGATIVE) 09/11/19 14:30 Urine Blood Negative (NEGATIVE) 09/11/19 14:30 Urine Nitrite Negative (NEGATIVE) 09/11/19 14:30 Urine Bilirubin Negative (NEGATIVE) 09/11/19 14:30 Urine Urobilinogen 1.0 mg/dL (0.2-1.0) 09/11/19 14:30 Ur Leukocyte Esterase Negative (NEGATIVE) 09/11/19 14:30 lab noted long istory of low wbc asymptomatic low K+ encourage K+ rich food 09/13/19 11:54 Assessment: 09/13/19 11:54 alcohol withdrawal 09/13/19 11:59 requests pepcid to be given around 6 am Plan: librium regiment
[2019-09-13] MEDS ORDERED: FAMOTIDINE 20 MG TABLET PO ONE (22:00)
[2019-09-13] MEDS: THIAMINE HCL 100 MG TABLET (FP) PO SCH (22:03)
[2019-09-13] MEDS: ATORVASTATIN CA 80 MG TABLET (FP) PO SCH (22:03)
[2019-09-13] MEDS: MELATONIN 5 MG TABLETS PO PRN (22:06)
[2019-09-14] MEDS ORDERED: chlordiazePOXIDE HCL 10 MG CAPSULE PO PRN
[2019-09-14] MEDS ORDERED: chlordiazePOXIDE HCL 10 MG CAPSULE PO SCH (05:00)
[2019-09-14] MEDS ORDERED: FAMOTIDINE 20 MG TABLET PO SCH (06:00)
[2019-09-14 09:29] VITALS: BP 130/82; PULSE 90; TEMP 96.7
--- NOTE | 2019-09-14 12:32 | DS ---
[facility] Detox Discharge Summary Admission Date: 09/10/19 Discharge Date: 09/14/19 - History Present History: Alcohol Dependence Additional Comments: 58 years old male admitted on 09/10/19 for alcohol withdrawal sx management treated with librium detox regiment patient prefers to leave the detox unit today that he is feeling better alert oriented x 3 seen by psychiatrist resume risperidal and zoloft case discussed with the nurse routine discharge is appropriated cardiac s1s2 regular rate rhythm ekg indicated that left atrial enlargement and left ventricular hypertrophy patient is asymptomatic denies chest pain no shortness of breath denies dizziness respiratory clear lungs bilaterally on auscultation skin warm and dry - Physical Exam Results Vital Signs: Vital Signs Temperature 96.7 F L 09/14/19 08:33 Pulse Rate 90 09/14/19 08:33 Respiratory Rate 20 09/14/19 08:33 Blood Pressure 130/82 09/14/19 08:33 O2 Sat by Pulse Oximetry (%) Pertinent Admission Physical Exam Findings: alcohol withdrawal Laboratory Last Values WBC 2.9 K/mm3 (4.0-10.0) L 09/12/19 07:30 RBC 3.82 M/mm3 (4.00-5.60) L 09/12/19 07:30 Hgb 11.5 GM/dL (11.7-16.9) L 09/12/19 07:30 Hct 35.2 % (35.4-49) L 09/12/19 07:30 MCV 92.1 fl (80-96) 09/12/19 07:30 MCH 30.0 pg (25.7-33.7) 09/12/19 07:30 MCHC 32.5 g/dl (32.0-35.9) 09/12/19 07:30 RDW 16.6 % (11.9-15.9) H 09/12/19 07:30 Plt Count 163 K/MM3 (134-434) 09/12/19 07:30 MPV 9.6 fl (7.5-11.1) 09/12/19 07:30 Sodium 138 mmol/L (136-145) 09/12/19 07:30 Potassium 4.1 mmol/L (3.5-5.1) 09/13/19 07:20 Chloride 106 mmol/L (98-107) 09/12/19 07:30 Carbon Dioxide 23 mmol/L (21-32) 09/12/19 07:30 Anion Gap 9 MMOL/L (8-16) 09/12/19 07:30 BUN 8.3 mg/dL (7-18) 09/12/19 07:30 Creatinine 0.7 mg/dL (0.55-1.3) 09/12/19 07:30 Est GFR (CKD-EPI)AfAm 120.56 09/12/19 07:30 Est GFR (CKD-EPI)NonAf 104.02 09/12/19 07:30 Random Glucose 142 mg/dL (74-106) H 09/12/19 07:30 Calcium 8.8 mg/dL (8.5-10.1) 09/12/19 07:30 Total Bilirubin 0.4 mg/dL (0.2-1) 09/12/19 07:30 AST 28 U/L (15-37) 09/12/19 07:30 ALT 17 U/L (13-61) 09/12/19 07:30 Alkaline Phosphatase 123 U/L (45-117) H 09/12/19 07:30 Total Protein 6.8 g/dl (6.4-8.2) 09/12/19 07:30 Albumin 3.0 g/dl (3.4-5.0) L 09/12/19 07:30 Urine Color Dk yellow 09/11/19 14:30 Urine Appearance Clear 09/11/19 14:30 Urine pH 5.5 (5.0-8.0) D 09/11/19 14:30 Ur Specific [place] 1.032 (1.010-1.035) 09/11/19 14:30 Urine Protein Trace (NEGATIVE) 09/11/19 14:30 Urine Glucose (UA) Negative (NEGATIVE) 09/11/19 14:30 Urine Ketones Negative (NEGATIVE) 09/11/19 14:30 Urine Blood Negative (NEGATIVE) 09/11/19 14:30 Urine Nitrite Negative (NEGATIVE) 09/11/19 14:30 Urine Bilirubin Negative (NEGATIVE) 09/11/19 14:30 Urine Urobilinogen 1.0 mg/dL (0.2-1.0) 09/11/19 14:30 Ur Leukocyte Esterase Negative (NEGATIVE) 09/11/19 14:30 lab noted - Treatment Hospital Course: Detox Protocol Followed, Detoxed Safely, Responded well, Discharged Condition Good, Rehab Referral Accepted Patient has Accepted a Rehab Referral to: [facility] - Medication Discharge Medications: Ambulatory Orders Risperidone [Risperdal] 1 mg PO BID 06/04/18 Ferrous Sulfate [Feosol] 325 mg PO DAILY #30 ud 06/10/19 Aspirin [ASA -] 81 mg PO DAILY 08/02/19 Atorvastatin Ca [Lipitor] 80 mg PO HS 08/02/19 Famotidine 20 mg PO BID 08/02/19 Folic Acid 1 mg PO DAILY 08/02/19 Isosorbide Mononitrate [Isosorbide Mononitrate ER] 30 mg PO DAILY 08/02/19 Lisinopril [Zestril] 2.5 mg PO DAILY 08/02/19 Multivitamins [Multivit ([facility] Formulary)] 1 tab PO DAILY 08/02/19 Naltrexone HCl [Revia -] 50 mg PO DAILY 08/02/19 Spironolactone [Aldactone -] 25 mg PO DAILY 08/02/19 Thiamine Mononitrate [Vitamin B-1] 100 mg PO DAILY 08/02/19 - Diagnosis (1) Alcohol dependence with uncomplicated withdrawal Status: Acute (2) Leukopenia Status: Chronic Qualifiers: Leukopenia type: unspecified Qualified Code(s): D72.819 - Decreased white blood cell count, unspecified (3) Acid reflux Status: Chronic Qualifiers: Esophagitis presence: without esophagitis Qualified Code(s): K21.9 - Gastro -esophageal reflux disease without esophagitis (4) Ambulates with cane Status: Chronic (5) DM2 (diabetes mellitus, type 2) Status: Chronic Qualifiers: Diabetes mellitus supervisor intermediates insulin use: without supervisor intermediates use Diabetes mellitus complication status: without complication Qualified Code(s): E11.9 - Type 2 diabetes mellitus without complications (6) GERD (gastroesophageal reflux disease) Status: Chronic Qualifiers: Esophagitis presence: without esophagitis Qualified Code(s): K21.9 - Gastro -esophageal reflux disease without esophagitis (7) Nicotine dependence Status: Acute Qualifiers: Nicotine product type: cigarettes Substance use status: in withdrawal Qualified Code(s): F17.213 - Nicotine dependence, cigarettes, with withdrawal (8) Substance induced mood disorder Status: Suspected - AMA Did Patient Leave Against Medical Advice: No CIWA Score - CIWA Score Nausea/Vomitin-No Nausea/No Vomiting Muscle Tremors: 2 Anxiety: 1-Mildly Anxious Agitation: 0-Normal Activity Paroxysmal Sweats: 1-Minimal Palms Moist Orientation: 0-Oriented Tacttile Disturbances: 0-None Auditory Disturbances: 0-None Visual Disturbances: 1-Very Mild Sensitivity Headache: 0-None Present CIWA-Ar Total Score: 5
[2019-09-15] MEDS ORDERED: chlordiazePOXIDE HCL 10 MG CAPSULE PO SCH (05:00)
[2019-09-16] MEDS ORDERED: chlordiazePOXIDE HCL 10 MG CAPSULE PO ONE (05:00)
== END 2019-09-14 09:37 | disposition home or self-care (01) | DRG 775 ==
LOC: YASAS 20:11 → Y3N 23:57
PROVIDERS: ADMIT Allergy & Immunology; ATTEND Allergy & Immunology
PROC: HZ2ZZZZ Detoxification Services for Substance Abuse Treatment (ICD-10-PCS; principal; 2019-09-10)
DX: F10.230 Alcohol dependence with withdrawal, uncomplicated (principal); F13.20 Sedative, hypnotic or anxiolytic dependence, uncomplicated; F10.282 Alcohol dependence with alcohol-induced sleep disorder; F19.24 Other psychoactive substance dependence with psychoactive substance-induced mood disorder; F31.9 Bipolar disorder, unspecified; E11.9 Type 2 diabetes mellitus without complications; I25.10 Atherosclerotic heart disease of native coronary artery without angina pectoris; I10 Essential (primary) hypertension; I25.2 Old myocardial infarction; E87.6 Hypokalemia; D72.819 Decreased white blood cell count, unspecified; K21.9 Gastro-esophageal reflux disease without esophagitis; K29.20 Alcoholic gastritis without bleeding; D64.9 Anemia, unspecified; R45.89 Other symptoms and signs involving emotional state; Z87.11 Personal history of peptic ulcer disease; Z91.89 Other specified personal risk factors, not elsewhere classified; Z91.19 Patient's noncompliance with other medical treatment and regimen
CPT/HCPCS: 36415; 80053; 81003; 84132; 85027; 93005; 93010; J2794

== ENCOUNTER 2019-10-15 09:14 | Inpatient (IN) | payer OTHER ==
--- NOTE | 2019-10-15 09:24 | BHS.RME ---
Substance Use & Tx History - Substance Use History Alcohol Substance amount: 3 pints vodka, 2x6 pack beer 16 ounce Frequency of use: Daily Substance route: Oral Date of Last Use: 10/15/19 Cocaine (Powder) Substance amount: 1 to 2 grams Frequency of use: Less than 3 times per week Substance route: Inhalation (ex: sniffing or snorting) Date of Last Use: 10/08/19 Physical/Psych/Mental Status - Behavior General Behavior: Decreased activity - Cooperativeness Cooperativeness: Cooperative - Thinking Thought Processes: Tight Thought content: Future oriented - Physical Health Problems Is patient presently having any pain?: Yes (generalized body pain he attributes to drinking) Does patient presently have any injuries (include location): No Does patient currently have a fever: No Is patient : No CIWA Nausea/Vomitin-Mild Nausea/No Vomiting Muscle Tremors: 4-Moderate,w/Arms Extend Anxiety: 0-No Anxiety, at Ease Agitation: 0-Normal Activity Paroxysmal Sweats: No Perspiration Orientation: 0-Oriented Tacttile Disturbances: 0-None Auditory Disturbances: 0-None Visual Disturbances: 1-Very Mild Sensitivity Headache: 0-None Present (Meets criteria due to comorbid medical and psychiatric issues, poor recovery environment, high risk relapse) CIWA-Ar Total Score: 6
[2019-10-15 10:04] VITALS: BMI 27.9
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
[2019-10-15] MEDS ORDERED: IBUPROFEN 400 MG TABLET (FP) PO PRN (11:01)
[2019-10-15] MEDS ORDERED: METHOCARBAMOL 500 MG TABLET PO PRN (11:01)
[2019-10-15] MEDS ORDERED: MAGNESIUM CITRATE 300 ML BOTTLE PO PRN (11:01)
[2019-10-15] MEDS ORDERED: MAGNESIUM HYDROX 2400MG/30ML ORAL SUSPENSION 30 ML CUP PO PRN (11:01)
[2019-10-15] MEDS ORDERED: ACETAMINOPHEN 325 MG TABLET (FP) PO PRN ×2 (11:01)
[2019-10-15] MEDS ORDERED: MENTHOL/PHENOL 1 EACH UD MM PRN (11:01)
[2019-10-15] MEDS ORDERED: MAG HYDROX/AL HYDROX/SIMETH 30 ML UNIT-DOSE CUP PO PRN (11:01)
[2019-10-15] MEDS ORDERED: chlordiazePOXIDE HCL 25 MG CAPSULE PO PRN (11:01)
[2019-10-15] MEDS ORDERED: ONDANSETRON *ODT* 4 MG TABLET SL ONE (12:45)
[2019-10-15] MEDS ORDERED: LISINOPRIL 5 MG TABLET (FP) PO SCH (12:45)
[2019-10-15] MEDS ORDERED: BISMUTH SUBSALICYLATE 262 MG/15 ML BTL PO PRN (12:48)
[2019-10-15] MEDS: FAMOTIDINE 20 MG TABLET PO SCH ×2 (14:00→22:48)
[2019-10-15] MEDS: PRENATAL VITAMINS W/ FOLIC ACID TABLET (FP) PO SCH (14:00)
[2019-10-15] MEDS: ASPIRIN 81 MG CHEWABLE TABLETS PO SCH (14:00)
[2019-10-15] MEDS: hydrOXYzine PAMOATE 25 MG CAPSULE (FP) PO SCH ×3 (14:01→22:49)
[2019-10-15] MEDS: LISINOPRIL 5 MG TABLET (FP) PO SCH (14:52)
[2019-10-15 15:54] LABS: HEMATOCRIT 38.4 % (35.4-49); HEMOGLOBIN 12.5 GM/dL (11.7-16.9); MCH 29.9 pg (25.7-33.7); MCHC 32.5 g/dl (32.0-35.9); MEAN PLT VOLUME 9.1 fl (7.5-11.1); PLATELET COUNT 209 K/MM3 (134-434); RBC 4.17 M/mm3 (4.00-5.60); RDW 16.6 % (11.9-15.9); WHITE BLOOD COUNT 4.4 K/mm3 (4.0-10.0)
[2019-10-15 16:07] LABS: ALBUMIN 3.5 g/dl (3.4-5.0); BILIRUBIN,TOTAL 0.6 mg/dL (0.2-1); CALCIUM 8.4 mg/dL (8.5-10.1); CREATININE 0.9 mg/dL (0.55-1.3); POTASSIUM 3.2 mmol/L (3.5-5.1)
[2019-10-15] MEDS: chlordiazePOXIDE HCL 25 MG CAPSULE PO SCH ×2 (17:58→22:48)
[2019-10-15] MEDS: THIAMINE HCL 100 MG TABLET (FP) PO SCH (22:48)
[2019-10-15] MEDS: ATORVASTATIN CA 80 MG TABLET (FP) PO SCH (22:48)
[2019-10-15] MEDS: MELATONIN 5 MG TABLETS PO SCH (22:49)
[2019-10-16] MEDS: chlordiazePOXIDE HCL 25 MG CAPSULE PO SCH ×4 (05:19→22:29)
[2019-10-16] MEDS: hydrOXYzine PAMOATE 25 MG CAPSULE (FP) PO SCH ×3 (05:20→13:34)
[2019-10-16] MEDS: FAMOTIDINE 20 MG TABLET PO SCH (10:13)
[2019-10-16] MEDS: ASPIRIN 81 MG CHEWABLE TABLETS PO SCH (10:13)
[2019-10-16] MEDS: PRENATAL VITAMINS W/ FOLIC ACID TABLET (FP) PO SCH (10:13)
[2019-10-16] MEDS: LISINOPRIL 5 MG TABLET (FP) PO SCH (10:14)
--- NOTE | 2019-10-16 11:56 | CONSULT ---
[facility] Psychiatric Consult - Data Date of interview: 10/16/19 Admission source: [facility] Identifying data: Return to [address] [place] [address] for this 58 y/o male, self-referred for detoxification treatment. EARLINE issues : alcohol + cocaine. Patient is single without children, domiciled (transitional housing under the auspices of [place]), unemployed and supported on SSI benefits. Substance Abuse History: Discussed with patient. EARLINE profile as follows : Sm oking history: Never smoked. Have you smoked in the past 12 months: No. Aproximately how many cigarettes per day: 0. Cigars Per Day: 0. Hx Chewing Tobacco Use: No. Initiated information on smoking cessation: Substances abused. Alcohol. Substance route: Oral. Frequency: Daily. Amount used: 2- 3 pint vodka. Age of first use: 14. Date of last use: 10/15/19. Cocaine. Substance route: Inhalation. Amount used: 1-2 grams. Age of first use: 17. Date of last use: 10/08/19 Medical History: Medical profile is remarkable for history of myocardial infarction (2016), peptic ulcer disease, GERD, anemia, hypertension, arthritis (right knee) and past surgery for fracture of nasal bones (1987). Psychiatric History: Patient presents with a history of multiple psychiatric hospitalizations ([facility], [facility], [facility], [facility]). Patient has been diagnosed with MDD and Bipolar Disorder. Mr Fournier is known to the [facility] mental health clinic. Chronically non-adherent to psychiatric follow-up or medications. Still on a regimen of risperdal 2 mg/hs + zoloft 50 mg/hs. Patient has, over the years, exhibited a preference for local [facility] settings to get medications refills. No reported history of suicide attempts. Physical/Sexual Abuse/Trauma History: Patient denies. Additional Comment: Urine drug screen results: BZO-Benzodiazepines. Noted. Mental Status Exam - Mental Status Exam Alert and Oriented to: Time, Place, Person Cognitive Function: Good Patient Appearance: Disheveled Mood: Nervous, Withdrawn Affect: Mood Congruent, Constricted Patient Behavior: Fatigued, Appropriate, Cooperative Speech Pattern: Clear, Appropriate Voice Loudness: Normal Thought Process: Goal Oriented Thought Disorder: Not Present Hallucinations: Denies Suicidal Ideation: Denies Homicidal Ideation: Denies Insight/Judgement: Poor Sleep: Fair Appetite: Good Gait/Station: Normal Psychiatric Findings - Problem List ([place] 1, 2,3) (1) Alcohol dependence with uncomplicated withdrawal Current Visit: Yes Status: Acute (2) Cocaine dependence Current Visit: Yes Status: Chronic Qualifiers: Substance use status: uncomplicated Qualified Code(s): F14.20 - Cocaine dependence, uncomplicated Comment: Toxicology negative for cocaine but the patient has verbally reporting enduring use of that drug (as recently as 07/30/19). (3) Schizoaffective disorder Current Visit: Yes Status: Chronic Qualifiers: Schizoaffective disorder type: bipolar Qualified Code(s): F25.0 - Schizoaffective disorder, bipolar type Comment: By history. (4) Substance induced mood disorder Current Visit: Yes Status: Chronic (5) Non-compliance Current Visit: Yes Status: Chronic - Initial Treatment Plan Initial Treatment Plan: Psychoeducation. Sleep hygiene. Detoxification. Resumed : risperdal 1 mg po bid. Side effects/benefits discussed with the patient. Mr Fournier is agreeable with this plan of care. Gave verbal consent to MD. Dunne.
--- NOTE | 2019-10-16 13:47 | PN ---
S CIWA - CIWA Score Nausea/Vomitin Muscle Tremors: 3 Anxiety: 2 Agitation: 2 Paroxysmal Sweats: No Perspiration Orientation: 0-Oriented Tacttile Disturbances: 1-Very Mild Itch/Numbness Auditory Disturbances: 0-None Visual Disturbances: 0-None Headache: 2-Mild CIWA-Ar Total Score: 12 S Progress Note (SOAP) Subjective: alert,irritable,anxious,interrupted sleep,tremor,pain in the body Objective: 10/16/19 13:45 Vital Signs Temperature 96.2 F L 10/16/19 08:35 Pulse Rate 67 10/16/19 08:35 Respiratory Rate 18 10/16/19 08:35 Blood Pressure 136/71 10/16/19 08:35 O2 Sat by Pulse Oximetry (%) 10/16/19 13:46 Laboratory Last Values WBC 4.4 K/mm3 (4.0-10.0) 10/15/19 10:55 RBC 4.17 M/mm3 (4.00-5.60) 10/15/19 10:55 Hgb 12.5 GM/dL (11.7-16.9) 10/15/19 10:55 Hct 38.4 % (35.4-49) 10/15/19 10:55 MCV 92.0 fl (80-96) 10/15/19 10:55 MCH 29.9 pg (25.7-33.7) 10/15/19 10:55 MCHC 32.5 g/dl (32.0-35.9) 10/15/19 10:55 RDW 16.6 % (11.9-15.9) H 10/15/19 10:55 Plt Count 209 K/MM3 (134-434) D 10/15/19 10:55 MPV 9.1 fl (7.5-11.1) 10/15/19 10:55 Sodium 136 mmol/L (136-145) 10/15/19 10:55 Potassium 3.2 mmol/L (3.5-5.1) L 10/15/19 10:55 Chloride 99 mmol/L (98-107) 10/15/19 10:55 Carbon Dioxide 29 mmol/L (21-32) 10/15/19 10:55 Anion Gap 8 MMOL/L (8-16) 10/15/19 10:55 BUN 11.0 mg/dL (7-18) 10/15/19 10:55 Creatinine 0.9 mg/dL (0.55-1.3) 10/15/19 10:55 Est GFR (CKD-EPI)AfAm 108.73 10/15/19 10:55 Est GFR (CKD-EPI)NonAf 93.82 10/15/19 10:55 Random Glucose 114 mg/dL (74-106) H 10/15/19 10:55 Calcium 8.4 mg/dL (8.5-10.1) L 10/15/19 10:55 Total Bilirubin 0.6 mg/dL (0.2-1) 10/15/19 10:55 AST 54 U/L (15-37) H 10/15/19 10:55 ALT 23 U/L (13-61) 10/15/19 10:55 Alkaline Phosphatase 89 U/L (45-117) 10/15/19 10:55 Total Protein 8.0 g/dl (6.4-8.2) 10/15/19 10:55 Albumin 3.5 g/dl (3.4-5.0) 10/15/19 10:55 RPR Titer Nonreactive (NONREACTIVE) 10/15/19 10:55 Assessment: 10/16/19 13:46 withdrawal symptom Plan: continue detox librium regimen,fasting glucose in am,initial glucose is 114
[2019-10-16] MEDS ORDERED: POTASSIUM CHLORIDE TABS 20 MEQ TABLET.ER (FP) PO ONE (16:30)
[2019-10-16] MEDS: ATORVASTATIN CA 80 MG TABLET (FP) PO SCH (22:29)
[2019-10-16] MEDS: THIAMINE HCL 100 MG TABLET (FP) PO SCH (22:29)
[2019-10-16] MEDS: MELATONIN 5 MG TABLETS PO SCH (22:29)
[2019-10-16] MEDS: risperiDONE 1 MG TABLET PO SCH (22:31)
[2019-10-17] MEDS: FAMOTIDINE 20 MG TABLET PO SCH (06:03)
[2019-10-17] MEDS: chlordiazePOXIDE HCL 25 MG CAPSULE PO SCH ×4 (06:03→22:36)
[2019-10-17] MEDS: LISINOPRIL 5 MG TABLET (FP) PO SCH (10:12)
[2019-10-17] MEDS: PRENATAL VITAMINS W/ FOLIC ACID TABLET (FP) PO SCH (10:13)
[2019-10-17] MEDS: ASPIRIN 81 MG CHEWABLE TABLETS PO SCH (10:13)
[2019-10-17] MEDS: risperiDONE 1 MG TABLET PO SCH ×2 (10:13→23:44)
--- NOTE | 2019-10-17 12:28 | PN ---
S CIWA - CIWA Score Nausea/Vomitin-No Nausea/No Vomiting Muscle Tremors: 2 Anxiety: 3 Agitation: 0-Normal Activity Paroxysmal Sweats: 3 Orientation: 0-Oriented Tacttile Disturbances: 0-None Auditory Disturbances: 0-None Visual Disturbances: 0-None Headache: 2-Mild CIWA-Ar Total Score: 10 S Progress Note (SOAP) Subjective: c/o sweats, headache, shakes, and anxiety. Objective: 10/17/19 12:28 Vital Signs 10/17/19 10/17/19 06:35 08:47 Temperature 97.3 F L 96.0 F L Pulse Rate 66 68 Respiratory 18 18 Rate Blood Pressure 117/69 135/78 Laboratory Last Values WBC 4.4 K/mm3 (4.0-10.0) 10/15/19 10:55 RBC 4.17 M/mm3 (4.00-5.60) 10/15/19 10:55 Hgb 12.5 GM/dL (11.7-16.9) 10/15/19 10:55 Hct 38.4 % (35.4-49) 10/15/19 10:55 MCV 92.0 fl (80-96) 10/15/19 10:55 MCH 29.9 pg (25.7-33.7) 10/15/19 10:55 MCHC 32.5 g/dl (32.0-35.9) 10/15/19 10:55 RDW 16.6 % (11.9-15.9) H 10/15/19 10:55 Plt Count 209 K/MM3 (134-434) D 10/15/19 10:55 MPV 9.1 fl (7.5-11.1) 10/15/19 10:55 Sodium 136 mmol/L (136-145) 10/15/19 10:55 Potassium 3.2 mmol/L (3.5-5.1) L 10/15/19 10:55 Chloride 99 mmol/L (98-107) 10/15/19 10:55 Carbon Dioxide 29 mmol/L (21-32) 10/15/19 10:55 Anion Gap 8 MMOL/L (8-16) 10/15/19 10:55 BUN 11.0 mg/dL (7-18) 10/15/19 10:55 Creatinine 0.9 mg/dL (0.55-1.3) 10/15/19 10:55 Est GFR (CKD-EPI)AfAm 108.73 10/15/19 10:55 Est GFR (CKD-EPI)NonAf 93.82 10/15/19 10:55 Random Glucose 114 mg/dL (74-106) H 10/15/19 10:55 Fasting Glucose 102 mg/dL (74-106) 10/17/19 07:40 Calcium 8.4 mg/dL (8.5-10.1) L 10/15/19 10:55 Total Bilirubin 0.6 mg/dL (0.2-1) 10/15/19 10:55 AST 54 U/L (15-37) H 10/15/19 10:55 ALT 23 U/L (13-61) 10/15/19 10:55 Alkaline Phosphatase 89 U/L (45-117) 10/15/19 10:55 Total Protein 8.0 g/dl (6.4-8.2) 10/15/19 10:55 Albumin 3.5 g/dl (3.4-5.0) 10/15/19 10:55 RPR Titer Nonreactive (NONREACTIVE) 10/15/19 10:55 Labs noted with low K+ level of 3.2. 10/17/19 12:29 Assessment: 10/17/19 12:30 AOX3, in no acute respiratory distress. Full ROM, ambulating in the unit. Withdrawal symptoms. Hypokalemia. Plan: continue detox. Repeat K+ level in AM.
[2019-10-17] MEDS: MELATONIN 5 MG TABLETS PO SCH (22:35)
[2019-10-17] MEDS: ATORVASTATIN CA 80 MG TABLET (FP) PO SCH (22:35)
[2019-10-17] MEDS: THIAMINE HCL 100 MG TABLET (FP) PO SCH (23:43)
[2019-10-18] MEDS ORDERED: chlordiazePOXIDE HCL 10 MG CAPSULE PO PRN
[2019-10-18] MEDS: chlordiazePOXIDE HCL 10 MG CAPSULE PO SCH ×4 (06:27→22:33)
[2019-10-18] MEDS: FAMOTIDINE 20 MG TABLET PO SCH (06:28)
[2019-10-18] MEDS: LISINOPRIL 5 MG TABLET (FP) PO SCH (10:38)
[2019-10-18] MEDS: ASPIRIN 81 MG CHEWABLE TABLETS PO SCH (10:38)
[2019-10-18] MEDS: PRENATAL VITAMINS W/ FOLIC ACID TABLET (FP) PO SCH (10:38)
[2019-10-18] MEDS: risperiDONE 1 MG TABLET PO SCH ×2 (10:38→22:33)
--- NOTE | 2019-10-18 10:52 | PN ---
[facility] CIWA - CIWA Score Nausea/Vomitin-No Nausea/No Vomiting Muscle Tremors: 2 Anxiety: 2 Agitation: 0-Normal Activity Paroxysmal Sweats: 1-Minimal Palms Moist Orientation: 0-Oriented Tacttile Disturbances: 0-None Auditory Disturbances: 0-None Visual Disturbances: 2-Mild Sensitivity Headache: 0-None Present CIWA-Ar Total Score: 7 S Progress Note (SOAP) Subjective: 58 years old male admitted on 10/15/19 for alcohol withdrawal sx management treating with librium detox regiment low K+ received K+ 20 meq x 1 repeat K+ pending Objective: 10/18/19 10:54 Vital Signs Temperature 96.5 F L 10/18/19 08:43 Pulse Rate 73 10/18/19 08:43 Respiratory Rate 18 10/18/19 08:43 Blood Pressure 134/80 10/18/19 08:43 O2 Sat by Pulse Oximetry (%) Laboratory Last Values WBC 4.4 K/mm3 (4.0-10.0) 10/15/19 10:55 RBC 4.17 M/mm3 (4.00-5.60) 10/15/19 10:55 Hgb 12.5 GM/dL (11.7-16.9) 10/15/19 10:55 Hct 38.4 % (35.4-49) 10/15/19 10:55 MCV 92.0 fl (80-96) 10/15/19 10:55 MCH 29.9 pg (25.7-33.7) 10/15/19 10:55 MCHC 32.5 g/dl (32.0-35.9) 10/15/19 10:55 RDW 16.6 % (11.9-15.9) H 10/15/19 10:55 Plt Count 209 K/MM3 (134-434) D 10/15/19 10:55 MPV 9.1 fl (7.5-11.1) 10/15/19 10:55 Sodium 136 mmol/L (136-145) 10/15/19 10:55 Potassium 3.2 mmol/L (3.5-5.1) L 10/15/19 10:55 Chloride 99 mmol/L (98-107) 10/15/19 10:55 Carbon Dioxide 29 mmol/L (21-32) 10/15/19 10:55 Anion Gap 8 MMOL/L (8-16) 10/15/19 10:55 BUN 11.0 mg/dL (7-18) 10/15/19 10:55 Creatinine 0.9 mg/dL (0.55-1.3) 10/15/19 10:55 Est GFR (CKD-EPI)AfAm 108.73 10/15/19 10:55 Est GFR (CKD-EPI)NonAf 93.82 10/15/19 10:55 Random Glucose 114 mg/dL (74-106) H 10/15/19 10:55 Fasting Glucose 102 mg/dL (74-106) 10/17/19 07:40 Calcium 8.4 mg/dL (8.5-10.1) L 10/15/19 10:55 Total Bilirubin 0.6 mg/dL (0.2-1) 10/15/19 10:55 AST 54 U/L (15-37) H 10/15/19 10:55 ALT 23 U/L (13-61) 10/15/19 10:55 Alkaline Phosphatase 89 U/L (45-117) 10/15/19 10:55 Total Protein 8.0 g/dl (6.4-8.2) 10/15/19 10:55 Albumin 3.5 g/dl (3.4-5.0) 10/15/19 10:55 RPR Titer Nonreactive (NONREACTIVE) 10/15/19 10:55 lab noted 10/18/19 10:54 repeat K+ pending Assessment: 10/18/19 10:55 alcohol withdrawal Plan: librium regiment
[2019-10-18] MEDS: ATORVASTATIN CA 80 MG TABLET (FP) PO SCH (22:33)
[2019-10-18] MEDS: THIAMINE HCL 100 MG TABLET (FP) PO SCH (22:33)
[2019-10-18] MEDS: MELATONIN 5 MG TABLETS PO SCH (22:34)
[2019-10-19] MEDS: FAMOTIDINE 20 MG TABLET PO SCH (06:37)
[2019-10-19] MEDS: chlordiazePOXIDE HCL 10 MG CAPSULE PO SCH ×2 (07:06→18:46)
[2019-10-19] MEDS: risperiDONE 1 MG TABLET PO SCH ×2 (10:33→22:11)
[2019-10-19] MEDS: ASPIRIN 81 MG CHEWABLE TABLETS PO SCH (10:33)
[2019-10-19] MEDS: PRENATAL VITAMINS W/ FOLIC ACID TABLET (FP) PO SCH (10:33)
[2019-10-19] MEDS: LISINOPRIL 5 MG TABLET (FP) PO SCH (10:34)
--- NOTE | 2019-10-19 11:33 | PN ---
[facility] CIWA - CIWA Score Nausea/Vomitin-No Nausea/No Vomiting Muscle Tremors: 1-None Visible, but [place] Anxiety: 2 Agitation: 0-Normal Activity Paroxysmal Sweats: 1-Minimal Palms Moist Orientation: 0-Oriented Tacttile Disturbances: 0-None Auditory Disturbances: 0-None Visual Disturbances: 0-None Headache: 0-None Present CIWA-Ar Total Score: 4 S Progress Note (SOAP) Subjective: 58 years old male admitted on 10/15/19 for alcohol withdrawal sx management treating with librium detox regiment feeling better today less tremor mild anxiety encourage the patient participating in the meetings and groups as part of recovery Objective: 10/19/19 11:34 Vital Signs Temperature 98.1 F 10/19/19 08:34 Pulse Rate 75 10/19/19 08:34 Respiratory Rate 18 10/19/19 08:34 Blood Pressure 137/78 10/19/19 08:34 O2 Sat by Pulse Oximetry (%) Laboratory Last Values WBC 4.4 K/mm3 (4.0-10.0) 10/15/19 10:55 RBC 4.17 M/mm3 (4.00-5.60) 10/15/19 10:55 Hgb 12.5 GM/dL (11.7-16.9) 10/15/19 10:55 Hct 38.4 % (35.4-49) 10/15/19 10:55 MCV 92.0 fl (80-96) 10/15/19 10:55 MCH 29.9 pg (25.7-33.7) 10/15/19 10:55 MCHC 32.5 g/dl (32.0-35.9) 10/15/19 10:55 RDW 16.6 % (11.9-15.9) H 10/15/19 10:55 Plt Count 209 K/MM3 (134-434) D 10/15/19 10:55 MPV 9.1 fl (7.5-11.1) 10/15/19 10:55 Sodium 136 mmol/L (136-145) 10/15/19 10:55 Potassium 3.9 mmol/L (3.5-5.1) 10/18/19 07:50 Chloride 99 mmol/L (98-107) 10/15/19 10:55 Carbon Dioxide 29 mmol/L (21-32) 10/15/19 10:55 Anion Gap 8 MMOL/L (8-16) 10/15/19 10:55 BUN 11.0 mg/dL (7-18) 10/15/19 10:55 Creatinine 0.9 mg/dL (0.55-1.3) 10/15/19 10:55 Est GFR (CKD-EPI)AfAm 108.73 10/15/19 10:55 Est GFR (CKD-EPI)NonAf 93.82 10/15/19 10:55 Random Glucose 114 mg/dL (74-106) H 10/15/19 10:55 Fasting Glucose 102 mg/dL (74-106) 10/17/19 07:40 Calcium 8.4 mg/dL (8.5-10.1) L 10/15/19 10:55 Total Bilirubin 0.6 mg/dL (0.2-1) 10/15/19 10:55 AST 54 U/L (15-37) H 10/15/19 10:55 ALT 23 U/L (13-61) 10/15/19 10:55 Alkaline Phosphatase 89 U/L (45-117) 10/15/19 10:55 Total Protein 8.0 g/dl (6.4-8.2) 10/15/19 10:55 Albumin 3.5 g/dl (3.4-5.0) 10/15/19 10:55 RPR Titer Nonreactive (NONREACTIVE) 10/15/19 10:55 lab noted Assessment: 10/19/19 11:34 alcohol withdrawal Plan: librium regiment
[2019-10-19] MEDS: ATORVASTATIN CA 80 MG TABLET (FP) PO SCH (22:11)
[2019-10-19] MEDS: MELATONIN 5 MG TABLETS PO SCH (22:11)
[2019-10-19] MEDS: THIAMINE HCL 100 MG TABLET (FP) PO SCH (22:11)
[2019-10-20] MEDS ORDERED: chlordiazePOXIDE HCL 10 MG CAPSULE PO ONE (05:00)
[2019-10-20] MEDS: FAMOTIDINE 20 MG TABLET PO SCH (06:43)
[2019-10-20 09:12] VITALS: BP 134/68; PULSE 71; TEMP 97.1
--- NOTE | 2019-10-20 11:35 | DS ---
[facility] Detox Discharge Summary Admission Date: 10/15/19 Discharge Date: 10/20/19 - History Present History: Alcohol Dependence Additional Comments: 58 years old male admitted on 10/15/19 for alcohol withdrawal sx management treated with librium detox regiment Mr Fournier has completed detox regiment and is tolerated well seen by psychiatrist resume risperidal alert oriented x 3 cardiac s1s2 regular rate rhythm ekg indicated left atrial enlargement and left ventrical hypertrophy patient is asymptomatic denies chest pain no dizziness no shortness of breath respiratory clear lungs bilaterally on auscultation skin warm and dry Pertinent Past History: time for discharge 34 minutes patient prefers returning to [facility] primary care out patient clinic for diabetes hypertension GERD and mental illness - Physical Exam Results Vital Signs: Vital Signs Temperature 97.1 F L 10/20/19 08:35 Pulse Rate 71 10/20/19 08:35 Respiratory Rate 18 10/20/19 08:35 Blood Pressure 134/68 10/20/19 08:35 O2 Sat by Pulse Oximetry (%) Pertinent Admission Physical Exam Findings: alcohol withdrawal Laboratory Last Values WBC 4.4 K/mm3 (4.0-10.0) 10/15/19 10:55 RBC 4.17 M/mm3 (4.00-5.60) 10/15/19 10:55 Hgb 12.5 GM/dL (11.7-16.9) 10/15/19 10:55 Hct 38.4 % (35.4-49) 10/15/19 10:55 MCV 92.0 fl (80-96) 10/15/19 10:55 MCH 29.9 pg (25.7-33.7) 10/15/19 10:55 MCHC 32.5 g/dl (32.0-35.9) 10/15/19 10:55 RDW 16.6 % (11.9-15.9) H 10/15/19 10:55 Plt Count 209 K/MM3 (134-434) D 10/15/19 10:55 MPV 9.1 fl (7.5-11.1) 10/15/19 10:55 Sodium 136 mmol/L (136-145) 10/15/19 10:55 Potassium 3.9 mmol/L (3.5-5.1) 10/18/19 07:50 Chloride 99 mmol/L (98-107) 10/15/19 10:55 Carbon Dioxide 29 mmol/L (21-32) 10/15/19 10:55 Anion Gap 8 MMOL/L (8-16) 10/15/19 10:55 BUN 11.0 mg/dL (7-18) 10/15/19 10:55 Creatinine 0.9 mg/dL (0.55-1.3) 10/15/19 10:55 Est GFR (CKD-EPI)AfAm 108.73 10/15/19 10:55 Est GFR (CKD-EPI)NonAf 93.82 10/15/19 10:55 POC Glucometer 109 UNITS (80-120) 10/19/19 18:48 Random Glucose 114 mg/dL (74-106) H 10/15/19 10:55 Fasting Glucose 102 mg/dL (74-106) 10/17/19 07:40 Calcium 8.4 mg/dL (8.5-10.1) L 10/15/19 10:55 Total Bilirubin 0.6 mg/dL (0.2-1) 10/15/19 10:55 AST 54 U/L (15-37) H 10/15/19 10:55 ALT 23 U/L (13-61) 10/15/19 10:55 Alkaline Phosphatase 89 U/L (45-117) 10/15/19 10:55 Total Protein 8.0 g/dl (6.4-8.2) 10/15/19 10:55 Albumin 3.5 g/dl (3.4-5.0) 10/15/19 10:55 RPR Titer Nonreactive (NONREACTIVE) 10/15/19 10:55 lab noted Vital Signs Temperature 97.1 F L 10/20/19 08:35 Pulse Rate 71 10/20/19 08:35 Respiratory Rate 18 10/20/19 08:35 Blood Pressure 134/68 10/20/19 08:35 O2 Sat by Pulse Oximetry (%) - Treatment Hospital Course: Detox Protocol Followed, Detoxed Safely, Responded well, Discharged Condition Good, Rehab Referral Accepted Patient has Accepted a Rehab Referral to: [facility] - Medication Discharge Medications: Ambulatory Orders Risperidone [Risperdal] 1 mg PO HS 06/04/18 Ferrous Sulfate [Feosol] 325 mg PO DAILY #30 ud 06/10/19 Aspirin [ASA -] 81 mg PO DAILY 08/02/19 Atorvastatin Ca [Lipitor] 80 mg PO HS 08/02/19 Famotidine 20 mg PO BID 08/02/19 Lisinopril [Zestril] 2.5 mg PO DAILY 08/02/19 - Diagnosis (1) Alcohol dependence with uncomplicated withdrawal Status: Acute (2) Nicotine dependence Status: Acute Qualifiers: Nicotine product type: cigarettes Substance use status: in withdrawal Qualified Code(s): F17.213 - Nicotine dependence, cigarettes, with withdrawal (3) Ambulates with cane Status: Chronic (4) DM2 (diabetes mellitus, type 2) Status: Chronic Qualifiers: Diabetes mellitus fpc insulin use: without fpc use Diabetes mellitus complication status: without complication Qualified Code(s): E11.9 - Type 2 diabetes mellitus without complications (5) GERD (gastroesophageal reflux disease) Status: Chronic Qualifiers: Esophagitis presence: without esophagitis Qualified Code(s): K21.9 - Gastro-esophageal reflux disease without esophagitis (6) Hypertension Status: Chronic Qualifiers: Hypertension type: essential hypertension Qualified Code(s): I10 - Essential (primary) hypertension (7) Substance induced mood disorder Status: Chronic - AMA Did Patient Leave Against Medical Advice: No CIWA Score - CIWA Score Nausea/Vomitin-No Nausea/No Vomiting Muscle Tremors: 1-None Visible, but [place] Anxiety: 1-Mildly Anxious Agitation: 0-Normal Activity Paroxysmal Sweats: No Perspiration Orientation: 0-Oriented Tacttile Disturbances: 0-None Auditory Disturbances: 0-None Visual Disturbances: 0-None Headache: 0-None Present CIWA-Ar Total Score: 2
== END 2019-10-20 09:02 | disposition home or self-care (01) | DRG 774 ==
LOC: YASAS 09:14 → Y3N 11:18
PROVIDERS: ADMIT Allergy & Immunology; ATTEND Allergy & Immunology
PROC: HZ2ZZZZ Detoxification Services for Substance Abuse Treatment (ICD-10-PCS; principal; 2019-10-15)
DX: F10.230 Alcohol dependence with withdrawal, uncomplicated (principal); F14.20 Cocaine dependence, uncomplicated; F17.210 Nicotine dependence, cigarettes, uncomplicated; F25.0 Schizoaffective disorder, bipolar type; F19.24 Other psychoactive substance dependence with psychoactive substance-induced mood disorder; F31.9 Bipolar disorder, unspecified; D64.9 Anemia, unspecified; E87.6 Hypokalemia; I25.10 Atherosclerotic heart disease of native coronary artery without angina pectoris; I10 Essential (primary) hypertension; I25.2 Old myocardial infarction; E11.9 Type 2 diabetes mellitus without complications; K21.9 Gastro-esophageal reflux disease without esophagitis; M17.11 Unilateral primary osteoarthritis, right knee; Z99.89 Dependence on other enabling machines and devices; Z87.11 Personal history of peptic ulcer disease; Z91.19 Patient's noncompliance with other medical treatment and regimen
CPT/HCPCS: 36415; 80053; 82947; 82962; 84132; 85027; 86593; Q0162

== ENCOUNTER 2020-02-25 09:53 | Inpatient (IN) | payer OTHER ==
--- NOTE | 2020-02-25 10:14 | BHS.RME ---
Substance Use & Tx History - Substance Use History Alcohol Substance amount: 5 pints vodka Frequency of use: Daily Substance route: Oral Date of Last Use: 02/25/20 (8am) Cocaine- Powder Substance amount: 2 grams Frequency of use: Daily Substance route: Inhalation (ex: sniffing or snorting) Date of Last Use: 02/25/20 - Last Treatment Date of last treatment: 01/24-01/30/20 Treatment type: Substance Use Disorder (EARLINE) Where was last treatment: Detox Physical/Psych/Mental Status - Behavior General Behavior: Increased activity (restlessness, agitation) Eye Contact: Normal - Cooperativeness Cooperativeness: Cooperative - Thinking Thought Processes: Tight, Logical, Goal Directed - Physical Health Problems Is patient presently having any pain?: No Does patient presently have any injuries (include location): No Does patient currently have a fever: No Is patient : No CIWA Nausea/Vomitin-Mild Nausea/No Vomiting Muscle Tremors: 3 Anxiety: 3 Agitation: 3 Paroxysmal Sweats: 4-Forehead w/Sweat Beads Orientation: 1-Uncertain about Date Tacttile Disturbances: 0-None Auditory Disturbances: 0-None Visual Disturbances: 0-None Headache: 0-None Present CIWA-Ar Total Score: 15
--- NOTE | 2020-02-25 11:31 | HP ---
CIWA Score Nausea/Vomitin-Mild Nausea/No Vomiting Muscle Tremors: 3 Anxiety: 3 Agitation: 3 Paroxysmal Sweats: 4-Forehead w/Sweat Beads Orientation: 1-Uncertain about Date Tacttile Disturbances: 0-None Auditory Disturbances: 0-None Visual Disturbances: 0-None Headache: 0-None Present CIWA-Ar Total Score: 15 - Admission Criteria OASAS Guidelines: Admission for Medically Managed Detox: Requires at least one of the followin. CIWA greater than 12 2. Seizures within the past 24 hours 3. Delirium tremens within the past 24 hours 4. Hallucinations within the past 24 hours 5. Acute intervention needed for co occurring medical disorder 6. Acute intervention needed for co occurring psychiatric disorder 7. Severe withdrawal that cannot be handled at a lower level of care (continued vomiting, continued diarrhea, abnormal vital signs) requiring intravenous medication and/or fluids 8. Admitting History and Physical - Admission Chief Complaint: Mr. Fournier presents to [facility] requesting "detox from alcohol". History of Present Illness: Mr. Fournier is a 59 yo gentleman who presents to [facility] requesting "detox from alcohol and cocaine". This is one of multiple admissions to this facility. He is hoping to go to Rehab after detox. PMH: Syndop, HTN, GERD, gastritis, ? prediabetic (review of labs: never has an elevated glucose, nl fasting glucose), HLD PSH: none Psych: bipolar SOC; Homeless, waiting for housing Legal; none Substance Use History Alcohol Substance amount: 5 pints vodka Frequency of use: Daily Substance route: Oral Date of Last Use: 02/25/20 (8am) First; age 14 y No seizures. Blackout: last week Admits to eye relations coordinator Cocaine- Powder Substance amount: 2 grams Frequency of use: Daily Substance route: Inhalation (ex: sniffing or snorting) Date of Last Use: 02/25/20 First use age 17 y Nicotine: never Benzo: denies - Last Treatment Date of last treatment: 01/24-01/30/20 Treatment type: Substance Use Disorder (EARLINE) Where was last treatment: Detox Search Terms: Carlos Fournier, 1960 Search Date: 02/25/2020 11:43:11 AM The Drug Utilization Report below displays all of the controlled substance prescriptions, if any, that your patient has filled in the last twelve months. The information displayed on this report is compiled from pharmacy submissions to the Department, and accurately reflects the information as submitted by the pharmacies. This report was requested by: Fiona Talamantes | Reference #: [id number] There are no results for the search terms that you entered. 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 Loss (3 lb weight loss) EENT: reports: No Symptoms Reported Respiratory: reports: No Symptoms reported Cardiac: reports: No Symptoms Reported GI: reports: Nausea, Other ("heart burn", pain in the "liver and kidney" on the right) : reports: No Symptoms Reported Musculoskeletal: reports: No Symptoms Reported Integumentary: reports: No Symptoms Reported Neuro: reports: No Symptoms reported Endocrine: reports: Other ("pre diabetes" does not check home glucose) Hematology: reports: No Symptoms Reported Psychiatric: reports: Anxious Patient History - Patient Medical History Hx Anemia: Yes (NO CURRENT MED) Hx Asthma: No Hx Chronic Obstructive Pulmonary Disease (COPD): No Hx Cancer: No Hx Cardiac Disorders: Yes (CAD) Hx Congestive Heart Failure: No Hx Hypertension: Yes Hx Hypercholesterolemia: No Hx Pacemaker: No HX Cerebrovascular Accident: No Hx Seizures: No Hx Dementia: No Hx Diabetes: Yes (prediabetes BGM 88mg/dl) Hx Gastrointestinal Disorders: Yes (Hx of acid reflux) Hx Liver Disease: No Hx Genitourinary Disorders: No Hx Sexually Transmitted Disorders: No Hx Renal Disease (ESRD): No Hx Thyroid Disease: No Hx Human Immunodeficiency Virus (HIV): No (last 11/28 negative) Hx Hepatitis C: No Hx Depression: Yes Hx Suicide Attempt: No Hx Bipolar Disorder: Yes (RISPERDAL AND ZOLOFT) Hx Schizophrenia: No - Patient Surgical History Past Surgical History: Yes Hx Neurologic Surgery: No Hx Cataract Extraction: No Hx Cardiac Surgery: No Hx Lung Surgery: No Hx Breast Surgery: No Hx Breast Biopsy: No Hx Abdominal Surgery: No Hx Appendectomy: No Hx Cholecystectomy: No Hx Genitourinary Surgery: No Hx Section: No Hx Orthopedic Surgery: Yes (fx, left thumb in 2006) Other Surgical History: nasal fx in 1987 Anesthesia Reaction: No - PPD History Date: 08/04/19 Results: 0 mm - Smoking Cessation Smoking history: Never smoked Have you smoked in the past 12 months: No Aproximately how many cigarettes per day: 0 Cigars Per Day: 0 Hx Chewing Tobacco Use: No Initiated information on smoking cessation: No Admission Physical Exam BHS - Physical General Appearance: Yes: Nourished, Appropriately Dressed, Anxious HEENTM: Yes: EOMI, Hearing grossly Normal, Normocephalic, Normal Voice Respiratory: Yes: Lungs Clear, Normal Breath Sounds, No Respiratory Distress, No Accessory Muscle Use Neck: Yes: Within Normal Limits, Supple Breast: Yes: Breast Exam Deferred Cardiology: Yes: Regular Rhythm, Regular Rate, S1, S2 Abdominal: Yes: Normal Bowel Sounds, Soft, Protuberent, Tenderness (mild right upper quadrant) Back: Yes: Normal Inspection Musculoskeletal: Yes: Gait Steady Extremities: Yes: Non-Tender, Other (skin thick/plaque like between right first and second toe, no erythema, no swelling, no discharge) 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: Yes: Alert, Normal Response - Diagnostic (1) Pre-diabetes Current Visit: Yes Status: Acute (2) Alcohol dependence with uncomplicated withdrawal Current Visit: No Status: Acute (3) Bipolar disorder Current Visit: No Status: Chronic Qualifiers: Active/Remission status: remission status unspecified Qualified Code(s): F31.9 - Bipolar disorder, unspecified Comment: Non-compliant with OPD care and medications. (4) Cocaine abuse Current Visit: No Status: Chronic (5) GERD (gastroesophageal reflux disease) Current Visit: No Status: Chronic Qualifiers: Esophagitis presence: without esophagitis Qualified Code(s): K21.9 - Gastro-esophageal reflux disease without esophagitis Cleared for Admission BHS - Detox or Rehab S Level of Care: Medically Managed Detox Regimen/Protocol: Librium Breathalyzer - Breathalyzer Breathalyzer: 0.147 Urine Drug Screen - Test Device Lot number: [id number] Expiration date: 04/11/21 - Control Is test valid?: Yes - Results Drug screen NEGATIVE: No Urine drug screen results: BZO-Benzodiazepines Inpatient Rehab Admission - Rehab Decision to Admit Inpatient rehab admission?: No
[2020-02-25] MEDS ORDERED: MAGNESIUM HYDROX 2400MG/30ML ORAL SUSPENSION 30 ML CUP PO PRN (11:44)
[2020-02-25] MEDS ORDERED: MAG HYDROX/AL HYDROX/SIMETH 30 ML UNIT-DOSE CUP PO PRN (11:44)
[2020-02-25] MEDS ORDERED: ACETAMINOPHEN 325 MG TABLET (FP) PO PRN ×2 (11:44)
[2020-02-25] MEDS ORDERED: chlordiazePOXIDE HCL 25 MG CAPSULE PO PRN (11:44)
[2020-02-25] MEDS ORDERED: ONDANSETRON *ODT* 4 MG TABLET SL PRN (11:44)
[2020-02-25] MEDS ORDERED: MAGNESIUM CITRATE 300 ML BOTTLE PO PRN (11:44)
[2020-02-25] MEDS ORDERED: MENTHOL/PHENOL 1 EACH UD MM PRN (11:44)
[2020-02-25] MEDS ORDERED: IBUPROFEN 400 MG TABLET (FP) PO PRN (11:44)
[2020-02-25 11:59] VITALS: BMI 28.5
--- NOTE | 2020-02-25 12:55 | CONSULT ---
[facility] Psychiatric Consult - Data Date of interview: 02/25/20 Admission source: Self-referred Identifying data: Mr Fournier is a 59 years old single male, unemployed receiving SSI, homeless seeking detox treatment for alcohol and cocaine Substance Abuse History: Reports history of alcohol and cocaine use. Refer to addiction counselor;s summary for further information Medical History: Significant for peptic ulcer disease, GERD, anemia, hypertension, dyslipidemia, type 2 diabetes mellitus, arthritis (right knee), history of myocardial infarction in 2016 and surgery for fractures of nasal bones in 1987 and left thumb in 2006. Psychiatric History: Patient approached at bedside. Told keno writer/runner:"I just got here, I'm tired. Can I talk to you tomorrow". Please reconsult when patient is more appropriate for interview Psychiatric Findings - Problem List ([place] 1, 2,3) (1) Bipolar disorder Current Visit: No Status: Chronic Qualifiers: Active/Remission status: remission status unspecified Qualified Code(s): F31.9 - Bipolar disorder, unspecified Comment: Non-compliant with OPD care and medications.
[2020-02-25] MEDS ORDERED: PNEUMOC 13-VAL CONJ-DIP CRM/PF 0.5 ML DISP.SYRIN IM ONE (12:56)
[2020-02-25] MEDS: LISINOPRIL 5 MG TABLET (FP) PO SCH (13:03)
[2020-02-25] MEDS: FAMOTIDINE 20 MG TABLET PO SCH ×2 (13:03→22:22)
[2020-02-25] MEDS: ASPIRIN 81 MG CHEWABLE TABLETS PO SCH (13:03)
[2020-02-25] MEDS: CLOTRIMAZOLE 1% CREAM 15 GM TUBE TP SCH ×2 (13:42→22:25)
[2020-02-25 15:12] LABS: HEMATOCRIT 39.6 % (35.4-49); HEMOGLOBIN 12.8 GM/dL (11.7-16.9); MCH 30.4 pg (25.7-33.7); MCHC 32.3 g/dl (32.0-35.9); MEAN PLT VOLUME 9.1 fl (7.5-11.1); PLATELET COUNT 221 K/MM3 (134-434); RBC 4.21 M/mm3 (4.00-5.60); RDW 18.3 % (11.9-15.9); WHITE BLOOD COUNT 3.1 K/mm3 (4.0-10.0)
[2020-02-25 15:16] LABS: ALBUMIN 3.5 g/dl (3.4-5.0); BILIRUBIN,TOTAL 0.3 mg/dL (0.2-1); BLOOD UREA NITROGEN 9.6 mg/dL (7-18); CALCIUM 9.1 mg/dL (8.5-10.1); CREATININE 0.8 mg/dL (0.55-1.3); POTASSIUM 4.2 mmol/L (3.5-5.1); TOT PROT 7.9 g/dl (6.4-8.2)
[2020-02-25] MEDS: hydrOXYzine PAMOATE 25 MG CAPSULE (FP) PO SCH ×3 (15:21→22:32)
[2020-02-25] MEDS: chlordiazePOXIDE HCL 25 MG CAPSULE PO SCH ×2 (17:36→22:22)
[2020-02-25] MEDS ORDERED: ATORVASTATIN CA 40 MG TABLET (FP) ONE (21:37)
[2020-02-25] MEDS: THIAMINE HCL 100 MG TABLET (FP) PO SCH (22:22)
[2020-02-25] MEDS: ATORVASTATIN CA 80 MG TABLET (FP) PO SCH (22:22)
[2020-02-25] MEDS: MELATONIN 5 MG TABLETS PO SCH (22:22)
[2020-02-25] MEDS: METHOCARBAMOL 500 MG TABLET PO PRN (22:23)
[2020-02-26] MEDS: chlordiazePOXIDE HCL 25 MG CAPSULE PO SCH ×4 (06:00→23:30)
[2020-02-26] MEDS: hydrOXYzine PAMOATE 25 MG CAPSULE (FP) PO SCH ×5 (06:00→23:33)
--- NOTE | 2020-02-26 09:44 | CONSULT ---
[facility] Psychiatric Consult - Data Date of interview: 02/26/20 Admission source: Self-referred Identifying data: Mr Fournier is a 59 years old single male, unemployed receiving SSI, homeless seeking detox treatment for alcohol and cocaine Substance Abuse History: Reports history of alcohol and cocaine use. Refer to addiction counselor;s summary for further information Medical History: Significant for peptic ulcer disease, GERD, anemia, hypertension, dyslipidemia, type 2 diabetes mellitus, arthritis (right knee), history of myocardial infarction in 2017 and surgery for fractures of nasal bones in 1987 and left thumb in 2006. Psychiatric History: Patient is known for multiple previous admissions to this facility. He reports being diagnosed with Bipolar Disorder and MDD more than 15 years ago. Reports multiple previous psychiatric admissions to various facilities including [facility], [facility] , [facility] and [facility]. Denies currently receiving outpatient psychiatric treatment. He used to receive outpatient treatment at [facility] and he was prescribed Risperdal 1 mg/bid and Zoloft 50 mg/day. During a recent admission to this facility, he saw Dr العلي on 12/21/19 and he was prescribed Zoloft 50 mg/day and Risperdal 2 mg/hs. Told insurance underwriter that hehas been off medication in January after he ran out of a 30 days supply provided to him on 12/26/19 after he was discharged from this facility. Denies previous suicide attempt. At present, denies experiecing psychotic, manic or depressive symptoms, S/H ideations. Hoever, reports sleeping poorly Physical/Sexual Abuse/Trauma History: Denies history of emotional, physical or sexual abuse as well as DV relationship Additional Comment: Reports history of multiple previous arrests including one felony conviction. No parole/probation at present Mental Status Exam - Mental Status Exam Alert and Oriented to: Time, Place, Person Cognitive Function: Fair Patient Appearance: Disheveled Mood: Hopeful, Euthymic Affect: Appropriate Patient Behavior: Cooperative Speech Pattern: Clear Voice Loudness: Normal Thought Process: Intact, Goal Oriented Thought Disorder: Not Present Hallucinations: Denies Suicidal Ideation: Denies Homicidal Ideation: Denies Insight/Judgement: Fair Sleep: Poorly Appetite: Good Muscle strength/Tone: Normal Gait/Station: Normal Psychiatric Findings - Problem List ([place] 1, 2,3) (1) Bipolar disorder Current Visit: No Status: Chronic Qualifiers: Active/Remission status: remission status unspecified Qualified Code(s): F31.9 - Bipolar disorder, unspecified Comment: Non-compliant with OPD care and medications. (2) Schizoaffective disorder Current Visit: No Status: Ruled-out Qualifiers: Schizoaffective disorder type: bipolar Qualified Code(s): F25.0 - Schizoaffective disorder, bipolar type Comment: By history. (3) Major depressive disorder, recurrent severe without psychotic features Current Visit: No Status: Ruled-out (4) Substance-induced sleep disorder Current Visit: Yes Status: Acute (5) Alcohol dependence with withdrawal, uncomplicated Current Visit: Yes Status: Acute (6) Cocaine dependence Current Visit: Yes Status: Acute (7) Arthritis of right knee Current Visit: No Status: Chronic (8) DM2 (diabetes mellitus, type 2) Current Visit: No Status: Chronic Qualifiers: Diabetes mellitus fci insulin use: without fci use Diabetes mellitus complication status: without complication Qualified Code(s): E11.9 - Type 2 diabetes mellitus without complications Comment: pre dm not on meds (9) GERD (gastroesophageal reflux disease) Current Visit: No Status: Chronic Qualifiers: Esophagitis presence: without esophagitis Qualified Code(s): K21.9 - Gastro-esophageal reflux disease without esophagitis (10) Hypertension Current Visit: No Status: Chronic Qualifiers: Hypertension type: essential hypertension Qualified Code(s): I10 - Essential (primary) hypertension (11) Anemia Current Visit: No Status: Chronic Qualifiers: Anemia type: unspecified type Qualified Code(s): D64.9 - Anemia, unspecified (12) Obesity Current Visit: No Status: Chronic Qualifiers: Obesity type: unspecified obesity type Obesity classification: adult class 1 (BMI 30 - 34.9) Serious obesity comorbidity presence: unspecified whether serious comorbidity present Body mass index: BMI 33.0-33.9 Qualified Code(s): E66.9 - Obesity, unspecified; Z68.33 - Body mass index (BMI) 33.0-33.9, adult (13) PUD (peptic ulcer disease) Current Visit: No Status: Resolved (14) Myocardial infarction Current Visit: Yes Status: Resolved - Initial Treatment Plan Initial Treatment Plan: 1) Resume Zoloft 50 mg po daily and Risperdal 2 mg po HS. 2) Continue inpatient detoxification
[2020-02-26] MEDS: PRENATAL VITAMINS W/ FOLIC ACID TABLET (FP) PO SCH (10:29)
[2020-02-26] MEDS: ASPIRIN 81 MG CHEWABLE TABLETS PO SCH (10:29)
[2020-02-26] MEDS: FERROUS SO4 325 MG TABLET (FP) PO SCH (10:29)
[2020-02-26] MEDS: LISINOPRIL 5 MG TABLET (FP) PO SCH (10:30)
[2020-02-26] MEDS: METHOCARBAMOL 500 MG TABLET PO PRN ×2 (10:32→23:30)
[2020-02-26] MEDS: CLOTRIMAZOLE 1% CREAM 15 GM TUBE TP SCH ×2 (10:32→23:33)
[2020-02-26] MEDS: SERTRALINE HCL 50 MG TABLET (FP) PO SCH (10:32)
[2020-02-26] MEDS ORDERED: FAMOTIDINE 20 MG TABLET PO ONE (10:45)
[2020-02-26] MEDS: FAMOTIDINE 20 MG TABLET PO SCH ×2 (10:52→23:31)
[2020-02-26] MEDS ORDERED: PNEUMOCOCCAL 23 VACCINE 0.5 ML VIAL IM ONE (12:00)
--- NOTE | 2020-02-26 13:16 | PN ---
S CIWA - CIWA Score Nausea/Vomitin-No Nausea/No Vomiting Muscle Tremors: 3 Anxiety: 4-Mod. Anxious/Guarded Agitation: 3 Paroxysmal Sweats: 1-Minimal Palms Moist Orientation: 0-Oriented Tacttile Disturbances: 0-None Auditory Disturbances: 0-None Visual Disturbances: 0-None Headache: 0-None Present CIWA-Ar Total Score: 11 BHS Progress Note (SOAP) Subjective: Pt is a 59 y/o male admitted to detox for alcohol withdrawal sx. Pt c/o sweats bodyaches/muscle aches tremors Objective: 02/26/20 13:28 Vital Signs - 24 hr 02/25/20 02/25/20 02/26/20 17:00 20:18 05:51 Temperature 98.2 F 97.3 F L 97.5 F L Pulse Rate 81 66 60 Respiratory 18 16 16 Rate Blood Pressure 140/79 144/84 148/82 O2 Sat by Pulse 96 96 Oximetry (%) 02/26/20 09:36 Temperature 97.6 F Pulse Rate 73 Respiratory 18 Rate Blood Pressure 110/74 O2 Sat by Pulse 97 Oximetry (%) Laboratory Tests 02/25/20 02/25/20 02/25/20 11:15 12:00 12:00 WBC 3.1 L RBC 4.21 Hgb 12.8 Hct 39.6 MCV 94.0 MCH 30.4 MCHC 32.3 RDW 18.3 H Plt Count 221 MPV 9.1 Sodium 141 Potassium 4.2 Chloride 105 Carbon Dioxide 27 Anion Gap 8 BUN 9.6 Creatinine 0.8 Est GFR (CKD-EPI)AfAm 113.33 Est GFR (CKD-EPI)NonAf 97.78 POC Glucometer Random Glucose 76 Calcium 9.1 Total Bilirubin 0.3 AST 24 ALT 24 Alkaline Phosphatase 94 Total Protein 7.9 Albumin 3.5 Syphilis Serology HIV Ag/Ab Combo Qual Negative 02/25/20 02/25/20 12:00 12:30 WBC RBC Hgb Hct MCV MCH MCHC RDW Plt Count MPV Sodium Potassium Chloride Carbon Dioxide Anion Gap BUN Creatinine Est GFR (CKD-EPI)AfAm Est GFR (CKD-EPI)NonAf POC Glucometer 79 Random Glucose Calcium Total Bilirubin AST ALT Alkaline Phosphatase Total Protein Albumin Syphilis Serology Non-reactive HIV Ag/Ab Combo Qual covid -19 result pending alert o x 3 nad laying in bed during rounds and responded coherently Assessment: 02/26/20 13:29 withdrawal sx Plan: cont detox increase po fluids maintain safety
[2020-02-26] MEDS: BISMUTH SUBSALICYLATE 262 MG/15 ML BTL PO PRN ×2 (13:26→18:46)
[2020-02-26] MEDS ORDERED: ATORVASTATIN CA 40 MG TABLET (FP) ONE (21:32)
[2020-02-26] MEDS: ATORVASTATIN CA 80 MG TABLET (FP) PO SCH (23:30)
[2020-02-26] MEDS: THIAMINE HCL 100 MG TABLET (FP) PO SCH (23:30)
[2020-02-26] MEDS: MELATONIN 5 MG TABLETS PO SCH (23:31)
[2020-02-26] MEDS: risperiDONE 2 MG TABLET PO SCH (23:31)
[2020-02-27] MEDS: FAMOTIDINE 20 MG TABLET PO SCH ×2 (06:43→22:14)
[2020-02-27] MEDS: hydrOXYzine PAMOATE 25 MG CAPSULE (FP) PO SCH ×5 (06:43→22:14)
[2020-02-27] MEDS: chlordiazePOXIDE HCL 25 MG CAPSULE PO SCH ×4 (06:43→22:10)
[2020-02-27] MEDS: ASPIRIN 81 MG CHEWABLE TABLETS PO SCH (10:34)
[2020-02-27] MEDS: FERROUS SO4 325 MG TABLET (FP) PO SCH (10:34)
[2020-02-27] MEDS: LISINOPRIL 5 MG TABLET (FP) PO SCH (10:34)
[2020-02-27] MEDS: SERTRALINE HCL 50 MG TABLET (FP) PO SCH (10:34)
[2020-02-27] MEDS: METHOCARBAMOL 500 MG TABLET PO PRN ×2 (10:36→22:11)
[2020-02-27] MEDS: PRENATAL VITAMINS W/ FOLIC ACID TABLET (FP) PO SCH (10:37)
[2020-02-27] MEDS: CLOTRIMAZOLE 1% CREAM 15 GM TUBE TP SCH ×2 (10:37→22:12)
--- NOTE | 2020-02-27 10:53 | PN ---
[facility] CIWA - CIWA Score Nausea/Vomitin-No Nausea/No Vomiting Muscle Tremors: 2 Anxiety: 3 Agitation: 0-Normal Activity Paroxysmal Sweats: 3 Orientation: 0-Oriented Tacttile Disturbances: 0-None Auditory Disturbances: 0-None Visual Disturbances: 0-None Headache: 0-None Present CIWA-Ar Total Score: 8 BHS Progress Note (SOAP) Subjective: c/o sweats, anxiety, and headache. Objective: 02/27/20 11:05 Vital Signs 02/27/20 02/27/20 05:50 09:05 Temperature 97.7 F 97.3 F L Pulse Rate 78 77 Respiratory 18 18 Rate Blood Pressure 141/83 134/77 O2 Sat by Pulse 98 98 Oximetry (%) Laboratory Last Values WBC 3.1 K/mm3 (4.0-10.0) L 02/25/20 12:00 RBC 4.21 M/mm3 (4.00-5.60) 02/25/20 12:00 Hgb 12.8 GM/dL (11.7-16.9) 02/25/20 12:00 Hct 39.6 % (35.4-49) 02/25/20 12:00 MCV 94.0 fl (80-96) 02/25/20 12:00 MCH 30.4 pg (25.7-33.7) 02/25/20 12:00 MCHC 32.3 g/dl (32.0-35.9) 02/25/20 12:00 RDW 18.3 % (11.9-15.9) H 02/25/20 12:00 Plt Count 221 K/MM3 (134-434) 02/25/20 12:00 MPV 9.1 fl (7.5-11.1) 02/25/20 12:00 Sodium 141 mmol/L (136-145) 02/25/20 12:00 Potassium 4.2 mmol/L (3.5-5.1) 02/25/20 12:00 Chloride 105 mmol/L (98-107) 02/25/20 12:00 Carbon Dioxide 27 mmol/L (21-32) 02/25/20 12:00 Anion Gap 8 MMOL/L (8-16) 02/25/20 12:00 BUN 9.6 mg/dL (7-18) 02/25/20 12:00 Creatinine 0.8 mg/dL (0.55-1.3) 02/25/20 12:00 Est GFR (CKD-EPI)AfAm 113.33 02/25/20 12:00 Est GFR (CKD-EPI)NonAf 97.78 02/25/20 12:00 POC Glucometer 79 UNITS (80-120) 02/25/20 12:30 Random Glucose 76 mg/dL (74-106) 02/25/20 12:00 Calcium 9.1 mg/dL (8.5-10.1) 02/25/20 12:00 Total Bilirubin 0.3 mg/dL (0.2-1) 02/25/20 12:00 AST 24 U/L (15-37) 02/25/20 12:00 ALT 24 U/L (13-61) 02/25/20 12:00 Alkaline Phosphatase 94 U/L (45-117) 02/25/20 12:00 Total Protein 7.9 g/dl (6.4-8.2) 02/25/20 12:00 Albumin 3.5 g/dl (3.4-5.0) 02/25/20 12:00 Syphilis Serology Non-reactive (NONREACTIVE) 02/25/20 12:00 COVID-19 (JOSSE) Not detected (Not Detected) 02/25/20 14:00 HIV Ag/Ab Combo Qual Negative (NEGATIVE) 02/25/20 11:15 Labs noted. Assessment: 02/27/20 11:06 AOX3, in no acute respiratory distress. Full ROM, ambulating in the unit. Withdrawal symptoms Plan: continue detox.
[2020-02-27] MEDS ORDERED: ATORVASTATIN CA 40 MG TABLET (FP) ONE (20:11)
[2020-02-27] MEDS: THIAMINE HCL 100 MG TABLET (FP) PO SCH (22:10)
[2020-02-27] MEDS: MELATONIN 5 MG TABLETS PO SCH (22:10)
[2020-02-27] MEDS: risperiDONE 2 MG TABLET PO SCH (22:10)
[2020-02-27] MEDS: ATORVASTATIN CA 80 MG TABLET (FP) PO SCH (22:12)
[2020-02-28] MEDS ORDERED: chlordiazePOXIDE HCL 10 MG CAPSULE PO PRN
[2020-02-28] MEDS: FAMOTIDINE 20 MG TABLET PO SCH ×2 (05:58→22:14)
[2020-02-28] MEDS: chlordiazePOXIDE HCL 10 MG CAPSULE PO SCH ×4 (05:58→22:14)
[2020-02-28] MEDS: hydrOXYzine PAMOATE 25 MG CAPSULE (FP) PO SCH ×5 (06:00→22:14)
[2020-02-28] MEDS: CLOTRIMAZOLE 1% CREAM 15 GM TUBE TP SCH ×2 (10:35→22:13)
[2020-02-28] MEDS: FERROUS SO4 325 MG TABLET (FP) PO SCH (10:35)
[2020-02-28] MEDS: SERTRALINE HCL 50 MG TABLET (FP) PO SCH (10:35)
[2020-02-28] MEDS: METHOCARBAMOL 500 MG TABLET PO PRN ×2 (10:35→22:15)
[2020-02-28] MEDS: ASPIRIN 81 MG CHEWABLE TABLETS PO SCH (10:35)
[2020-02-28] MEDS: PRENATAL VITAMINS W/ FOLIC ACID TABLET (FP) PO SCH (10:35)
[2020-02-28] MEDS: LISINOPRIL 5 MG TABLET (FP) PO SCH (10:36)
--- NOTE | 2020-02-28 13:25 | PN ---
S CIWA - CIWA Score Nausea/Vomitin-Mild Nausea/No Vomiting Muscle Tremors: 1-None Visible, but [place] Anxiety: 1-Mildly Anxious Agitation: 0-Normal Activity Paroxysmal Sweats: No Perspiration Orientation: 0-Oriented Tacttile Disturbances: 0-None Auditory Disturbances: 0-None Visual Disturbances: 2-Mild Sensitivity Headache: 0-None Present CIWA-Ar Total Score: 5 BHS Progress Note (SOAP) Subjective: 59 YEARS OLD MALE ADMITTED ON 02/25/20 FOR ALCOHOL WITHDRAWAL SX MANAGEMENT TREATING WITH [facility] FEELING BETTER TODAY LESS TREMOR ENCOURAGE DISCUSSING AFTERCARE WITH STAFF THAT COMMUNITY SUPPORT FOR ALCOHOL RECOVERY NETWORK Objective: 02/28/20 13:26 Vital Signs - 24 hr 02/27/20 02/27/20 02/27/20 14:31 17:05 20:37 Temperature 98.0 F 98.2 F 94.5 F L Pulse Rate 60 66 62 Respiratory 18 18 18 Rate Blood Pressure 119/71 149/76 137/81 O2 Sat by Pulse 97 97 97 Oximetry (%) 02/28/20 02/28/20 02/28/20 05:48 08:24 12:29 Temperature 97.3 F L 97.5 F L 97.8 F Pulse Rate 72 79 73 Respiratory 18 18 18 Rate Blood Pressure 129/83 142/61 124/63 O2 Sat by Pulse 97 99 Oximetry (%) Laboratory Tests 02/25/20 02/25/20 02/25/20 11:15 12:00 12:00 WBC 3.1 L RBC 4.21 Hgb 12.8 Hct 39.6 MCV 94.0 MCH 30.4 MCHC 32.3 RDW 18.3 H Plt Count 221 MPV 9.1 Sodium 141 Potassium 4.2 Chloride 105 Carbon Dioxide 27 Anion Gap 8 BUN 9.6 Creatinine 0.8 Est GFR (CKD-EPI)AfAm 113.33 Est GFR (CKD-EPI)NonAf 97.78 POC Glucometer Random Glucose 76 Calcium 9.1 Total Bilirubin 0.3 AST 24 ALT 24 Alkaline Phosphatase 94 Total Protein 7.9 Albumin 3.5 Syphilis Serology COVID-19 (JOSSE) HIV Ag/Ab Combo Qual Negative 02/25/20 02/25/20 02/25/20 12:00 12:30 14:00 WBC RBC Hgb Hct MCV MCH MCHC RDW Plt Count MPV Sodium Potassium Chloride Carbon Dioxide Anion Gap BUN Creatinine Est GFR (CKD-EPI)AfAm Est GFR (CKD-EPI)NonAf POC Glucometer 79 Random Glucose Calcium Total Bilirubin AST ALT Alkaline Phosphatase Total Protein Albumin Syphilis Serology Non-reactive COVID-19 (JOSSE) Not detected HIV Ag/Ab Combo Qual 02/28/20 05:56 WBC RBC Hgb Hct MCV MCH MCHC RDW Plt Count MPV Sodium Potassium Chloride Carbon Dioxide Anion Gap BUN Creatinine Est GFR (CKD-EPI)AfAm Est GFR (CKD-EPI)NonAf POC Glucometer 87 Random Glucose Calcium Total Bilirubin AST ALT Alkaline Phosphatase Total Protein Albumin Syphilis Serology COVID-19 (JOSSE) HIV Ag/Ab Combo Qual LAB NOTED Assessment: 02/28/20 13:27 ALCOHOL WITHDRAWAL Plan: [facility]
[2020-02-28] MEDS ORDERED: ATORVASTATIN CA 40 MG TABLET (FP) ONE (20:48)
[2020-02-28] MEDS: MELATONIN 5 MG TABLETS PO SCH (22:13)
[2020-02-28] MEDS: ATORVASTATIN CA 80 MG TABLET (FP) PO SCH (22:13)
[2020-02-28] MEDS: risperiDONE 2 MG TABLET PO SCH (22:14)
[2020-02-28] MEDS: THIAMINE HCL 100 MG TABLET (FP) PO SCH (22:14)
[2020-02-29] MEDS: hydrOXYzine PAMOATE 25 MG CAPSULE (FP) PO SCH ×5 (06:18→22:32)
[2020-02-29] MEDS: chlordiazePOXIDE HCL 10 MG CAPSULE PO SCH ×2 (06:18→18:22)
[2020-02-29] MEDS: FAMOTIDINE 20 MG TABLET PO SCH ×2 (06:18→22:32)
[2020-02-29] MEDS: PRENATAL VITAMINS W/ FOLIC ACID TABLET (FP) PO SCH (10:45)
[2020-02-29] MEDS: ASPIRIN 81 MG CHEWABLE TABLETS PO SCH (10:45)
[2020-02-29] MEDS: SERTRALINE HCL 50 MG TABLET (FP) PO SCH (10:45)
[2020-02-29] MEDS: LISINOPRIL 5 MG TABLET (FP) PO SCH (10:45)
[2020-02-29] MEDS: FERROUS SO4 325 MG TABLET (FP) PO SCH (10:45)
[2020-02-29] MEDS: METHOCARBAMOL 500 MG TABLET PO PRN ×2 (10:47→22:32)
[2020-02-29] MEDS: CLOTRIMAZOLE 1% CREAM 15 GM TUBE TP SCH ×2 (10:48→22:32)
--- NOTE | 2020-02-29 14:29 | PN ---
S CIWA - CIWA Score Nausea/Vomitin-No Nausea/No Vomiting Muscle Tremors: 2 Anxiety: 3 Agitation: 0-Normal Activity Paroxysmal Sweats: 1-Minimal Palms Moist Orientation: 0-Oriented Tacttile Disturbances: 0-None Auditory Disturbances: 0-None Visual Disturbances: 0-None Headache: 0-None Present CIWA-Ar Total Score: 6 BHS Progress Note (SOAP) Subjective: c/o sweats and and anxiety. Objective: 02/29/20 14:25 Vital Signs - 24 hr 02/28/20 02/28/20 02/29/20 16:20 20:44 06:03 Temperature 97.7 F 97.5 F L 97.7 F Pulse Rate 59 L 60 53 L Respiratory 18 18 18 Rate Blood Pressure 131/70 145/81 119/70 O2 Sat by Pulse 98 98 Oximetry (%) 02/29/20 02/29/20 09:40 13:05 Temperature 97.5 F L 97.8 F Pulse Rate 82 63 Respiratory 18 18 Rate Blood Pressure 132/80 120/63 O2 Sat by Pulse 97 96 Oximetry (%) Laboratory Tests 02/25/20 02/25/20 02/25/20 11:15 12:00 12:00 WBC 3.1 L RBC 4.21 Hgb 12.8 Hct 39.6 MCV 94.0 MCH 30.4 MCHC 32.3 RDW 18.3 H Plt Count 221 MPV 9.1 Sodium 141 Potassium 4.2 Chloride 105 Carbon Dioxide 27 Anion Gap 8 BUN 9.6 Creatinine 0.8 Est GFR (CKD-EPI)AfAm 113.33 Est GFR (CKD-EPI)NonAf 97.78 POC Glucometer Random Glucose 76 Calcium 9.1 Total Bilirubin 0.3 AST 24 ALT 24 Alkaline Phosphatase 94 Total Protein 7.9 Albumin 3.5 Syphilis Serology COVID-19 (JOSSE) HIV Ag/Ab Combo Qual Negative 02/25/20 02/25/20 02/25/20 12:00 12:30 14:00 WBC RBC Hgb Hct MCV MCH MCHC RDW Plt Count MPV Sodium Potassium Chloride Carbon Dioxide Anion Gap BUN Creatinine Est GFR (CKD-EPI)AfAm Est GFR (CKD-EPI)NonAf POC Glucometer 79 Random Glucose Calcium Total Bilirubin AST ALT Alkaline Phosphatase Total Protein Albumin Syphilis Serology Non-reactive COVID-19 (JOSSE) Not detected HIV Ag/Ab Combo Qual 02/28/20 05:56 WBC RBC Hgb Hct MCV MCH MCHC RDW Plt Count MPV Sodium Potassium Chloride Carbon Dioxide Anion Gap BUN Creatinine Est GFR (CKD-EPI)AfAm Est GFR (CKD-EPI)NonAf POC Glucometer 87 Random Glucose Calcium Total Bilirubin AST ALT Alkaline Phosphatase Total Protein Albumin Syphilis Serology COVID-19 (JOSSE) HIV Ag/Ab Combo Qual covid-19 not detected alert o x 3 nad oob ambulating with steady gait Assessment: 02/29/20 14:26 mild withdrawal sx Plan: cont detox increase po fluids maintain safety may discharge in the morning if medically stable.
[2020-02-29] MEDS ORDERED: ATORVASTATIN CA 40 MG TABLET (FP) ONE (22:00)
[2020-02-29] MEDS: MELATONIN 5 MG TABLETS PO SCH (22:31)
[2020-02-29] MEDS: risperiDONE 2 MG TABLET PO SCH (22:31)
[2020-02-29] MEDS: THIAMINE HCL 100 MG TABLET (FP) PO SCH (22:32)
[2020-02-29] MEDS: ATORVASTATIN CA 80 MG TABLET (FP) PO SCH (22:32)
[2020-03-01] MEDS ORDERED: chlordiazePOXIDE HCL 10 MG CAPSULE PO ONE (05:00)
[2020-03-01] MEDS: hydrOXYzine PAMOATE 25 MG CAPSULE (FP) PO SCH (06:41)
[2020-03-01] MEDS: FAMOTIDINE 20 MG TABLET PO SCH (06:41)
--- NOTE | 2020-03-01 08:20 | DS ---
[facility] Detox Discharge Summary Admission Date: 02/25/20 Discharge Date: 03/01/20 - History Present History: Alcohol Dependence, Cocaine Dependence Pertinent Past History: HTN GERD HLD Anemia Arthritis Right Knee - Physical Exam Results Vital Signs: Vital Signs Temperature 97.3 F L 03/01/20 06:02 Pulse Rate 60 03/01/20 06:02 Respiratory Rate 18 03/01/20 06:02 Blood Pressure 110/62 03/01/20 06:02 O2 Sat by Pulse Oximetry (%) 97 03/01/20 06:02 alert o x 3 nad oob ambulating with steady gait cardiac:s1 s2,rrr lungs:ctab extremities:no edema,skin dry and intact. Pertinent Admission Physical Exam Findings: Laboratory Tests 02/25/20 02/25/20 02/25/20 11:15 12:00 12:00 WBC 3.1 L RBC 4.21 Hgb 12.8 Hct 39.6 MCV 94.0 MCH 30.4 MCHC 32.3 RDW 18.3 H Plt Count 221 MPV 9.1 Sodium 141 Potassium 4.2 Chloride 105 Carbon Dioxide 27 Anion Gap 8 BUN 9.6 Creatinine 0.8 Est GFR (CKD-EPI)AfAm 113.33 Est GFR (CKD-EPI)NonAf 97.78 POC Glucometer Random Glucose 76 Calcium 9.1 Total Bilirubin 0.3 AST 24 ALT 24 Alkaline Phosphatase 94 Total Protein 7.9 Albumin 3.5 Syphilis Serology COVID-19 (JOSSE) HIV Ag/Ab Combo Qual Negative 02/25/20 02/25/20 02/25/20 12:00 12:30 14:00 WBC RBC Hgb Hct MCV MCH MCHC RDW Plt Count MPV Sodium Potassium Chloride Carbon Dioxide Anion Gap BUN Creatinine Est GFR (CKD-EPI)AfAm Est GFR (CKD-EPI)NonAf POC Glucometer 79 Random Glucose Calcium Total Bilirubin AST ALT Alkaline Phosphatase Total Protein Albumin Syphilis Serology Non-reactive COVID-19 (JOSSE) Not detected HIV Ag/Ab Combo Qual 02/28/20 05:56 WBC RBC Hgb Hct MCV MCH MCHC RDW Plt Count MPV Sodium Potassium Chloride Carbon Dioxide Anion Gap BUN Creatinine Est GFR (CKD-EPI)AfAm Est GFR (CKD-EPI)NonAf POC Glucometer 87 Random Glucose Calcium Total Bilirubin AST ALT Alkaline Phosphatase Total Protein Albumin Syphilis Serology COVID-19 (JOSSE) HIV Ag/Ab Combo Qual - Treatment Hospital Course: Detox Protocol Followed, Detoxed Safely, Responded well, Discharged Condition Good, Rehab Referral Accepted Patient has Accepted a Rehab Referral to: [facility] - Medication Discharge Medications: Ambulatory Orders Risperidone [Risperdal] 1 mg PO HS 06/04/18 Aspirin [ASA -] 81 mg PO DAILY #30 tab.chew 03/01/20 Atorvastatin Ca [Lipitor] 80 mg PO HS #30 tablet 03/01/20 Clotrimazole [Lotrimin -] 1 applic TP BID #1 tube 03/01/20 Famotidine 20 mg PO BID #60 tablet 03/01/20 Ferrous Sulfate [Feosol] 325 mg PO DAILY #30 ud 03/01/20 Lisinopril [Zestril] 2.5 mg PO DAILY #30 tablet 03/01/20 Risperidone [Risperdal -] 2 mg PO HS #30 tablet 03/01/20 Sertraline HCl [Zoloft -] 50 mg PO DAILY #30 tablet 03/01/20 - Diagnosis (1) Alcohol dependence with withdrawal, uncomplicated Status: Acute (2) Cocaine dependence Status: Acute Qualifiers: Substance use status: uncomplicated Qualified Code(s): F14.20 - Cocaine dependence, uncomplicated (3) Anemia Status: Chronic Qualifiers: Anemia type: unspecified type Qualified Code(s): D64.9 - Anemia, unspecified (4) Arthritis of right knee Status: Chronic (5) Cannabis dependence Status: Acute (6) GERD (gastroesophageal reflux disease) Status: Chronic Qualifiers: Esophagitis presence: esophagitis presence not specified Qualified Code(s): K21.9 - Gastro-esophageal reflux disease without esophagitis (7) Hypercholesterolemia Status: Chronic (8) Hypertension Status: Chronic Qualifiers: Hypertension type: essential hypertension Qualified Code(s): I10 - Essential (primary) hypertension (9) Tinea pedis Status: Chronic Qualifiers: Laterality: bilateral Qualified Code(s): B35.3 - Tinea pedis - AMA Did Patient Leave Against Medical Advice: No
--- NOTE | 2020-03-01 09:32 | PN ---
S Progress Note Note: Psychiatric nurse practitoner note: Patient scheduled for discharge today. A 30 day prescription of Zoloft 50mg daily + Risperdal 2mg HS was electronically sent to [facility] @[address] [place] [address].
[2020-03-01 11:06] VITALS: BP 135/66; PULSE 80; TEMP 97.1
== END 2020-03-01 09:35 | disposition home or self-care (01) | DRG 774 ==
LOC: YASAS 09:53 → Y5N DETOX 11:27
PROVIDERS: ADMIT Allergy & Immunology; ATTEND Allergy & Immunology
PROC: HZ2ZZZZ Detoxification Services for Substance Abuse Treatment (ICD-10-PCS; principal; 2020-02-25)
DX: F10.230 Alcohol dependence with withdrawal, uncomplicated (principal); F14.20 Cocaine dependence, uncomplicated; F12.20 Cannabis dependence, uncomplicated; F25.0 Schizoaffective disorder, bipolar type; F31.9 Bipolar disorder, unspecified; F19.282 Other psychoactive substance dependence with psychoactive substance-induced sleep disorder; D64.9 Anemia, unspecified; E78.5 Hyperlipidemia, unspecified; I25.10 Atherosclerotic heart disease of native coronary artery without angina pectoris; I10 Essential (primary) hypertension; I25.2 Old myocardial infarction; K21.9 Gastro-esophageal reflux disease without esophagitis; B35.3 Tinea pedis; M17.11 Unilateral primary osteoarthritis, right knee; R73.03 Prediabetes; Z56.0 Unemployment, unspecified; Z59.0 Homelessness
CPT/HCPCS: 36415; 80053; 82962; 85027; 86780; 87389; 90732; G0009; U0003

== ENCOUNTER 2020-04-26 16:36 | Inpatient (IN) | payer OTHER ==
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
[2020-04-26 17:33] VITALS: BMI 27.6
[2020-04-26] MEDS ORDERED: MAG HYDROX/AL HYDROX/SIMETH 30 ML UNIT-DOSE CUP PO PRN (17:48)
[2020-04-26] MEDS ORDERED: ACETAMINOPHEN 325 MG TABLET (FP) PO PRN ×2 (17:48)
[2020-04-26] MEDS ORDERED: BISMUTH SUBSALICYLATE 524 MG/30 ML UD PO PRN (17:48)
[2020-04-26] MEDS ORDERED: MENTHOL/PHENOL 1 EACH UD MM PRN (17:48)
[2020-04-26] MEDS ORDERED: MAGNESIUM CITRATE 300 ML BOTTLE PO PRN (17:48)
[2020-04-26] MEDS ORDERED: MAGNESIUM HYDROX 2400MG/30ML ORAL SUSPENSION 30 ML CUP PO PRN (17:48)
[2020-04-26] MEDS ORDERED: ONDANSETRON *ODT* 4 MG TABLET SL PRN (17:48)
[2020-04-26] MEDS ORDERED: chlordiazePOXIDE HCL 25 MG CAPSULE PO PRN (17:57)
--- OUTSIDE RECORDS SUMMARY | 2020-04-26 18:45 | XMS ---
:1960 Author Organization [facility] Support Name Relationship Address Phone UE, UNEMPLOYED Unavailable Unavailable Unavailable UE Unavailable Unavailable Unavailable SANJEEV MATTHEWS SISTER [address] [phone] [place] [address] Re-disclosure Warning The records that you are about to access may contain information from federally- assisted alcohol or drug abuse programs. If such information is present, then the following federally mandated warning applies: This information has been disclosed to you from records protected by federal confidentiality rules (42 CFR part 2). The federal rules prohibit you from making any further disclosure of this information unless further disclosure is expressly permitted by the written consent of the person to whom it pertains or as otherwise permitted by 42 CFR part 2. A general authorization for the release of medical or other information is NOT sufficient for this purpose. The Federal rules restrict any use of the information to criminally investigate or prosecute any alcohol or drug abuse patient.The records that you are about to access may contain highly sensitive health information, the redisclosure of which is protected by Article 27-F of the [facility] Public Health law. If you continue you may haveaccess to information: Regarding HIV / AIDS; Provided by facilities licensed or operated by the [facility] Office of Mental Health; or Provided by the [facility] Office for People With Developmental Disabilities. If such information is present, then the following [facility] mandated warning applies: This information has been disclosed to you from confidential records which are protected by state law. State law prohibits you from making any further disclosure of this information without the specific written consent of the person to whom it pertains, or as otherwise permitted by law. Any unauthorized further disclosure in violation of state law may result in a fine or assisted sentence or both. A general authorization for the release of medical or other information is NOT sufficient authorization for further disclosure. Insurance Providers Payer name Policy type Policy ID Covered Covered libertarian's Policy P ting / Coverage libertarian ID relationship to [place] [employer] type espana HEALTH [id number] SP [id number] FIRST HEALTH [id number] SP [id number] FIRST Results ID Date Data Source [id number] 02/25/2020 02:00:00 PM EDT [facility] Name Value Range Interpretation Description Data Sup porting Code Source(s) Document(s ) SARS [facility] coronavirus 2 RNA This lab was ordered by [facility] and reported by [facility]. ID Date Data Source [id number] 02/17/2020 12:00:00 AM EDT [facility] Name Value Range Interpretation Code Description Data Lianet rce(s) Supporting Document(s ) 2019-nCoV [facility] RNA XXX JOSSE+probe- Imp [facility] and reported by [employer]. ID Date Data Source [id number] 01/25/2020 06:50:00 PM EDT [facility] Name Value Range Interpretation Description Data Sup porting Code Source(s) Document(s ) SARS [facility] CORONAVIRUS 2 RNA This lab was ordered by [facility] and reported by [facility]. ID Date Data Source [id number] 12/29/2019 05:35:00 PM EDT [facility] Name Value Range Interpretation Code Description Data Lianet rce(s) Supporting Document(s ) SARS-CoV-2 [facility] RNA [facility] Ql JOSSE+probe This lab was ordered by [facility] a nd reported by [facility]. ID Date Data Source [id number] 12/06/2019 11:26:00 AM EDT [facility] Name Value Range Interpretation Code Description Data Lianet rce(s) Supporting Document(s ) Overall [facility] Result: This lab was ordered by [facility] and reported by [facility]. Procedure
--- OUTSIDE RECORDS SUMMARY | 2020-04-26 19:45 | XMS ---
:1960 Author Organization [facility] Support Name Relationship Address Phone UE, UNEMPLOYED Unavailable Unavailable Unavailable UE Unavailable Unavailable Unavailable SANJEEV MATTHEWS SISTER [address] [phone] [place] [address] Re-disclosure Warning The records that you are [...] is protected by Article 27-F of the [facility] Public Health law. If you continue you may haveaccess to information: Regarding HIV / AIDS; Provided by facilities licensed or operated by the [facility] Office of Mental Health; or Provided by the [facility] Office for People With Developmental Disabilities. If such information is present, then the following [facility] mandated warning applies: This information has been [...] law may result in a fine or half-way sentence or both. A general authorization for the release of medical or other information is NOT sufficient authorization for further disclosure. Insurance Providers Payer name Policy type Policy ID Covered Covered democrat's Policy P ting / Coverage democrat ID relationship to [place] [employer] type [employer] HEALTH [id number] SP [id number] [employer] [id number] SP [id number] FIRST Results ID Date Data Source [id number] 02/25/2020 02:00:00 PM EDT [facility] Name Value Range Interpretation Description Data Sup porting Code Source(s) Document(s ) SARS [facility] coronavirus 2 RNA This lab was ordered by [facility] and reported by [facility]. ID Date Data Source [id number] 02/17/2020 12:00:00 AM EDT [facility] Name Value Range Interpretation Code Description Data Lianet rce(s) Supporting Document(s ) 2019-nCoV [facility] RNA XXX JOSSE+probe- Imp [facility] and reported by [employer]. ID Date Data Source [id number] 01/25/2020 06:50:00 PM EDT [facility] Name Value Range Interpretation Description Data Sup porting Code Source(s) Document(s ) SARS [facility] CORONAVIRUS 2 RNA This lab was ordered by [facility] ct [facility] and reported by [facility]. ID Date Data Source [id number] 12/29/2019 05:35:00 PM EDT [facility] Name Value Range Interpretation Code Description Data Lianet rce(s) Supporting Document(s ) SARS-CoV-2 [facility] RNA [facility] Ql JOSSE+probe This lab was ordered by [facility] a nd reported by [facility]. ID Date Data Source [id number] 12/06/2019 11:26:00 AM EDT [facility] Name Value Range Interpretation Code Description Data Lianet rce(s) Supporting Document(s ) Overall [facility] Result: This lab was ordered by [facility] and reported by [facility]. Procedure
[2020-04-26] MEDS ORDERED: PANTOPRAZOLE 40 MG TABLET PO SCH (19:50)
[2020-04-26] MEDS ORDERED: ASPIRIN 81 MG CHEWABLE TABLETS PO SCH (19:51)
[2020-04-26] MEDS: MELATONIN 5 MG TABLETS PO SCH (22:28)
[2020-04-26] MEDS: THIAMINE HCL 100 MG TABLET (FP) PO SCH (22:28)
[2020-04-26] MEDS: chlordiazePOXIDE HCL 25 MG CAPSULE PO SCH (22:28)
[2020-04-26] MEDS: CARVEDILOL 6.25 MG TABLET (FP) PO SCH (22:28)
[2020-04-26] MEDS: ATORVASTATIN CA 80 MG TABLET (FP) PO SCH (22:28)
[2020-04-26] MEDS: METHOCARBAMOL 500 MG TABLET PO PRN (22:30)
[2020-04-27] MEDS: CLOTRIMAZOLE 1% CREAM 15 GM TUBE TP SCH ×3 (00:11→22:59)
[2020-04-27] MEDS: chlordiazePOXIDE HCL 25 MG CAPSULE PO SCH ×4 (06:22→22:58)
--- NOTE | 2020-04-27 08:34 | CONSULT ---
[facility] Psychiatric Consult - Data Date of interview: 04/27/20 Admission source: Self-referred Identifying data: Mr Fournier is a 59 years old single male, unemployed receiving SSI, homeless seeking detox treatment for alcohol and cocaine Substance Abuse History: Reports history of alcohol and cocaine use. Refer to addiction counselor's summary for further information Medical History: Significant for peptic ulcer disease, GERD, hypertension, dyslipidemia, type 2 diabetes mellitus, arthritis (right knee), history of anemia, myocardial infarction x2(2017, 2019) and surgery for fractures of nasal bones in 1987 and left thumb in 2006. Psychiatric History: Patient is known for multiple previous admissions to this facility. He reports that his first psychiatric contact occured more than 15 years ago when h was admited to [facility], diagnosed with Bipolar Disorder and MDD and started on psychotropic medications. He reports multiple subsequent psychiatric hospitalizationa at various institutions including [facility], [facility], [facility] on and [facility]. Denies currently receiving outpatient psychiatric treatment. He used to receive outpatient treatment at [facility] and he was prescribed Risperdal 1 mg/bid and Zoloft 50 mg/day. During his most recent admission to this facility in 2019, he saw comic book writer and he was prescribed Zoloft 50 mg/day and Risperdal 2 mg/hs. Told comic book writer that since his discharge on 03/01/20, he has been off medication. Denies previous suicide attempt. At present, denies experiecing psychotic, manic or depressive symptoms, S/H ideations. However, reports sleeping poorly. He is willing to resume Risperdal Physical/Sexual Abuse/Trauma History: Denies history of emotional, physical or sexual abuse as well as DV relationship Additional Comment: Reports history of multiple previous arrests including one felony conviction. No parole/probation at present Mental Status Exam - Mental Status Exam Alert and Oriented to: Time, Place, Person Cognitive Function: Fair Patient Appearance: Disheveled Mood: Hopeful, Euthymic Patient Behavior: Cooperative Speech Pattern: Clear Voice Loudness: Normal Thought Process: Intact, Goal Oriented Hallucinations: Denies Suicidal Ideation: Denies Homicidal Ideation: Denies Insight/Judgement: Poor Sleep: Poorly Appetite: Good Muscle strength/Tone: Normal Gait/Station: Normal Psychiatric Findings - Problem List (Fields 1, 2,3) (1) Bipolar disorder Current Visit: No Status: Chronic (2) Schizoaffective disorder Current Visit: No Status: Ruled-out Qualifiers: Schizoaffective disorder type: bipolar Qualified Code(s): F25.0 - Schizoaffective disorder, bipolar type Comment: By history. 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 Qualifiers: Chronicity: unspecified Gastritis bleeding: presence of bleeding unspecified Qualified Code(s): K29.20 - Alcoholic gastritis without bleeding (8) Anemia Current Visit: No Status: Resolved Qualifiers: Anemia type: unspecified type Qualified Code(s): D64.9 - Anemia, unspecified (9) DM2 (diabetes mellitus, type 2) Current Visit: No Status: Chronic Qualifiers: Diabetes mellitus residential insulin use: without salad chef use Diabetes mellitus complication status: without complication Qualified Code(s): E11.9 - Type 2 diabetes mellitus without complications Comment: pre dm not on meds (10) Dyslipidemia Current Visit: No Status: Chronic (11) GERD (gastroesophageal reflux disease) Current Visit: No Status: Chronic Qualifiers: Esophagitis presence: esophagitis presence not specified Qualified Code(s): K21.9 - Gastro-esophageal reflux disease without esophagitis (12) Obesity Current Visit: No Status: Chronic Qualifiers: Obesity type: unspecified obesity type Obesity classification: adult class 1 (BMI 30 - 34.9) Serious obesity comorbidity presence: unspecified whether serious comorbidity present Body mass index: BMI 33.0-33.9 Qualified Code(s): E66.9 - Obesity, unspecified; Z68.33 - Body mass index (BMI) 33.0-33.9, adult (13) Myocardial infarction Current Visit: No Status: Resolved (14) PUD (peptic ulcer disease) Current Visit: No Status: Resolved (15) HTN (hypertension) Current Visit: Yes Status: Chronic - Initial Treatment Plan Initial Treatment Plan: 1) Resume Risperdal 2 mg po HS. 2) Continue inpatient detoxification
[2020-04-27] MEDS ORDERED: PANTOPRAZOLE 40 MG TABLET PO SCH ×2 (08:36→10:00)
--- NOTE | 2020-04-27 09:02 | EKG ---
Test Reason : Blood Pressure : / mmHG Vent. Rate : 081 BPM Atrial Rate : 081 BPM P-R Int : 174 ms QRS Dur : 116 ms QT Int : 404 ms P-R-T Axes : 063 -32 078 degrees QTc Int : 469 ms NORMAL SINUS RHYTHM POSSIBLE LEFT ATRIAL ENLARGEMENT LEFT AXIS DEVIATION LEFT VENTRICULAR HYPERTROPHY WITH QRS WIDENING ANTEROSEPTAL INFARCT (CITED ON OR BEFORE 01-MAY-2017) T WAVE ABNORMALITY, CONSIDER LATERAL ISCHEMIA ABNORMAL ECG WHEN COMPARED WITH ECG OF 18-NOV-2019 18:53, NO SIGNIFICANT CHANGE WAS FOUND Confirmed by MD ARMINDA, LAURE ([id number]) on 04/27/2020 9:02:26 AM Referred By: Confirmed By:LAURE HILLIARD MD
--- NOTE | 2020-04-27 09:58 | PN ---
S CIWA - CIWA Score Nausea/Vomitin-Mild Nausea/No Vomiting Muscle Tremors: 3 Anxiety: 3 Agitation: 2 Paroxysmal Sweats: No Perspiration Orientation: 0-Oriented Tacttile Disturbances: 1-Very Mild Itch/Numbness Auditory Disturbances: 0-None Visual Disturbances: 0-None Headache: 2-Mild CIWA-Ar Total Score: 12 S Progress Note (SOAP) Subjective: alert,irritable,anxious,interrupted sleep,tremor,aching pain in the body and a bck Objective: 04/27/20 14:05 Vital Signs Temperature 99.8 F H 04/27/20 09:07 Pulse Rate 68 04/27/20 09:07 Respiratory Rate 18 04/27/20 09:07 Blood Pressure 132/82 04/27/20 09:07 O2 Sat by Pulse Oximetry (%) 99 04/27/20 09:07 04/27/20 14:05 Laboratory Last Values WBC 2.5 K/mm3 (4.0-10.0) L 04/27/20 07:45 RBC 3.88 M/mm3 (4.00-5.60) L 04/27/20 07:45 Hgb 11.9 GM/dL (11.7-16.9) 04/27/20 07:45 Hct 36.1 % (35.4-49) 04/27/20 07:45 MCV 92.9 fl (80-96) 04/27/20 07:45 MCH 30.7 pg (25.7-33.7) 04/27/20 07:45 MCHC 33.1 g/dl (32.0-35.9) 04/27/20 07:45 RDW 17.0 % (11.9-15.9) H 04/27/20 07:45 Plt Count 203 K/MM3 (134-434) 04/27/20 07:45 MPV 9.2 fl (7.5-11.1) 04/27/20 07:45 Sodium 141 mmol/L (136-145) 04/27/20 07:45 Potassium 3.8 mmol/L (3.5-5.1) 04/27/20 07:45 Chloride 105 mmol/L (98-107) 04/27/20 07:45 Carbon Dioxide 30 mmol/L (21-32) 04/27/20 07:45 Anion Gap 6 MMOL/L (8-16) L 04/27/20 07:45 BUN 14.2 mg/dL (7-18) 04/27/20 07:45 Creatinine 0.9 mg/dL (0.55-1.3) 04/27/20 07:45 Est GFR (CKD-EPI)AfAm 107.97 04/27/20 07:45 Est GFR (CKD-EPI)NonAf 93.16 04/27/20 07:45 Random Glucose 85 mg/dL (74-106) 04/27/20 07:45 Calcium 8.2 mg/dL (8.5-10.1) L 04/27/20 07:45 Total Bilirubin 1.0 mg/dL (0.2-1) 04/27/20 07:45 AST 31 U/L (15-37) 04/27/20 07:45 ALT 22 U/L (13-61) 04/27/20 07:45 Alkaline Phosphatase 99 U/L (45-117) 04/27/20 07:45 Total Protein 7.2 g/dl (6.4-8.2) 04/27/20 07:45 Albumin 3.1 g/dl (3.4-5.0) L 04/27/20 07:45 Syphilis Serology Non-reactive (NONREACTIVE) 04/27/20 07:45 Assessment: 04/27/20 14:05 withdrawal symptom Plan: continue detox librium regimen wbc 2,500 probably due to chronic alcoholism,repeat cbc in am
[2020-04-27] MEDS ORDERED: PRENATAL VITAMINS W/ FOLIC ACID TABLET (FP) PO SCH (10:00)
[2020-04-27] MEDS ORDERED: ASPIRIN 81 MG CHEWABLE TABLETS PO SCH (10:00)
[2020-04-27] MEDS: CARVEDILOL 6.25 MG TABLET (FP) PO SCH ×2 (10:13→22:58)
[2020-04-27] MEDS: METHOCARBAMOL 500 MG TABLET PO PRN (10:16)
[2020-04-27 10:28] LABS: HEMATOCRIT 36.1 % (35.4-49); HEMOGLOBIN 11.9 GM/dL (11.7-16.9); MCH 30.7 pg (25.7-33.7); MCHC 33.1 g/dl (32.0-35.9); MEAN CELL VOLUME 92.9 fl (80-96); MEAN PLT VOLUME 9.2 fl (7.5-11.1); PLATELET COUNT 203 K/MM3 (134-434); RBC 3.88 M/mm3 (4.00-5.60); WHITE BLOOD COUNT 2.5 K/mm3 (4.0-10.0)
[2020-04-27 10:42] LABS: ALBUMIN 3.1 g/dl (3.4-5.0); BLOOD UREA NITROGEN 14.2 mg/dL (7-18); POTASSIUM 3.8 mmol/L (3.5-5.1)
[2020-04-27 10:45] LABS: CALCIUM 8.2 mg/dL (8.5-10.1); CREATININE 0.9 mg/dL (0.55-1.3); TOT PROT 7.2 g/dl (6.4-8.2)
--- NOTE | 2020-04-27 14:43 | EKG ---
Test Reason : Blood Pressure : / mmHG Vent. Rate : 063 BPM Atrial Rate : 063 BPM P-R Int : 164 ms QRS Dur : 118 ms QT Int : 470 ms P-R-T Axes : 042 -41 050 degrees QTc Int : 480 ms NORMAL SINUS RHYTHM POSSIBLE LEFT ATRIAL ENLARGEMENT LEFT AXIS DEVIATION LEFT VENTRICULAR HYPERTROPHY WITH QRS WIDENING ANTEROSEPTAL INFARCT (CITED ON OR BEFORE 01-MAY-2017) T WAVE ABNORMALITY, CONSIDER LATERAL ISCHEMIA ABNORMAL ECG WHEN COMPARED WITH ECG OF 26-APR-2020 18:29, T WAVE INVERSION MORE EVIDENT IN LATERAL LEADS Confirmed by MD ARMINDA, LAURE ([id number]) on 04/27/2020 2:42:48 PM Referred By: Confirmed By:LAURE HILLIARD MD
[2020-04-27] MEDS: TOLNAFTATE 1% CREAM 15 GM TUBE TP SCH ×2 (15:06→23:00)
--- NOTE | 2020-04-27 16:58 | PN ---
[facility] Progress Note Note: Patient admitted yesterday with ST elevations in V1-V3 on EKG. When compared to an old EKG these were not new. At the time of evaluation patient had epigastric pain but denied chest pain. Repeat EKG was done this AM which showed new twave inversions In V4-V6. Patient evaluated and denied chest pain. Patient recent GA in 2019 and at that time he did not have any symptoms. Patient is not medically optimized and has not been taking any of his medications recently. Decision to send patient to ED for further cardiac evaluation with new twave inversions and for medical optimization. Discussed with patient. Case discussed with Dr. Dunne at [facility]
[2020-04-27 17:52] VITALS: BP 129/80; PULSE 53; TEMP 97.7
[2020-04-27] MEDS ORDERED: FAMOTIDINE 20 MG TABLET PO SCH (22:00)
[2020-04-27] MEDS ORDERED: risperiDONE 2 MG TABLET PO SCH (22:00)
[2020-04-27] MEDS: ATORVASTATIN CA 80 MG TABLET (FP) PO SCH (22:59)
[2020-04-27] MEDS: MELATONIN 5 MG TABLETS PO SCH (22:59)
[2020-04-27] MEDS: THIAMINE HCL 100 MG TABLET (FP) PO SCH (23:00)
[2020-04-28] MEDS: chlordiazePOXIDE HCL 25 MG CAPSULE PO SCH ×2 (07:12→07:14)
[2020-04-28] MEDS: PANTOPRAZOLE 40 MG TABLET PO SCH ×2 (07:13→07:14)
--- NOTE | 2020-04-28 08:03 | PN ---
Teaching Attending Note Name of Resident: Raquel Cantu ATTENDING PHYSICIAN STATEMENT I saw and evaluated the patient. I reviewed the resident's note and discussed the case with the resident. I agree with the resident's findings and plan as documented. SUBJECTIVE: OBJECTIVE: ASSESSMENT AND PLAN: Agree with resident's findings and plan for initial admission to detox and then transfer to [facility] for new EKG changes for cardiac optimization.
[2020-04-28] MEDS ORDERED: LISINOPRIL 5 MG TABLET (FP) PO SCH (10:00)
[2020-04-28] MEDS ORDERED: FERROUS SO4 325 MG TABLET (FP) PO SCH (10:00)
[2020-04-29] MEDS ORDERED: chlordiazePOXIDE HCL 10 MG CAPSULE PO PRN
[2020-04-29] MEDS ORDERED: chlordiazePOXIDE HCL 10 MG CAPSULE PO SCH (05:00)
[2020-04-30] MEDS ORDERED: chlordiazePOXIDE HCL 10 MG CAPSULE PO SCH (05:00)
[2020-05-01] MEDS ORDERED: chlordiazePOXIDE HCL 10 MG CAPSULE PO ONE (05:00)
== END 2020-04-28 00:01 | disposition short-term general hospital (02) | DRG 774 ==
LOC: YASAS 16:36 → Y6N 18:53
PROVIDERS: ADMIT Allergy & Immunology; ATTEND Allergy & Immunology
PROC: HZ2ZZZZ Detoxification Services for Substance Abuse Treatment (ICD-10-PCS; principal; 2020-04-26)
DX: F10.230 Alcohol dependence with withdrawal, uncomplicated (principal); F14.20 Cocaine dependence, uncomplicated; F31.9 Bipolar disorder, unspecified; F19.282 Other psychoactive substance dependence with psychoactive substance-induced sleep disorder; E78.5 Hyperlipidemia, unspecified; E11.9 Type 2 diabetes mellitus without complications; Z79.84 Long term (current) use of oral hypoglycemic drugs; I10 Essential (primary) hypertension; I25.2 Old myocardial infarction; K29.20 Alcoholic gastritis without bleeding; K21.9 Gastro-esophageal reflux disease without esophagitis; R94.31 Abnormal electrocardiogram [ECG] [EKG]; M17.11 Unilateral primary osteoarthritis, right knee; Z87.11 Personal history of peptic ulcer disease; Z87.81 Personal history of (healed) traumatic fracture; Z86.2 Personal history of diseases of the blood and blood-forming organs and certain disorders involving the immune mechanism; Z56.0 Unemployment, unspecified; Z59.0 Homelessness
CPT/HCPCS: 36415; 80053; 85027; 86780; 93005; 93010; U0003

== ENCOUNTER 2020-04-27 18:32 | Inpatient (IN) | payer OTHER ==
[2020-04-27 18:44] VITALS: BMI 27.3
--- NOTE | 2020-04-27 18:45 | PDOC ---
Rapid Medical Evaluation Time Seen by Provider: 04/27/20 18:40 Medical Evaluation: Allergies Allergy/AdvReac Type Severity Reaction Status Date / Time No Known Allergies Allergy Verified 01/25/20 17:07 04/27/20 18:42 CC: sent from [facility] for abnormal ekg. Done for admission due to cardiac hx, Pt is asymptomatic since [facility] admission Exam: VSS, appears well, widened QRS Plan: repeat EKG, consider cardiac workup Discharge Disposition - Discharge Dispostion Condition at time of disposition: Stable - Referrals - Patient Instructions - Post Discharge Activity
--- NOTE | 2020-04-27 19:29 | PDOC ---
History of Present Illness - General Chief Complaint: Abnormal Lab Results (Outside) Stated Complaint: ABNORMAL EKG Time Seen by Provider: 04/27/20 18:40 History Source: Patient Exam Limitations: No Limitations Past History - Travel History Traveled outside of the country in the last 30 days: No Close contact w/someone who was outside of country & ill: No - Medical History Allergies/Adverse Reactions: Allergies Allergy/AdvReac Type Severity Reaction Status Date / Time No Known Allergies Allergy Verified 01/25/20 17:07 Home Medications: Ambulatory Orders Risperidone [Risperdal] 1 mg PO HS 06/04/18 Aspirin [ASA -] 81 mg PO DAILY #30 tab.chew 03/01/20 Atorvastatin Ca [Lipitor] 80 mg PO HS #30 tablet 03/01/20 Clotrimazole [Lotrimin -] 1 applic TP BID #1 tube 03/01/20 Famotidine 20 mg PO BID #60 tablet 03/01/20 Ferrous Sulfate [Feosol] 325 mg PO DAILY #30 ud 03/01/20 Lisinopril [Zestril] 2.5 mg PO DAILY #30 tablet 03/01/20 Risperidone [Risperdal -] 2 mg PO HS #30 tablet 03/01/20 Sertraline HCl [Zoloft -] 50 mg PO DAILY #30 tablet 03/01/20 Anemia: Yes (NO CURRENT MED) Asthma: No Cancer: No Cardiac Disorders: Yes (GA X2) CVA: No COPD: No CHF: Yes Dementia: No Diabetes: Yes (As per pt he is diabetic. FS 79 during admission) GI Disorders: No Disorders: No HTN: Yes (non-compliant w/ meds ) Hypercholesterolemia: Yes Kidney Stones: No Liver Disease: No Seizures: No Thyroid Disease: No - Surgical History Abdominal Surgery: No Appendectomy: No Cardiac Surgery: No Cholecystectomy: No Lung Surgery: No Neurologic Surgery: No Orthopedic Surgery: Yes (fx, left thumb in 2006) - Reproductive History Testicular Surgery: No - Immunization History Immunization Up to Date: No - Psycho-Social/Smoking History Smoking History: Unknown if ever smoked Have you smoked in the past 12 months: Yes Number of Cigarettes Smoked Daily: 0 Cigars Per Day: 0 Information on smoking cessation initiated: No 'Breaking Loose' booklet given: 04/26/20 - Substance Abuse Hx (Audit-C & DAST Scrn) How often the patient has a drink containing alcohol: 2-3 times / week Number of drinks the patient has on a typical day: 1 or 2 How often the patient has six or more drinks on one occasion: Daily or almost daily Score: In Men: 4 or > Positive; In Women: 3 or > Positive: 7 Screen Result (Pos requires Nsg. Audit-10AR): Positive In the last yr the pt used illegal drug/Rx for NonMed reason: Yes Score: Yes response is considered Positive: 1 Screen Result (Positive result requires Nsg. DAST-10): Positive Review of Systems - Review of Systems Able to Perform ROS?: Yes Comments:: 04/27/20 23:51 CONSTITUTIONAL: Absent: fever, chills, diaphoresis, generalized weakness, malaise, loss of appe tite HEENT: Absent: rhinorrhea, nasal congestion, throat pain, throat swelling, difficulty swallowing, mouth swelling, ear pain, eye pain, visual Changes CARDIOVASCULAR: Absent: chest pain, loss of consciousness, palpitations, irregular heart rate, peripheral edema RESPIRATORY: Absent: cough, shortness of breath, dyspnea with exertion, orthopnea, wheezing, stridor, hemoptysis GASTROINTESTINAL: Absent: abdominal pain, abdominal distension, nausea, vomiting, diarrhea, constipation, melena, hematochezia GENITOURINARY: Absent: dysuria, frequency, urgency, hesitancy, hematuria, flank pain, genital pain MUSCULOSKELETAL: Absent: myalgia, arthralgia, joint swelling SKIN: Absent: rash, itching, pallor HEMATOLOGIC/IMMUNOLOGIC: Absent: easy bleeding, easy bruising, lymphadenopathy, frequent infections ENDOCRINE: Absent: unexplained weight gain, unexplained weight loss, heat intolerance, cold intolerance NEUROLOGIC: Absent: headache, focal weakness or paresthesias, dizziness, unsteady gait, seizure, mental status changes, bladder or bowel incontinence PSYCHIATRIC: Absent: anxiety, depression, suicidal or homicidal ideation, hallucinations. Is the patient limited Sami proficient: No *Physical Exam - Vital Signs Last Vital Signs Temp Pulse Resp BP Pulse Ox 98.7 F 58 L 16 112/60 100 04/27/20 18:42 04/27/20 18:42 04/27/20 18:42 04/27/20 18:42 04/27/20 18:42 - Physical Exam 04/27/20 23:51 GENERAL: Well developed, well nourished. Awake and alert. No acute distress. HEENT: Normocephalic, atraumatic. PERRLA, EOMI. No conjunctival pallor. Sclera are non- icteric. Moist mucous membranes. NECK: Supple. Full ROM. No lymphadenopathy. CARDIOVASCULAR: Regular rate and rhythm. No murmurs, rubs, or gallops. Distal pulses are 2+ and symmetric. PULMONARY: No evidence of respiratory distress. Lungs clear to auscultation bilaterally. No wheezing, rales or rhonchi. ABDOMINAL: Soft. Non-tender. Non-distended. No rebound or guarding. No organomegaly. Normoactive bowel sounds. MUSCULOSKELETAL Normal range of motion at all joints. No bony deformities or tenderness. No CVA tenderness. EXTREMITIES: No cyanosis. No clubbing. No edema. No calf tenderness. SKIN: Warm and dry. Normal capillary refill. No rashes. No jaundice. NEUROLOGICAL: Alert, awake, appropriate. Cranial nerves 2-12 intact. No deficits to light touch and temperature in face, upper extremities and lower extremities. No motor deficits in the in face, upper extremities and lower extremities. Normoreflexic in the upper and lower extremities. Normal speech. Toes are down-going bilaterally. Gait is normal without ataxia. PSYCHIATRIC: Cooperative. Good eye contact. Appropriate mood and affect. ED Treatment Course - LABORATORY CBC & Chemistry Diagram: 04/27/20 19:59 04/27/20 19:59 Medical Decision Making - Medical Decision Making 04/27/20 23:52 Patient is a 59-year-old male with past medical history of alcoholism, currently in detox, [place], noncompliant with medication, [place] [facility] [place] new T wave inversions in the lateral leads. He currently has no complaints no chest pain or abdominal pain. Per progress [place] [facility] patient has history of GA without obvious chest pain so they sent him to the ER for further evaluation. He states he would like to continue detox. A/P: T wave inversions On his EKG performed in the ER, he now has T wave inversions in V4, V5 flattening in V6. These are new T wave inversions compared to EKG from November of this year. EKG appears mildly improved from EKG performed this morning [place] [facility]. Given that he has changing EKGs within the last 24 hours, will admit for t elemetry for further evaluation and cardiology evaluation. First troponin is negative. Lab work otherwise unremarkable. Will admit to [facility]. Discharge - Discharge Information Problems reviewed: Yes Clinical Impression/Diagnosis: Acute electrocardiogram changes, Admitted to alcohol detoxification center Condition: Stable - Admission Yes - Follow up/Referral - Patient Discharge Instructions - Post Discharge Activity
[2020-04-27 20:30] LABS: BASO % 0.7 % (0-2.0); EOS % 3.2 % (0-4.5); HEMATOCRIT 35.3 % (35.4-49); HEMOGLOBIN 11.6 GM/dL (11.7-16.9); LYMPH % 34.8 % (8-40); MCH 30.5 pg (25.7-33.7); MCHC 32.7 g/dl (32.0-35.9); MEAN CELL VOLUME 93.1 fl (80-96); MEAN PLT VOLUME 9.1 fl (7.5-11.1); MONO % 10.2 % (3.8-10.2); NEUT % 51.1 % (42.8-82.8); PLATELET COUNT 189 K/MM3 (134-434); RBC 3.79 M/mm3 (4.00-5.60); RDW 17.1 % (11.9-15.9); WHITE BLOOD COUNT 2.9 K/mm3 (4.0-10.0)
[2020-04-27 20:39] LABS: INR 0.84 (0.83-1.09); PROTHROMBIN TIME (PATIENT) 9.9 SEC (9.7-13.0)
[2020-04-27 20:42] LABS: ACTIVATED PTT 32.6 SECONDS (25.2-36.5)
[2020-04-27 21:12] LABS: ALK PHOS 101 U/L (45-117); ANION GAP 4 MMOL/L (8-16); BILIRUBIN,TOTAL 0.3 mg/dL (0.2-1); BLOOD UREA NITROGEN 15.8 mg/dL (7-18); CALCIUM 8.3 mg/dL (8.5-10.1); CHLORIDE 105 mmol/L (98-107); CO2 30 mmol/L (21-32); CREATININE 0.7 mg/dL (0.55-1.3); GLUCOSE,RANDOM 100 mg/dL (74-106); MAGNESIUM 1.9 mg/dL (1.8-2.4); POTASSIUM 3.7 mmol/L (3.5-5.1); SGOT/AST 24 U/L (15-37); SGPT/ALT 19 U/L (13-61); SODIUM 139 mmol/L (136-145); TOT PROT 6.8 g/dl (6.4-8.2)
--- NOTE | 2020-04-28 01:16 | HP ---
CHIEF COMPLAINT: EKG Changes PCP: HISTORY OF PRESENT ILLNESS: This is a 59-year-old male with past medical history significant for Alcohol Abuse (currently in detox) Cocaine Abuse, LA, (noncompliant with medication). Who presents to the ED today from [facility] with new T wave inversions in the lateral leads. He currently has no complaints no chest pain or abdominal pain. Per progress notes from [facility], patient has history of LA without obvious chest pain so they sent him to the ER for further evaluation. He states he would like to continue detox. He reports his last drink 04/26, last Cocaine use 04/25. ER course was notable for: (1) EKG- NSR LVH, anteroseptal infarct, T wave abnormality (2) Troponin 0.02 (3) Recent Travel: No PAST MEDICAL HISTORY: see HPI PAST SURGICAL HISTORY: see HPI Social History: Smoking: Former Alcohol: Beer 6pk x3-4/daily, Vodka 3 pints/daily Drugs: Cocaine 2grams inhalation Allergies No Known Allergies Allergy (Verified 01/25/20 17:07) HOME MEDICATIONS: Home Medications Medication Instructions Recorded Risperidone [Risperdal] 1 mg PO HS 06/04/18 Aspirin [ASA -] 81 mg PO DAILY #30 tab.chew 03/01/20 Atorvastatin Ca [Lipitor] 80 mg PO HS #30 tablet 03/01/20 Clotrimazole [Lotrimin -] 1 applic TP BID #1 tube 03/01/20 Famotidine 20 mg PO BID #60 tablet 03/01/20 Ferrous Sulfate [Feosol] 325 mg PO DAILY #30 ud 03/01/20 Lisinopril [Zestril] 2.5 mg PO DAILY #30 tablet 03/01/20 Risperidone [Risperdal -] 2 mg PO HS #30 tablet 03/01/20 Sertraline HCl [Zoloft -] 50 mg PO DAILY #30 tablet 03/01/20 REVIEW OF SYSTEMS CONSTITUTIONAL: Absent: fever, chills, diaphoresis, generalized weakness, malaise, loss of appetite, weight change HEENT: Absent: rhinorrhea, nasal congestion, throat pain, throat swelling, difficulty swallowing, mouth swelling, ear pain, eye pain, visual changes CARDIOVASCULAR: Absent: chest pain, syncope, palpitations, irregular heart rate, lightheadedness, peripheral edema RESPIRATORY: Absent: cough, shortness of breath, dyspnea with exertion, orthopnea, wheezing, stridor, hemoptysis GASTROINTESTINAL: Absent: abdominal pain, abdominal distension, nausea, vomiting, diarrhea, constipation, melena, hematochezia GENITOURINARY: Absent: dysuria, frequency, urgency, hesitancy, hematuria, flank pain, genital pain MUSCULOSKELETAL: Absent: myalgia, arthralgia, joint swelling, back pain, neck pain SKIN: Absent: rash, itching, pallor HEMATOLOGIC/IMMUNOLOGIC: Absent: easy bleeding, easy bruising, lymphadenopathy, frequent infections ENDOCRINE: Absent: unexplained weight gain, unexplained weight loss, heat intolerance, cold intolerance NEUROLOGIC: Absent: headache, focal weakness or paresthesias, dizziness, unsteady gait, seizure, mental status changes, bladder or bowel incontinence PSYCHIATRIC: Absent: anxiety, depression, suicidal or homicidal ideation, hallucinations. PHYSICAL EXAMINATION Vital Signs - 24 hr 04/27/20 04/28/20 18:42 00:37 Temperature 98.7 F Pulse Rate 58 L Pulse Rate [ 50 L Left] Respiratory 16 18 Rate Blood Pressure 112/60 Blood Pressure 122/72 [Left Arm] O2 Sat by Pulse 100 100 Oximetry (%) GENERAL: Awake, alert, and fully oriented, in no acute distress. HEAD: Normal with no signs of trauma. EYES: Pupils equal, round and reactive to light, extraocular movements intact, sclera anicteric, conjunctiva clear. No lid lag. EARS, NOSE, THROAT: Ears normal, nares patent, oropharynx clear without ex udates. Dry mucous membranes. NECK: Normal range of motion, supple without lymphadenopathy, JVD, or masses. LUNGS: Breath sounds equal, clear to auscultation bilaterally. No wheezes, and no crackles. No accessory muscle use. HEART: Regular rate and rhythm, normal S1 and S2 without murmur, rub or gallop. ABDOMEN: Soft, nontender, not distended, normoactive bowel sounds, no guarding, no rebound, no masses. No hepatomegaly or splenomegaly. MUSCULOSKELETAL: Normal range of motion at all joints. No bony deformities or tenderness. No CVA tenderness. UPPER EXTREMITIES: 2+ pulses, warm, well-perfused. No cyanosis. No clubbing. No peripheral edema. LOWER EXTREMITIES: 2+ pulses, warm, well-perfused. No calf tenderness. No peripheral edema. NEUROLOGICAL: Cranial nerves II-XII intact. Normal speech. Gait not observed. PSYCHIATRIC: Cooperative. Good eye contact. Appropriate mood and affect. SKIN: Fungal lesions in between left toes #2#3. Warm, dry, normal turgor, no r ashes noted, normal capillary refill. Laboratory Results - last 24 hr 04/27/20 04/27/20 04/27/20 00:01 19:59 19:59 WBC 2.9 L RBC 3.79 L Hgb 11.6 L Hct 35.3 L MCV 93.1 MCH 30.5 MCHC 32.7 RDW 17.1 H Plt Count 189 MPV 9.1 Absolute Neuts (auto) 1.5 Neutrophils % 51.1 Lymphocytes % 34.8 Monocytes % 10.2 Eosinophils % 3.2 D Basophils % 0.7 Nucleated RBC % 0 PT with INR 9.90 INR 0.84 PTT (Actin FS) 32.6 Sodium Potassium Chloride Carbon Dioxide Anion Gap BUN Creatinine Est GFR (CKD-EPI)AfAm Est GFR (CKD-EPI)NonAf Random Glucose Calcium Magnesium Total Bilirubin AST ALT Alkaline Phosphatase Creatine Kinase 191 Creatine Kinase Index 0.9 CK-MB (CK-2) 1.9 Troponin I < 0.02 Total Protein Albumin 04/27/20 19:59 WBC RBC Hgb Hct MCV MCH MCHC RDW Plt Count MPV Absolute Neuts (auto) Neutrophils % Lymphocytes % Monocytes % Eosinophils % Basophils % Nucleated RBC % PT with INR INR PTT (Actin FS) Sodium 139 Potassium 3.7 Chloride 105 Carbon Dioxide 30 Anion Gap 4 L BUN 15.8 Creatinine 0.7 Est GFR (CKD-EPI)AfAm 119.72 Est GFR (CKD-EPI)NonAf 103.30 Random Glucose 100 Calcium 8.3 L Magnesium 1.9 Total Bilirubin 0.3 AST 24 ALT 19 Alkaline Phosphatase 101 Creatine Kinase 195 Creatine Kinase Index 1.0 CK-MB (CK-2) 2.0 Troponin I < 0.02 Total Protein 6.8 Albumin 3.0 L ASSESSMENT/PLAN: This is a 59-year-old male with past medical history significant for Alcohol Dependency (currently in detox), Cocaine Dependency, LA, noncompliant with medication Admitted to Telemetry for ECG Changes, Alcohol Withdrawal, Cocaine Withdrawal for further evaluation of their emergent condition. Plan: See Problem List FEN PO fluids as tolerated Replete lytes prn Low Na Diet DVT ppx OOB SCDs Heparin SQ Dispo:Requires Inpatient Care Family Medical History Family History: As Documented Family Hx Diabetes: Sister Problem List - Problem (1) Acute electrocardiogram changes Assessment/Plan: EKG- TWI in precordial leads noted Concerning in light of recent cocaine use Patient denies CP Continue cardiac monitoring Appreciate Cardiology consult Serial Enzymes negx2 Code(s): R94.31 - ABNORMAL ELECTROCARDIOGRAM [ECG] [EKG] (2) Alcohol dependence with withdrawal, uncomplicated Assessment/Plan: Counseled on Alcohol Cessation CIWA-Ar 3 Continue Detox Continue Librium Protocol Monitor for DTs Seizure Precautions Fall Precautions Monitor vitals Code(s): F10.230 - ALCOHOL DEPENDENCE WITH WITHDRAWAL, UNCOMPLICATED (3) Cocaine dependence Assessment/Plan: Counseled on Cocaine Cessation Continue Detox Monitor vitals Code(s): F14.20 - COCAINE DEPENDENCE, UNCOMPLICATED Qualifiers: Substance use status: uncomplicated Qualified Code(s): F14.20 - Cocaine dependence, uncomplicated (4) History of LA (myocardial infarction) Assessment/Plan: On exam: patient denies chest pain, palpitations or SOB ECG reviewed- TWI in precordial leads Appreciate Cardiology consult Continue cardiac monitoring Serial Enzymes neg x2, will trend Asa, statin Hold BB 2/2 Cocaine use Monitor CBC, CMP Code(s): I25.2 - OLD MYOCARDIAL INFARCTION (5) DM2 (diabetes mellitus, type 2) Assessment/Plan: stable BGMs ISS Code(s): E11.9 - TYPE 2 DIABETES MELLITUS WITHOUT COMPLICATIONS Qualifiers: Diabetes mellitus terminal gauger supervisor insulin use: without terminal gauger supervisor use Diabetes mellitus complication status: without complication Qualified Code(s): E11.9 - Type 2 diabetes mellitus without complications (6) Dyslipidemia Assessment/Plan: stable Continue home med Monitor LFTs Code(s): E78.5 - HYPERLIPIDEMIA, UNSPECIFIED (7) Tinea pedis Assessment/Plan: Lotrimin Cr fu with outpatient Code(s): B35.3 - TINEA PEDIS Qualifiers: Laterality: bilateral Qualified Code(s): B35.3 - Tinea pedis (8) Anxiety and depression Assessment/Plan: Consult Psych Continue home meds Patient denies SI or Plan at present Code(s): F41.9 - ANXIETY DISORDER, UNSPECIFIED; F32.9 - MAJOR DEPRESSIVE DISORDER, SINGLE EPISODE, UNSPECIFIED (9) Schizoaffective disorder Assessment/Plan: stable Continue home meds Monitor QTc Code(s): F25.9 - SCHIZOAFFECTIVE DISORDER, UNSPECIFIED Qualifiers: Schizoaffective disorder type: bipolar Qualified Code(s): F25.0 - Schizoaffective disorder, bipolar type (10) Encounter for screening laboratory testing for COVID-19 virus Assessment/Plan: Mod risk, secondary to lifestyle choices COVID-PCR pending Isolation Precautions Code(s): Z11.59 - ENCOUNTER FOR SCREENING FOR OTHER VIRAL DISEASES Visit type - Emergency Visit Emergency Visit: Yes ED Registration Date: 04/27/20 Care time: The patient presented to the Emergency Department on the above date and was hospitalized for further evaluation of their emergent condition. - New Patient This patient is new to me today: Yes Date on this admission: 04/28/20 - Critical Care Critical Care patient: No
[2020-04-28] MEDS ORDERED: chlordiazePOXIDE HCL 25 MG CAPSULE PO PRN (03:53)
[2020-04-28] MEDS ORDERED: MELATONIN 5 MG TABLETS PO PRN (04:03)
[2020-04-28] MEDS ORDERED: chlordiazePOXIDE HCL 25 MG CAPSULE ONE ×2 (05:08→11:14)
[2020-04-28] MEDS ORDERED: PANTOPRAZOLE 40 MG TABLET ONE (05:08)
[2020-04-28] MEDS: chlordiazePOXIDE HCL 25 MG CAPSULE PO SCH ×2 (05:34→11:17)
[2020-04-28] MEDS ORDERED: PANTOPRAZOLE 40 MG TABLET PO SCH (06:00)
[2020-04-28 07:25] LABS: ALK PHOS 78 U/L (45-117); BILIRUBIN,TOTAL 0.4 mg/dL (0.2-1); CHLORIDE 106 mmol/L (98-107); CREATININE 0.7 mg/dL (0.55-1.3); MAGNESIUM 1.8 mg/dL (1.8-2.4); POTASSIUM 3.5 mmol/L (3.5-5.1); SGOT/AST 23 U/L (15-37); SGPT/ALT 17 U/L (13-61); SODIUM 139 mmol/L (136-145)
[2020-04-28 07:35] LABS: ALBUMIN 2.8 g/dl (3.4-5.0); ANION GAP 5 MMOL/L (8-16); BLOOD UREA NITROGEN 12.5 mg/dL (7-18); CALCIUM 8.2 mg/dL (8.5-10.1); CHOLESTEROL 134 mg/dL (50-200); CO2 29 mmol/L (21-32); GLUCOSE,RANDOM 97 mg/dL (74-106); HDL CHOLESTEROL 90 mg/dL (40-60); LDL CHOLESTEROL (ONLY SJRH) 30 mg/dL (5-100); TOT PROT 6.4 g/dl (6.4-8.2); TRIGLYCERIDES 103 mg/dL (0-150)
[2020-04-28] MEDS ORDERED: FERROUS SO4 325 MG TABLET (FP) ONE (09:20)
[2020-04-28] MEDS ORDERED: ASPIRIN 81 MG CHEWABLE TABLETS ONE (09:20)
[2020-04-28] MEDS ORDERED: SERTRALINE HCL 50 MG TABLET (FP) ONE (09:21)
--- NOTE | 2020-04-28 09:51 | PN ---
Teaching Attending Note Name of Resident: Mihaela Bautista ATTENDING PHYSICIAN STATEMENT I saw and evaluated the patient. I reviewed the resident's note and discussed the case with the resident. I agree with the resident's findings and plan as documented. SUBJECTIVE: pt seen and examined, denies CP OBJECTIVE: Last Vital Signs Temp Pulse Resp BP Pulse Ox 98.2 F 70 18 124/73 99 04/28/20 09:05 04/28/20 09:05 04/28/20 09:05 04/28/20 09:05 04/28/20 09:05 GENERAL: Awake, alert, and fully oriented, in no acute distress. HEAD: Normal with no signs of trauma. EYES: Pupils equal, round and reactive to light, sclera anicteric, conjunctiva clear. LUNGS: Breath sounds equal, clear to auscultation bilaterally. No wheezes, and no crackles. No accessory muscle use. HEART: Regular rate and rhythm, normal S1 and S2 ABDOMEN: Soft, nontender, not distended MUSCULOSKELETAL: Normal range of motion at all joints. No bony deformities or tenderness. No CVA tenderness. UPPER EXTREMITIES: 2+ pulses, warm, well-perfused. No cyanosis. No clubbing. No peripheral edema. LOWER EXTREMITIES: 2+ pulses, warm, well-perfused. No calf tenderness. No peripheral edema. NEUROLOGICAL: Cranial nerves II-XII intact. Normal speech. CBCD WBC 2.9 K/mm3 (4.0-10.0) L 04/27/20 19:59 RBC 3.79 M/mm3 (4.00-5.60) L 04/27/20 19:59 Hgb 11.6 GM/dL (11.7-16.9) L 04/27/20 19:59 Hct 35.3 % (35.4-49) L 04/27/20 19:59 MCV 93.1 fl (80-96) 04/27/20 19:59 MCHC 32.7 g/dl (32.0-35.9) 04/27/20 19:59 RDW 17.1 % (11.9-15.9) H 04/27/20 19:59 Plt Count 189 K/MM3 (134-434) 04/27/20 19:59 MPV 9.1 fl (7.5-11.1) 04/27/20 19:59 CMP Sodium 139 mmol/L (136-145) 04/28/20 05:52 Potassium 3.5 mmol/L (3.5-5.1) 04/28/20 05:52 Chloride 106 mmol/L (98-107) 04/28/20 05:52 Carbon Dioxide 29 mmol/L (21-32) 04/28/20 05:52 Anion Gap 5 MMOL/L (8-16) L 04/28/20 05:52 BUN 12.5 mg/dL (7-18) 04/28/20 05:52 Creatinine 0.7 mg/dL (0.55-1.3) 04/28/20 05:52 Calcium 8.2 mg/dL (8.5-10.1) L 04/28/20 05:52 Total Bilirubin 0.4 mg/dL (0.2-1) 04/28/20 05:52 AST 23 U/L (15-37) 04/28/20 05:52 ALT 17 U/L (13-61) 04/28/20 05:52 Alkaline Phosphatase 78 U/L (45-117) 04/28/20 05:52 Total Protein 6.4 g/dl (6.4-8.2) 04/28/20 05:52 Albumin 2.8 g/dl (3.4-5.0) L 04/28/20 05:52 Active Medications Aspirin (Asa -) 81 mg PO DAILY [facility] Last Admin: 04/28/20 09:28 Dose: 81 mg Documented by: Atorvastatin Calcium (Lipitor -) 80 mg PO [facility] Chlordiazepoxide HCl (Librium -) 25 mg PO [id number] [facility] Stop: 04/28/20 23:01 Last Admin: 04/28/20 05:34 Dose: 25 mg Documented by: Chlordiazepoxide HCl (Librium -) 25 mg PO [id number] [facility] Stop: 04/29/20 23:01 Chlordiazepoxide HCl (Librium -) 25 mg PO Q4H PRN PRN Reason: WITHDRAWAL(CONT SUBST) Stop: 04/29/20 23:59 Chlordiazepoxide HCl (Librium -) 10 mg PO [id number] [facility] Stop: 04/30/20 23:01 Chlordiazepoxide HCl (Librium -) 10 mg PO Q12H [facility] Stop: 05/01/20 17:01 Chlordiazepoxide HCl (Librium -) 10 mg PO Q4H PRN PRN Reason: WITHDRAWAL(CONT SUBST) Stop: 05/01/20 00:00 Chlordiazepoxide HCl (Librium -) 10 mg PO ONCE@0500 ONE Stop: 05/02/20 05:01 Clotrimazole (Lotrimin 1% Cream -) 1 applic TP BID [facility] Ferrous Sulfate (Feosol -) 325 mg PO DAILY [facility] Last Admin: 04/28/20 09:28 Dose: 325 mg Documented by: Folic Acid (Folic Acid -) 1 mg PO DAILY [facility] Lisinopril (Prinivil) 2.5 mg PO DAILY [facility] Melatonin (Melatonin) 5 mg PO HS PRN PRN Reason: INSOMNIA Pantoprazole Sodium (Protonix -) 40 mg PO DAILY@0600 [facility] Last Admin: 04/28/20 05:34 Dose: 40 mg Documented by: Multivit/Folic Acid/Iron ( Vitamins (Sjr) -) 1 tab PO DAILY [facility] Sertraline HCl (Zoloft -) 50 mg PO DAILY [facility] Last Admin: 04/28/20 09:28 Dose: 50 mg Documented by: Thiamine HCl (Vitamin B1 -) 100 mg PO HS [facility] ASSESSMENT AND PLAN: This is a 59-year-old male with Mhx of Alcohol Abuse (currently in detox) Cocaine Abuse, [place]? who presented from [facility] for evaluation of T-wave inversion Denies current chest pain, palpitations, no dyspnea Labs reviewed Troponin negative X3. EKG noted T-wave inversion that was present on previous EKGs as well. Patient discharge back to [place] for rehab EtOH abuse Cocaine abuse DVT prophylaxis
--- NOTE | 2020-04-28 09:53 | EKG ---
Test Reason : Blood Pressure : / mmHG Vent. Rate : 057 BPM Atrial Rate : 057 BPM P-R Int : 174 ms QRS Dur : 116 ms QT Int : 482 ms P-R-T Axes : 054 -28 037 degrees QTc Int : 469 ms SINUS BRADYCARDIA LEFT VENTRICULAR HYPERTROPHY WITH QRS WIDENING ANTEROSEPTAL INFARCT (CITED ON OR BEFORE 01-MAY-2017) ABNORMAL ECG WHEN COMPARED WITH ECG OF 27-APR-2020 09:57, NO SIGNIFICANT CHANGE WAS FOUND Confirmed by SAHIL RAPP MD ([id number]) on 04/28/2020 9:53:02 AM Referred By: Confirmed By:SAHIL RAPP MD
[2020-04-28] MEDS ORDERED: LISINOPRIL 5 MG TABLET (FP) PO SCH (10:00)
[2020-04-28] MEDS ORDERED: FOLIC ACID 1 MG TABLET (FP) PO SCH (10:00)
[2020-04-28] MEDS ORDERED: ASPIRIN 81 MG CHEWABLE TABLETS PO SCH (10:00)
[2020-04-28] MEDS ORDERED: CLOTRIMAZOLE 1% CREAM 15 GM TUBE TP SCH (10:00)
[2020-04-28] MEDS ORDERED: SERTRALINE HCL 50 MG TABLET (FP) PO SCH (10:00)
[2020-04-28] MEDS ORDERED: FERROUS SO4 325 MG TABLET (FP) PO SCH (10:00)
[2020-04-28] MEDS ORDERED: PRENATAL VITAMINS W/ FOLIC ACID TABLET (FP) PO SCH (10:00)
[2020-04-28] MEDS ORDERED: FOLIC ACID 1 MG TABLET (FP) ONE (10:03)
[2020-04-28] MEDS ORDERED: LISINOPRIL 5 MG TABLET (FP) ONE (10:03)
[2020-04-28 10:10] VITALS: PULSE 60
--- NOTE | 2020-04-28 11:09 | CON.CARD ---
Consult Consult Specialty:: Cardiology Referred by:: Dr. Hanson Reason for Consultation:: Abnormal ECG - History of Present Illness Chief Complaint: Abnormal ECG History of Present Illness: 59-year-old male with a history of alcohol and cocaine abuse (currently in detox), STEMI 03/30/2017 in the setting of cocaine use due to coronary spams in proximal LAD, diagnostic cardiac cath 03/30/17 at [facility] showed non-obstructive CAD and proximal LAD coronary artery vasospasm, improved with intracoronary NTG, HFrEF (LVEF 40% from echocardiogram on 09/21/19) and noncompliant with medication who was referred from [facility] for evaluation of abnormal ECG. The patient was found to have abnormal ECG which was consistent with recent/old anteroseptal LA. He currently has no complaints no chest pain or AOB. Per pro michael notes from [facility], patient has history of LA without obvious chest pain so they sent him to the ER for further evaluation. He states he would like to continue detox. He reports his last drink 04/26, last Cocaine use 04/25. LA ruled out. ECG 04/27/20 showed sinus bradycardia at 57 BPM. Normal axis. Anteroseptal Q wave with ST-T abnormalities, consistent with old anteroseptal LA. The patient was admitted to [facility] 12/29/19 to 01/02/20 for chest pain. He had nuclear stress test on 01/01/20 which revealed fixed defect of anteroapical wall without stress induced ischemia. I compared his ECG on 12/30/19 at [facility] and ECG her on 04/27/20. The anteroseptal abnormalities are the same without changes. Previous Cardiac Tests at [facility]: Cardiac cath 03/30/2017: Non-obstructive CAD and proximal LAD coronary artery vasospasm, improved with intracoronary NTG. Echo 09/21/2019: Normal left ventricular size. Left ventricular hypertrophy. Large region of apical akinesis. Septal akinesis. Mild to moderately decreased left ventricular ejection fraction. LEVF 40%. Nuclear stress test 01/01/2020: Large sized moderate to severe fixed defect in the septum and distal anterior wall extending to the apex. Overall left ventricular systolic function is reduced with septal akinesis, apical dyskinesis and otherwise global hypokinesis. - History Source History Provided By: Patient, Medical Record Limitations to Obtaining History: No Limitations - Past Medical History DRY ROLLER: Yes: Syncope Cardio/Vascular: Yes: HTN Gastrointestinal: Yes: Gastritis, GERD Psych: Yes: Bipolar Endocrine: Yes: Diabetes Insipidus - Past Surgical History Past Surgical History: Yes: None - Alcohol/Substance Use Hx Alcohol Use: Yes - Smoking History Smoking history: Unknown if ever smoked Have you smoked in the past 12 months: Yes Aproximately how many cigarettes per day: 0 - Social History Usual Living Arrangement: Other (with sister) ADL: Support Services 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,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 Home Medications - Allergies Allergies/Adverse Reactions: Allergies Allergy/AdvReac Type Severity Reaction Status Date / Time No Known Allergies Allergy Verified 01/25/20 17:07 - Home Medications Home Medications: Ambulatory Orders Aspirin [ASA -] 81 mg PO DAILY #30 tab.chew 03/01/20 Atorvastatin Ca [Lipitor] 80 mg PO HS #30 tablet 03/01/20 Clotrimazole [Lotrimin -] 1 applic TP BID #1 tube 03/01/20 Lisinopril [Zestril] 2.5 mg PO DAILY #30 tablet 03/01/20 Risperidone [Risperdal -] 2 mg PO HS #30 tablet 03/01/20 Sertraline HCl [Zoloft -] 50 mg PO DAILY #30 tablet 03/01/20 Carvedilol [Coreg] 6.25 mg PO BID 04/28/20 Chlordiazepoxide [Librium -] 10 mg PO Q12H capsule 04/28/20 Chlordiazepoxide [Librium -] 10 mg PO Q4H PRN capsule 04/28/20 Chlordiazepoxide [Librium -] 10 mg PO [id number] capsule 04/28/20 Chlordiazepoxide [Librium -] 25 mg PO Q4H PRN capsule 04/28/20 Chlordiazepoxide [Librium -] 25 mg PO [id number] capsule 04/28/20 Chlordiazepoxide [Librium -] 25 mg PO [id number] capsule 04/28/20 Cyanocobalamin [Vitamin B12 -] 1,000 mcg PO DAILY 04/28/20 Ferrous Sulfate [Feosol] 325 mg PO DAILY ud 04/28/20 Folic Acid 1 mg PO DAILY 04/28/20 Hydralazine HCl 25 mg PO Q12H 04/28/20 Isosorbide Dinitrate [Isordil] 20 mg PO DAILY 04/28/20 Loratadine [Claritin] 10 mg PO DAILY 04/28/20 Melatonin 5 mg PO HS PRN tab 04/28/20 Multivitamin 1 tab PO DAILY 04/28/20 Nitroglycerin 0.4 mg SL PRN PRN 04/28/20 Pantoprazole Sodium [Protonix] 40 mg PO DAILY 04/28/20 Thiamine HCl [Vitamin B1 -] 100 mg PO HS tablet 04/28/20 Family Medical History Family Hx Diabetes: Sister Review of Systems - Review of Systems Constitutional: reports: No Symptoms Eyes: reports: No Symptoms HENT: reports: No Symptoms Neck: reports: No Symptoms Cardiovascular: reports: No Symptoms Respiratory: reports: No Symptoms Gastrointestinal: reports: No Symptoms Genitourinary: reports: No Symptoms Breasts: reports: No Symptoms Reported Musculoskeletal: reports: No Symptoms Integumentary: reports: No Symptoms 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: reports: No Symptoms Endocrine: reports: No Symptoms Hematology/Lymphatic: reports: No Symptoms Vital Signs: Vital Signs Temperature 98.2 F 04/28/20 09:05 Pulse Rate 60 04/28/20 10:09 Respiratory Rate 04/28/20 10:09 Blood Pressure 132/72 04/28/20 10:09 O2 Sat by Pulse Oximetry (%) 98 04/28/20 10:09 General: Well developed. Well nourished. No acute distress. Head: Normocephalic. Atraumatic, Eyes: PERRLA, EOMI. Sclerae anicteric. Conjunctivae clear. Neck: Supple. No JVD. No bruits. Heart: Normal S1, S2: Regular rhythm and rate. No murmur. No gallop or rub. Lungs: Symmetrical air entry. Clear to auscultation. No crackle. No wheezing or rhonchi. Abdomen: Soft. Bowel sound positive. Non tender. No masses. Extremities: No edema. No clubbing or cyanosis. PD 2+, equal bilaterally. Neuro: Intact, no focal findings. AAO X3 - Other Data Labs, Other Data: CBC, BMP 04/27/20 19:59 04/28/20 05:52 INR, PTT INR 0.84 (0.83-1.09) 04/27/20 19:59 Troponin, BNP 04/27/20 04/27/20 04/28/20 00:01 19:59 05:52 Troponin I < 0.02 < 0.02 < 0.02 Troponin, BNP 04/27/20 04/27/20 04/28/20 00:01 19:59 05:52 Troponin I < 0.02 < 0.02 < 0.02 Imaging - Results EKG: Image Reviewed (ECG 04/27/20 showed sinus bradycardia at 57 BPM. Normal axis. Anteroseptal Q wave with ST-T abnormalities, consistent with recent anteroseptal LA.) Assessment/Plan 59-year-old male with a history of alcohol and cocaine abuse (currently in detox), STEMI 03/30/2017 in the setting of cocaine use due to coronary spams in p roximal LAD, diagnostic cardiac cath 03/30/17 at [facility] showed non-obstructive CAD and proximal LAD coronary artery vasospasm, improved with intracoronary NTG, HFrEF (LVEF 40% from echocardiogram on 09/21/19) and noncompliant with medication who was referred from [facility] for evaluation of abnormal ECG. The patient was found to have abnormal ECG which was consistent with recent/old anteroseptal LA. He currently has no complaints no chest pain or AOB. Per progress notes from [facility], patient has history of LA without obvious chest pain so they sent him to the ER for further evaluation. He states he would like to continue detox. He reports his last drink 04/26, last Cocaine use 04/25. LA ruled out. ECG 04/27/20 showed sinus bradycardia at 57 BPM. Normal axis. Anteroseptal Q wave with ST-T abnormalities, consistent with old anteroseptal LA. I compared his ECG on 12/30/19 at [facility] and ECG her on 04/27/20. The anteroseptal abnormalities are the same without changes. Abnormal ECG secondary to old anteroapical STEMI due to proximal LAD coronary artery vasospasm. The abnormal ECG remains unchanged. He has no symptoms of angina or CHF. Beta giorgio should be avoided due to coronary artery vasospasm. May used calcium channel giorgio if needed. He can be discharged back to [facility] for detox. Please do not hesitate to call us for reconsult at any time if any further questions or additional issue arises regarding this patient.
[2020-04-28 12:51] LABS: COCAINE, UR NEGATIVE ng/ml (CUTOFF=300); METHADONE, UR NEGATIVE ng/ml (CUTOFF=300); OPIATES, URI NEGATIVE ng/ml (CUTOFF=300); PHENCYCLIDINE,URINE NEGATIVE ng/ml (CUTOFF=25); URINE AMPHETAMINES NEGATIVE ng/ml (CUTOFF=500); URINE BARBITURATES NEGATIVE ng/ml (CUTOFF=200)
[2020-04-28 12:56] LABS: URINE BENZODIAZEPINES POSITIVE ng/ml (CUTOFF=200)
[2020-04-28 14:37] VITALS: BP 148/75; TEMP 98.4
--- NOTE | 2020-04-28 15:58 | DS ---
Physical Exam: SUBJECTIVE: Patient seen and examined at bedside, reports that he does not want to be here and wants to go home, denies any chest pain, palpitations, nausea, vomiting, fever, chills OBJECTIVE: Vital Signs Period Temp Pulse Resp BP Sys/Clifford Pulse Ox Last 24 Hr 98.0 F-98.7 F 50-70 16-20 112-148/60-75 98-100 PHYSICAL EXAM GENERAL: Awake, alert, and fully oriented, in no acute distress. HEAD: Normal with no signs of trauma. EYES: Pupils equal, round and reactive to light, sclera anicteric, conjunctiva clear. LUNGS: Breath sounds equal, clear to auscultation bilaterally. No wheezes, and no crackles. No accessory muscle use. HEART: Regular rate and rhythm, normal S1 and S2 ABDOMEN: Soft, nontender, not distended MUSCULOSKELETAL: Normal range of motion at all joints. No bony deformities or tenderness. No CVA tenderness. UPPER EXTREMITIES: 2+ pulses, warm, well-perfused. No cyanosis. No clubbing. No peripheral edema. LOWER EXTREMITIES: 2+ pulses, warm, well-perfused. No calf tenderness. No peripheral edema. NEUROLOGICAL: Cranial nerves II-XII intact. Normal speech. LABS Laboratory Results - last 24 hr 04/27/20 04/27/20 04/27/20 00:01 19:59 19:59 WBC 2.9 L RBC 3.79 L Hgb 11.6 L Hct 35.3 L MCV 93.1 MCH 30.5 MCHC 32.7 RDW 17.1 H Plt Count 189 MPV 9.1 Absolute Neuts (auto) 1.5 Neutrophils % 51.1 Lymphocytes % 34.8 Monocytes % 10.2 Eosinophils % 3.2 D Basophils % 0.7 Nucleated RBC % 0 PT with INR 9.90 INR 0.84 PTT (Actin FS) 32.6 Sodium Potassium Chloride Carbon Dioxide Anion Gap BUN Creatinine Est GFR (CKD-EPI)AfAm Est GFR (CKD-EPI)NonAf Random Glucose Calcium Magnesium Total Bilirubin AST ALT Alkaline Phosphatase Creatine Kinase 191 Creatine Kinase Index 0.9 CK-MB (CK-2) 1.9 Troponin I < 0.02 Total Protein Albumin Triglycerides Cholesterol Total LDL Cholesterol HDL Cholesterol Opiates Screen Methadone Screen Barbiturate Screen Phencyclidine Screen Ur Amphetamines Screen MDMA (Ecstasy) Screen Benzodiazepines Screen Cocaine Screen U Marijuana (THC) Screen 04/27/20 04/28/20 04/28/20 19:59 05:52 10:00 WBC RBC Hgb Hct MCV MCH MCHC RDW Plt Count MPV Absolute Neuts (auto) Neutrophils % Lymphocytes % Monocytes % Eosinophils % Basophils % Nucleated RBC % PT with INR INR PTT (Actin FS) Sodium 139 139 Potassium 3.7 3.5 Chloride 105 106 Carbon Dioxide 30 29 Anion Gap 4 L 5 L BUN 15.8 12.5 Creatinine 0.7 0.7 Est GFR (CKD-EPI)AfAm 119.72 119.72 Est GFR (CKD-EPI)NonAf 103.30 103.30 Random Glucose 100 97 Calcium 8.3 L 8.2 L Magnesium 1.9 1.8 Total Bilirubin 0.3 0.4 AST 24 23 ALT 19 17 Alkaline Phosphatase 101 78 Creatine Kinase 195 147 Creatine Kinase Index 1.0 CK-MB (CK-2) 2.0 Troponin I < 0.02 < 0.02 Total Protein 6.8 6.4 Albumin 3.0 L 2.8 L Triglycerides 103 Cholesterol 134 Total LDL Cholesterol 30 HDL Cholesterol 90 H Opiates Screen Negative Methadone Screen Negative Barbiturate Screen Negative Phencyclidine Screen Negative Ur Amphetamines Screen Negative MDMA (Ecstasy) Screen Negative Benzodiazepines Screen Positive A* Cocaine Screen Negative U Marijuana (THC) Screen Negative HOSPITAL COURSE: Date of Admission:04/28/20 This is a 59-year-old male with Mhx of Alcohol Abuse (currently in detox) Cocaine Abuse, Hx of 2 SD(per pt in 2017 and 2019) who presented from [facility] for evaluation of T-wave inversion. In ER he denied any active chest pain, palpitations, dyspnea. Trops negative x 3, CXR showed no acute pathology. EKG noted T-wave inversion that was present on previous EKGs as well. Patient is clinically stable and is discharged back to [place] for rehab. Date of Discharge: 04/28/20 Minutes to complete discharge: 36 Discharge Summary Problems reviewed: Yes Reason For Visit: ACUTE ELECTROCARDIOGRAPHY CHANGES,ALCOHOL Current Active Problems Acute electrocardiogram changes (Acute) Admitted to alcohol detoxification center (Acute) Encounter for screening laboratory testing for COVID-19 virus (Acute) History of SD (myocardial infarction) (Acute) Condition: Good - Instructions Diet, Activity, Other Instructions: YOUR VISIT: You were admitted to the hospital for some EKG changes. we did blood work and repeated EKG. You did not have evidence of an heart attack at this time. You are medically stable to return to [facility] for detox MEDICATIONS: Continue to take all other home medications as prescribed FOLLOW UPS: Please visit your primary care provider after your detox to follow up with your labwork and hospital visit. ADDITIONAL INSTRUCTIONS: You are being discharged to your home. Please return to the Emergency department if you are experiencing worsening or concerning symptoms. Disposition: I.P. ALCOHOL/SUBS ABUSE REHAB - Home Medications Comprehensive Discharge Medication List: Ambulatory Orders Aspirin [ASA -] 81 mg PO DAILY #30 tab.chew 03/01/20 Atorvastatin Ca [Lipitor] 80 mg PO HS #30 tablet 03/01/20 Clotrimazole [Lotrimin -] 1 applic TP BID #1 tube 03/01/20 Lisinopril [Zestril] 2.5 mg PO DAILY #30 tablet 03/01/20 Risperidone [Risperdal -] 2 mg PO HS #30 tablet 03/01/20 Sertraline HCl [Zoloft -] 50 mg PO DAILY #30 tablet 03/01/20 Carvedilol [Coreg] 6.25 mg PO BID 04/28/20 Chlordiazepoxide [Librium -] 10 mg PO Q12H capsule 04/28/20 Chlordiazepoxide [Librium -] 10 mg PO Q4H PRN capsule 04/28/20 Chlordiazepoxide [Librium -] 10 mg PO [id number] capsule 04/28/20 Chlordiazepoxide [Librium -] 25 mg PO Q4H PRN capsule 04/28/20 Chlordiazepoxide [Librium -] 25 mg PO [id number] capsule 04/28/20 Chlordiazepoxide [Librium -] 25 mg PO [id number] capsule 04/28/20 Cyanocobalamin [Vitamin B12 -] 1,000 mcg PO DAILY 04/28/20 Ferrous Sulfate [Feosol] 325 mg PO DAILY ud 04/28/20 Folic Acid 1 mg PO DAILY 04/28/20 Hydralazine HCl 25 mg PO Q12H 04/28/20 Isosorbide Dinitrate [Isordil] 20 mg PO DAILY 04/28/20 Loratadine [Claritin] 10 mg PO DAILY 09/17/20 Melatonin 5 mg PO HS PRN tab 04/28/20 Multivitamin 1 tab PO DAILY 04/28/20 Nitroglycerin 0.4 mg SL PRN PRN 04/28/20 Pantoprazole Sodium [Protonix] 40 mg PO DAILY 04/28/20 Thiamine HCl [Vitamin B1 -] 100 mg PO HS tablet 04/28/20 This patient is new to me today: No Emergency Visit: Yes ED Registration Date: 04/28/20 Care time: The patient presented to the Emergency Department on the above date and was hospitalized for further evaluation of their emergent condition. Critical Care patient: No - Discharge Referral Referred to [facility] Med P.C.: No ATTENDING PHYSICIAN STATEMENT I saw and evaluated the patient. I reviewed the resident's note and discussed the case with the resident. I agree with the resident's findings and plan as documented. SUBJECTIVE: OBJECTIVE: ASSESSMENT AND PLAN:
[2020-04-28] MEDS ORDERED: ATORVASTATIN CA 80 MG TABLET (FP) PO SCH (22:00)
[2020-04-28] MEDS ORDERED: THIAMINE HCL 100 MG TABLET (FP) PO SCH (22:00)
[2020-04-29] MEDS ORDERED: chlordiazePOXIDE HCL 25 MG CAPSULE PO SCH (05:00)
[2020-04-30] MEDS ORDERED: chlordiazePOXIDE HCL 10 MG CAPSULE PO PRN
[2020-04-30] MEDS ORDERED: chlordiazePOXIDE HCL 10 MG CAPSULE PO SCH (05:00)
[2020-05-01] MEDS ORDERED: chlordiazePOXIDE HCL 10 MG CAPSULE PO SCH (05:00)
== END 2020-04-28 16:00 | disposition other institution (70) | DRG 198 ==
LOC: JER 18:32 → JERBED 04-28 00:53
PROVIDERS: ADMIT Internal Medicine; ATTEND Student in an Organized Health Care Education/Training Program
DX: I25.10 Atherosclerotic heart disease of native coronary artery without angina pectoris (principal); E11.9 Type 2 diabetes mellitus without complications; I25.2 Old myocardial infarction; F10.230 Alcohol dependence with withdrawal, uncomplicated; F14.20 Cocaine dependence, uncomplicated; B35.3 Tinea pedis; F25.9 Schizoaffective disorder, unspecified; R94.31 Abnormal electrocardiogram [ECG] [EKG]; F41.8 Other specified anxiety disorders; Z11.59 Encounter for screening for other viral diseases; K21.9 Gastro-esophageal reflux disease without esophagitis; Z91.14 Patient's other noncompliance with medication regimen
CPT/HCPCS: 36415; 71045-TC-FY; 80053; 80061; 80307; 82550; 82553; 83721; 83735; 84484; 85025; 85610; 85730; 93005; 93010; 99285-25

== ENCOUNTER 2020-04-28 16:58 | Inpatient (IN) | payer OTHER ==
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
[2020-04-28] MEDS ORDERED: BISMUTH SUBSALICYLATE 524 MG/30 ML UD PO PRN (17:29)
[2020-04-28] MEDS ORDERED: MENTHOL/PHENOL 1 EACH UD MM PRN (17:29)
[2020-04-28] MEDS ORDERED: MAG HYDROX/AL HYDROX/SIMETH 30 ML UNIT-DOSE CUP PO PRN (17:29)
[2020-04-28] MEDS ORDERED: MAGNESIUM HYDROX 2400MG/30ML ORAL SUSPENSION 30 ML CUP PO PRN (17:29)
[2020-04-28] MEDS ORDERED: ACETAMINOPHEN 325 MG TABLET (FP) PO PRN ×2 (17:29)
[2020-04-28] MEDS ORDERED: ONDANSETRON *ODT* 4 MG TABLET SL PRN (17:29)
[2020-04-28] MEDS ORDERED: MAGNESIUM CITRATE 300 ML BOTTLE PO PRN (17:29)
[2020-04-28 17:30] VITALS: BMI 27.9
[2020-04-28] MEDS ORDERED: chlordiazePOXIDE HCL 25 MG CAPSULE PO PRN (17:30)
[2020-04-28] MEDS: chlordiazePOXIDE HCL 25 MG CAPSULE PO SCH ×2 (18:29→22:28)
[2020-04-28] MEDS: THIAMINE HCL 100 MG TABLET (FP) PO SCH (22:28)
[2020-04-28] MEDS: ATORVASTATIN CA 80 MG TABLET (FP) PO SCH (22:28)
[2020-04-28] MEDS: MELATONIN 5 MG TABLETS PO SCH (22:29)
[2020-04-28] MEDS: CLOTRIMAZOLE 1% CREAM 15 GM TUBE TP SCH (22:29)
[2020-04-28] MEDS: METHOCARBAMOL 500 MG TABLET PO PRN (22:31)
[2020-04-29] MEDS ORDERED: chlordiazePOXIDE HCL 25 MG CAPSULE PO SCH (05:00)
[2020-04-29] MEDS: chlordiazePOXIDE 5 MG CAPSULE PO SCH ×4 (05:46→22:47)
[2020-04-29] MEDS: PANTOPRAZOLE 40 MG TABLET PO SCH (05:46)
[2020-04-29] MEDS: PRENATAL VITAMINS W/ FOLIC ACID TABLET (FP) PO SCH (10:06)
[2020-04-29] MEDS: CLOTRIMAZOLE 1% CREAM 15 GM TUBE TP SCH ×2 (10:06→22:46)
[2020-04-29] MEDS: LISINOPRIL 5 MG TABLET (FP) PO SCH (10:06)
[2020-04-29] MEDS: ASPIRIN 81 MG CHEWABLE TABLETS PO SCH (10:06)
[2020-04-29] MEDS: METHOCARBAMOL 500 MG TABLET PO PRN (10:08)
--- NOTE | 2020-04-29 11:05 | PN ---
S CIWA - CIWA Score Nausea/Vomitin-No Nausea/No Vomiting Muscle Tremors: 1-None Visible, but [place] Anxiety: 1-Mildly Anxious Agitation: 0-Normal Activity Paroxysmal Sweats: 2 Orientation: 0-Oriented Tacttile Disturbances: 0-None Auditory Disturbances: 0-None Visual Disturbances: 0-None Headache: 0-None Present CIWA-Ar Total Score: 4 BHS Progress Note (SOAP) Subjective: little anxiety sweats Objective: 04/29/20 11:03 Vital Signs Temperature 97.5 F L 04/29/20 09:25 Pulse Rate 67 04/29/20 09:25 Respiratory Rate 16 04/29/20 09:25 Blood Pressure 110/61 04/29/20 09:25 O2 Sat by Pulse Oximetry (%) 98 04/29/20 09:25 aaox3 ambulating no acute distress no c /o of chest pain pt was evaluated at [facility] and returned to [facility] for continued detox treatment. Assessment: 04/29/20 11:04 withdrawals Plan: continue with detox increase fluids
[2020-04-29] MEDS: THIAMINE HCL 100 MG TABLET (FP) PO SCH (22:45)
[2020-04-29] MEDS: ATORVASTATIN CA 80 MG TABLET (FP) PO SCH (22:45)
[2020-04-29] MEDS: MELATONIN 5 MG TABLETS PO SCH (22:46)
[2020-04-30] MEDS: PANTOPRAZOLE 40 MG TABLET PO SCH (05:38)
[2020-04-30] MEDS: chlordiazePOXIDE HCL 10 MG CAPSULE PO SCH ×4 (06:08→23:07)
[2020-04-30] MEDS: ASPIRIN 81 MG CHEWABLE TABLETS PO SCH (10:38)
[2020-04-30] MEDS: PRENATAL VITAMINS W/ FOLIC ACID TABLET (FP) PO SCH (10:38)
[2020-04-30] MEDS: LISINOPRIL 5 MG TABLET (FP) PO SCH (10:38)
[2020-04-30] MEDS: CLOTRIMAZOLE 1% CREAM 15 GM TUBE TP SCH ×2 (10:39→22:32)
[2020-04-30] MEDS: METHOCARBAMOL 500 MG TABLET PO PRN ×2 (10:41→22:34)
--- NOTE | 2020-04-30 12:58 | PN ---
S CIWA - CIWA Score Nausea/Vomitin-No Nausea/No Vomiting Muscle Tremors: 2 Anxiety: 3 Agitation: 2 Paroxysmal Sweats: 2 Orientation: 0-Oriented Tacttile Disturbances: 0-None Auditory Disturbances: 0-None Visual Disturbances: 0-None Headache: 0-None Present CIWA-Ar Total Score: 9 BHS Progress Note (SOAP) Subjective: Complaints of tremors, shakes, and anxiety. Objective: 04/30/20 12:57 Vital Signs 04/30/20 04/30/20 05:26 09:25 Temperature 97.5 F L 97.8 F Pulse Rate 57 L 91 H Respiratory 20 18 Rate Blood Pressure 128/74 105/69 O2 Sat by Pulse 100 98 Oximetry (%) Assessment: 04/30/20 12:57 Alert and oriented x 3, in no acute respiratory distress. Full ROM, ambulating in unit without assistance. Skin warm to touch without any lesions. Withdrawal symptoms. Plan: Continue detox protocol.
[2020-04-30] MEDS: MELATONIN 5 MG TABLETS PO SCH (22:32)
[2020-04-30] MEDS: THIAMINE HCL 100 MG TABLET (FP) PO SCH (22:32)
[2020-04-30] MEDS: ATORVASTATIN CA 80 MG TABLET (FP) PO SCH (22:32)
[2020-05-01] MEDS ORDERED: chlordiazePOXIDE HCL 10 MG CAPSULE PO PRN
[2020-05-01] MEDS: PANTOPRAZOLE 40 MG TABLET PO SCH (05:37)
[2020-05-01] MEDS: chlordiazePOXIDE HCL 10 MG CAPSULE PO SCH ×2 (05:38→17:44)
[2020-05-01] MEDS: ASPIRIN 81 MG CHEWABLE TABLETS PO SCH (10:27)
[2020-05-01] MEDS: CLOTRIMAZOLE 1% CREAM 15 GM TUBE TP SCH ×2 (10:27→22:17)
[2020-05-01] MEDS: LISINOPRIL 5 MG TABLET (FP) PO SCH (10:28)
[2020-05-01] MEDS: PRENATAL VITAMINS W/ FOLIC ACID TABLET (FP) PO SCH (10:28)
[2020-05-01] MEDS: METHOCARBAMOL 500 MG TABLET PO PRN ×2 (10:30→22:18)
--- NOTE | 2020-05-01 16:10 | PN ---
S CIWA - CIWA Score Nausea/Vomitin-No Nausea/No Vomiting Muscle Tremors: None Anxiety: 2 Agitation: 2 Paroxysmal Sweats: No Perspiration Orientation: 0-Oriented Tacttile Disturbances: 0-None Auditory Disturbances: 0-None Visual Disturbances: 0-None Headache: 0-None Present CIWA-Ar Total Score: 4 BHS Progress Note (SOAP) Subjective: Feels ok, patient stated that he is for discharge tomorrow and wants to leave early. Patient aware that discharge is at 8am. Objective: 05/01/20 16:07 Last Vital Signs Temp Pulse Resp BP Pulse Ox 97.5 F L 73 16 119/71 100 05/01/20 12:52 05/01/20 12:52 05/01/20 12:52 05/01/20 12:52 05/01/20 12:52 Admission CBC/CMP reviewed Assessment: 05/01/20 16:08 Withdrawal sxs Plan: Continue detox Encourage PO water intake Patient scheduled for discharge tomorrow, instructed to follow up with PCP within 1-2 weeks post discharge
[2020-05-01] MEDS: ATORVASTATIN CA 80 MG TABLET (FP) PO SCH (22:16)
[2020-05-01] MEDS: MELATONIN 5 MG TABLETS PO SCH (22:17)
[2020-05-01] MEDS: THIAMINE HCL 100 MG TABLET (FP) PO SCH (22:17)
[2020-05-02] MEDS ORDERED: chlordiazePOXIDE HCL 10 MG CAPSULE PO ONE (05:00)
[2020-05-02] MEDS: PANTOPRAZOLE 40 MG TABLET PO SCH (05:39)
--- NOTE | 2020-05-02 07:07 | DS ---
[facility] Detox Discharge Summary Admission Date: 04/28/20 Discharge Date: 05/02/20 - History Additional Comments: Patient is scheduled for early discharge. He is to follow up with [facility] for Rehab. Dis charge instructions and patient education done and patient verbalized understanding of instructions. He is medically stable to go home. He is alert and oriented to person, place and time, ambulates independently, in no acute distress. Vitals: B/P 136/54, HR 54, patient is to follow up with his mammalogy teacher and PCP. He reports that he has a scheduled follow up appointment. Pertinent Past History: Alcohol dependence Cocaine dependence Cannabis dependence Peptic ulcer disease Myocardial Infarction Anemia Diabetes Type 2 Nicotine dependence Hypertension Hypercholesterolemia Insomnia Depression Bipolar disorder GERD Schizophrenia - Physical Exam Results Vital Signs: Vital Signs Temperature 97.8 F 05/01/20 20:48 Pulse Rate 61 05/01/20 20:48 Respiratory Rate 18 05/01/20 20:48 Blood Pressure 127/63 05/01/20 20:48 O2 Sat by Pulse Oximetry (%) 100 05/01/20 20:48 Pertinent Admission Physical Exam Findings: Alcohol withdrawal symptoms - Medication Discharge Medications: Ambulatory Orders Aspirin [ASA -] 81 mg PO DAILY #30 tab.chew 03/01/20 Atorvastatin Ca [Lipitor] 80 mg PO HS #30 tablet 03/01/20 Clotrimazole [Lotrimin -] 1 applic TP BID #1 tube 03/01/20 Lisinopril [Zestril] 2.5 mg PO DAILY #30 tablet 03/01/20 Risperidone [Risperdal -] 2 mg PO HS #30 tablet 03/01/20 Sertraline HCl [Zoloft -] 50 mg PO DAILY #30 tablet 03/01/20 Carvedilol [Coreg] 6.25 mg PO BID 04/28/20 Cyanocobalamin [Vitamin B12 -] 1,000 mcg PO DAILY 04/28/20 Ferrous Sulfate [Feosol] 325 mg PO DAILY ud 04/28/20 Folic Acid 1 mg PO DAILY 04/28/20 Hydralazine HCl 25 mg PO Q12H 04/28/20 Isosorbide Dinitrate [Isordil] 20 mg PO DAILY 04/28/20 Loratadine [Claritin] 10 mg PO DAILY 04/28/20 Melatonin 5 mg PO HS PRN tab 04/28/20 Multivitamin 1 tab PO DAILY 04/28/20 Nitroglycerin 0.4 mg SL PRN PRN 04/28/20 Pantoprazole Sodium [Protonix] 40 mg PO DAILY 04/28/20 Thiamine HCl [Vitamin B1 -] 100 mg PO HS tablet 04/28/20 - Diagnosis (1) Alcohol dependence with withdrawal, uncomplicated Current Visit: Yes Status: Chronic (2) Bipolar disorder Current Visit: Yes Status: Chronic (3) Cannabis dependence Current Visit: Yes Status: Chronic (4) Cocaine dependence Current Visit: Yes Status: Chronic Qualifiers: Substance use status: uncomplicated Qualified Code(s): F14.20 - Cocaine dependence, uncomplicated (5) DM2 (diabetes mellitus, type 2) Current Visit: Yes Status: Chronic Qualifiers: Diabetes mellitus retirement insulin use: without retirement use Diabetes mellitus complication status: without complication Qualified Code(s): E11.9 - Type 2 diabetes mellitus without complications (6) GERD (gastroesophageal reflux disease) Current Visit: Yes Status: Chronic (7) Hypercholesterolemia Current Visit: Yes Status: Chronic (8) Hypertension Current Visit: Yes Status: Chronic Qualifiers: Hypertension type: essential hypertension Qualified Code(s): I10 - Essential (primary) hypertension (9) Insomnia Current Visit: No Status: Chronic Qualifiers: Insomnia type: due to medical condition Qualified Code(s): G47.01 - Insomnia due to medical condition (10) Nicotine dependence Current Visit: Yes Status: Chronic Qualifiers: Nicotine product type: cigarettes Substance use status: in withdrawal Qualified Code(s): F17.213 - Nicotine dependence, cigarettes, with withdrawal (11) Anxiety and depression Current Visit: No Status: Suspected (12) Myocardial infarction Current Visit: Yes Status: Chronic (13) PUD (peptic ulcer disease) Current Visit: No Status: Resolved (14) Schizoaffective disorder Current Visit: Yes Status: Chronic Qualifiers: Schizoaffective disorder type: bipolar Qualified Code(s): F25.0 - Schizoaffective disorder, bipolar type - AMA Did Patient Leave Against Medical Advice: No
[2020-05-02 07:27] VITALS: BP 136/54; PULSE 54; TEMP 90.8
== END 2020-05-02 07:06 | disposition home or self-care (01) | DRG 774 ==
LOC: YASAS 16:58 → Y6N 17:54
PROVIDERS: ADMIT Allergy & Immunology; ATTEND Allergy & Immunology
PROC: HZ2ZZZZ Detoxification Services for Substance Abuse Treatment (ICD-10-PCS; principal; 2020-04-28)
DX: F10.230 Alcohol dependence with withdrawal, uncomplicated (principal); F14.20 Cocaine dependence, uncomplicated; F12.20 Cannabis dependence, uncomplicated; F17.210 Nicotine dependence, cigarettes, uncomplicated; F31.9 Bipolar disorder, unspecified; D64.9 Anemia, unspecified; E23.2 Diabetes insipidus; E78.00 Pure hypercholesterolemia, unspecified; G47.01 Insomnia due to medical condition; I10 Essential (primary) hypertension; I25.2 Old myocardial infarction; K21.9 Gastro-esophageal reflux disease without esophagitis; Z87.11 Personal history of peptic ulcer disease

== ENCOUNTER 2020-07-31 10:01 | Inpatient (IN) | payer OTHER ==
[2020-07-31 11:16] VITALS: BMI 26.7
[2020-07-31] MEDS ORDERED: MAGNESIUM HYDROX 2400MG/30ML ORAL SUSPENSION 30 ML CUP PO PRN (11:34)
[2020-07-31] MEDS ORDERED: BISMUTH SUBSALICYLATE 524 MG/30 ML UD PO PRN (11:34)
[2020-07-31] MEDS ORDERED: ONDANSETRON *ODT* 4 MG TABLET SL PRN (11:34)
[2020-07-31] MEDS ORDERED: MAGNESIUM CITRATE 300 ML BOTTLE PO PRN (11:34)
[2020-07-31] MEDS ORDERED: ACETAMINOPHEN 325 MG TABLET (FP) PO PRN ×2 (11:34)
[2020-07-31] MEDS ORDERED: MAG HYDROX/AL HYDROX/SIMETH 30 ML UNIT-DOSE CUP PO PRN (11:34)
[2020-07-31] MEDS ORDERED: chlordiazePOXIDE HCL 25 MG CAPSULE PO PRN (11:34)
[2020-07-31] MEDS: ASPIRIN 81 MG CHEWABLE TABLETS PO SCH (12:55)
[2020-07-31] MEDS: METHOCARBAMOL 500 MG TABLET PO PRN (12:57)
[2020-07-31] MEDS: hydrOXYzine PAMOATE 25 MG CAPSULE (FP) PO SCH ×3 (13:01→22:16)
[2020-07-31] MEDS: chlordiazePOXIDE HCL 25 MG CAPSULE PO SCH ×2 (17:32→22:16)
[2020-07-31] MEDS: IBUPROFEN 400 MG TABLET (FP) PO PRN (22:00)
[2020-07-31] MEDS: ATORVASTATIN CA 80 MG TABLET (FP) PO SCH (22:16)
[2020-07-31] MEDS: CARVEDILOL 6.25 MG TABLET (FP) PO SCH (22:16)
[2020-07-31] MEDS: MELATONIN 5 MG TABLETS PO SCH (22:18)
[2020-07-31] MEDS: CLOTRIMAZOLE 1% CREAM 15 GM TUBE TP SCH (22:18)
[2020-07-31] MEDS: THIAMINE HCL 100 MG TABLET (FP) PO SCH (22:26)
[2020-08-01] MEDS: chlordiazePOXIDE HCL 25 MG CAPSULE PO SCH ×4 (05:23→22:16)
[2020-08-01] MEDS: hydrOXYzine PAMOATE 25 MG CAPSULE (FP) PO SCH ×5 (05:23→22:15)
[2020-08-01] MEDS ORDERED: PANTOPRAZOLE 40 MG TABLET PO SCH (10:00)
[2020-08-01] MEDS ORDERED: PANTOPRAZOLE 40 MG TABLET PO ONE (10:00)
[2020-08-01] MEDS ORDERED: ISOSORBIDE DINITRATE 20 MG TABLET PO SCH ×2 (10:00→10:15)
[2020-08-01] MEDS: PRENATAL VITAMINS W/ FOLIC ACID TABLET (FP) PO SCH (10:24)
[2020-08-01] MEDS: CLOTRIMAZOLE 1% CREAM 15 GM TUBE TP SCH ×2 (10:24→22:16)
[2020-08-01] MEDS: CARVEDILOL 6.25 MG TABLET (FP) PO SCH ×2 (10:24→22:15)
[2020-08-01] MEDS: LISINOPRIL 5 MG TABLET PO SCH (10:25)
[2020-08-01] MEDS: ASPIRIN 81 MG CHEWABLE TABLETS PO SCH (10:27)
[2020-08-01] MEDS: IBUPROFEN 400 MG TABLET (FP) PO PRN ×2 (10:27→22:18)
[2020-08-01 11:31] LABS: POTASSIUM 3.3 mmol/L (3.5-5.1)
[2020-08-01 11:32] LABS: PH,URINE 5.5 (5.0-8.0); URINE APPEARANCE CLEAR; URINE BILIRUBIN NEGATIVE (NEGATIVE); URINE COLOR YELLOW; URINE GLUCOSE (UA) NEGATIVE (NEGATIVE); URINE KETONE TRACE (NEGATIVE); URINE LEUK ESTERASE NEGATIVE (NEGATIVE); URINE NITRITE NEGATIVE (NEGATIVE); URINE PROTEIN TRACE (NEGATIVE)
[2020-08-01 11:33] LABS: HEMATOCRIT 34.1 % (35.4-49); HEMOGLOBIN 11.1 GM/dL (11.7-16.9); MCH 29.6 pg (25.7-33.7); MCHC 32.6 g/dl (32.0-35.9); MEAN CELL VOLUME 90.7 fl (80-96); MEAN PLT VOLUME 8.8 fl (7.5-11.1); PLATELET COUNT 214 K/MM3 (134-434); RBC 3.76 M/mm3 (4.00-5.60); RDW 18.3 % (11.9-15.9); WHITE BLOOD COUNT 3.7 K/mm3 (4.0-10.0)
[2020-08-01 11:34] LABS: ALBUMIN 2.8 g/dl (3.4-5.0); BLOOD UREA NITROGEN 10.2 mg/dL (7-18); CALCIUM 8.6 mg/dL (8.5-10.1)
[2020-08-01 11:38] LABS: CREATININE 0.8 mg/dL (0.55-1.3)
[2020-08-01 11:39] LABS: BILIRUBIN,TOTAL 1.2 mg/dL (0.2-1)
[2020-08-01] MEDS ORDERED: NITROGLYCERIN SUBLINGUAL 1/150 0.4 MG TAB SL PRN (12:34)
[2020-08-01] MEDS ORDERED: ISOSORBIDE DINITRATE 20 MG TABLET PO ONE (13:00)
[2020-08-01] MEDS ORDERED: POTASSIUM CHLORIDE ORAL LIQUID 20 MEQ/15 ML PO ONE (16:50)
[2020-08-01] MEDS ORDERED: LOPERAMIDE HCL 2 MG CAPSULE PO PRN (18:51)
[2020-08-01] MEDS ORDERED: BENZOCAINE 28 GM HEMORRHOIDAL OINTMENT PR PRN (18:52)
[2020-08-01] MEDS: MELATONIN 5 MG TABLETS PO SCH (22:15)
[2020-08-01] MEDS: THIAMINE HCL 100 MG TABLET (FP) PO SCH (22:15)
[2020-08-01] MEDS: ATORVASTATIN CA 80 MG TABLET (FP) PO SCH (22:15)
[2020-08-02] MEDS ORDERED: chlordiazePOXIDE HCL 25 MG CAPSULE PO SCH (05:00)
[2020-08-02] MEDS: hydrOXYzine PAMOATE 25 MG CAPSULE (FP) PO SCH ×5 (05:22→22:12)
[2020-08-02] MEDS: PANTOPRAZOLE 40 MG TABLET PO SCH (05:22)
[2020-08-02] MEDS: PRENATAL VITAMINS W/ FOLIC ACID TABLET (FP) PO SCH (10:16)
[2020-08-02] MEDS: ASPIRIN 81 MG CHEWABLE TABLETS PO SCH (10:16)
[2020-08-02] MEDS: LISINOPRIL 5 MG TABLET PO SCH (10:16)
[2020-08-02] MEDS: CARVEDILOL 6.25 MG TABLET (FP) PO SCH ×2 (10:17→22:12)
[2020-08-02] MEDS: CLOTRIMAZOLE 1% CREAM 15 GM TUBE TP SCH ×2 (10:17→22:12)
[2020-08-02] MEDS: METHOCARBAMOL 500 MG TABLET PO PRN ×2 (10:19→22:13)
[2020-08-02] MEDS: ISOSORBIDE DINITRATE 20 MG TABLET PO SCH (10:20)
[2020-08-02] MEDS: FERROUS SO4 325 MG TABLET (FP) PO SCH (10:48)
[2020-08-02] MEDS: MENTHOL/PHENOL 1 EACH UD MM PRN ×3 (11:56→22:15)
[2020-08-02] MEDS: chlordiazePOXIDE HCL 10 MG CAPSULE PO SCH ×2 (11:56→17:22)
[2020-08-02] MEDS: BENZOCAINE 28 GM HEMORRHOIDAL OINTMENT RC SCH ×3 (12:40→23:08)
[2020-08-02] MEDS: THIAMINE HCL 100 MG TABLET (FP) PO SCH (22:12)
[2020-08-02] MEDS: ATORVASTATIN CA 80 MG TABLET (FP) PO SCH (22:12)
[2020-08-02] MEDS: MELATONIN 5 MG TABLETS PO SCH (22:12)
[2020-08-03] MEDS ORDERED: chlordiazePOXIDE HCL 10 MG CAPSULE PO PRN
[2020-08-03] MEDS: chlordiazePOXIDE HCL 10 MG CAPSULE PO SCH ×2 (05:31→10:46)
[2020-08-03] MEDS: hydrOXYzine PAMOATE 25 MG CAPSULE (FP) PO SCH ×2 (05:32→10:46)
[2020-08-03] MEDS: PANTOPRAZOLE 40 MG TABLET PO SCH (05:32)
[2020-08-03] MEDS: BENZOCAINE 28 GM HEMORRHOIDAL OINTMENT RC SCH ×4 (05:32→23:00)
[2020-08-03] MEDS: MENTHOL/PHENOL 1 EACH UD MM PRN ×3 (05:33→17:31)
[2020-08-03] MEDS: PRENATAL VITAMINS W/ FOLIC ACID TABLET (FP) PO SCH (10:45)
[2020-08-03] MEDS: METHOCARBAMOL 500 MG TABLET PO PRN (10:46)
[2020-08-03] MEDS: ISOSORBIDE DINITRATE 20 MG TABLET PO SCH (10:46)
[2020-08-03] MEDS: ASPIRIN 81 MG CHEWABLE TABLETS PO SCH (10:46)
[2020-08-03] MEDS: FERROUS SO4 325 MG TABLET (FP) PO SCH (10:46)
[2020-08-03] MEDS: CARVEDILOL 6.25 MG TABLET (FP) PO SCH ×2 (10:46→22:03)
[2020-08-03] MEDS: LISINOPRIL 5 MG TABLET PO SCH (10:46)
[2020-08-03 10:56] LABS: POTASSIUM 3.9 mmol/L (3.5-5.1)
[2020-08-03 10:58] LABS: CALCIUM 8.5 mg/dL (8.5-10.1)
[2020-08-03 10:59] LABS: ALBUMIN 2.7 g/dl (3.4-5.0)
[2020-08-03 11:02] LABS: CREATININE 0.8 mg/dL (0.55-1.3)
[2020-08-03 11:04] LABS: BILIRUBIN,TOTAL 0.3 mg/dL (0.2-1); TOT PROT 6.7 g/dl (6.4-8.2)
[2020-08-03] MEDS ORDERED: hydrOXYzine PAMOATE 25 MG CAPSULE (FP) PO PRN (11:07)
[2020-08-03] MEDS: CLOTRIMAZOLE 1% CREAM 15 GM TUBE TP SCH ×2 (11:24→22:07)
[2020-08-03] MEDS: chlordiazePOXIDE 5 MG CAPSULE PO SCH ×2 (17:30→22:04)
[2020-08-03] MEDS: ATORVASTATIN CA 80 MG TABLET (FP) PO SCH (22:03)
[2020-08-03] MEDS: MELATONIN 5 MG TABLETS PO SCH (22:03)
[2020-08-03] MEDS: THIAMINE HCL 100 MG TABLET (FP) PO SCH (22:03)
[2020-08-03] MEDS: IBUPROFEN 400 MG TABLET (FP) PO PRN (22:05)
[2020-08-04] MEDS ORDERED: chlordiazePOXIDE 5 MG CAPSULE PO SCH (05:00)
[2020-08-04] MEDS ORDERED: chlordiazePOXIDE HCL 10 MG CAPSULE PO SCH (05:00)
[2020-08-04] MEDS: BENZOCAINE 28 GM HEMORRHOIDAL OINTMENT RC SCH (05:20)
[2020-08-04] MEDS: PANTOPRAZOLE 40 MG TABLET PO SCH (05:21)
[2020-08-04 09:39] VITALS: BP 144/78; PULSE 82; TEMP 97.1
[2020-08-04] MEDS: LISINOPRIL 5 MG TABLET PO SCH (09:46)
[2020-08-04] MEDS: PRENATAL VITAMINS W/ FOLIC ACID TABLET (FP) PO SCH (09:46)
[2020-08-04] MEDS: CARVEDILOL 6.25 MG TABLET (FP) PO SCH (09:46)
[2020-08-04] MEDS: ASPIRIN 81 MG CHEWABLE TABLETS PO SCH (09:46)
[2020-08-04] MEDS: FERROUS SO4 325 MG TABLET (FP) PO SCH (09:46)
[2020-08-04] MEDS: ISOSORBIDE DINITRATE 20 MG TABLET PO SCH (09:46)
[2020-08-04] MEDS: METHOCARBAMOL 500 MG TABLET PO PRN (09:47)
[2020-08-04] MEDS: MENTHOL/PHENOL 1 EACH UD MM PRN (09:48)
[2020-08-04] MEDS: CLOTRIMAZOLE 1% CREAM 15 GM TUBE TP SCH (10:24)
[2020-08-05] MEDS ORDERED: chlordiazePOXIDE 5 MG CAPSULE PO ONE (05:00)
[2020-08-05] MEDS ORDERED: chlordiazePOXIDE HCL 10 MG CAPSULE PO ONE (05:00)
== END 2020-08-04 11:04 | disposition home or self-care (01) | DRG 774 ==
LOC: YASAS 10:01 → Y3N 11:45
PROVIDERS: ADMIT Allergy & Immunology; ATTEND Allergy & Immunology
PROC: HZ2ZZZZ Detoxification Services for Substance Abuse Treatment (ICD-10-PCS; principal; 2020-07-31)
DX: F10.230 Alcohol dependence with withdrawal, uncomplicated (principal); F14.20 Cocaine dependence, uncomplicated; F31.9 Bipolar disorder, unspecified; I10 Essential (primary) hypertension; I25.2 Old myocardial infarction; K21.9 Gastro-esophageal reflux disease without esophagitis; E78.00 Pure hypercholesterolemia, unspecified; E87.6 Hypokalemia; E23.2 Diabetes insipidus; B35.1 Tinea unguium; Z56.0 Unemployment, unspecified
CPT/HCPCS: 36415; 80053; 81003; 82962; 85027; 86780; C9803; U0003

== ENCOUNTER 2020-09-08 13:24 | Inpatient (IN) | payer OTHER ==
[2020-09-08 16:29] VITALS: BMI 27.3
[2020-09-08] MEDS ORDERED: MAGNESIUM HYDROX 2400MG/30ML ORAL SUSPENSION 30 ML CUP PO PRN (17:41)
[2020-09-08] MEDS ORDERED: MENTHOL/PHENOL 1 EACH UD MM PRN (17:41)
[2020-09-08] MEDS ORDERED: MAG HYDROX/AL HYDROX/SIMETH 30 ML UNIT-DOSE CUP PO PRN (17:41)
[2020-09-08] MEDS ORDERED: IBUPROFEN 400 MG TABLET (FP) PO PRN (17:41)
[2020-09-08] MEDS ORDERED: BISMUTH SUBSALICYLATE 524 MG/30 ML UD PO PRN (17:41)
[2020-09-08] MEDS ORDERED: ONDANSETRON *ODT* 4 MG TABLET SL PRN (17:41)
[2020-09-08] MEDS ORDERED: MAGNESIUM CITRATE 300 ML BOTTLE PO PRN (17:41)
[2020-09-08] MEDS ORDERED: LORazepam 1 MG TABLET PO PRN (17:41)
[2020-09-08] MEDS ORDERED: LORazepam 2 MG TABLET PO ONE (18:00)
[2020-09-08] MEDS: hydrOXYzine PAMOATE 25 MG CAPSULE (FP) PO SCH ×2 (18:36→22:27)
[2020-09-08] MEDS: LORazepam 2 MG TABLET PO SCH (22:25)
[2020-09-08] MEDS: THIAMINE HCL 100 MG TABLET (FP) PO SCH (22:26)
[2020-09-08] MEDS: CLOTRIMAZOLE 1% CREAM 15 GM TUBE TP SCH (22:27)
[2020-09-08] MEDS: MELATONIN 5 MG TABLETS PO SCH (22:27)
[2020-09-09] MEDS: hydrOXYzine PAMOATE 25 MG CAPSULE (FP) PO SCH ×5 (05:30→22:19)
[2020-09-09] MEDS: PANTOPRAZOLE 40 MG TABLET PO SCH ×2 (05:30→10:11)
[2020-09-09] MEDS: LORazepam 2 MG TABLET PO SCH ×4 (05:30→22:19)
[2020-09-09] MEDS ORDERED: PANTOPRAZOLE 40 MG TABLET PO SCH (10:00)
[2020-09-09] MEDS: ASPIRIN 81 MG CHEWABLE TABLETS PO SCH (10:11)
[2020-09-09] MEDS: CLOTRIMAZOLE 1% CREAM 15 GM TUBE TP SCH ×2 (10:11→22:20)
[2020-09-09] MEDS: LISINOPRIL 5 MG TABLET PO SCH (10:11)
[2020-09-09] MEDS: PRENATAL VITAMINS W/ FOLIC ACID TABLET (FP) PO SCH (10:11)
[2020-09-09] MEDS: CYANOCOBALAMIN 1,000 MCG TABLET (FP) PO SCH (10:15)
[2020-09-09] MEDS: FOLIC ACID 1 MG TABLET (FP) PO SCH (12:15)
[2020-09-09 12:34] LABS: POTASSIUM 3.1 mmol/L (3.5-5.1)
[2020-09-09 12:36] LABS: ALBUMIN 2.9 g/dl (3.4-5.0); BLOOD UREA NITROGEN 12.2 mg/dL (7-18); CALCIUM 7.7 mg/dL (8.5-10.1); HEMATOCRIT 32.1 % (35.4-49); HEMOGLOBIN 10.7 GM/dL (11.7-16.9); MCH 30.7 pg (25.7-33.7); MCHC 33.4 g/dl (32.0-35.9); MEAN CELL VOLUME 91.9 fl (80-96); MEAN PLT VOLUME 8.8 fl (7.5-11.1); PLATELET COUNT 177 K/MM3 (134-434); RBC 3.49 M/mm3 (4.00-5.60); WHITE BLOOD COUNT 2.2 K/mm3 (4.0-10.0)
[2020-09-09 12:40] LABS: CREATININE 0.7 mg/dL (0.55-1.3)
[2020-09-09 12:41] LABS: BILIRUBIN,TOTAL 0.5 mg/dL (0.2-1); TOT PROT 6.9 g/dl (6.4-8.2)
[2020-09-09] MEDS: FERROUS SO4 325 MG TABLET (FP) PO SCH (13:21)
[2020-09-09] MEDS: CARVEDILOL 6.25 MG TABLET (FP) PO SCH ×2 (13:21→22:20)
[2020-09-09] MEDS ORDERED: POTASSIUM CHLORIDE ORAL LIQUID 20 MEQ/15 ML PO ONE (13:30)
[2020-09-09] MEDS: THIAMINE HCL 100 MG TABLET (FP) PO SCH (22:19)
[2020-09-09] MEDS: MELATONIN 5 MG TABLETS PO SCH (22:20)
[2020-09-09] MEDS: POTASSIUM CHLORIDE ORAL LIQUID 20 MEQ/15 ML PO SCH (22:20)
[2020-09-09] MEDS: ATORVASTATIN CA 80 MG TABLET (FP) PO SCH (22:20)
[2020-09-10] MEDS: LORazepam 1 MG TABLET PO SCH ×4 (05:15→22:51)
[2020-09-10] MEDS: hydrOXYzine PAMOATE 25 MG CAPSULE (FP) PO SCH ×5 (05:16→22:53)
[2020-09-10] MEDS: PANTOPRAZOLE 40 MG TABLET PO SCH (10:32)
[2020-09-10] MEDS: FERROUS SO4 325 MG TABLET (FP) PO SCH (10:32)
[2020-09-10] MEDS: LISINOPRIL 5 MG TABLET PO SCH (10:32)
[2020-09-10] MEDS: ASPIRIN 81 MG CHEWABLE TABLETS PO SCH (10:32)
[2020-09-10] MEDS: CARVEDILOL 6.25 MG TABLET (FP) PO SCH ×2 (10:32→22:52)
[2020-09-10] MEDS: PRENATAL VITAMINS W/ FOLIC ACID TABLET (FP) PO SCH (10:33)
[2020-09-10] MEDS: POTASSIUM CHLORIDE ORAL LIQUID 20 MEQ/15 ML PO SCH (10:33)
[2020-09-10] MEDS: FOLIC ACID 1 MG TABLET (FP) PO SCH (10:33)
[2020-09-10] MEDS: CLOTRIMAZOLE 1% CREAM 15 GM TUBE TP SCH ×2 (10:33→22:53)
[2020-09-10] MEDS: CYANOCOBALAMIN 1,000 MCG TABLET (FP) PO SCH (10:34)
[2020-09-10] MEDS: CALCIUM 500MG/VIT-D 200 UNITS COMBO TABLET (FP) PO SCH ×2 (10:37→22:51)
[2020-09-10] MEDS: ISOSORBIDE DINITRATE 20 MG TABLET PO SCH (13:06)
[2020-09-10] MEDS: THIAMINE HCL 100 MG TABLET (FP) PO SCH (22:51)
[2020-09-10] MEDS: ATORVASTATIN CA 80 MG TABLET (FP) PO SCH (22:52)
[2020-09-10] MEDS: MELATONIN 5 MG TABLETS PO SCH (22:53)
[2020-09-10] MEDS: METHOCARBAMOL 500 MG TABLET PO PRN (22:56)
[2020-09-11] MEDS ORDERED: LORazepam 0.5 MG TABLET PO PRN
[2020-09-11] MEDS: LORazepam 0.5 MG TABLET PO SCH ×4 (05:49→23:02)
[2020-09-11] MEDS: PANTOPRAZOLE 40 MG TABLET PO SCH (05:50)
[2020-09-11] MEDS: hydrOXYzine PAMOATE 25 MG CAPSULE (FP) PO SCH ×5 (05:50→23:03)
[2020-09-11] MEDS: ASPIRIN 81 MG CHEWABLE TABLETS PO SCH (09:55)
[2020-09-11] MEDS: FERROUS SO4 325 MG TABLET (FP) PO SCH (09:55)
[2020-09-11] MEDS: FOLIC ACID 1 MG TABLET (FP) PO SCH (09:55)
[2020-09-11] MEDS: CYANOCOBALAMIN 1,000 MCG TABLET (FP) PO SCH (09:55)
[2020-09-11] MEDS: CALCIUM 500MG/VIT-D 200 UNITS COMBO TABLET (FP) PO SCH ×2 (09:55→23:01)
[2020-09-11] MEDS: LISINOPRIL 5 MG TABLET PO SCH (09:55)
[2020-09-11] MEDS: ISOSORBIDE DINITRATE 20 MG TABLET PO SCH (09:55)
[2020-09-11] MEDS: CLOTRIMAZOLE 1% CREAM 15 GM TUBE TP SCH ×2 (09:57→23:04)
[2020-09-11] MEDS: METHOCARBAMOL 500 MG TABLET PO PRN ×2 (09:57→23:01)
[2020-09-11] MEDS: PRENATAL VITAMINS W/ FOLIC ACID TABLET (FP) PO SCH (10:44)
[2020-09-11] MEDS: CARVEDILOL 6.25 MG TABLET (FP) PO SCH ×2 (14:42→23:04)
[2020-09-11] MEDS: THIAMINE HCL 100 MG TABLET (FP) PO SCH (23:02)
[2020-09-11] MEDS: ATORVASTATIN CA 80 MG TABLET (FP) PO SCH (23:04)
[2020-09-11] MEDS: MELATONIN 5 MG TABLETS PO SCH (23:05)
[2020-09-12] MEDS ORDERED: LORazepam 0.5 MG TABLET PO ONE (05:00)
[2020-09-12] MEDS: PANTOPRAZOLE 40 MG TABLET PO SCH (05:54)
[2020-09-12] MEDS: hydrOXYzine PAMOATE 25 MG CAPSULE (FP) PO SCH ×5 (07:03→23:40)
[2020-09-12] MEDS: FERROUS SO4 325 MG TABLET (FP) PO SCH (12:46)
[2020-09-12] MEDS: CYANOCOBALAMIN 1,000 MCG TABLET (FP) PO SCH (12:46)
[2020-09-12] MEDS: FOLIC ACID 1 MG TABLET (FP) PO SCH (12:46)
[2020-09-12] MEDS: CARVEDILOL 6.25 MG TABLET (FP) PO SCH ×3 (12:46→23:55)
[2020-09-12] MEDS: CLOTRIMAZOLE 1% CREAM 15 GM TUBE TP SCH ×2 (12:47→23:40)
[2020-09-12] MEDS: PRENATAL VITAMINS W/ FOLIC ACID TABLET (FP) PO SCH (12:47)
[2020-09-12] MEDS: ASPIRIN 81 MG CHEWABLE TABLETS PO SCH (12:49)
[2020-09-12] MEDS: ISOSORBIDE DINITRATE 10 MG TABLET PO SCH (12:50)
[2020-09-12] MEDS: CALCIUM 500MG/VIT-D 200 UNITS COMBO TABLET (FP) PO SCH ×3 (12:50→23:55)
[2020-09-12] MEDS: METHOCARBAMOL 500 MG TABLET PO PRN (12:50)
[2020-09-12] MEDS: LISINOPRIL 5 MG TABLET PO SCH (12:50)
[2020-09-12] MEDS: ISOSORBIDE DINITRATE 20 MG TABLET PO SCH (12:52)
[2020-09-12] MEDS: ATORVASTATIN CA 80 MG TABLET (FP) PO SCH ×2 (23:40→23:56)
[2020-09-12] MEDS: THIAMINE HCL 100 MG TABLET (FP) PO SCH ×2 (23:40→23:57)
[2020-09-12] MEDS: MELATONIN 5 MG TABLETS PO SCH ×2 (23:40→23:57)
[2020-09-13] MEDS: PANTOPRAZOLE 40 MG TABLET PO SCH (05:20)
[2020-09-13 06:56] VITALS: BP 119/68; PULSE 61; TEMP 98.2
[2020-09-13] MEDS: hydrOXYzine PAMOATE 25 MG CAPSULE (FP) PO SCH ×2 (07:12→10:43)
[2020-09-13] MEDS: ASPIRIN 81 MG CHEWABLE TABLETS PO SCH (10:42)
[2020-09-13] MEDS: CALCIUM 500MG/VIT-D 200 UNITS COMBO TABLET (FP) PO SCH (10:42)
[2020-09-13] MEDS: CARVEDILOL 6.25 MG TABLET (FP) PO SCH (10:42)
[2020-09-13] MEDS: ISOSORBIDE DINITRATE 10 MG TABLET PO SCH (10:42)
[2020-09-13] MEDS: FERROUS SO4 325 MG TABLET (FP) PO SCH (10:42)
[2020-09-13] MEDS: CYANOCOBALAMIN 1,000 MCG TABLET (FP) PO SCH (10:43)
[2020-09-13] MEDS: FOLIC ACID 1 MG TABLET (FP) PO SCH (10:43)
[2020-09-13] MEDS: PRENATAL VITAMINS W/ FOLIC ACID TABLET (FP) PO SCH (10:43)
[2020-09-13] MEDS: LISINOPRIL 5 MG TABLET PO SCH (10:43)
[2020-09-13] MEDS: CLOTRIMAZOLE 1% CREAM 15 GM TUBE TP SCH (10:43)
== END 2020-09-13 10:51 | disposition home or self-care (01) | DRG 774 ==
LOC: YASAS 13:24 → Y6N 16:46
PROVIDERS: ADMIT Allergy & Immunology; ATTEND Allergy & Immunology
PROC: HZ2ZZZZ Detoxification Services for Substance Abuse Treatment (ICD-10-PCS; principal; 2020-09-08)
DX: F10.230 Alcohol dependence with withdrawal, uncomplicated (principal); F14.20 Cocaine dependence, uncomplicated; F17.213 Nicotine dependence, cigarettes, with withdrawal; F10.282 Alcohol dependence with alcohol-induced sleep disorder; F25.9 Schizoaffective disorder, unspecified; F31.9 Bipolar disorder, unspecified; D64.9 Anemia, unspecified; D72.819 Decreased white blood cell count, unspecified; E83.51 Hypocalcemia; E78.5 Hyperlipidemia, unspecified; E87.6 Hypokalemia; E11.9 Type 2 diabetes mellitus without complications; I10 Essential (primary) hypertension; I25.2 Old myocardial infarction; K21.9 Gastro-esophageal reflux disease without esophagitis; M17.11 Unilateral primary osteoarthritis, right knee; Z87.11 Personal history of peptic ulcer disease
CPT/HCPCS: 36415; 80053; 82962; 83036; 84132; 85027; 86780; C9803; U0003

== ENCOUNTER 2020-10-17 15:12 | Inpatient (IN) | payer OTHER ==
[2020-10-17 17:53] VITALS: BMI 27.1
[2020-10-17] MEDS ORDERED: BISMUTH SUBSALICYLATE 524 MG/30 ML UD PO PRN (19:36)
[2020-10-17] MEDS ORDERED: NICOTINE POLACRILEX 2 MG GUM BUC PRN (19:36)
[2020-10-17] MEDS ORDERED: MAGNESIUM HYDROX 2400MG/30ML ORAL SUSPENSION 30 ML CUP PO PRN (19:36)
[2020-10-17] MEDS ORDERED: MAG HYDROX/AL HYDROX/SIMETH 30 ML UNIT-DOSE CUP PO PRN (19:36)
[2020-10-17] MEDS ORDERED: MENTHOL/PHENOL 1 EACH UD MM PRN (19:36)
[2020-10-17] MEDS ORDERED: MAGNESIUM CITRATE 300 ML BOTTLE PO PRN (19:36)
[2020-10-17] MEDS ORDERED: IBUPROFEN 400 MG TABLET (FP) PO PRN (19:36)
[2020-10-17] MEDS ORDERED: ACETAMINOPHEN 325 MG TABLET (FP) PO PRN ×2 (19:36)
[2020-10-17] MEDS ORDERED: ONDANSETRON *ODT* 4 MG TABLET SL PRN (19:36)
[2020-10-17] MEDS ORDERED: chlordiazePOXIDE HCL 25 MG CAPSULE PO PRN (19:40)
[2020-10-17] MEDS: chlordiazePOXIDE HCL 25 MG CAPSULE PO SCH (22:46)
[2020-10-17] MEDS: hydrOXYzine PAMOATE 25 MG CAPSULE (FP) PO SCH (22:46)
[2020-10-17] MEDS: THIAMINE HCL 100 MG TABLET (FP) PO SCH (22:46)
[2020-10-17] MEDS: MELATONIN 5 MG TABLETS PO SCH (23:59)
[2020-10-18] MEDS: chlordiazePOXIDE HCL 25 MG CAPSULE PO SCH ×4 (05:43→22:30)
[2020-10-18] MEDS: hydrOXYzine PAMOATE 25 MG CAPSULE (FP) PO SCH ×5 (05:43→23:02)
[2020-10-18] MEDS ORDERED: NITROGLYCERIN SUBLINGUAL 1/150 0.4 MG TAB SL PRN (08:21)
[2020-10-18] MEDS ORDERED: PANTOPRAZOLE 40 MG TABLET PO ONE (10:00)
[2020-10-18] MEDS: ISOSORBIDE DINITRATE 10 MG TABLET PO SCH (10:22)
[2020-10-18] MEDS: CALCIUM 500MG/VIT-D 200 UNITS COMBO TABLET (FP) PO SCH ×2 (10:22→22:29)
[2020-10-18] MEDS: PRENATAL VITAMINS W/ FOLIC ACID TABLET (FP) PO SCH (10:23)
[2020-10-18] MEDS: ASPIRIN 81 MG CHEWABLE TABLETS PO SCH (10:23)
[2020-10-18] MEDS: LISINOPRIL 5 MG TABLET PO SCH (10:23)
[2020-10-18] MEDS: hydrALAZINE HCL 25 MG TABLET (FP) PO SCH ×2 (10:26→22:29)
[2020-10-18] MEDS: CLOTRIMAZOLE 1% CREAM 15 GM TUBE TP SCH ×2 (10:27→22:33)
[2020-10-18] MEDS: METHOCARBAMOL 500 MG TABLET PO PRN (10:29)
[2020-10-18] MEDS: CARVEDILOL 6.25 MG TABLET (FP) PO SCH ×2 (10:30→22:29)
[2020-10-18 12:03] LABS: HEMOGLOBIN 11.6 GM/dL (11.7-16.9); MCH 30.1 pg (25.7-33.7); MCHC 33.1 g/dl (32.0-35.9); MEAN CELL VOLUME 90.9 fl (80-96); MEAN PLT VOLUME 8.7 fl (7.5-11.1); PLATELET COUNT 282 K/MM3 (134-434); RBC 3.85 M/mm3 (4.00-5.60); RDW 18.4 % (11.9-15.9); WHITE BLOOD COUNT 3.4 K/mm3 (4.0-10.0)
[2020-10-18 12:21] LABS: CALCIUM 8.8 mg/dL (8.5-10.1)
[2020-10-18 12:22] LABS: ALBUMIN 2.9 g/dl (3.4-5.0); BLOOD UREA NITROGEN 14.7 mg/dL (7-18)
[2020-10-18 12:25] LABS: CREATININE 0.8 mg/dL (0.55-1.3)
[2020-10-18 12:26] LABS: BILIRUBIN,TOTAL 0.7 mg/dL (0.2-1); TOT PROT 8.4 g/dl (6.4-8.2)
[2020-10-18 13:05] LABS: HIV INTERPRETATION NEGATIVE (NEGATIVE)
[2020-10-18] MEDS: ATORVASTATIN CA 40 MG TABLET (FP) PO SCH (22:29)
[2020-10-18] MEDS: MELATONIN 5 MG TABLETS PO SCH (22:33)
[2020-10-18] MEDS: THIAMINE HCL 100 MG TABLET (FP) PO SCH (22:33)
[2020-10-19] MEDS: PANTOPRAZOLE 40 MG TABLET PO SCH (05:41)
[2020-10-19] MEDS: hydrOXYzine PAMOATE 25 MG CAPSULE (FP) PO SCH ×5 (05:41→22:41)
[2020-10-19] MEDS: chlordiazePOXIDE HCL 25 MG CAPSULE PO SCH ×4 (05:43→22:42)
[2020-10-19] MEDS: hydrALAZINE HCL 25 MG TABLET (FP) PO SCH ×2 (10:34→20:41)
[2020-10-19] MEDS: CARVEDILOL 6.25 MG TABLET (FP) PO SCH ×2 (10:35→22:41)
[2020-10-19] MEDS: PRENATAL VITAMINS W/ FOLIC ACID TABLET (FP) PO SCH (10:35)
[2020-10-19] MEDS: CALCIUM 500MG/VIT-D 200 UNITS COMBO TABLET (FP) PO SCH ×2 (10:35→22:40)
[2020-10-19] MEDS: LISINOPRIL 5 MG TABLET PO SCH (10:35)
[2020-10-19] MEDS: ASPIRIN 81 MG CHEWABLE TABLETS PO SCH (10:35)
[2020-10-19] MEDS: CLOTRIMAZOLE 1% CREAM 15 GM TUBE TP SCH ×2 (10:36→22:44)
[2020-10-19] MEDS: METHOCARBAMOL 500 MG TABLET PO PRN ×2 (10:38→22:44)
[2020-10-19] MEDS: ISOSORBIDE DINITRATE 10 MG TABLET PO SCH (11:03)
[2020-10-19] MEDS: THIAMINE HCL 100 MG TABLET (FP) PO SCH (22:40)
[2020-10-19] MEDS: ATORVASTATIN CA 40 MG TABLET (FP) PO SCH (22:41)
[2020-10-19] MEDS: MELATONIN 5 MG TABLETS PO SCH (22:42)
[2020-10-20] MEDS ORDERED: chlordiazePOXIDE HCL 10 MG CAPSULE PO PRN
[2020-10-20] MEDS: chlordiazePOXIDE HCL 10 MG CAPSULE PO SCH ×4 (05:52→22:58)
[2020-10-20] MEDS: PANTOPRAZOLE 40 MG TABLET PO SCH (05:52)
[2020-10-20] MEDS: hydrOXYzine PAMOATE 25 MG CAPSULE (FP) PO SCH ×5 (05:52→22:58)
[2020-10-20] MEDS: hydrALAZINE HCL 25 MG TABLET (FP) PO SCH ×2 (09:10→20:10)
[2020-10-20] MEDS: LISINOPRIL 5 MG TABLET PO SCH (10:16)
[2020-10-20] MEDS: CARVEDILOL 6.25 MG TABLET (FP) PO SCH ×2 (10:16→22:54)
[2020-10-20] MEDS: ASPIRIN 81 MG CHEWABLE TABLETS PO SCH (10:16)
[2020-10-20] MEDS: CALCIUM 500MG/VIT-D 200 UNITS COMBO TABLET (FP) PO SCH ×2 (10:16→22:54)
[2020-10-20] MEDS: METHOCARBAMOL 500 MG TABLET PO PRN (10:19)
[2020-10-20] MEDS: PRENATAL VITAMINS W/ FOLIC ACID TABLET (FP) PO SCH (10:20)
[2020-10-20] MEDS: CLOTRIMAZOLE 1% CREAM 15 GM TUBE TP SCH ×2 (10:20→22:58)
[2020-10-20] MEDS: ISOSORBIDE DINITRATE 10 MG TABLET PO SCH (10:20)
[2020-10-20] MEDS: THIAMINE HCL 100 MG TABLET (FP) PO SCH (22:54)
[2020-10-20] MEDS: MELATONIN 5 MG TABLETS PO SCH (22:54)
[2020-10-20] MEDS: ATORVASTATIN CA 40 MG TABLET (FP) PO SCH (22:54)
[2020-10-21] MEDS ORDERED: chlordiazePOXIDE HCL 10 MG CAPSULE PO SCH (05:00)
[2020-10-21] MEDS: hydrOXYzine PAMOATE 25 MG CAPSULE (FP) PO SCH (05:52)
[2020-10-21] MEDS: PANTOPRAZOLE 40 MG TABLET PO SCH (05:52)
[2020-10-21 09:59] VITALS: BP 118/71; PULSE 83; TEMP 97
[2020-10-22] MEDS ORDERED: chlordiazePOXIDE HCL 10 MG CAPSULE PO ONE (05:00)
== END 2020-10-21 10:08 | disposition home or self-care (01) | DRG 774 ==
LOC: YASAS 15:12 → Y6N 19:04
PROVIDERS: ADMIT Allergy & Immunology; ATTEND Allergy & Immunology
PROC: HZ2ZZZZ Detoxification Services for Substance Abuse Treatment (ICD-10-PCS; principal; 2020-10-17)
DX: F10.230 Alcohol dependence with withdrawal, uncomplicated (principal); F14.20 Cocaine dependence, uncomplicated; F19.282 Other psychoactive substance dependence with psychoactive substance-induced sleep disorder; F31.9 Bipolar disorder, unspecified; D64.9 Anemia, unspecified; E78.5 Hyperlipidemia, unspecified; E11.9 Type 2 diabetes mellitus without complications; I10 Essential (primary) hypertension; K21.9 Gastro-esophageal reflux disease without esophagitis; M19.011 Primary osteoarthritis, right shoulder; M17.11 Unilateral primary osteoarthritis, right knee; I25.2 Old myocardial infarction; Z87.11 Personal history of peptic ulcer disease; Z56.0 Unemployment, unspecified; Z87.81 Personal history of (healed) traumatic fracture; B35.1 Tinea unguium; B35.3 Tinea pedis
CPT/HCPCS: 36415; 80053; 85027; 86780; 87389; C9803; U0003

== ENCOUNTER 2020-12-02 12:13 | Inpatient (IN) | payer OTHER ==
[2020-12-02 15:01] VITALS: BMI 27.0
[2020-12-02] MEDS ORDERED: MAGNESIUM HYDROX 2400MG/30ML ORAL SUSPENSION 30 ML CUP PO PRN (16:30)
[2020-12-02] MEDS ORDERED: chlordiazePOXIDE HCL 25 MG CAPSULE PO PRN (16:30)
[2020-12-02] MEDS ORDERED: IBUPROFEN 400 MG TABLET (FP) PO PRN (16:30)
[2020-12-02] MEDS ORDERED: MAGNESIUM CITRATE 300 ML BOTTLE PO PRN (16:30)
[2020-12-02] MEDS ORDERED: ACETAMINOPHEN 325 MG TABLET (FP) PO PRN ×2 (16:30)
[2020-12-02] MEDS ORDERED: BISMUTH SUBSALICYLATE 524 MG/30 ML UD PO PRN (16:30)
[2020-12-02] MEDS ORDERED: ONDANSETRON *ODT* 4 MG TABLET SL PRN (16:30)
[2020-12-02] MEDS ORDERED: MAG HYDROX/AL HYDROX/SIMETH 30 ML UNIT-DOSE CUP PO PRN (16:30)
[2020-12-02] MEDS: hydrOXYzine PAMOATE 25 MG CAPSULE (FP) PO SCH ×2 (18:50→22:47)
[2020-12-02] MEDS: PRENATAL VITAMINS W/ FOLIC ACID TABLET (FP) PO SCH (18:51)
[2020-12-02] MEDS: MELATONIN 5 MG TABLETS PO SCH (22:47)
[2020-12-02] MEDS: ATORVASTATIN CA 40 MG TABLET (FP) PO SCH (22:47)
[2020-12-02] MEDS: THIAMINE HCL 100 MG TABLET (FP) PO SCH (22:47)
[2020-12-02] MEDS: chlordiazePOXIDE HCL 25 MG CAPSULE PO SCH (22:50)
[2020-12-02] MEDS: CALCIUM 500MG/VIT-D 200 UNITS COMBO TABLET (FP) PO SCH (23:55)
[2020-12-02] MEDS: CARVEDILOL 6.25 MG TABLET (FP) PO SCH (23:55)
[2020-12-02] MEDS: hydrALAZINE HCL 25 MG TABLET (FP) PO SCH (23:56)
[2020-12-03] MEDS: hydrOXYzine PAMOATE 25 MG CAPSULE (FP) PO SCH ×5 (06:58→23:13)
[2020-12-03] MEDS: PANTOPRAZOLE 40 MG TABLET PO SCH (06:58)
[2020-12-03] MEDS: chlordiazePOXIDE HCL 25 MG CAPSULE PO SCH ×4 (06:58→23:14)
[2020-12-03] MEDS: CYANOCOBALAMIN 1,000 MCG TABLET (FP) PO SCH (10:55)
[2020-12-03] MEDS: ASPIRIN 81 MG CHEWABLE TABLETS PO SCH (10:55)
[2020-12-03] MEDS: CALCIUM 500MG/VIT-D 200 UNITS COMBO TABLET (FP) PO SCH ×2 (10:55→23:14)
[2020-12-03] MEDS: LISINOPRIL 5 MG TABLET PO SCH (10:55)
[2020-12-03] MEDS: CARVEDILOL 6.25 MG TABLET (FP) PO SCH ×2 (10:55→23:14)
[2020-12-03] MEDS: FERROUS SO4 325 MG TABLET (FP) PO SCH (10:55)
[2020-12-03] MEDS: ISOSORBIDE DINITRATE 20 MG TABLET PO SCH (10:55)
[2020-12-03] MEDS: FOLIC ACID 1 MG TABLET (FP) PO SCH (10:55)
[2020-12-03] MEDS: PRENATAL VITAMINS W/ FOLIC ACID TABLET (FP) PO SCH (10:55)
[2020-12-03] MEDS: hydrALAZINE HCL 25 MG TABLET (FP) PO SCH ×2 (10:55→23:14)
[2020-12-03] MEDS: METHOCARBAMOL 500 MG TABLET PO PRN ×2 (10:58→18:55)
[2020-12-03 11:02] LABS: HEMATOCRIT 32.3 % (35.4-49); HEMOGLOBIN 10.6 GM/dL (11.7-16.9); MCH 30.4 pg (25.7-33.7); MCHC 32.9 g/dl (32.0-35.9); MEAN CELL VOLUME 92.2 fl (80-96); MEAN PLT VOLUME 9.1 fl (7.5-11.1); PLATELET COUNT 199 K/MM3 (134-434); RDW 16.2 % (11.9-15.9); WHITE BLOOD COUNT 2.4 K/mm3 (4.0-10.0)
[2020-12-03 11:14] LABS: ALBUMIN 2.6 g/dl (3.4-5.0); CALCIUM 8.9 mg/dL (8.5-10.1)
[2020-12-03 11:15] LABS: BLOOD UREA NITROGEN 14.9 mg/dL (7-18)
[2020-12-03 11:18] LABS: CREATININE 0.8 mg/dL (0.55-1.3)
[2020-12-03 11:19] LABS: BILIRUBIN,TOTAL 0.5 mg/dL (0.2-1); TOT PROT 6.8 g/dl (6.4-8.2)
[2020-12-03] MEDS ORDERED: FLU VACCINE (FLULAVAL) PF 60 MCG/0.5 ML SYRINGE 2020-2021 IM ONE (12:00)
[2020-12-03] MEDS ORDERED: POTASSIUM CHLORIDE TABS 20 MEQ TABLET.ER (FP) PO ONE ×2 (12:31→17:00)
[2020-12-03] MEDS: THIAMINE HCL 100 MG TABLET (FP) PO SCH (23:13)
[2020-12-03] MEDS: MELATONIN 5 MG TABLETS PO SCH (23:13)
[2020-12-03] MEDS: ATORVASTATIN CA 40 MG TABLET (FP) PO SCH (23:14)
[2020-12-04] MEDS: hydrOXYzine PAMOATE 25 MG CAPSULE (FP) PO SCH ×5 (06:33→22:23)
[2020-12-04] MEDS: chlordiazePOXIDE HCL 25 MG CAPSULE PO SCH ×4 (06:33→23:37)
[2020-12-04] MEDS: PANTOPRAZOLE 40 MG TABLET PO SCH (06:33)
[2020-12-04 10:34] LABS: BASO % 0.4 % (0-2.0); EOS % 3.5 % (0-4.5); HEMATOCRIT 30.7 % (35.4-49); HEMOGLOBIN 10.2 GM/dL (11.7-16.9); LYMPH % 36.2 % (8-40); MCH 30.7 pg (25.7-33.7); MCHC 33.2 g/dl (32.0-35.9); MEAN CELL VOLUME 92.7 fl (80-96); MEAN PLT VOLUME 9.2 fl (7.5-11.1); MONO % 9.5 % (3.8-10.2); NEUT % 50.4 % (42.8-82.8); PLATELET COUNT 199 K/MM3 (134-434); RBC 3.31 M/mm3 (4.00-5.60); RDW 16.4 % (11.9-15.9)
[2020-12-04 10:54] LABS: ALBUMIN 2.5 g/dl (3.4-5.0)
[2020-12-04] MEDS: ASPIRIN 81 MG CHEWABLE TABLETS PO SCH (10:54)
[2020-12-04] MEDS: FOLIC ACID 1 MG TABLET (FP) PO SCH (10:55)
[2020-12-04] MEDS: FERROUS SO4 325 MG TABLET (FP) PO SCH (10:55)
[2020-12-04] MEDS: LISINOPRIL 5 MG TABLET PO SCH (10:55)
[2020-12-04] MEDS: PRENATAL VITAMINS W/ FOLIC ACID TABLET (FP) PO SCH (10:56)
[2020-12-04] MEDS: CYANOCOBALAMIN 1,000 MCG TABLET (FP) PO SCH (10:56)
[2020-12-04] MEDS: CALCIUM 500MG/VIT-D 200 UNITS COMBO TABLET (FP) PO SCH ×2 (10:56→22:23)
[2020-12-04] MEDS: hydrALAZINE HCL 25 MG TABLET (FP) PO SCH ×2 (10:56→22:23)
[2020-12-04] MEDS: CARVEDILOL 6.25 MG TABLET (FP) PO SCH ×2 (10:56→22:23)
[2020-12-04] MEDS: ISOSORBIDE DINITRATE 20 MG TABLET PO SCH (10:56)
[2020-12-04] MEDS: METHOCARBAMOL 500 MG TABLET PO PRN ×2 (10:59→22:24)
[2020-12-04] MEDS ORDERED: LIDOCAINE 5% TOPICAL PATCH TP SCH (11:15)
[2020-12-04] MEDS ORDERED: IBUPROFEN 600 MG TABLET (FP) PO ONE (13:54)
[2020-12-04] MEDS: ATORVASTATIN CA 40 MG TABLET (FP) PO SCH (22:23)
[2020-12-04] MEDS: THIAMINE HCL 100 MG TABLET (FP) PO SCH (22:23)
[2020-12-04] MEDS: MELATONIN 5 MG TABLETS PO SCH (22:23)
[2020-12-04] MEDS: MENTHOL/PHENOL 1 EACH UD MM PRN (22:26)
[2020-12-04] MEDS: LIDOCAINE PATCH REMOVAL MC SCH (23:38)
[2020-12-05] MEDS ORDERED: chlordiazePOXIDE HCL 10 MG CAPSULE PO PRN
[2020-12-05] MEDS: PANTOPRAZOLE 40 MG TABLET PO SCH (05:38)
[2020-12-05] MEDS: chlordiazePOXIDE HCL 10 MG CAPSULE PO SCH ×4 (05:38→22:25)
[2020-12-05] MEDS: hydrOXYzine PAMOATE 25 MG CAPSULE (FP) PO SCH ×2 (05:38→10:46)
[2020-12-05] MEDS: PRENATAL VITAMINS W/ FOLIC ACID TABLET (FP) PO SCH (10:45)
[2020-12-05] MEDS: FOLIC ACID 1 MG TABLET (FP) PO SCH (10:46)
[2020-12-05] MEDS: LISINOPRIL 5 MG TABLET PO SCH (10:46)
[2020-12-05] MEDS: CYANOCOBALAMIN 1,000 MCG TABLET (FP) PO SCH (10:46)
[2020-12-05] MEDS: ASPIRIN 81 MG CHEWABLE TABLETS PO SCH (10:46)
[2020-12-05] MEDS: CARVEDILOL 6.25 MG TABLET (FP) PO SCH ×2 (10:46→22:25)
[2020-12-05] MEDS: ISOSORBIDE DINITRATE 20 MG TABLET PO SCH (10:46)
[2020-12-05] MEDS: hydrALAZINE HCL 25 MG TABLET (FP) PO SCH ×2 (10:46→22:25)
[2020-12-05] MEDS: METHOCARBAMOL 500 MG TABLET PO PRN (10:47)
[2020-12-05] MEDS: CALCIUM 500MG/VIT-D 200 UNITS COMBO TABLET (FP) PO SCH ×2 (10:49→22:25)
[2020-12-05] MEDS: FERROUS SO4 325 MG TABLET (FP) PO SCH (10:53)
[2020-12-05] MEDS ORDERED: hydrOXYzine PAMOATE 25 MG CAPSULE (FP) PO PRN (11:06)
[2020-12-05] MEDS: ATORVASTATIN CA 40 MG TABLET (FP) PO SCH (22:25)
[2020-12-05] MEDS: THIAMINE HCL 100 MG TABLET (FP) PO SCH (22:26)
[2020-12-05] MEDS: MELATONIN 5 MG TABLETS PO SCH (22:26)
[2020-12-05] MEDS: LIDOCAINE PATCH REMOVAL MC SCH (22:26)
[2020-12-05] MEDS: MENTHOL/PHENOL 1 EACH UD MM PRN (22:29)
[2020-12-06] MEDS ORDERED: chlordiazePOXIDE HCL 10 MG CAPSULE PO SCH (05:00)
[2020-12-06] MEDS: PANTOPRAZOLE 40 MG TABLET PO SCH (05:39)
[2020-12-06 06:07] LABS: SARS-CoV-2 NAA Not Detected (Not Detected)
[2020-12-06 08:53] VITALS: BP 101/60; PULSE 72; TEMP 97.5
[2020-12-07] MEDS ORDERED: chlordiazePOXIDE HCL 10 MG CAPSULE PO ONE (05:00)
== END 2020-12-06 09:15 | disposition left against medical advice (07) | DRG 770 ==
LOC: YASAS 12:13 → Y3N 15:39
PROVIDERS: ADMIT Allergy & Immunology; ATTEND Allergy & Immunology
PROC: HZ2ZZZZ Detoxification Services for Substance Abuse Treatment (ICD-10-PCS; principal; 2020-12-02)
DX: F10.230 Alcohol dependence with withdrawal, uncomplicated (principal); F14.20 Cocaine dependence, uncomplicated; F12.20 Cannabis dependence, uncomplicated; F17.210 Nicotine dependence, cigarettes, uncomplicated; F19.282 Other psychoactive substance dependence with psychoactive substance-induced sleep disorder; F19.24 Other psychoactive substance dependence with psychoactive substance-induced mood disorder; F25.9 Schizoaffective disorder, unspecified; F32.9 Major depressive disorder, single episode, unspecified; E88.09 Other disorders of plasma-protein metabolism, not elsewhere classified; I10 Essential (primary) hypertension; E11.9 Type 2 diabetes mellitus without complications; K21.9 Gastro-esophageal reflux disease without esophagitis; D64.9 Anemia, unspecified; D72.819 Decreased white blood cell count, unspecified; R00.1 Bradycardia, unspecified; R79.89 Other specified abnormal findings of blood chemistry; I25.2 Old myocardial infarction; Z91.14 Patient's other noncompliance with medication regimen; Z91.19 Patient's noncompliance with other medical treatment and regimen
CPT/HCPCS: 36415; 80053; 82040; 82962; 84132; 85025; 85027; 86780; C9803; U0003; U0005

== ENCOUNTER 2021-02-15 14:24 | Observation (INO) | payer OTHER ==
[2021-02-15] MEDS ORDERED: FAMOTIDINE 10 MG TABLET PO ONE (15:56)
[2021-02-15] MEDS ORDERED: MAG HYDROX/AL HYDROX/SIMETH 30 ML UNIT-DOSE CUP PO ONE (15:56)
[2021-02-15] MEDS ORDERED: SUCRALFATE 1 GM TABLET (FP) PO ONE (15:56)
[2021-02-15] MEDS ORDERED: ASPIRIN 81 MG CHEWABLE TABLETS PO ONE (16:23)
[2021-02-15] MEDS ORDERED: LACTATED RINGERS SOLUTION 1000 ML INFUS.BAG IV ONE ×2 (16:24→17:52)
[2021-02-15] MEDS ORDERED: SUCRALFATE 1 GM TABLET (FP) ONE (16:54)
[2021-02-15] MEDS ORDERED: ASPIRIN 81 MG CHEWABLE TABLETS ONE (16:54)
[2021-02-15] MEDS ORDERED: FAMOTIDINE 10 MG TABLET ONE (16:54)
[2021-02-15] MEDS ORDERED: MAG HYDROX/AL HYDROX/SIMETH 30 ML UNIT-DOSE CUP ONE (16:54)
[2021-02-15 17:23] LABS: BASO % 0.5 % (0-2.0); EOS % 1.5 % (0-4.5); HEMATOCRIT 36.4 % (35.4-49); HEMOGLOBIN 11.7 GM/dL (11.7-16.9); LYMPH % 34.9 % (8-40); MCH 28.7 pg (25.7-33.7); MCHC 32.1 g/dl (32.0-35.9); MEAN CELL VOLUME 89.4 fl (80-96); MEAN PLT VOLUME 8.7 fl (7.5-11.1); MONO % 6.4 % (3.8-10.2); NEUT % 56.7 % (42.8-82.8); PLATELET COUNT 232 10^3/uL (134-434); RBC 4.07 M/mm3 (4.00-5.60); RDW 18.1 % (11.9-15.9)
[2021-02-15 17:40] LABS: CHLORIDE 105 mmol/L (98-107); SODIUM 143 mmol/L (136-145)
[2021-02-15 17:43] LABS: ALBUMIN 3.2 g/dl (3.4-5.0); ANION GAP 9 MMOL/L (8-16); BLOOD UREA NITROGEN 8.6 mg/dL (7-18); CALCIUM 8.2 mg/dL (8.5-10.1); CO2 29 mmol/L (21-32); GLUCOSE,RANDOM 73 mg/dL (74-106); LIPASE 172 U/L (73-393); MAGNESIUM 1.7 mg/dL (1.8-2.4)
[2021-02-15 17:46] LABS: CREATININE 0.6 mg/dL (0.55-1.3); SGOT/AST 61 U/L (15-37); SGPT/ALT 27 U/L (13-61)
[2021-02-15 17:48] LABS: BILIRUBIN,TOTAL 0.5 mg/dL (0.2-1); TOT PROT 7.9 g/dl (6.4-8.2)
[2021-02-15 17:49] LABS: ALK PHOS 81 U/L (45-117)
[2021-02-15] MEDS ORDERED: MAGNESIUM SULF 50% (8.12 MEQ/2 ML-1 GM VIAL) IVPB ONE (17:50)
[2021-02-15] MEDS ORDERED: MAGNESIUM 1GM/D5W - 1 GM/100 ML IVPB IVPB ONE (18:26)
[2021-02-15] MEDS ORDERED: amLODIPine BESYLATE 5 MG TABLET (FP) PO ONE (19:03)
[2021-02-15] MEDS ORDERED: amLODIPine BESYLATE 5 MG TABLET (FP) ONE (20:06)
[2021-02-15 20:56] LABS: OPIATES, URI NEGATIVE (NEGATIVE); URINE AMPHETAMINES NEGATIVE (NEGATIVE); URINE BARBITURATES NEGATIVE (NEGATIVE); URINE BENZODIAZEPINES NEGATIVE (NEGATIVE)
[2021-02-15 20:57] LABS: PHENCYCLIDINE,URINE NEGATIVE (NEGATIVE)
[2021-02-15 21:06] LABS: COCAINE, UR POSITIVE (NEGATIVE); METHADONE, UR NEGATIVE (NEGATIVE)
[2021-02-15] MEDS ORDERED: ATORVASTATIN CA 40 MG TABLET (FP) PO SCH (22:00)
[2021-02-15 23:41] LABS: CALCIUM 7.7 mg/dL (8.5-10.1)
[2021-02-15 23:42] LABS: ALBUMIN 2.8 g/dl (3.4-5.0); BLOOD UREA NITROGEN 7.9 mg/dL (7-18); MAGNESIUM 1.6 mg/dL (1.8-2.4)
[2021-02-15 23:45] LABS: CREATININE 0.6 mg/dL (0.55-1.3)
[2021-02-15 23:47] LABS: BILIRUBIN,TOTAL 0.4 mg/dL (0.2-1); TOT PROT 6.9 g/dl (6.4-8.2)
[2021-02-16] MEDS ORDERED: ATORVASTATIN CA 40 MG TABLET (FP) ONE (02:27)
[2021-02-16] MEDS ORDERED: POTASSIUM CHLORIDE TABS 20 MEQ TABLET.ER (FP) PO ONE ×2 (03:31→12:30)
[2021-02-16] MEDS ORDERED: MAGNESIUM SULF 50% (8.12 MEQ/2 ML-1 GM VIAL) IVPB ONE (03:31)
[2021-02-16 03:49] VITALS: BMI 26.2
[2021-02-16] MEDS: KCL 10 MEQ IVPB 10 MEQ/100 ML INFUS.BAG IVPB SCH ×3 (05:25→10:45)
[2021-02-16 07:32] LABS: BASO % 0.8 % (0-2.0); EOS % 2.5 % (0-4.5); HEMATOCRIT 33.9 % (35.4-49); HEMOGLOBIN 11.3 GM/dL (11.7-16.9); LYMPH % 30.6 % (8-40); MCH 29.3 pg (25.7-33.7); MCHC 33.2 g/dl (32.0-35.9); MEAN CELL VOLUME 88.3 fl (80-96); MEAN PLT VOLUME 8.3 fl (7.5-11.1); MONO % 7.8 % (3.8-10.2); NEUT % 58.3 % (42.8-82.8); PLATELET COUNT 174 10^3/uL (134-434); RBC 3.84 M/mm3 (4.00-5.60); RDW 17.9 % (11.9-15.9)
[2021-02-16 07:50] LABS: CHLORIDE 100 mmol/L (98-107); SODIUM 137 mmol/L (136-145)
[2021-02-16 07:53] LABS: CALCIUM 8.1 mg/dL (8.5-10.1)
[2021-02-16 07:54] LABS: BLOOD UREA NITROGEN 8.8 mg/dL (7-18); GLUCOSE,RANDOM 65 mg/dL (74-106)
[2021-02-16 07:56] LABS: ALBUMIN 3.1 g/dl (3.4-5.0); ANION GAP 11 MMOL/L (8-16); CO2 26 mmol/L (21-32); MAGNESIUM 2.3 mg/dL (1.8-2.4)
[2021-02-16 07:57] LABS: CHOLESTEROL 173 mg/dL (50-200); PHOSPHOROUS 3.2 mg/dL (2.5-4.9)
[2021-02-16 07:58] LABS: TRIGLYCERIDES 63 mg/dL (0-150)
[2021-02-16 07:59] LABS: CREATININE 0.5 mg/dL (0.55-1.3); LDL CHOLESTEROL (ONLY SJRH) 36 mg/dL (5-100); SGOT/AST 42 U/L (15-37); SGPT/ALT 22 U/L (13-61)
[2021-02-16 08:00] LABS: ALK PHOS 77 U/L (45-117); HDL CHOLESTEROL 127 mg/dL (40-60); TOT PROT 7.2 g/dl (6.4-8.2)
[2021-02-16] MEDS ORDERED: ENOXAPARIN NA (PORCINE) 40 MG/0.4 ML DISP.SYRIN SQ SCH (10:00)
[2021-02-16] MEDS ORDERED: ASPIRIN COATED 81 MG TABLET.EC PO SCH (10:00)
[2021-02-16] MEDS ORDERED: MULTIVITAMINS (DAILY MVI) TABLET (FP) PO SCH (10:00)
[2021-02-16] MEDS ORDERED: PANTOPRAZOLE 40 MG TABLET PO SCH (10:00)
[2021-02-16] MEDS ORDERED: FOLIC ACID 1 MG TABLET (FP) PO SCH (10:00)
[2021-02-16] MEDS ORDERED: THIAMINE HCL 100 MG TABLET (FP) PO SCH (10:00)
[2021-02-16 18:16] VITALS: BP 132/73; PULSE 66; TEMP 98.4
== END 2021-02-16 20:10 | disposition home or self-care (01) ==
LOC: JER 14:24 → INTOOBSV 17:57 → UNDOADMOB 17:57 → JERBED 17:57 → J4W 02-16 03:31 → JERBED 02-16 13:10
PROVIDERS: ATTEND Student in an Organized Health Care Education/Training Program
PROC: 3E023GC Introduction of Other Therapeutic Substance into Muscle, Percutaneous Approach (ICD-10-PCS; principal; 2021-02-16)
PROC: 3E0337Z Introduction of Electrolytic and Water Balance Substance into Peripheral Vein, Percutaneous Approach (ICD-10-PCS; 2021-02-16)
PROC: 3E033GC Introduction of Other Therapeutic Substance into Peripheral Vein, Percutaneous Approach (ICD-10-PCS; 2021-02-16)
DX: F19.10 Other psychoactive substance abuse, uncomplicated (principal); F14.10 Cocaine abuse, uncomplicated; F10.10 Alcohol abuse, uncomplicated; I25.10 Atherosclerotic heart disease of native coronary artery without angina pectoris; I10 Essential (primary) hypertension; E78.5 Hyperlipidemia, unspecified; R07.9 Chest pain, unspecified; I25.2 Old myocardial infarction; K29.70 Gastritis, unspecified, without bleeding; Z29.9 Encounter for prophylactic measures, unspecified
CPT/HCPCS: 36415; 71045-TC-FY; 80053; 80061; 80307; 82550; 82553; 82607; 82746; 83690; 83721; 83735; 84100; 84436; 84443; 84484; 85025; 85730; 93005; 93010; 93306-TC; 96365; 96372; 96375; 97116-GP; 97161-GP; 99285-25; C9803; G0378; U0003; U0005

== ENCOUNTER 2021-03-03 15:14 | Inpatient (IN) | payer OTHER ==
[2021-03-03 17:21] VITALS: BMI 25.7
[2021-03-03] MEDS ORDERED: MAGNESIUM CITRATE 300 ML BOTTLE PO PRN (18:08)
[2021-03-03] MEDS ORDERED: MENTHOL/PHENOL 1 EACH UD MM PRN (18:08)
[2021-03-03] MEDS ORDERED: MAG HYDROX/AL HYDROX/SIMETH 30 ML UNIT-DOSE CUP PO PRN (18:08)
[2021-03-03] MEDS ORDERED: METHOCARBAMOL 500 MG TABLET PO PRN (18:08)
[2021-03-03] MEDS ORDERED: ACETAMINOPHEN 325 MG TABLET (FP) PO PRN ×2 (18:08)
[2021-03-03] MEDS ORDERED: BISMUTH SUBSALICYLATE 524 MG/30 ML PO PRN (18:08)
[2021-03-03] MEDS ORDERED: MAGNESIUM HYDROX 2400MG/30ML ORAL SUSPENSION 30 ML CUP PO PRN (18:08)
[2021-03-03] MEDS ORDERED: LORazepam 1 MG TABLET PO PRN (18:08)
[2021-03-03] MEDS ORDERED: ONDANSETRON *ODT* 4 MG TABLET SL PRN (18:08)
[2021-03-03] MEDS: LORazepam 2 MG TABLET PO SCH (23:06)
[2021-03-03] MEDS: ATORVASTATIN CA 80 MG TABLET (FP) PO SCH (23:07)
[2021-03-03] MEDS: hydrOXYzine PAMOATE 25 MG CAPSULE (FP) PO SCH (23:07)
[2021-03-03] MEDS: THIAMINE HCL 100 MG TABLET (FP) PO SCH (23:08)
[2021-03-03] MEDS: MELATONIN 5 MG TABLETS PO SCH (23:09)
[2021-03-03] MEDS: TOLNAFTATE 1% POWDER 45 GM POW TP SCH (23:09)
[2021-03-04] MEDS: LORazepam 2 MG TABLET PO SCH ×4 (07:04→23:21)
[2021-03-04] MEDS: hydrOXYzine PAMOATE 25 MG CAPSULE (FP) PO SCH ×5 (07:04→23:21)
[2021-03-04 09:56] LABS: HEMATOCRIT 32.8 % (35.4-49); HEMOGLOBIN 10.9 GM/dL (11.7-16.9); MCHC 33.2 g/dl (32.0-35.9); MEAN CELL VOLUME 90.4 fl (80-96); MEAN PLT VOLUME 8.8 fl (7.5-11.1); PLATELET COUNT 201 10^3/uL (134-434); RBC 3.63 M/mm3 (4.00-5.60); RDW 18.5 % (11.9-15.9); WHITE BLOOD COUNT 2.2 K/mm3 (4.0-10.0)
[2021-03-04 10:14] LABS: CALCIUM 8.3 mg/dL (8.5-10.1)
[2021-03-04 10:15] LABS: ALBUMIN 3.2 g/dl (3.4-5.0)
[2021-03-04] MEDS: PRENATAL VITAMINS W/ FOLIC ACID TABLET (FP) PO SCH (10:16)
[2021-03-04] MEDS: ASPIRIN 81 MG CHEWABLE TABLETS PO SCH (10:16)
[2021-03-04] MEDS: PANTOPRAZOLE 40 MG TABLET PO SCH (10:16)
[2021-03-04] MEDS: LOSARTAN POTASSIUM 50 MG TABLET PO SCH (10:16)
[2021-03-04 10:18] LABS: CREATININE 0.6 mg/dL (0.55-1.3)
[2021-03-04 10:19] LABS: BILIRUBIN,TOTAL 0.8 mg/dL (0.2-1); TOT PROT 7.2 g/dl (6.4-8.2)
[2021-03-04] MEDS ORDERED: POTASSIUM CHLORIDE TABS 20 MEQ TABLET.ER (FP) PO ONE ×2 (11:26→17:00)
[2021-03-04] MEDS: TOLNAFTATE 1% POWDER 45 GM POW TP SCH ×2 (11:32→23:21)
[2021-03-04] MEDS: ISOSORBIDE MONONITRATE 30 MG TAB.SR.24H (FP) PO SCH (11:34)
[2021-03-04] MEDS: ATORVASTATIN CA 80 MG TABLET (FP) PO SCH (23:20)
[2021-03-04] MEDS: MELATONIN 5 MG TABLETS PO SCH (23:20)
[2021-03-04] MEDS: THIAMINE HCL 100 MG TABLET (FP) PO SCH (23:20)
[2021-03-05] MEDS: LORazepam 1 MG TABLET PO SCH ×4 (07:29→22:09)
[2021-03-05] MEDS: hydrOXYzine PAMOATE 25 MG CAPSULE (FP) PO SCH ×5 (07:30→22:09)
[2021-03-05] MEDS: ISOSORBIDE MONONITRATE 30 MG TAB.SR.24H (FP) PO SCH (10:27)
[2021-03-05] MEDS: LOSARTAN POTASSIUM 50 MG TABLET PO SCH (10:27)
[2021-03-05] MEDS: ASPIRIN 81 MG CHEWABLE TABLETS PO SCH (10:27)
[2021-03-05] MEDS: PRENATAL VITAMINS W/ FOLIC ACID TABLET (FP) PO SCH (10:27)
[2021-03-05] MEDS: PANTOPRAZOLE 40 MG TABLET PO SCH (10:27)
[2021-03-05] MEDS: TOLNAFTATE 1% POWDER 45 GM POW TP SCH ×2 (10:28→22:09)
[2021-03-05 14:59] LABS: BASO % 0.5 % (0-2.0); EOS % 1.8 % (0-4.5); HEMATOCRIT 32.8 % (35.4-49); HEMOGLOBIN 10.8 GM/dL (11.7-16.9); LYMPH % 24.7 % (8-40); MCHC 32.8 g/dl (32.0-35.9); MEAN CELL VOLUME 91.3 fl (80-96); MEAN PLT VOLUME 8.8 fl (7.5-11.1); MONO % 13.2 % (3.8-10.2); NEUT % 59.8 % (42.8-82.8); PLATELET COUNT 194 10^3/uL (134-434); RBC 3.59 M/mm3 (4.00-5.60); RDW 18.5 % (11.9-15.9); WHITE BLOOD COUNT 2.5 K/mm3 (4.0-10.0)
[2021-03-05] MEDS: IBUPROFEN 400 MG TABLET (FP) PO PRN (17:40)
[2021-03-05] MEDS: ATORVASTATIN CA 80 MG TABLET (FP) PO SCH (22:08)
[2021-03-05] MEDS: THIAMINE HCL 100 MG TABLET (FP) PO SCH (22:09)
[2021-03-05] MEDS: MELATONIN 5 MG TABLETS PO SCH (22:09)
[2021-03-06] MEDS ORDERED: LORazepam 0.5 MG TABLET PO PRN
[2021-03-06] MEDS: LORazepam 0.5 MG TABLET PO SCH ×4 (05:44→22:30)
[2021-03-06] MEDS: hydrOXYzine PAMOATE 25 MG CAPSULE (FP) PO SCH ×5 (05:45→23:03)
[2021-03-06] MEDS: PANTOPRAZOLE 40 MG TABLET PO SCH (10:19)
[2021-03-06] MEDS: ASPIRIN 81 MG CHEWABLE TABLETS PO SCH (10:19)
[2021-03-06] MEDS: PRENATAL VITAMINS W/ FOLIC ACID TABLET (FP) PO SCH (10:19)
[2021-03-06] MEDS: TOLNAFTATE 1% POWDER 45 GM POW TP SCH ×2 (10:19→23:03)
[2021-03-06] MEDS: ISOSORBIDE MONONITRATE 30 MG TAB.SR.24H (FP) PO SCH (10:19)
[2021-03-06] MEDS: IBUPROFEN 400 MG TABLET (FP) PO PRN ×2 (10:21→22:32)
[2021-03-06] MEDS: LOSARTAN POTASSIUM 50 MG TABLET PO SCH (10:21)
[2021-03-06] MEDS: ATORVASTATIN CA 80 MG TABLET (FP) PO SCH (22:29)
[2021-03-06] MEDS: MELATONIN 5 MG TABLETS PO SCH (22:30)
[2021-03-06] MEDS: THIAMINE HCL 100 MG TABLET (FP) PO SCH (22:30)
[2021-03-07] MEDS ORDERED: LORazepam 0.5 MG TABLET PO ONE (05:00)
[2021-03-07] MEDS: hydrOXYzine PAMOATE 25 MG CAPSULE (FP) PO SCH (06:13)
[2021-03-07] MEDS ORDERED: hydrOXYzine PAMOATE 25 MG CAPSULE (FP) PO PRN (08:23)
[2021-03-07 09:07] VITALS: BP 139/72; PULSE 82; TEMP 96.4
[2021-03-07] MEDS: PRENATAL VITAMINS W/ FOLIC ACID TABLET (FP) PO SCH (10:10)
[2021-03-07] MEDS: ASPIRIN 81 MG CHEWABLE TABLETS PO SCH (10:10)
[2021-03-07] MEDS: LOSARTAN POTASSIUM 50 MG TABLET PO SCH (10:10)
[2021-03-07] MEDS: PANTOPRAZOLE 40 MG TABLET PO SCH (10:10)
[2021-03-07] MEDS: ISOSORBIDE MONONITRATE 30 MG TAB.SR.24H (FP) PO SCH (10:10)
[2021-03-07] MEDS: TOLNAFTATE 1% POWDER 45 GM POW TP SCH (10:11)
== END 2021-03-07 10:55 | disposition home or self-care (01) | DRG 774 ==
LOC: YASAS 15:14 → Y3N 18:20
PROVIDERS: ADMIT Allergy & Immunology; ATTEND Allergy & Immunology
PROC: HZ2ZZZZ Detoxification Services for Substance Abuse Treatment (ICD-10-PCS; principal; 2021-03-03)
DX: F10.230 Alcohol dependence with withdrawal, uncomplicated (principal); F14.20 Cocaine dependence, uncomplicated; F19.282 Other psychoactive substance dependence with psychoactive substance-induced sleep disorder; F19.24 Other psychoactive substance dependence with psychoactive substance-induced mood disorder; F31.9 Bipolar disorder, unspecified; D50.9 Iron deficiency anemia, unspecified; E87.6 Hypokalemia; E11.9 Type 2 diabetes mellitus without complications; I25.10 Atherosclerotic heart disease of native coronary artery without angina pectoris; I10 Essential (primary) hypertension; I25.2 Old myocardial infarction; K21.9 Gastro-esophageal reflux disease without esophagitis; M17.11 Unilateral primary osteoarthritis, right knee; B35.3 Tinea pedis; Z87.11 Personal history of peptic ulcer disease; Z99.89 Dependence on other enabling machines and devices; Z91.14 Patient's other noncompliance with medication regimen; Z56.0 Unemployment, unspecified; Z59.0 Homelessness
CPT/HCPCS: 36415; 80053; 84132; 85025; 85027; 86780; C9803; U0003; U0005

== ENCOUNTER 2021-04-13 11:32 | Inpatient (IN) | payer OTHER ==
[2021-04-13 12:37] VITALS: BMI 26.7
[2021-04-13] MEDS ORDERED: MAG HYDROX/AL HYDROX/SIMETH 30 ML UNIT-DOSE CUP PO PRN (13:40)
[2021-04-13] MEDS ORDERED: BISMUTH SUBSALICYLATE 262 MG/15 ML BTL PO PRN (13:40)
[2021-04-13] MEDS ORDERED: MENTHOL/PHENOL 1 EACH UD MM PRN (13:40)
[2021-04-13] MEDS ORDERED: ACETAMINOPHEN 325 MG TABLET (FP) PO PRN ×2 (13:40)
[2021-04-13] MEDS ORDERED: ONDANSETRON *ODT* 4 MG TABLET SL PRN (13:40)
[2021-04-13] MEDS ORDERED: hydrOXYzine PAMOATE 25 MG CAPSULE (FP) PO PRN (13:40)
[2021-04-13] MEDS ORDERED: IBUPROFEN 400 MG TABLET (FP) PO PRN (13:40)
[2021-04-13] MEDS ORDERED: MAGNESIUM CITRATE 300 ML BOTTLE PO PRN (13:40)
[2021-04-13] MEDS ORDERED: NICOTINE 10 MG CARTRIDGE (INHALER) IH PRN (13:40)
[2021-04-13] MEDS ORDERED: LORazepam 1 MG TABLET PO PRN (13:50)
[2021-04-13] MEDS ORDERED: LOSARTAN POTASSIUM 50 MG TABLET PO SCH (15:00)
[2021-04-13] MEDS ORDERED: FAMOTIDINE 20 MG TABLET PO SCH (15:00)
[2021-04-13] MEDS: PRENATAL VITAMINS W/ FOLIC ACID TABLET (FP) PO SCH (15:12)
[2021-04-13 16:54] LABS: HEMATOCRIT 36.1 % (35.4-49); HEMOGLOBIN 11.9 GM/dL (11.7-16.9); MCH 30.7 pg (25.7-33.7); MEAN CELL VOLUME 93.2 fl (80-96); MEAN PLT VOLUME 8.5 fl (7.5-11.1); PLATELET COUNT 259 10^3/uL (134-434); RBC 3.87 M/mm3 (4.00-5.60); RDW 17.7 % (11.9-15.9); WHITE BLOOD COUNT 2.5 K/mm3 (4.0-10.0)
[2021-04-13 16:58] LABS: ALBUMIN 3.6 g/dl (3.4-5.0); BLOOD UREA NITROGEN 8.8 mg/dL (7-18); CALCIUM 8.7 mg/dL (8.5-10.1)
[2021-04-13 17:02] LABS: CREATININE 0.7 mg/dL (0.55-1.3)
[2021-04-13 17:03] LABS: BILIRUBIN,TOTAL 0.4 mg/dL (0.2-1); TOT PROT 8.4 g/dl (6.4-8.2)
[2021-04-13] MEDS: LORazepam 2 MG TABLET PO SCH ×2 (17:40→22:21)
[2021-04-13] MEDS: INSULIN SLIDING SCALE (NOVOLOG) 1 VIAL SQ SCH ×2 (17:40→22:22)
[2021-04-13] MEDS: MAGNESIUM HYDROX 2400MG/30ML ORAL SUSPENSION 30 ML CUP PO PRN (17:49)
[2021-04-13] MEDS ORDERED: ATORVASTATIN CA 80 MG TABLET (FP) PO SCH (22:00)
[2021-04-13] MEDS: THIAMINE HCL 100 MG TABLET (FP) PO SCH (22:21)
[2021-04-13] MEDS: METHOCARBAMOL 500 MG TABLET PO PRN (22:25)
[2021-04-13] MEDS: MELATONIN 5 MG TABLETS PO SCH (22:42)
[2021-04-14] MEDS: LORazepam 2 MG TABLET PO SCH ×4 (05:40→22:49)
[2021-04-14] MEDS: INSULIN SLIDING SCALE (NOVOLOG) 1 VIAL SQ SCH ×4 (07:17→22:48)
[2021-04-14] MEDS ORDERED: ASPIRIN 81 MG CHEWABLE TABLETS PO SCH (10:00)
[2021-04-14] MEDS ORDERED: PANTOPRAZOLE 40 MG TABLET PO SCH (10:00)
[2021-04-14] MEDS ORDERED: FAMOTIDINE 20 MG TABLET PO ONE (10:00)
[2021-04-14] MEDS: PRENATAL VITAMINS W/ FOLIC ACID TABLET (FP) PO SCH (10:10)
[2021-04-14] MEDS: LOSARTAN POTASSIUM 50 MG TABLET PO SCH (10:11)
[2021-04-14] MEDS: ISOSORBIDE MONONITRATE 30 MG TAB.SR.24H (FP) PO SCH (10:11)
[2021-04-14] MEDS: ASPIRIN 81 MG CHEWABLE TABLETS PO SCH (10:12)
[2021-04-14] MEDS: TOLNAFTATE 1% CREAM 15 GM TUBE TP SCH ×2 (10:13→22:48)
[2021-04-14] MEDS: METHOCARBAMOL 500 MG TABLET PO PRN ×2 (10:17→22:50)
[2021-04-14] MEDS: MAGNESIUM HYDROX 2400MG/30ML ORAL SUSPENSION 30 ML CUP PO PRN (10:18)
[2021-04-14] MEDS: MELATONIN 5 MG TABLETS PO SCH (22:48)
[2021-04-14] MEDS: ATORVASTATIN CA 80 MG TABLET (FP) PO SCH (22:48)
[2021-04-14] MEDS: THIAMINE HCL 100 MG TABLET (FP) PO SCH (22:49)
[2021-04-15] MEDS: LORazepam 1 MG TABLET PO SCH ×4 (05:53→22:42)
[2021-04-15] MEDS: INSULIN SLIDING SCALE (NOVOLOG) 1 VIAL SQ SCH ×5 (06:08→22:55)
[2021-04-15] MEDS: FAMOTIDINE 20 MG TABLET PO SCH (06:09)
[2021-04-15] MEDS: LOSARTAN POTASSIUM 50 MG TABLET PO SCH (10:21)
[2021-04-15] MEDS: ISOSORBIDE MONONITRATE 30 MG TAB.SR.24H (FP) PO SCH (10:21)
[2021-04-15] MEDS: PRENATAL VITAMINS W/ FOLIC ACID TABLET (FP) PO SCH (10:21)
[2021-04-15] MEDS: ASPIRIN 81 MG CHEWABLE TABLETS PO SCH (10:21)
[2021-04-15] MEDS: TOLNAFTATE 1% CREAM 15 GM TUBE TP SCH ×2 (10:23→22:45)
[2021-04-15] MEDS: METHOCARBAMOL 500 MG TABLET PO PRN ×2 (10:23→22:45)
[2021-04-15] MEDS: THIAMINE HCL 100 MG TABLET (FP) PO SCH (22:42)
[2021-04-15] MEDS: MELATONIN 5 MG TABLETS PO SCH (22:43)
[2021-04-15] MEDS: ATORVASTATIN CA 80 MG TABLET (FP) PO SCH (22:43)
[2021-04-15] MEDS ORDERED: INSULIN SLIDING SCALE (NOVOLOG) 1 VIAL SQ ONE (23:03)
[2021-04-16] MEDS ORDERED: LORazepam 0.5 MG TABLET PO PRN
[2021-04-16] MEDS: LORazepam 0.5 MG TABLET PO SCH ×4 (05:30→23:07)
[2021-04-16] MEDS: INSULIN SLIDING SCALE (NOVOLOG) 1 VIAL SQ SCH ×4 (06:09→22:48)
[2021-04-16] MEDS: FAMOTIDINE 20 MG TABLET PO SCH (06:09)
[2021-04-16] MEDS: ASPIRIN 81 MG CHEWABLE TABLETS PO SCH (10:36)
[2021-04-16] MEDS: PRENATAL VITAMINS W/ FOLIC ACID TABLET (FP) PO SCH (10:36)
[2021-04-16] MEDS: LOSARTAN POTASSIUM 50 MG TABLET PO SCH (10:37)
[2021-04-16] MEDS: ISOSORBIDE MONONITRATE 30 MG TAB.SR.24H (FP) PO SCH (10:37)
[2021-04-16] MEDS: METHOCARBAMOL 500 MG TABLET PO PRN (10:39)
[2021-04-16] MEDS: TOLNAFTATE 1% CREAM 15 GM TUBE TP SCH ×2 (10:39→23:06)
[2021-04-16] MEDS: MELATONIN 5 MG TABLETS PO SCH ×2 (23:06→23:24)
[2021-04-16] MEDS: ATORVASTATIN CA 80 MG TABLET (FP) PO SCH ×2 (23:06→23:25)
[2021-04-16] MEDS: THIAMINE HCL 100 MG TABLET (FP) PO SCH ×2 (23:07→23:25)
[2021-04-17] MEDS ORDERED: LORazepam 0.5 MG TABLET PO ONE (05:00)
[2021-04-17] MEDS: INSULIN SLIDING SCALE (NOVOLOG) 1 VIAL SQ SCH (06:08)
[2021-04-17] MEDS: FAMOTIDINE 20 MG TABLET PO SCH (06:08)
[2021-04-17 06:23] VITALS: TEMP 96.9
[2021-04-17 09:15] VITALS: BP 129/71; PULSE 91
[2021-04-17] MEDS: ISOSORBIDE MONONITRATE 30 MG TAB.SR.24H (FP) PO SCH (10:23)
[2021-04-17] MEDS: LOSARTAN POTASSIUM 50 MG TABLET PO SCH (10:23)
[2021-04-17] MEDS: ASPIRIN 81 MG CHEWABLE TABLETS PO SCH (10:24)
[2021-04-17] MEDS: PRENATAL VITAMINS W/ FOLIC ACID TABLET (FP) PO SCH (10:24)
[2021-04-17] MEDS: TOLNAFTATE 1% CREAM 15 GM TUBE TP SCH (10:25)
== END 2021-04-17 10:45 | disposition home or self-care (01) | DRG 774 ==
LOC: YASAS 11:32 → Y6N 13:41 → Y3N 17:53 → Y6N 18:03 → Y3N 04-14 17:27
PROVIDERS: ADMIT Allergy & Immunology; ATTEND Allergy & Immunology
PROC: HZ2ZZZZ Detoxification Services for Substance Abuse Treatment (ICD-10-PCS; principal; 2021-04-13)
DX: F10.230 Alcohol dependence with withdrawal, uncomplicated (principal); F14.20 Cocaine dependence, uncomplicated; F19.282 Other psychoactive substance dependence with psychoactive substance-induced sleep disorder; F19.24 Other psychoactive substance dependence with psychoactive substance-induced mood disorder; F31.9 Bipolar disorder, unspecified; D72.819 Decreased white blood cell count, unspecified; E78.5 Hyperlipidemia, unspecified; E11.9 Type 2 diabetes mellitus without complications; I25.10 Atherosclerotic heart disease of native coronary artery without angina pectoris; I10 Essential (primary) hypertension; I25.2 Old myocardial infarction; K21.9 Gastro-esophageal reflux disease without esophagitis; M17.11 Unilateral primary osteoarthritis, right knee; Z87.11 Personal history of peptic ulcer disease
CPT/HCPCS: 36415; 80053; 82962; 83036; 85027; C9803; U0003; U0005

== ENCOUNTER 2021-06-13 14:17 | Inpatient (IN) | payer OTHER ==
[2021-06-13] MEDS ORDERED: ONDANSETRON *ODT* 4 MG TABLET SL PRN (15:10)
[2021-06-13] MEDS ORDERED: MENTHOL/PHENOL 1 EACH UD MM PRN (15:10)
[2021-06-13] MEDS ORDERED: ACETAMINOPHEN 325 MG TABLET (FP) PO PRN ×2 (15:10)
[2021-06-13] MEDS ORDERED: IBUPROFEN 400 MG TABLET (FP) PO PRN (15:10)
[2021-06-13] MEDS ORDERED: MAG HYDROX/AL HYDROX/SIMETH 30 ML UNIT-DOSE CUP PO PRN (15:10)
[2021-06-13] MEDS ORDERED: BISMUTH SUBSALICYLATE 262 MG/15 ML BTL PO PRN (15:10)
[2021-06-13] MEDS ORDERED: NICOTINE 10 MG CARTRIDGE (INHALER) IH PRN (15:10)
[2021-06-13] MEDS ORDERED: MAGNESIUM CITRATE 300 ML BOTTLE PO PRN (15:10)
[2021-06-13] MEDS ORDERED: diazePAM 5 MG TABLET PO PRN (15:10)
[2021-06-13] MEDS ORDERED: MAGNESIUM HYDROX 2400MG/30ML ORAL SUSPENSION 30 ML CUP PO PRN (15:10)
[2021-06-13 20:01] VITALS: BMI 25.7
[2021-06-13] MEDS: hydrOXYzine PAMOATE 25 MG CAPSULE (FP) PO SCH ×2 (20:50→22:13)
[2021-06-13] MEDS: PRENATAL VITAMINS W/ FOLIC ACID TABLET (FP) PO SCH (20:50)
[2021-06-13] MEDS: MELATONIN 5 MG TABLETS PO SCH (22:12)
[2021-06-13] MEDS: THIAMINE HCL 100 MG TABLET (FP) PO SCH (22:13)
[2021-06-13] MEDS: diazePAM 5 MG TABLET PO SCH (22:13)
[2021-06-14] MEDS: diazePAM 5 MG TABLET PO SCH ×4 (06:44→22:25)
[2021-06-14] MEDS: hydrOXYzine PAMOATE 25 MG CAPSULE (FP) PO SCH ×5 (06:44→22:25)
[2021-06-14] MEDS ORDERED: PANTOPRAZOLE 40 MG TABLET PO ONE (09:31)
[2021-06-14] MEDS ORDERED: ISOSORBIDE MONONITRATE 30 MG TAB.SR.24H (FP) PO SCH (10:00)
[2021-06-14] MEDS ORDERED: ASPIRIN 81 MG CHEWABLE TABLETS PO SCH (10:00)
[2021-06-14] MEDS ORDERED: LOSARTAN POTASSIUM 50 MG TABLET PO SCH (10:00)
[2021-06-14 10:13] LABS: HEMATOCRIT 31.9 % (35.4-49); HEMOGLOBIN 10.7 GM/dL (11.7-16.9); MCH 30.1 pg (25.7-33.7); MCHC 33.7 g/dl (32.0-35.9); MEAN CELL VOLUME 89.4 fl (80-96); MEAN PLT VOLUME 8.7 fl (7.5-11.1); PLATELET COUNT 132 10^3/uL (134-434); RBC 3.57 M/mm3 (4.00-5.60); RDW 17.4 % (11.9-15.9); WHITE BLOOD COUNT 2.1 K/mm3 (4.0-10.0)
[2021-06-14 10:23] LABS: ALBUMIN 2.8 g/dl (3.4-5.0); BLOOD UREA NITROGEN 10.5 mg/dL (7-18)
[2021-06-14 10:24] LABS: CALCIUM 8.2 mg/dL (8.5-10.1)
[2021-06-14 10:26] LABS: CREATININE 0.7 mg/dL (0.55-1.3)
[2021-06-14 10:28] LABS: BILIRUBIN,TOTAL 0.5 mg/dL (0.2-1)
[2021-06-14 10:30] LABS: TOT PROT 6.8 g/dl (6.4-8.2)
[2021-06-14] MEDS: PRENATAL VITAMINS W/ FOLIC ACID TABLET (FP) PO SCH (10:43)
[2021-06-14] MEDS ORDERED: POTASSIUM CHLORIDE ORAL LIQUID 20 MEQ/15 ML PO SCH (10:45)
[2021-06-14] MEDS: METHOCARBAMOL 500 MG TABLET PO PRN ×2 (10:49→22:26)
[2021-06-14] MEDS ORDERED: FLU VACC QS2021-22(6MOS UP)/PF 60 MCG/0.5 ML SYRINGE IM ONE (12:00)
[2021-06-14] MEDS: POTASSIUM CHLORIDE ORAL LIQUID 20 MEQ/15 ML PO SCH ×2 (12:04→22:26)
[2021-06-14] MEDS ORDERED: ATORVASTATIN CA 80 MG TABLET (FP) PO SCH (22:00)
[2021-06-14] MEDS: MELATONIN 5 MG TABLETS PO SCH (22:25)
[2021-06-14] MEDS: THIAMINE HCL 100 MG TABLET (FP) PO SCH (22:26)
[2021-06-15] MEDS ORDERED: diazePAM 5 MG TABLET PO SCH (06:00)
[2021-06-15 06:25] VITALS: BP 135/83; PULSE 79; TEMP 97.7
[2021-06-15] MEDS ORDERED: PANTOPRAZOLE 40 MG TABLET PO SCH (07:00)
[2021-06-15] MEDS: hydrOXYzine PAMOATE 25 MG CAPSULE (FP) PO SCH (07:03)
[2021-06-16] MEDS ORDERED: diazePAM 5 MG TABLET PO SCH (06:00)
[2021-06-17] MEDS ORDERED: diazePAM 5 MG TABLET PO ONE (06:00)
== END 2021-06-15 06:45 | disposition home or self-care (01) | DRG 774 ==
LOC: YASAS 14:17 → Y3N 19:51
PROVIDERS: ADMIT Allergy & Immunology; ATTEND Allergy & Immunology
PROC: HZ2ZZZZ Detoxification Services for Substance Abuse Treatment (ICD-10-PCS; principal; 2021-06-13)
DX: F10.230 Alcohol dependence with withdrawal, uncomplicated (principal); F14.20 Cocaine dependence, uncomplicated; F31.9 Bipolar disorder, unspecified; D61.818 Other pancytopenia; E87.6 Hypokalemia; E11.9 Type 2 diabetes mellitus without complications; I25.10 Atherosclerotic heart disease of native coronary artery without angina pectoris; I10 Essential (primary) hypertension; I25.2 Old myocardial infarction; K21.9 Gastro-esophageal reflux disease without esophagitis; Z87.11 Personal history of peptic ulcer disease; Z86.19 Personal history of other infectious and parasitic diseases; Z59.01 Sheltered homelessness; Z56.0 Unemployment, unspecified; Z91.14 Patient's other noncompliance with medication regimen
CPT/HCPCS: 36415; 80053; 82962; 85027; 86780; 90686; C9803; U0003; U0005

== ENCOUNTER 2021-08-15 15:05 | Inpatient (IN) | payer OTHER ==
[2021-08-15] MEDS ORDERED: METHOCARBAMOL 500 MG TABLET PO PRN (15:32)
[2021-08-15] MEDS ORDERED: ACETAMINOPHEN 325 MG TABLET (FP) PO PRN ×2 (15:32)
[2021-08-15] MEDS ORDERED: MAGNESIUM CITRATE 300 ML BOTTLE PO PRN (15:32)
[2021-08-15] MEDS ORDERED: chlordiazePOXIDE HCL 25 MG CAPSULE PO PRN (15:32)
[2021-08-15] MEDS ORDERED: BISMUTH SUBSALICYLATE 524 MG/30 ML PO PRN (15:32)
[2021-08-15] MEDS ORDERED: MAG HYDROX/AL HYDROX/SIMETH 30 ML UNIT-DOSE CUP PO PRN (15:32)
[2021-08-15] MEDS ORDERED: MAGNESIUM HYDROX 2400MG/30ML ORAL SUSPENSION 30 ML CUP PO PRN (15:32)
[2021-08-15] MEDS ORDERED: ONDANSETRON *ODT* 4 MG TABLET SL PRN (15:32)
[2021-08-15] MEDS ORDERED: IBUPROFEN 400 MG TABLET (FP) PO PRN (15:32)
[2021-08-15] MEDS ORDERED: MENTHOL/PHENOL 1 EACH UD MM PRN (15:32)
[2021-08-15 15:55] VITALS: BMI 25.0
[2021-08-16] MEDS: PRENATAL VITAMINS W/ FOLIC ACID TABLET (FP) PO SCH ×2 (05:58→11:01)
[2021-08-16] MEDS: MELATONIN 5 MG TABLETS PO SCH ×2 (05:59→23:54)
[2021-08-16] MEDS: chlordiazePOXIDE HCL 25 MG CAPSULE PO SCH ×6 (05:59→23:54)
[2021-08-16] MEDS: hydrOXYzine PAMOATE 25 MG CAPSULE (FP) PO SCH ×7 (05:59→23:54)
[2021-08-16] MEDS: THIAMINE HCL 100 MG TABLET (FP) PO SCH ×2 (06:00→23:54)
[2021-08-16] MEDS ORDERED: chlordiazePOXIDE HCL 25 MG CAPSULE ONE (06:05)
[2021-08-16 14:57] LABS: HEMATOCRIT 34.1 % (35.4-49); HEMOGLOBIN 10.8 GM/dL (11.7-16.9); MCH 29.3 pg (25.7-33.7); MCHC 31.8 g/dl (32.0-35.9); MEAN CELL VOLUME 91.9 fl (80-96); PLATELET COUNT 181 10^3/uL (134-434); RBC 3.71 M/mm3 (4.00-5.60); RDW 19.1 % (11.9-15.9); WHITE BLOOD COUNT 2.7 K/mm3 (4.0-10.0)
[2021-08-16 15:03] LABS: CALCIUM 8.7 mg/dL (8.5-10.1)
[2021-08-16 15:04] LABS: ALBUMIN 2.7 g/dl (3.4-5.0); BLOOD UREA NITROGEN 13.1 mg/dL (7-18)
[2021-08-16 15:07] LABS: CREATININE 0.7 mg/dL (0.55-1.3)
[2021-08-16 15:08] LABS: BILIRUBIN,TOTAL 0.6 mg/dL (0.2-1); TOT PROT 6.7 g/dl (6.4-8.2)
[2021-08-17] MEDS: chlordiazePOXIDE HCL 25 MG CAPSULE PO SCH ×3 (06:02→18:53)
[2021-08-17] MEDS: hydrOXYzine PAMOATE 25 MG CAPSULE (FP) PO SCH ×4 (06:03→18:53)
[2021-08-17] MEDS: ISOSORBIDE MONONITRATE 30 MG TAB.SR.24H (FP) PO SCH (10:27)
[2021-08-17] MEDS: LOSARTAN POTASSIUM 50 MG TABLET PO SCH (10:27)
[2021-08-17] MEDS: ATORVASTATIN CA 80 MG TABLET (FP) PO SCH (10:27)
[2021-08-17] MEDS: PANTOPRAZOLE 40 MG TABLET PO SCH (10:27)
[2021-08-17] MEDS: ASPIRIN 81 MG CHEWABLE TABLETS PO SCH (10:27)
[2021-08-17] MEDS: PRENATAL VITAMINS W/ FOLIC ACID TABLET (FP) PO SCH (10:29)
[2021-08-18] MEDS ORDERED: chlordiazePOXIDE HCL 10 MG CAPSULE PO PRN
[2021-08-18] MEDS: chlordiazePOXIDE HCL 25 MG CAPSULE PO SCH (00:03)
[2021-08-18] MEDS: MELATONIN 5 MG TABLETS PO SCH ×2 (00:04→23:23)
[2021-08-18] MEDS: THIAMINE HCL 100 MG TABLET (FP) PO SCH ×2 (00:04→23:23)
[2021-08-18] MEDS: hydrOXYzine PAMOATE 25 MG CAPSULE (FP) PO SCH ×6 (00:04→23:23)
[2021-08-18] MEDS: chlordiazePOXIDE HCL 10 MG CAPSULE PO SCH ×4 (06:52→23:23)
[2021-08-18] MEDS: ATORVASTATIN CA 80 MG TABLET (FP) PO SCH (11:21)
[2021-08-18] MEDS: PANTOPRAZOLE 40 MG TABLET PO SCH (11:21)
[2021-08-18] MEDS: LOSARTAN POTASSIUM 50 MG TABLET PO SCH (11:21)
[2021-08-18] MEDS: ASPIRIN 81 MG CHEWABLE TABLETS PO SCH (11:22)
[2021-08-18] MEDS: PRENATAL VITAMINS W/ FOLIC ACID TABLET (FP) PO SCH (11:22)
[2021-08-18] MEDS: ISOSORBIDE MONONITRATE 30 MG TAB.SR.24H (FP) PO SCH (11:24)
[2021-08-19] MEDS: chlordiazePOXIDE HCL 10 MG CAPSULE PO SCH ×2 (07:02→17:57)
[2021-08-19] MEDS: hydrOXYzine PAMOATE 25 MG CAPSULE (FP) PO SCH ×5 (07:03→22:21)
[2021-08-19] MEDS: ASPIRIN 81 MG CHEWABLE TABLETS PO SCH (13:05)
[2021-08-19] MEDS: PRENATAL VITAMINS W/ FOLIC ACID TABLET (FP) PO SCH (13:06)
[2021-08-19] MEDS: LOSARTAN POTASSIUM 50 MG TABLET PO SCH (13:06)
[2021-08-19] MEDS: ISOSORBIDE MONONITRATE 30 MG TAB.SR.24H (FP) PO SCH (13:06)
[2021-08-19] MEDS: ATORVASTATIN CA 80 MG TABLET (FP) PO SCH (13:06)
[2021-08-19] MEDS: PANTOPRAZOLE 40 MG TABLET PO SCH (13:06)
[2021-08-19 13:30] LABS: HIV INTERPRETATION NEGATIVE (NEGATIVE)
[2021-08-19] MEDS: THIAMINE HCL 100 MG TABLET (FP) PO SCH (22:21)
[2021-08-19] MEDS: MELATONIN 5 MG TABLETS PO SCH (22:21)
[2021-08-20] MEDS ORDERED: chlordiazePOXIDE HCL 10 MG CAPSULE PO ONE (05:00)
[2021-08-20] MEDS: hydrOXYzine PAMOATE 25 MG CAPSULE (FP) PO SCH ×3 (05:32→13:40)
[2021-08-20 07:15] VITALS: TEMP 97.3
[2021-08-20 09:32] VITALS: BP 132/70; PULSE 76
[2021-08-20] MEDS: ASPIRIN 81 MG CHEWABLE TABLETS PO SCH (10:47)
[2021-08-20] MEDS: PANTOPRAZOLE 40 MG TABLET PO SCH (10:47)
[2021-08-20] MEDS: ISOSORBIDE MONONITRATE 30 MG TAB.SR.24H (FP) PO SCH (10:47)
[2021-08-20] MEDS: LOSARTAN POTASSIUM 50 MG TABLET PO SCH (10:47)
[2021-08-20] MEDS: ATORVASTATIN CA 80 MG TABLET (FP) PO SCH (10:47)
[2021-08-20] MEDS: PRENATAL VITAMINS W/ FOLIC ACID TABLET (FP) PO SCH (10:47)
== END 2021-08-20 13:33 | disposition home or self-care (01) | DRG 774 ==
LOC: YASAS 15:05 → Y3N 21:17 → UNDOADMIN 21:17 → Y3N 08-16 09:51
PROVIDERS: ADMIT Allergy & Immunology; ATTEND Allergy & Immunology
PROC: HZ2ZZZZ Detoxification Services for Substance Abuse Treatment (ICD-10-PCS; principal; 2021-08-16)
DX: F10.230 Alcohol dependence with withdrawal, uncomplicated (principal); F14.20 Cocaine dependence, uncomplicated; F25.9 Schizoaffective disorder, unspecified; F31.9 Bipolar disorder, unspecified; F39 Unspecified mood [affective] disorder; U07.1 COVID-19; I25.10 Atherosclerotic heart disease of native coronary artery without angina pectoris; I10 Essential (primary) hypertension; I25.2 Old myocardial infarction; E11.9 Type 2 diabetes mellitus without complications; K21.9 Gastro-esophageal reflux disease without esophagitis; K29.20 Alcoholic gastritis without bleeding; B18.2 Chronic viral hepatitis C; M17.11 Unilateral primary osteoarthritis, right knee; Z99.89 Dependence on other enabling machines and devices; Z87.19 Personal history of other diseases of the digestive system
CPT/HCPCS: 36415; 80053; 82962; 84132; 85027; 86780; 87389; C9803-CS; U0003; U0005

== ENCOUNTER 2021-08-30 05:34 | Inpatient (IN) | payer OTHER ==
[2021-08-30 05:44] VITALS: BMI 25.8
[2021-08-30] MEDS ORDERED: VANCOMYCIN 1 GM in D5W (PRE-DOCKED) 1,000 MG/250 ML IVPB ONE (06:22)
[2021-08-30] MEDS ORDERED: PIPERACILLIN/TAZOB 4.5 GM 4.5 GM in DEXTROSE 5%-WATER 100 ML IVPB ONE (06:22)
[2021-08-30] MEDS ORDERED: SODIUM CHLORIDE 0.9% 500 ML INFUS.BAG IV ONE (06:42)
[2021-08-30] MEDS ORDERED: PIPERACILLIN/TAZOB 4.5 GM 4.5 GM/100 ML BAG IVPB ONE (06:44)
[2021-08-30 06:55] LABS: EOS % 2.1 % (0-4.5); HEMATOCRIT 34.9 % (35.4-49); HEMOGLOBIN 11.1 GM/dL (11.7-16.9); LYMPH % 18.1 % (8-40); MCH 28.7 pg (25.7-33.7); MCHC 31.8 g/dl (32.0-35.9); MEAN PLT VOLUME 8.3 fl (7.5-11.1); MONO % 6.4 % (3.8-10.2); NEUT % 73.4 % (42.8-82.8); PLATELET COUNT 287 10^3/uL (134-434); RBC 3.88 M/mm3 (4.00-5.60); RDW 18.5 % (11.9-15.9); WHITE BLOOD COUNT 4.5 K/mm3 (4.0-10.0)
[2021-08-30 07:07] LABS: INR 0.97 (0.83-1.09); PROTHROMBIN TIME (PATIENT) 11.2 SEC (9.7-13.0)
[2021-08-30 07:09] LABS: ACTIVATED PTT 31.1 SECONDS (25.2-36.5)
[2021-08-30] MEDS ORDERED: VANCOMYCIN 1 GRAM (PRE-DOCKED) 1,000 MG/250 ML BAG IVPB ONE (07:15)
[2021-08-30 07:23] LABS: ALBUMIN 3.1 g/dl (3.4-5.0); BLOOD UREA NITROGEN 11.7 mg/dL (7-18); CALCIUM 8.5 mg/dL (8.5-10.1)
[2021-08-30 07:25] LABS: CREATININE 0.7 mg/dL (0.55-1.3)
[2021-08-30 07:27] LABS: BILIRUBIN,TOTAL 0.5 mg/dL (0.2-1); TOT PROT 7.4 g/dl (6.4-8.2)
[2021-08-30] MEDS ORDERED: LORazepam 1 MG TABLET PO PRN (08:32)
[2021-08-30] MEDS ORDERED: ASPIRIN 81 MG CHEWABLE TABLETS ONE (10:43)
[2021-08-30] MEDS ORDERED: LOSARTAN POTASSIUM 50 MG TABLET ONE (10:43)
[2021-08-30] MEDS: LOSARTAN POTASSIUM 50 MG TABLET PO SCH (10:51)
[2021-08-30] MEDS: ASPIRIN 81 MG CHEWABLE TABLETS PO SCH (10:51)
[2021-08-30] MEDS ORDERED: LORazepam 1 MG TABLET ONE ×3 (10:52→23:35)
[2021-08-30] MEDS: LORazepam 2 MG TABLET PO SCH ×3 (10:56→23:42)
[2021-08-30] MEDS: INSULIN SLIDING SCALE (NOVOLOG) 1 VIAL SQ SCH ×3 (10:56→22:06)
[2021-08-30 13:50] LABS: CHOLESTEROL 115 mg/dL (50-200)
[2021-08-30 13:51] LABS: LDL CHOLESTEROL (ONLY SJRH) 12 mg/dL (5-100); TRIGLYCERIDES 66 mg/dL (0-150)
[2021-08-30 13:52] LABS: HDL CHOLESTEROL 92 mg/dL (40-60)
[2021-08-30 14:49] LABS: COCAINE, UR NEGATIVE (NEGATIVE); METHADONE, UR NEGATIVE (NEGATIVE); OPIATES, URI NEGATIVE (NEGATIVE); PHENCYCLIDINE,URINE NEGATIVE (NEGATIVE); URINE BARBITURATES NEGATIVE (NEGATIVE)
[2021-08-30 14:58] LABS: URINE AMPHETAMINES NEGATIVE (NEGATIVE); URINE BENZODIAZEPINES POSITIVE (NEGATIVE)
[2021-08-30] MEDS ORDERED: PIPERACILLIN/TAZOB 2.25 GM 2.25 GM/50 ML BAG IVPB ONE (17:08)
[2021-08-30] MEDS: PIPERACILLIN/TAZOB 2.25 GM 2.25 GM in DEXTROSE 5%-WATER - 50 ML IVPB SCH (17:18)
[2021-08-30] MEDS ORDERED: ATORVASTATIN CA 80 MG TABLET (FP) ONE (21:58)
[2021-08-30] MEDS: ATORVASTATIN CA 80 MG TABLET (FP) PO SCH (22:06)
[2021-08-31] MEDS ORDERED: PIPERACILLIN/TAZOBACTAM 2.25 GM VIAL IVPB ONE ×2 (02:45→10:37)
[2021-08-31] MEDS ORDERED: DEXTROSE 5%-WATER - 50 ML IVPB ONE ×2 (02:45→10:37)
[2021-08-31] MEDS: PIPERACILLIN/TAZOB 2.25 GM 2.25 GM in DEXTROSE 5%-WATER - 50 ML IVPB SCH ×2 (02:58→11:05)
[2021-08-31] MEDS: LORazepam 2 MG TABLET PO SCH (05:42)
[2021-08-31] MEDS: INSULIN SLIDING SCALE (NOVOLOG) 1 VIAL SQ SCH ×4 (06:14→22:01)
[2021-08-31] MEDS: LORazepam 1 MG TABLET PO SCH ×4 (06:14→22:01)
[2021-08-31 09:23] LABS: BASO % 0.5 % (0-2.0); EOS % 2.4 % (0-4.5); HEMOGLOBIN 11.7 GM/dL (11.7-16.9); LYMPH % 24.5 % (8-40); MCHC 31.7 g/dl (32.0-35.9); MEAN CELL VOLUME 91.2 fl (80-96); MEAN PLT VOLUME 8.8 fl (7.5-11.1); MONO % 9.3 % (3.8-10.2); NEUT % 63.3 % (42.8-82.8); PLATELET COUNT 218 10^3/uL (134-434); RBC 4.05 M/mm3 (4.00-5.60); WHITE BLOOD COUNT 3.5 K/mm3 (4.0-10.0)
[2021-08-31 09:50] LABS: MAGNESIUM 1.9 mg/dL (1.8-2.4)
[2021-08-31] MEDS ORDERED: VANCOMYCIN 1 GM in D5W (PRE-DOCKED) 1,000 MG/250 ML IVPB SCH (10:00)
[2021-08-31] MEDS: ASPIRIN 81 MG CHEWABLE TABLETS PO SCH (11:04)
[2021-08-31] MEDS: LOSARTAN POTASSIUM 50 MG TABLET PO SCH (11:04)
[2021-08-31] MEDS: ENOXAPARIN NA (PORCINE) 40 MG/0.4 ML DISP.SYRIN SQ SCH (11:06)
[2021-08-31] MEDS ORDERED: BANATROL PLUS POWDER PACKET PO SCH (14:00)
[2021-08-31] MEDS ORDERED: ACETAMINOPHEN 325 MG TABLET (FP) PO PRN (17:57)
[2021-08-31] MEDS: ATORVASTATIN CA 80 MG TABLET (FP) PO SCH (22:01)
[2021-09-01] MEDS: LORazepam 1 MG TABLET PO SCH ×2 (06:30→12:41)
[2021-09-01] MEDS: INSULIN SLIDING SCALE (NOVOLOG) 1 VIAL SQ SCH ×2 (06:30→12:45)
[2021-09-01] MEDS: PIPERACILLIN/TAZOB 2.25 GM 2.25 GM in DEXTROSE 5%-WATER - 50 ML IVPB SCH ×4 (08:03→13:33)
[2021-09-01 10:16] VITALS: BP 136/75; PULSE 84; TEMP 98.7
[2021-09-01] MEDS: ENOXAPARIN NA (PORCINE) 40 MG/0.4 ML DISP.SYRIN SQ SCH (10:22)
[2021-09-01] MEDS: ASPIRIN 81 MG CHEWABLE TABLETS PO SCH (10:22)
[2021-09-01] MEDS: LOSARTAN POTASSIUM 50 MG TABLET PO SCH (10:22)
[2021-09-01] MEDS ORDERED: INSULIN (NOVOLOG) ASPART 100 UNITS/ML 10ML VIAL ONE (12:29)
[2021-09-02] MEDS ORDERED: LORazepam 0.5 MG TABLET PO PRN
[2021-09-02] MEDS ORDERED: LORazepam 0.5 MG TABLET PO SCH (05:00)
[2021-09-03] MEDS ORDERED: LORazepam 0.5 MG TABLET PO ONE (05:00)
== END 2021-09-01 15:43 | disposition left against medical advice (07) | DRG 344 ==
LOC: JER 05:34 → JERBED 06:13 → J6WEST-2 08-31 02:23 → UNDODISIN 08-31 14:11 → J8W 09-01 11:40
PROVIDERS: ADMIT Internal Medicine; ATTEND Nurse Practitioner Family
DX: M86.9 Osteomyelitis, unspecified (principal); L02.91 Cutaneous abscess, unspecified; I25.10 Atherosclerotic heart disease of native coronary artery without angina pectoris; E78.5 Hyperlipidemia, unspecified; L03.116 Cellulitis of left lower limb; U07.1 COVID-19; K21.9 Gastro-esophageal reflux disease without esophagitis; I11.0 Hypertensive heart disease with heart failure; I50.22 Chronic systolic (congestive) heart failure; I25.2 Old myocardial infarction; I25.5 Ischemic cardiomyopathy; F10.10 Alcohol abuse, uncomplicated; F19.10 Other psychoactive substance abuse, uncomplicated; Z59.00 Homelessness unspecified
CPT/HCPCS: 36415; 71045-TC-FY; 73630-TC-LT; 73718-TC-LT; 80053; 80061; 80307; 82550; 82962; 83036; 83605; 83735; 84100; 85025; 85610; 85730; 86140; 87040; 87070; 87186; 87205; 87804; 93005; 93010; 99285-25

== ENCOUNTER 2021-10-31 16:37 | Inpatient (IN) | payer OTHER ==
[2021-10-31] MEDS ORDERED: MAG HYDROX/AL HYDROX/SIMETH 30 ML UNIT-DOSE CUP PO PRN (19:30)
[2021-10-31] MEDS ORDERED: ONDANSETRON *ODT* 4 MG TABLET SL PRN (19:30)
[2021-10-31] MEDS ORDERED: MAGNESIUM CITRATE 300 ML BOTTLE PO PRN (19:30)
[2021-10-31] MEDS ORDERED: MAGNESIUM HYDROX 2400MG/30ML ORAL SUSPENSION 30 ML CUP PO PRN (19:30)
[2021-10-31] MEDS ORDERED: LOPERAMIDE HCL 2 MG CAPSULE PO PRN (19:30)
[2021-10-31] MEDS ORDERED: ACETAMINOPHEN 325 MG TABLET (FP) PO PRN ×2 (19:30)
[2021-10-31] MEDS ORDERED: BISMUTH SUBSALICYLATE 524 MG/30 ML PO PRN (19:30)
[2021-10-31 21:01] VITALS: BMI 25.5
[2021-10-31] MEDS: THIAMINE HCL 100 MG TABLET (FP) PO SCH (22:16)
[2021-10-31] MEDS: hydrOXYzine PAMOATE 25 MG CAPSULE (FP) PO SCH (22:16)
[2021-10-31] MEDS: MELATONIN 5 MG TABLETS PO SCH (22:16)
[2021-10-31] MEDS: METHOCARBAMOL 500 MG TABLET PO PRN (22:19)
[2021-11-01] MEDS: hydrOXYzine PAMOATE 25 MG CAPSULE (FP) PO SCH ×5 (05:57→23:43)
[2021-11-01] MEDS: METHOCARBAMOL 500 MG TABLET PO PRN ×2 (10:39→22:53)
[2021-11-01] MEDS: PRENATAL VITAMINS W/ FOLIC ACID TABLET (FP) PO SCH (10:39)
[2021-11-01] MEDS ORDERED: chlordiazePOXIDE HCL 25 MG CAPSULE PO PRN (10:43)
[2021-11-01 11:07] LABS: CHLORIDE 101 mmol/L (98-107); SODIUM 137 mmol/L (136-145)
[2021-11-01 11:08] LABS: HEMATOCRIT 34.5 % (35.4-49); HEMOGLOBIN 11.3 GM/dL (11.7-16.9); MCH 29.7 pg (25.7-33.7); MCHC 32.8 g/dl (32.0-35.9); MEAN CELL VOLUME 90.6 fl (80-96); MEAN PLT VOLUME 8.8 fl (7.5-11.1); PLATELET COUNT 207 10^3/uL (134-434); RBC 3.81 M/mm3 (4.00-5.60); WHITE BLOOD COUNT 3.6 K/mm3 (4.0-10.0)
[2021-11-01] MEDS: PANTOPRAZOLE 40 MG TABLET PO SCH (11:21)
[2021-11-01 11:22] LABS: CALCIUM 8.2 mg/dL (8.5-10.1)
[2021-11-01] MEDS: chlordiazePOXIDE HCL 25 MG CAPSULE PO SCH ×3 (11:22→22:50)
[2021-11-01 11:23] LABS: ALBUMIN 3.1 g/dl (3.4-5.0); BLOOD UREA NITROGEN 7.6 mg/dL (7-18); CO2 29 mmol/L (21-32); GLUCOSE,RANDOM 111 mg/dL (74-106)
[2021-11-01 11:26] LABS: CREATININE 0.8 mg/dL (0.55-1.3); SGOT/AST 33 U/L (15-37); SGPT/ALT 17 U/L (13-61)
[2021-11-01 11:27] LABS: BILIRUBIN,TOTAL 1.4 mg/dL (0.2-1); TOT PROT 6.7 g/dl (6.4-8.2)
[2021-11-01 11:29] LABS: ALK PHOS 94 U/L (45-117)
[2021-11-01 11:30] LABS: ANION GAP 7 MMOL/L (8-16)
[2021-11-01] MEDS ORDERED: POTASSIUM CHLORIDE ORAL LIQUID 20 MEQ/15 ML PO ONE (11:33)
[2021-11-01] MEDS: LOSARTAN POTASSIUM 50 MG TABLET PO SCH (12:03)
[2021-11-01 13:42] LABS: HIV INTERPRETATION NEGATIVE (NEGATIVE)
[2021-11-01] MEDS: POTASSIUM CHLORIDE ORAL LIQUID 20 MEQ/15 ML PO SCH (22:50)
[2021-11-01] MEDS: THIAMINE HCL 100 MG TABLET (FP) PO SCH (22:50)
[2021-11-01] MEDS: ATORVASTATIN CA 80 MG TABLET (FP) PO SCH (22:52)
[2021-11-01] MEDS: MELATONIN 5 MG TABLETS PO SCH (23:43)
[2021-11-02] MEDS: MELATONIN 5 MG TABLETS PO SCH ×2 (00:11→22:02)
[2021-11-02] MEDS: hydrOXYzine PAMOATE 25 MG CAPSULE (FP) PO SCH ×5 (05:15→22:02)
[2021-11-02] MEDS: chlordiazePOXIDE HCL 25 MG CAPSULE PO SCH ×4 (05:15→22:02)
[2021-11-02 08:06] LABS: SARS-CoV-2 NAA Not Detected (Not Detected)
[2021-11-02 08:06] LABS: SARS-CoV-2 NAA Not Detected (Not Detected)
[2021-11-02] MEDS: ISOSORBIDE MONONITRATE 30 MG TAB.SR.24H (FP) PO SCH (10:32)
[2021-11-02] MEDS: PANTOPRAZOLE 40 MG TABLET PO SCH (10:33)
[2021-11-02] MEDS: POTASSIUM CHLORIDE ORAL LIQUID 20 MEQ/15 ML PO SCH ×2 (10:33→22:02)
[2021-11-02] MEDS: ASPIRIN 81 MG CHEWABLE TABLETS PO SCH (10:33)
[2021-11-02] MEDS: LOSARTAN POTASSIUM 50 MG TABLET PO SCH (10:33)
[2021-11-02] MEDS: PRENATAL VITAMINS W/ FOLIC ACID TABLET (FP) PO SCH (10:34)
[2021-11-02] MEDS: METHOCARBAMOL 500 MG TABLET PO PRN (10:37)
[2021-11-02 11:33] LABS: BILIRUBIN,TOTAL 0.4 mg/dL (0.2-1)
[2021-11-02 11:35] LABS: BLOOD UREA NITROGEN 8.9 mg/dL (7-18); CALCIUM 8.4 mg/dL (8.5-10.1)
[2021-11-02 11:36] LABS: ALBUMIN 2.8 g/dl (3.4-5.0); CREATININE 0.7 mg/dL (0.55-1.3); TOT PROT 6.3 g/dl (6.4-8.2)
[2021-11-02] MEDS: ATORVASTATIN CA 80 MG TABLET (FP) PO SCH (22:02)
[2021-11-02] MEDS: THIAMINE HCL 100 MG TABLET (FP) PO SCH (22:02)
[2021-11-03] MEDS: chlordiazePOXIDE HCL 25 MG CAPSULE PO SCH ×4 (05:21→22:57)
[2021-11-03] MEDS: hydrOXYzine PAMOATE 25 MG CAPSULE (FP) PO SCH ×5 (05:21→22:57)
[2021-11-03] MEDS: MENTHOL/PHENOL 1 EACH UD MM PRN ×2 (05:23→10:37)
[2021-11-03] MEDS: PANTOPRAZOLE 40 MG TABLET PO SCH (06:00)
[2021-11-03] MEDS: ISOSORBIDE MONONITRATE 30 MG TAB.SR.24H (FP) PO SCH (10:34)
[2021-11-03] MEDS: LOSARTAN POTASSIUM 50 MG TABLET PO SCH (10:34)
[2021-11-03] MEDS: ASPIRIN 81 MG CHEWABLE TABLETS PO SCH (10:34)
[2021-11-03] MEDS: METHOCARBAMOL 500 MG TABLET PO PRN ×3 (10:34→22:57)
[2021-11-03] MEDS: PRENATAL VITAMINS W/ FOLIC ACID TABLET (FP) PO SCH (10:34)
[2021-11-03] MEDS: MELATONIN 5 MG TABLETS PO SCH (22:57)
[2021-11-03] MEDS: THIAMINE HCL 100 MG TABLET (FP) PO SCH (22:57)
[2021-11-04] MEDS ORDERED: chlordiazePOXIDE HCL 10 MG CAPSULE PO PRN
[2021-11-04] MEDS: ATORVASTATIN CA 80 MG TABLET (FP) PO SCH ×2 (00:53→22:37)
[2021-11-04] MEDS: chlordiazePOXIDE HCL 10 MG CAPSULE PO SCH ×4 (05:22→22:37)
[2021-11-04] MEDS: hydrOXYzine PAMOATE 25 MG CAPSULE (FP) PO SCH ×5 (05:22→22:37)
[2021-11-04] MEDS: PANTOPRAZOLE 40 MG TABLET PO SCH (06:17)
[2021-11-04] MEDS: ASPIRIN 81 MG CHEWABLE TABLETS PO SCH (10:17)
[2021-11-04] MEDS: LOSARTAN POTASSIUM 50 MG TABLET PO SCH (10:17)
[2021-11-04] MEDS: ISOSORBIDE MONONITRATE 30 MG TAB.SR.24H (FP) PO SCH (10:17)
[2021-11-04] MEDS: PRENATAL VITAMINS W/ FOLIC ACID TABLET (FP) PO SCH (10:17)
[2021-11-04] MEDS: IBUPROFEN 400 MG TABLET (FP) PO PRN ×2 (10:19→22:40)
[2021-11-04] MEDS: MELATONIN 5 MG TABLETS PO SCH (22:37)
[2021-11-04] MEDS: THIAMINE HCL 100 MG TABLET (FP) PO SCH (22:37)
[2021-11-05] MEDS: chlordiazePOXIDE HCL 10 MG CAPSULE PO SCH ×2 (05:02→17:33)
[2021-11-05] MEDS: hydrOXYzine PAMOATE 25 MG CAPSULE (FP) PO SCH ×5 (05:02→22:06)
[2021-11-05] MEDS: PANTOPRAZOLE 40 MG TABLET PO SCH (06:57)
[2021-11-05] MEDS: LOSARTAN POTASSIUM 50 MG TABLET PO SCH (10:11)
[2021-11-05] MEDS: PRENATAL VITAMINS W/ FOLIC ACID TABLET (FP) PO SCH (10:11)
[2021-11-05] MEDS: ASPIRIN 81 MG CHEWABLE TABLETS PO SCH (10:11)
[2021-11-05] MEDS: ISOSORBIDE MONONITRATE 30 MG TAB.SR.24H (FP) PO SCH (10:11)
[2021-11-05] MEDS: IBUPROFEN 400 MG TABLET (FP) PO PRN (10:16)
[2021-11-05] MEDS: THIAMINE HCL 100 MG TABLET (FP) PO SCH (22:06)
[2021-11-05] MEDS: ATORVASTATIN CA 80 MG TABLET (FP) PO SCH (22:06)
[2021-11-05] MEDS: MELATONIN 5 MG TABLETS PO SCH (22:07)
[2021-11-06] MEDS: METHOCARBAMOL 500 MG TABLET PO PRN (02:43)
[2021-11-06] MEDS ORDERED: chlordiazePOXIDE HCL 10 MG CAPSULE PO ONE (05:00)
[2021-11-06] MEDS: hydrOXYzine PAMOATE 25 MG CAPSULE (FP) PO SCH ×2 (05:04→09:05)
[2021-11-06 07:05] VITALS: BP 144/80; PULSE 79; TEMP 97.3
[2021-11-06] MEDS: PANTOPRAZOLE 40 MG TABLET PO SCH (07:25)
[2021-11-06] MEDS: PRENATAL VITAMINS W/ FOLIC ACID TABLET (FP) PO SCH (09:03)
[2021-11-06] MEDS: ASPIRIN 81 MG CHEWABLE TABLETS PO SCH (09:04)
[2021-11-06] MEDS: LOSARTAN POTASSIUM 50 MG TABLET PO SCH (09:04)
[2021-11-06] MEDS: ISOSORBIDE MONONITRATE 30 MG TAB.SR.24H (FP) PO SCH (09:04)
== END 2021-11-06 09:07 | disposition home or self-care (01) | DRG 774 ==
LOC: YASAS 16:37 → Y6N 20:22
PROVIDERS: ADMIT Allergy & Immunology; ATTEND Allergy & Immunology
PROC: HZ2ZZZZ Detoxification Services for Substance Abuse Treatment (ICD-10-PCS; principal; 2021-10-31)
DX: F10.230 Alcohol dependence with withdrawal, uncomplicated (principal); F14.20 Cocaine dependence, uncomplicated; D64.9 Anemia, unspecified; D72.819 Decreased white blood cell count, unspecified; E87.6 Hypokalemia; E78.5 Hyperlipidemia, unspecified; I10 Essential (primary) hypertension; K21.9 Gastro-esophageal reflux disease without esophagitis; R73.9 Hyperglycemia, unspecified; I25.2 Old myocardial infarction
CPT/HCPCS: 36415; 80053; 82947; 83036; 85027; 86780; 87389; 87811; C9803-CS; U0003; U0005

== ENCOUNTER 2022-01-31 19:58 | Inpatient (IN) | payer OTHER ==
[2022-01-31 21:19] VITALS: BMI 26.6
[2022-01-31] MEDS ORDERED: BISMUTH SUBSALICYLATE 524 MG/30 ML PO PRN (21:26)
[2022-01-31] MEDS ORDERED: MAG HYDROX/AL HYDROX/SIMETH 30 ML UNIT-DOSE CUP PO PRN (21:26)
[2022-01-31] MEDS ORDERED: MAGNESIUM CITRATE 300 ML BOTTLE PO PRN (21:26)
[2022-01-31] MEDS ORDERED: DICYCLOMINE HCL 10 MG CAPSULE PO PRN (21:26)
[2022-01-31] MEDS ORDERED: LOPERAMIDE HCL 2 MG CAPSULE PO PRN (21:26)
[2022-01-31] MEDS ORDERED: ONDANSETRON *ODT* 4 MG TABLET SL PRN (21:26)
[2022-01-31] MEDS ORDERED: IBUPROFEN 600 MG TABLET (FP) PO PRN (21:26)
[2022-01-31] MEDS ORDERED: BENZOCAINE/MENTHOL (CHLORASEPTIC ) LOZENGE MM PRN (21:26)
[2022-01-31] MEDS ORDERED: hydrOXYzine PAMOATE 25 MG CAPSULE (FP) PO PRN (21:26)
[2022-01-31] MEDS ORDERED: MAGNESIUM HYDROX 2400MG/30ML ORAL SUSPENSION 30 ML CUP PO PRN (21:26)
[2022-01-31] MEDS ORDERED: ACETAMINOPHEN 325 MG TABLET (FP) PO PRN ×2 (21:26)
[2022-01-31] MEDS ORDERED: IBUPROFEN 400 MG TABLET (FP) PO PRN (21:26)
[2022-01-31] MEDS ORDERED: chlordiazePOXIDE HCL 25 MG CAPSULE PO PRN (21:28)
[2022-02-01] MEDS: PANTOPRAZOLE 40 MG TABLET PO SCH ×2 (00:09→10:28)
[2022-02-01] MEDS: MELATONIN 5 MG TABLETS PO PRN ×2 (00:09→22:35)
[2022-02-01] MEDS: THIAMINE HCL 100 MG TABLET (FP) PO SCH ×2 (00:09→22:35)
[2022-02-01] MEDS: chlordiazePOXIDE HCL 25 MG CAPSULE PO SCH ×5 (00:09→22:34)
[2022-02-01] MEDS: ISOSORBIDE MONONITRATE 30 MG TAB.SR.24H (FP) PO SCH (10:28)
[2022-02-01] MEDS: PRENATAL VITAMINS W/ FOLIC ACID TABLET (FP) PO SCH (10:28)
[2022-02-01] MEDS: LOSARTAN POTASSIUM 50 MG TABLET PO SCH (10:29)
[2022-02-01] MEDS: METHOCARBAMOL 500 MG TABLET PO PRN ×2 (10:29→22:36)
[2022-02-01 12:41] LABS: ALBUMIN 3.1 g/dl (3.4-5.0); CALCIUM 8.3 mg/dL (8.5-10.1)
[2022-02-01 12:44] LABS: CREATININE 0.6 mg/dL (0.55-1.3)
[2022-02-01 12:46] LABS: BILIRUBIN,TOTAL 0.6 mg/dL (0.2-1)
[2022-02-01 12:59] LABS: HEMATOCRIT 33.3 % (35.4-49); HEMOGLOBIN 11.3 GM/dL (11.7-16.9); MCH 31.1 pg (25.7-33.7); MEAN CELL VOLUME 91.5 fl (80-96); MEAN PLT VOLUME 8.3 fl (7.5-11.1); PLATELET COUNT 184 10^3/uL (134-434); RBC 3.64 M/mm3 (4.00-5.60); RDW 16.9 % (11.9-15.9)
[2022-02-01 13:31] LABS: WHITE BLOOD COUNT 1.9 K/mm3 (4.0-10.0)
[2022-02-01] MEDS: ATORVASTATIN CA 80 MG TABLET (FP) PO SCH (22:35)
[2022-02-02] MEDS: chlordiazePOXIDE HCL 25 MG CAPSULE PO SCH ×4 (05:54→22:16)
[2022-02-02] MEDS: PRENATAL VITAMINS W/ FOLIC ACID TABLET (FP) PO SCH (10:14)
[2022-02-02] MEDS: PANTOPRAZOLE 40 MG TABLET PO SCH (10:14)
[2022-02-02] MEDS: LOSARTAN POTASSIUM 50 MG TABLET PO SCH (10:15)
[2022-02-02] MEDS: ISOSORBIDE MONONITRATE 30 MG TAB.SR.24H (FP) PO SCH (10:15)
[2022-02-02 10:23] LABS: BASO % 0.3 % (0-2.0); EOS % 2.8 % (0-4.5); HEMATOCRIT 33.3 % (35.4-49); HEMOGLOBIN 10.9 GM/dL (11.7-16.9); LYMPH % 26.9 % (8-40); MCH 30.4 pg (25.7-33.7); MCHC 32.7 g/dl (32.0-35.9); MONO % 9.3 % (3.8-10.2); NEUT % 60.7 % (42.8-82.8); PLATELET COUNT 155 10^3/uL (134-434); RBC 3.58 M/mm3 (4.00-5.60); RDW 16.9 % (11.9-15.9); WHITE BLOOD COUNT 3.1 K/mm3 (4.0-10.0)
[2022-02-02] MEDS: ATORVASTATIN CA 80 MG TABLET (FP) PO SCH (22:15)
[2022-02-02] MEDS: THIAMINE HCL 100 MG TABLET (FP) PO SCH (22:15)
[2022-02-02] MEDS: MELATONIN 5 MG TABLETS PO PRN (22:15)
[2022-02-02] MEDS: METHOCARBAMOL 500 MG TABLET PO PRN (22:15)
[2022-02-03] MEDS ORDERED: chlordiazePOXIDE HCL 10 MG CAPSULE PO PRN
[2022-02-03] MEDS: chlordiazePOXIDE HCL 10 MG CAPSULE PO SCH ×4 (05:07→22:03)
[2022-02-03] MEDS: PANTOPRAZOLE 40 MG TABLET PO SCH (10:10)
[2022-02-03] MEDS: LOSARTAN POTASSIUM 50 MG TABLET PO SCH (10:10)
[2022-02-03] MEDS: PRENATAL VITAMINS W/ FOLIC ACID TABLET (FP) PO SCH (10:10)
[2022-02-03] MEDS: ISOSORBIDE MONONITRATE 30 MG TAB.SR.24H (FP) PO SCH (10:10)
[2022-02-03] MEDS: METHOCARBAMOL 500 MG TABLET PO PRN (10:11)
[2022-02-03] MEDS: ATORVASTATIN CA 80 MG TABLET (FP) PO SCH (22:03)
[2022-02-03] MEDS: THIAMINE HCL 100 MG TABLET (FP) PO SCH (22:03)
[2022-02-03] MEDS: MELATONIN 5 MG TABLETS PO PRN (22:04)
[2022-02-04] MEDS: chlordiazePOXIDE HCL 10 MG CAPSULE PO SCH ×2 (05:26→18:04)
[2022-02-04] MEDS: PANTOPRAZOLE 40 MG TABLET PO SCH (10:08)
[2022-02-04] MEDS: PRENATAL VITAMINS W/ FOLIC ACID TABLET (FP) PO SCH (10:08)
[2022-02-04] MEDS: ISOSORBIDE MONONITRATE 30 MG TAB.SR.24H (FP) PO SCH (10:08)
[2022-02-04] MEDS: LOSARTAN POTASSIUM 50 MG TABLET PO SCH (10:08)
[2022-02-04] MEDS: METHOCARBAMOL 500 MG TABLET PO PRN ×2 (10:09→22:01)
[2022-02-04] MEDS: ATORVASTATIN CA 80 MG TABLET (FP) PO SCH (22:00)
[2022-02-04] MEDS: THIAMINE HCL 100 MG TABLET (FP) PO SCH (22:01)
[2022-02-04] MEDS: MELATONIN 5 MG TABLETS PO PRN (22:01)
[2022-02-05] MEDS ORDERED: chlordiazePOXIDE HCL 10 MG CAPSULE PO ONE (05:00)
[2022-02-05 06:35] VITALS: BP 144/78; PULSE 86; TEMP 97.8
== END 2022-02-05 06:14 | disposition home or self-care (01) | DRG 775 ==
LOC: YASAS 19:58 → Y3N 21:37
PROVIDERS: ADMIT Allergy & Immunology; ATTEND Surgery
PROC: HZ2ZZZZ Detoxification Services for Substance Abuse Treatment (ICD-10-PCS; principal; 2022-01-31)
DX: F10.230 Alcohol dependence with withdrawal, uncomplicated (principal); F10.220 Alcohol dependence with intoxication, uncomplicated; I10 Essential (primary) hypertension; I25.2 Old myocardial infarction; E78.1 Pure hyperglyceridemia; K21.9 Gastro-esophageal reflux disease without esophagitis; D64.9 Anemia, unspecified; M19.90 Unspecified osteoarthritis, unspecified site; E11.9 Type 2 diabetes mellitus without complications; R00.0 Tachycardia, unspecified
CPT/HCPCS: 36415; 80053; 85025; 85027; 86780; 87811; C9803-CS; U0003; U0005

== ENCOUNTER 2022-02-28 16:47 | Inpatient (IN) | payer OTHER ==
[2022-02-28 21:21] VITALS: BMI 27.3
[2022-02-28] MEDS ORDERED: MAG HYDROX/AL HYDROX/SIMETH 30 ML UNIT-DOSE CUP PO PRN (23:16)
[2022-02-28] MEDS ORDERED: LORazepam 1 MG TABLET PO PRN (23:16)
[2022-02-28] MEDS ORDERED: BENZOCAINE/MENTHOL (CHLORASEPTIC ) LOZENGE MM PRN (23:16)
[2022-02-28] MEDS ORDERED: MAGNESIUM HYDROX 2400MG/30ML ORAL SUSPENSION 30 ML CUP PO PRN (23:16)
[2022-02-28] MEDS ORDERED: ACETAMINOPHEN 325 MG TABLET (FP) PO PRN ×2 (23:16)
[2022-02-28] MEDS ORDERED: IBUPROFEN 400 MG TABLET (FP) PO PRN (23:16)
[2022-02-28] MEDS ORDERED: IBUPROFEN 600 MG TABLET (FP) PO PRN (23:16)
[2022-02-28] MEDS ORDERED: MAGNESIUM CITRATE 300 ML BOTTLE PO PRN (23:16)
[2022-02-28] MEDS ORDERED: ONDANSETRON *ODT* 4 MG TABLET SL PRN (23:16)
[2022-02-28] MEDS ORDERED: BISMUTH SUBSALICYLATE 524 MG/30 ML PO PRN (23:16)
[2022-02-28] MEDS ORDERED: LOPERAMIDE HCL 2 MG CAPSULE PO PRN (23:16)
[2022-02-28] MEDS ORDERED: DICYCLOMINE HCL 10 MG CAPSULE PO PRN (23:16)
[2022-03-01] MEDS: LORazepam 2 MG TABLET PO SCH ×5 (00:35→23:07)
[2022-03-01] MEDS: METHOCARBAMOL 500 MG TABLET PO PRN ×3 (00:38→23:08)
[2022-03-01] MEDS: INSULIN SLIDING SCALE (NOVOLOG) 1 VIAL SQ SCH ×3 (06:28→17:37)
[2022-03-01] MEDS: PRENATAL VITAMINS W/ FOLIC ACID TABLET (FP) PO SCH (11:03)
[2022-03-01 13:40] LABS: HEMATOCRIT 35.9 % (35.4-49); HEMOGLOBIN 11.7 GM/dL (11.7-16.9); MCH 30.5 pg (25.7-33.7); MCHC 32.6 g/dl (32.0-35.9); MEAN CELL VOLUME 93.5 fl (80-96); MEAN PLT VOLUME 9.1 fl (7.5-11.1); PLATELET COUNT 172 10^3/uL (134-434); RBC 3.83 M/mm3 (4.00-5.60); RDW 17.2 % (11.9-15.9); WHITE BLOOD COUNT 2.8 K/mm3 (4.0-10.0)
[2022-03-01 13:53] LABS: CALCIUM 8.2 mg/dL (8.5-10.1)
[2022-03-01 13:54] LABS: BLOOD UREA NITROGEN 13.2 mg/dL (7-18)
[2022-03-01 13:56] LABS: CREATININE 0.7 mg/dL (0.55-1.3)
[2022-03-01 13:57] LABS: BILIRUBIN,TOTAL 0.6 mg/dL (0.2-1); TOT PROT 6.8 g/dl (6.4-8.2)
[2022-03-01] MEDS ORDERED: POTASSIUM CHLORIDE TABS 20 MEQ TABLET.ER (FP) PO ONE (18:15)
[2022-03-01] MEDS: THIAMINE HCL 100 MG TABLET (FP) PO SCH (23:07)
[2022-03-01] MEDS: MELATONIN 5 MG TABLETS PO SCH (23:07)
[2022-03-02] MEDS: LORazepam 1 MG TABLET PO SCH ×4 (08:10→22:15)
[2022-03-02] MEDS: INSULIN SLIDING SCALE (NOVOLOG) 1 VIAL SQ SCH ×2 (08:11→16:45)
[2022-03-02] MEDS: PRENATAL VITAMINS W/ FOLIC ACID TABLET (FP) PO SCH (10:25)
[2022-03-02] MEDS: METHOCARBAMOL 500 MG TABLET PO PRN ×2 (10:26→22:17)
[2022-03-02] MEDS ORDERED: POTASSIUM CHLORIDE ORAL LIQUID 20 MEQ/15 ML PO ONE (11:30)
[2022-03-02 12:50] VITALS: RESP 18
[2022-03-02] MEDS: ATORVASTATIN CA 80 MG TABLET (FP) PO SCH (22:15)
[2022-03-02] MEDS: POTASSIUM CHLORIDE ORAL LIQUID 20 MEQ/15 ML PO SCH (22:15)
[2022-03-02] MEDS: MELATONIN 5 MG TABLETS PO SCH (22:16)
[2022-03-02] MEDS: THIAMINE HCL 100 MG TABLET (FP) PO SCH (22:16)
[2022-03-03] MEDS ORDERED: LORazepam 0.5 MG TABLET PO PRN
[2022-03-03] MEDS: LORazepam 0.5 MG TABLET PO SCH ×4 (05:57→23:10)
[2022-03-03] MEDS: INSULIN SLIDING SCALE (NOVOLOG) 1 VIAL SQ SCH ×2 (06:01→16:43)
[2022-03-03] MEDS ORDERED: LOSARTAN POTASSIUM 50 MG TABLET PO SCH (10:00)
[2022-03-03] MEDS ORDERED: ISOSORBIDE MONONITRATE 30 MG TAB.SR.24H (FP) PO SCH (10:00)
[2022-03-03] MEDS: PRENATAL VITAMINS W/ FOLIC ACID TABLET (FP) PO SCH (10:32)
[2022-03-03] MEDS: METHOCARBAMOL 500 MG TABLET PO PRN ×2 (10:35→23:11)
[2022-03-03] MEDS: POTASSIUM CHLORIDE ORAL LIQUID 20 MEQ/15 ML PO SCH ×2 (10:36→23:10)
[2022-03-03] MEDS: THIAMINE HCL 100 MG TABLET (FP) PO SCH (23:10)
[2022-03-03] MEDS: MELATONIN 5 MG TABLETS PO SCH (23:10)
[2022-03-03] MEDS: ATORVASTATIN CA 80 MG TABLET (FP) PO SCH (23:10)
[2022-03-04] MEDS ORDERED: LORazepam 0.5 MG TABLET PO ONE (05:00)
[2022-03-04] MEDS: INSULIN SLIDING SCALE (NOVOLOG) 1 VIAL SQ SCH (07:26)
[2022-03-04 09:06] VITALS: BP 148/82; PULSE 65; TEMP 97.3
== END 2022-03-04 09:42 | disposition home or self-care (01) | DRG 774 ==
LOC: YASAS 16:47 → Y3N 23:55
PROVIDERS: ADMIT Allergy & Immunology; ATTEND Surgery
PROC: HZ2ZZZZ Detoxification Services for Substance Abuse Treatment (ICD-10-PCS; principal; 2022-02-28)
DX: F10.230 Alcohol dependence with withdrawal, uncomplicated (principal); F14.20 Cocaine dependence, uncomplicated; F12.20 Cannabis dependence, uncomplicated; F31.9 Bipolar disorder, unspecified; F19.24 Other psychoactive substance dependence with psychoactive substance-induced mood disorder; I10 Essential (primary) hypertension; I25.2 Old myocardial infarction; E78.00 Pure hypercholesterolemia, unspecified; E11.9 Type 2 diabetes mellitus without complications; K21.9 Gastro-esophageal reflux disease without esophagitis; M19.90 Unspecified osteoarthritis, unspecified site; B18.2 Chronic viral hepatitis C; Z86.59 Personal history of other mental and behavioral disorders
CPT/HCPCS: 36415; 80053; 82962; 84132; 85027; 86780; 93005; 93010; C9803-CS; U0003; U0005

== ENCOUNTER 2022-05-15 10:32 | Inpatient (IN) | payer OTHER ==
[2022-05-15 12:58] VITALS: BMI 24.6
[2022-05-15] MEDS ORDERED: ONDANSETRON *ODT* 4 MG TABLET SL PRN (13:13)
[2022-05-15] MEDS ORDERED: LOPERAMIDE HCL 2 MG CAPSULE PO PRN (13:13)
[2022-05-15] MEDS ORDERED: MAGNESIUM HYDROX 2400MG/30ML ORAL SUSPENSION 30 ML CUP PO PRN (13:13)
[2022-05-15] MEDS ORDERED: BENZOCAINE/MENTHOL (CHLORASEPTIC ) LOZENGE MM PRN (13:13)
[2022-05-15] MEDS ORDERED: MAG HYDROX/AL HYDROX/SIMETH 30 ML UNIT-DOSE CUP PO PRN (13:13)
[2022-05-15] MEDS ORDERED: DICYCLOMINE HCL 10 MG CAPSULE PO PRN (13:13)
[2022-05-15] MEDS ORDERED: LORazepam 1 MG TABLET PO PRN (13:13)
[2022-05-15] MEDS ORDERED: NALOXONE HCL (KLOXXADO) 8 MG SPRAY NS PRN (13:13)
[2022-05-15] MEDS ORDERED: IBUPROFEN 600 MG TABLET (FP) PO PRN (13:13)
[2022-05-15] MEDS ORDERED: IBUPROFEN 400 MG TABLET (FP) PO PRN (13:13)
[2022-05-15] MEDS ORDERED: MAGNESIUM CITRATE 300 ML BOTTLE PO PRN (13:13)
[2022-05-15] MEDS ORDERED: ACETAMINOPHEN 325 MG TABLET (FP) PO PRN ×2 (13:13)
[2022-05-15] MEDS ORDERED: BISMUTH SUBSALICYLATE 524 MG/30 ML PO PRN (13:13)
[2022-05-15] MEDS: hydrOXYzine PAMOATE 25 MG CAPSULE (FP) PO SCH ×3 (14:52→23:39)
[2022-05-15] MEDS: PRENATAL VITAMINS W/ FOLIC ACID TABLET (FP) PO SCH (14:52)
[2022-05-15] MEDS: METHOCARBAMOL 500 MG TABLET PO PRN (14:52)
[2022-05-15] MEDS: INSULIN SLIDING SCALE (NOVOLOG) 1 VIAL SQ SCH (17:11)
[2022-05-15 17:27] LABS: HEMATOCRIT 39.3 % (35.4-49); HEMOGLOBIN 12.7 GM/dL (11.7-16.9); MCH 30.3 pg (25.7-33.7); MCHC 32.4 g/dl (32.0-35.9); MEAN CELL VOLUME 93.4 fl (80-96); MEAN PLT VOLUME 8.4 fl (7.5-11.1); PLATELET COUNT 267 10^3/uL (134-434); RDW 15.8 % (11.9-15.9); WHITE BLOOD COUNT 3.2 K/mm3 (4.0-10.0)
[2022-05-15 17:31] LABS: ALBUMIN 3.5 g/dl (3.4-5.0); BLOOD UREA NITROGEN 9.5 mg/dL (7-18); CALCIUM 8.7 mg/dL (8.5-10.1)
[2022-05-15 17:35] LABS: CREATININE 0.6 mg/dL (0.55-1.3)
[2022-05-15 17:36] LABS: BILIRUBIN,TOTAL 0.6 mg/dL (0.2-1); TOT PROT 7.8 g/dl (6.4-8.2)
[2022-05-15] MEDS: LORazepam 2 MG TABLET PO SCH ×2 (17:39→23:38)
[2022-05-15] MEDS: MELATONIN 5 MG TABLETS PO SCH (23:39)
[2022-05-15] MEDS: THIAMINE HCL 100 MG TABLET (FP) PO SCH (23:39)
[2022-05-15] MEDS: ATORVASTATIN CA 80 MG TABLET (FP) PO SCH (23:39)
[2022-05-16] MEDS: LORazepam 2 MG TABLET PO SCH ×4 (05:25→22:36)
[2022-05-16] MEDS: hydrOXYzine PAMOATE 25 MG CAPSULE (FP) PO SCH ×5 (06:24→22:36)
[2022-05-16] MEDS: INSULIN SLIDING SCALE (NOVOLOG) 1 VIAL SQ SCH ×3 (06:25→17:32)
[2022-05-16] MEDS: METHOCARBAMOL 500 MG TABLET PO PRN (10:31)
[2022-05-16] MEDS: PRENATAL VITAMINS W/ FOLIC ACID TABLET (FP) PO SCH (10:31)
[2022-05-16] MEDS: LOSARTAN POTASSIUM 50 MG TABLET PO SCH (10:31)
[2022-05-16] MEDS: ISOSORBIDE MONONITRATE 30 MG TAB.SR.24H (FP) PO SCH (10:31)
[2022-05-16] MEDS: LACTULOSE 20 GM/30 ML UDC (FOR ORAL USE ONLY) PO SCH ×2 (17:33→22:36)
[2022-05-16] MEDS: ATORVASTATIN CA 80 MG TABLET (FP) PO SCH (22:36)
[2022-05-16] MEDS: THIAMINE HCL 100 MG TABLET (FP) PO SCH (22:36)
[2022-05-16] MEDS: MELATONIN 5 MG TABLETS PO SCH (22:36)
[2022-05-17] MEDS: LORazepam 1 MG TABLET PO SCH ×4 (05:49→22:32)
[2022-05-17] MEDS: hydrOXYzine PAMOATE 25 MG CAPSULE (FP) PO SCH ×5 (05:49→22:34)
[2022-05-17] MEDS: METHOCARBAMOL 500 MG TABLET PO PRN ×2 (05:54→11:11)
[2022-05-17] MEDS: INSULIN SLIDING SCALE (NOVOLOG) 1 VIAL SQ SCH ×3 (07:13→18:09)
[2022-05-17] MEDS: LACTULOSE 20 GM/30 ML UDC (FOR ORAL USE ONLY) PO SCH ×4 (10:32→23:22)
[2022-05-17] MEDS: ISOSORBIDE MONONITRATE 30 MG TAB.SR.24H (FP) PO SCH (10:33)
[2022-05-17] MEDS: LOSARTAN POTASSIUM 50 MG TABLET PO SCH (10:33)
[2022-05-17] MEDS: PRENATAL VITAMINS W/ FOLIC ACID TABLET (FP) PO SCH (10:34)
[2022-05-17] MEDS: ATORVASTATIN CA 80 MG TABLET (FP) PO SCH (22:32)
[2022-05-17] MEDS: MELATONIN 5 MG TABLETS PO SCH (22:34)
[2022-05-17] MEDS: THIAMINE HCL 100 MG TABLET (FP) PO SCH (22:34)
[2022-05-18] MEDS ORDERED: LORazepam 0.5 MG TABLET PO PRN
[2022-05-18] MEDS: hydrOXYzine PAMOATE 25 MG CAPSULE (FP) PO SCH ×5 (06:00→22:36)
[2022-05-18] MEDS: LORazepam 0.5 MG TABLET PO SCH ×4 (06:00→22:35)
[2022-05-18] MEDS: INSULIN SLIDING SCALE (NOVOLOG) 1 VIAL SQ SCH ×3 (06:01→18:15)
[2022-05-18] MEDS: LOSARTAN POTASSIUM 50 MG TABLET PO SCH (10:41)
[2022-05-18] MEDS: PRENATAL VITAMINS W/ FOLIC ACID TABLET (FP) PO SCH (10:41)
[2022-05-18] MEDS: ISOSORBIDE MONONITRATE 30 MG TAB.SR.24H (FP) PO SCH (10:41)
[2022-05-18] MEDS: LACTULOSE 20 GM/30 ML UDC (FOR ORAL USE ONLY) PO SCH ×4 (10:41→22:36)
[2022-05-18] MEDS: METHOCARBAMOL 500 MG TABLET PO PRN (10:41)
[2022-05-18 16:02] LABS: HIV INTERPRETATION NEGATIVE (NEGATIVE)
[2022-05-18] MEDS: THIAMINE HCL 100 MG TABLET (FP) PO SCH (22:35)
[2022-05-18] MEDS: ATORVASTATIN CA 80 MG TABLET (FP) PO SCH (22:35)
[2022-05-18] MEDS: MELATONIN 5 MG TABLETS PO SCH (22:35)
[2022-05-18 23:31] VITALS: RESP 18
[2022-05-19] MEDS ORDERED: LORazepam 0.5 MG TABLET PO ONE (05:00)
[2022-05-19] MEDS: hydrOXYzine PAMOATE 25 MG CAPSULE (FP) PO SCH (05:42)
[2022-05-19] MEDS: INSULIN SLIDING SCALE (NOVOLOG) 1 VIAL SQ SCH (06:04)
[2022-05-19 09:14] VITALS: BP 152/74; PULSE 97; TEMP 98.2
== END 2022-05-19 09:09 | disposition home or self-care (01) | DRG 774 ==
LOC: YASAS 10:32 → Y6N 14:05
PROVIDERS: ADMIT Allergy & Immunology; ATTEND Surgery
PROC: HZ2ZZZZ Detoxification Services for Substance Abuse Treatment (ICD-10-PCS; principal; 2022-05-15)
DX: F10.230 Alcohol dependence with withdrawal, uncomplicated (principal); F14.20 Cocaine dependence, uncomplicated; F12.20 Cannabis dependence, uncomplicated; F31.9 Bipolar disorder, unspecified; F19.24 Other psychoactive substance dependence with psychoactive substance-induced mood disorder; I10 Essential (primary) hypertension; I25.2 Old myocardial infarction; E11.9 Type 2 diabetes mellitus without complications; M17.11 Unilateral primary osteoarthritis, right knee; R79.89 Other specified abnormal findings of blood chemistry; Z86.19 Personal history of other infectious and parasitic diseases; Z87.19 Personal history of other diseases of the digestive system; Z86.2 Personal history of diseases of the blood and blood-forming organs and certain disorders involving the immune mechanism
CPT/HCPCS: 36415; 80053; 82140; 82962; 85027; 86780; 87389; C9803-CS; U0003; U0005

== ENCOUNTER 2022-06-09 14:11 | Inpatient (IN) | payer OTHER ==
[2022-06-09 15:15] VITALS: BMI 28.1
[2022-06-09] MEDS ORDERED: ACETAMINOPHEN 325 MG TABLET (FP) PO PRN ×2 (15:52)
[2022-06-09] MEDS ORDERED: DICYCLOMINE HCL 10 MG CAPSULE PO PRN (15:52)
[2022-06-09] MEDS ORDERED: hydrOXYzine PAMOATE 25 MG CAPSULE (FP) PO PRN (15:52)
[2022-06-09] MEDS ORDERED: BENZOCAINE/MENTHOL (CHLORASEPTIC ) LOZENGE MM PRN (15:52)
[2022-06-09] MEDS ORDERED: MAGNESIUM CITRATE 300 ML BOTTLE PO PRN (15:52)
[2022-06-09] MEDS ORDERED: ONDANSETRON *ODT* 4 MG TABLET SL PRN (15:52)
[2022-06-09] MEDS ORDERED: MELATONIN 5 MG TABLETS PO PRN (15:52)
[2022-06-09] MEDS ORDERED: MAG HYDROX/AL HYDROX/SIMETH 30 ML UNIT-DOSE CUP PO PRN (15:52)
[2022-06-09] MEDS ORDERED: METHOCARBAMOL 500 MG TABLET PO PRN (15:52)
[2022-06-09] MEDS ORDERED: IBUPROFEN 400 MG TABLET (FP) PO PRN (15:52)
[2022-06-09] MEDS ORDERED: MAGNESIUM HYDROX 2400MG/30ML ORAL SUSPENSION 30 ML CUP PO PRN (15:52)
[2022-06-09] MEDS ORDERED: LORazepam 1 MG TABLET PO PRN (15:52)
[2022-06-09] MEDS ORDERED: BISMUTH SUBSALICYLATE 524 MG/30 ML PO PRN (15:52)
[2022-06-09] MEDS ORDERED: LOPERAMIDE HCL 2 MG CAPSULE PO PRN (15:52)
[2022-06-09] MEDS ORDERED: IBUPROFEN 400 MG TABLET (FP) PO ONE (16:22)
[2022-06-09] MEDS ORDERED: LORazepam 2 MG TABLET ONE (16:22)
[2022-06-09] MEDS: LORazepam 2 MG TABLET PO SCH ×2 (16:25→22:37)
[2022-06-09] MEDS: LOSARTAN POTASSIUM 50 MG TABLET PO SCH (16:57)
[2022-06-09] MEDS: ATORVASTATIN CA 80 MG TABLET (FP) PO SCH (22:37)
[2022-06-09] MEDS: THIAMINE HCL 100 MG TABLET (FP) PO SCH (22:37)
[2022-06-10] MEDS: LORazepam 2 MG TABLET PO SCH ×4 (06:00→22:13)
[2022-06-10] MEDS: IBUPROFEN 600 MG TABLET (FP) PO PRN ×2 (10:39→22:13)
[2022-06-10] MEDS: LOSARTAN POTASSIUM 50 MG TABLET PO SCH (10:39)
[2022-06-10] MEDS: PRENATAL VITAMINS W/ FOLIC ACID TABLET (FP) PO SCH (10:39)
[2022-06-10] MEDS ORDERED: FLU VACC QS2022-23(6MOS UP)/PF 60 MCG/0.5 ML SYRINGE IM ONE (11:00)
[2022-06-10] MEDS: ISOSORBIDE MONONITRATE 30 MG TAB.SR.24H (FP) PO SCH (11:55)
[2022-06-10 12:07] VITALS: RESP 18
[2022-06-10] MEDS: ATORVASTATIN CA 80 MG TABLET (FP) PO SCH (22:13)
[2022-06-10] MEDS: THIAMINE HCL 100 MG TABLET (FP) PO SCH (22:13)
[2022-06-11] MEDS: LORazepam 1 MG TABLET PO SCH ×2 (05:39→10:28)
[2022-06-11] MEDS: LOSARTAN POTASSIUM 50 MG TABLET PO SCH (09:26)
[2022-06-11] MEDS: ISOSORBIDE MONONITRATE 30 MG TAB.SR.24H (FP) PO SCH (09:26)
[2022-06-11] MEDS: PRENATAL VITAMINS W/ FOLIC ACID TABLET (FP) PO SCH (09:27)
[2022-06-11 09:54] VITALS: BP 158/78; PULSE 104; TEMP 98
[2022-06-12] MEDS ORDERED: LORazepam 0.5 MG TABLET PO PRN
[2022-06-12] MEDS ORDERED: LORazepam 0.5 MG TABLET PO SCH (05:00)
[2022-06-13] MEDS ORDERED: LORazepam 0.5 MG TABLET PO ONE (05:00)
== END 2022-06-11 10:00 | disposition home or self-care (01) | DRG 774 ==
LOC: YASAS 14:11 → Y6N 16:17
PROVIDERS: ADMIT Allergy & Immunology; ATTEND Surgery
PROC: HZ2ZZZZ Detoxification Services for Substance Abuse Treatment (ICD-10-PCS; principal; 2022-06-09)
DX: F10.230 Alcohol dependence with withdrawal, uncomplicated (principal); F14.20 Cocaine dependence, uncomplicated; F12.20 Cannabis dependence, uncomplicated; E78.5 Hyperlipidemia, unspecified; I10 Essential (primary) hypertension; M15.9 Polyosteoarthritis, unspecified; B18.2 Chronic viral hepatitis C; I25.2 Old myocardial infarction
CPT/HCPCS: 82962; C9803-CS; G0008; Q2036; U0003; U0005

== ENCOUNTER 2022-12-29 18:16 | Inpatient (IN) | payer OTHER ==
[2022-12-29 18:56] VITALS: BMI 25.0
[2022-12-29] MEDS ORDERED: NALOXONE HCL (KLOXXADO) 8 MG SPRAY NS PRN (19:43)
[2022-12-29] MEDS ORDERED: IBUPROFEN 400 MG TABLET (FP) PO PRN (19:43)
[2022-12-29] MEDS ORDERED: BISMUTH SUBSALICYLATE 524 MG/30 ML PO PRN (19:43)
[2022-12-29] MEDS ORDERED: guaiFENesin 600 MG TABLET.ER (FP) PO PRN (19:43)
[2022-12-29] MEDS ORDERED: ONDANSETRON *ODT* 4 MG TABLET SL PRN (19:43)
[2022-12-29] MEDS ORDERED: LOPERAMIDE HCL 2 MG CAPSULE PO PRN (19:43)
[2022-12-29] MEDS ORDERED: POLYETHYLENE GLYCOL (HEALTHYLAX) 3350 17 GM PACKET PO PRN (19:43)
[2022-12-29] MEDS ORDERED: MAGNESIUM HYDROX 2400MG/30ML ORAL SUSPENSION 30 ML CUP PO PRN (19:43)
[2022-12-29] MEDS ORDERED: NALOXONE HCL 0.4 MG/ML VIAL IM PRN (19:43)
[2022-12-29] MEDS ORDERED: ACETAMINOPHEN 325 MG TABLET (FP) PO PRN (19:43)
[2022-12-29] MEDS ORDERED: BENZOCAINE/MENTHOL (CHLORASEPTIC ) LOZENGE MM PRN (19:43)
[2022-12-29] MEDS ORDERED: DICYCLOMINE HCL 10 MG CAPSULE PO PRN (19:43)
[2022-12-29] MEDS ORDERED: hydrOXYzine PAMOATE 25 MG CAPSULE (FP) PO PRN (19:43)
[2022-12-29] MEDS ORDERED: MAG HYDROX/AL HYDROX/SIMETH 30 ML UNIT-DOSE CUP PO PRN (19:43)
[2022-12-29] MEDS ORDERED: BENZONATATE 200 MG CAPSULE PO PRN ×2 (19:43→22:09)
[2022-12-29] MEDS ORDERED: IBUPROFEN 600 MG TABLET (FP) PO PRN (19:43)
[2022-12-29] MEDS ORDERED: chlordiazePOXIDE HCL 25 MG CAPSULE PO PRN (19:43)
[2022-12-29] MEDS: MELATONIN 5 MG TABLETS PO SCH (22:42)
[2022-12-29] MEDS: chlordiazePOXIDE HCL 25 MG CAPSULE PO SCH (22:43)
[2022-12-29] MEDS: THIAMINE HCL 100 MG TABLET (FP) PO SCH (22:43)
[2022-12-30] MEDS: chlordiazePOXIDE HCL 25 MG CAPSULE PO SCH ×4 (05:38→22:46)
[2022-12-30] MEDS: METHOCARBAMOL 500 MG TABLET PO PRN ×2 (05:40→22:45)
[2022-12-30] MEDS: LOSARTAN POTASSIUM 50 MG TABLET PO SCH (10:21)
[2022-12-30] MEDS: PANTOPRAZOLE 40 MG TABLET PO SCH (10:22)
[2022-12-30] MEDS: PRENATAL VITAMINS W/ FOLIC ACID TABLET (FP) PO SCH (10:22)
[2022-12-30] MEDS: ISOSORBIDE MONONITRATE 30 MG TAB.SR.24H (FP) PO SCH (12:34)
[2022-12-30 17:47] LABS: HEMATOCRIT 34.7 % (35.4-49); HEMOGLOBIN 11.8 GM/dL (11.7-16.9); MCH 32.4 pg (25.7-33.7); MCHC 33.8 g/dl (32.0-35.9); MEAN CELL VOLUME 95.7 fl (80-96); MEAN PLT VOLUME 9.2 fl (7.5-11.1); PLATELET COUNT 182 10^3/uL (134-434); RBC 3.63 M/mm3 (4.00-5.60); RDW 15.8 % (11.9-15.9); WHITE BLOOD COUNT 3.3 K/mm3 (4.0-10.0)
[2022-12-30 18:00] LABS: POTASSIUM 3.7 mmol/L (3.5-5.1)
[2022-12-30 18:06] LABS: CALCIUM 8.3 mg/dL (8.5-10.1)
[2022-12-30 18:08] LABS: ALBUMIN 2.8 g/dl (3.4-5.0); BLOOD UREA NITROGEN 16.3 mg/dL (7-18)
[2022-12-30 18:12] LABS: TOT PROT 6.3 g/dl (6.4-8.2)
[2022-12-30 18:14] LABS: BILIRUBIN,TOTAL 0.8 mg/dL (0.2-1)
[2022-12-30] MEDS: MELATONIN 5 MG TABLETS PO SCH (22:41)
[2022-12-30] MEDS: THIAMINE HCL 100 MG TABLET (FP) PO SCH (22:41)
[2022-12-30] MEDS: ATORVASTATIN CA 80 MG TABLET (FP) PO SCH (22:45)
[2022-12-31] MEDS: chlordiazePOXIDE HCL 25 MG CAPSULE PO SCH ×4 (05:37→22:00)
[2022-12-31] MEDS: METHOCARBAMOL 500 MG TABLET PO PRN (05:38)
[2022-12-31] MEDS: PRENATAL VITAMINS W/ FOLIC ACID TABLET (FP) PO SCH (10:09)
[2022-12-31] MEDS: PANTOPRAZOLE 40 MG TABLET PO SCH (10:09)
[2022-12-31] MEDS: LOSARTAN POTASSIUM 50 MG TABLET PO SCH (10:09)
[2022-12-31] MEDS: ISOSORBIDE MONONITRATE 30 MG TAB.SR.24H (FP) PO SCH (10:58)
[2022-12-31] MEDS: ATORVASTATIN CA 80 MG TABLET (FP) PO SCH (21:57)
[2022-12-31] MEDS: MELATONIN 5 MG TABLETS PO SCH (21:58)
[2022-12-31] MEDS: THIAMINE HCL 100 MG TABLET (FP) PO SCH (21:58)
[2023-01-01] MEDS ORDERED: chlordiazePOXIDE HCL 10 MG CAPSULE PO PRN
[2023-01-01] MEDS: chlordiazePOXIDE HCL 10 MG CAPSULE PO SCH ×2 (05:34→10:13)
[2023-01-01] MEDS: PANTOPRAZOLE 40 MG TABLET PO SCH (10:10)
[2023-01-01] MEDS: PRENATAL VITAMINS W/ FOLIC ACID TABLET (FP) PO SCH (10:10)
[2023-01-01] MEDS: LOSARTAN POTASSIUM 50 MG TABLET PO SCH (10:10)
[2023-01-01] MEDS: ISOSORBIDE MONONITRATE 30 MG TAB.SR.24H (FP) PO SCH (10:10)
[2023-01-01] MEDS: METHOCARBAMOL 500 MG TABLET PO PRN (10:11)
[2023-01-01 12:55] VITALS: BP 136/69; PULSE 66; RESP 16; TEMP 97.8
[2023-01-01 15:29] LABS: HEMATOCRIT 35.5 % (35.4-49); HEMOGLOBIN 11.8 GM/dL (11.7-16.9); MCH 32.1 pg (25.7-33.7); MCHC 33.3 g/dl (32.0-35.9); MEAN CELL VOLUME 96.3 fl (80-96); MEAN PLT VOLUME 10.3 fl (7.5-11.1); PLATELET COUNT 165 10^3/uL (134-434); RBC 3.68 M/mm3 (4.00-5.60); RDW 15.7 % (11.9-15.9); WHITE BLOOD COUNT 3.1 K/mm3 (4.0-10.0)
[2023-01-01 15:52] LABS: ALBUMIN 2.8 g/dl (3.4-5.0); BLOOD UREA NITROGEN 13.6 mg/dL (7-18); CALCIUM 8.9 mg/dL (8.5-10.1)
[2023-01-01 15:55] LABS: CREATININE 0.7 mg/dL (0.55-1.3)
[2023-01-01 15:57] LABS: BILIRUBIN,TOTAL 0.6 mg/dL (0.2-1); TOT PROT 6.5 g/dl (6.4-8.2)
[2023-01-01 16:44] LABS: HIV INTERPRETATION NEGATIVE (NEGATIVE)
[2023-01-02] MEDS ORDERED: chlordiazePOXIDE HCL 10 MG CAPSULE PO SCH (05:00)
[2023-01-03] MEDS ORDERED: chlordiazePOXIDE HCL 10 MG CAPSULE PO ONE (05:00)
== END 2023-01-01 13:46 | disposition left against medical advice (07) | DRG 770 ==
LOC: YASAS 18:16 → Y3N 21:13
PROVIDERS: ADMIT Allergy & Immunology; ATTEND Surgery
PROC: HZ2ZZZZ Detoxification Services for Substance Abuse Treatment (ICD-10-PCS; principal; 2022-12-30)
DX: F10.230 Alcohol dependence with withdrawal, uncomplicated (principal); F19.24 Other psychoactive substance dependence with psychoactive substance-induced mood disorder; F31.9 Bipolar disorder, unspecified; E78.5 Hyperlipidemia, unspecified; I10 Essential (primary) hypertension; K21.9 Gastro-esophageal reflux disease without esophagitis; E11.9 Type 2 diabetes mellitus without complications; M17.11 Unilateral primary osteoarthritis, right knee; B18.2 Chronic viral hepatitis C; I25.2 Old myocardial infarction; Z86.2 Personal history of diseases of the blood and blood-forming organs and certain disorders involving the immune mechanism; Z87.11 Personal history of peptic ulcer disease; Z86.19 Personal history of other infectious and parasitic diseases; Z99.89 Dependence on other enabling machines and devices
CPT/HCPCS: 36415; 80053; 82962; 85027; 86780; 87389; 93005; 93010; C9803-CS; U0003; U0005

== ENCOUNTER 2024-01-18 16:44 | Inpatient (IN) | payer OTHER ==
[2024-01-18 21:38] VITALS: BMI 28.5
[2024-01-18] MEDS ORDERED: IBUPROFEN 400 MG TABLET (FP) PO PRN (21:59)
[2024-01-18] MEDS ORDERED: IBUPROFEN 600 MG TABLET (FP) PO PRN (21:59)
[2024-01-18] MEDS ORDERED: BENZONATATE 200 MG CAPSULE PO PRN (21:59)
[2024-01-18] MEDS ORDERED: POLYETHYLENE GLYCOL (HEALTHYLAX) 3350 17 GM PACKET PO PRN (21:59)
[2024-01-18] MEDS ORDERED: NALOXONE (NARCAN) HCL 4 MG/0.1 ML SPRAY NS PRN (21:59)
[2024-01-18] MEDS ORDERED: BISMUTH SUBSALICYLATE 524 MG/30 ML PO PRN (21:59)
[2024-01-18] MEDS ORDERED: LOPERAMIDE HCL 2 MG CAPSULE PO PRN (21:59)
[2024-01-18] MEDS ORDERED: DICYCLOMINE HCL 10 MG CAPSULE PO PRN (21:59)
[2024-01-18] MEDS ORDERED: ONDANSETRON *ODT* 4 MG TABLET SL PRN (21:59)
[2024-01-18] MEDS ORDERED: NALOXONE HCL 0.4 MG/ML VIAL IM PRN (21:59)
[2024-01-18] MEDS ORDERED: MAG HYDROX/AL HYDROX/SIMETH 30 ML UNIT-DOSE CUP PO PRN (21:59)
[2024-01-18] MEDS ORDERED: BENZOCAINE/MENTHOL (CHLORASEPTIC ) LOZENGE MM PRN (21:59)
[2024-01-18] MEDS ORDERED: guaiFENesin 600 MG TABLET.ER (FP) PO PRN (21:59)
[2024-01-18] MEDS ORDERED: MELATONIN 5 MG TABLETS ONE (23:14)
[2024-01-18] MEDS: THIAMINE 100 MG TABLET PO SCH (23:19)
[2024-01-18] MEDS: MELATONIN 5 MG TABLETS PO SCH (23:19)
[2024-01-19] MEDS: PRENATAL VITAMINS W/ FOLIC ACID TABLET (FP) PO SCH (10:41)
[2024-01-19 11:59] LABS: CHLORIDE 106 mmol/L (98-107); POTASSIUM 4.3 mmol/L (3.5-5.1); SODIUM 139 mmol/L (136-145)
[2024-01-19 12:05] LABS: CALCIUM 8.6 mg/dL (8.5-10.1); GLUCOSE,RANDOM 94 mg/dL (74-106); HEMATOCRIT 35.9 % (35.4-49); HEMOGLOBIN 11.6 GM/dL (11.7-16.9); MCH 29.5 pg (25.7-33.7); MCHC 32.4 g/dl (32.0-35.9); MEAN CELL VOLUME 90.8 fl (80-96); MEAN PLT VOLUME 9.1 fl (7.5-11.1); PLATELET COUNT 193 10^3/uL (134-434); RBC 3.95 M/mm3 (4.00-5.60); RDW 16.1 % (11.9-15.9)
[2024-01-19 12:06] LABS: ANION GAP 2 mmol/L (4-13); BLOOD UREA NITROGEN 13.2 mg/dL (7-18); CO2 31 mmol/L (21-32)
[2024-01-19 12:08] LABS: SGPT/ALT 20 U/L (13-61)
[2024-01-19 12:09] LABS: CREATININE 0.7 mg/dL (0.55-1.3); SGOT/AST 29 U/L (15-37)
[2024-01-19 12:10] LABS: BILIRUBIN,TOTAL 0.7 mg/dL (0.2-1); TOT PROT 6.8 g/dl (6.4-8.2)
[2024-01-19 12:11] LABS: ALK PHOS 116 U/L (45-117)
[2024-01-19] MEDS: ASPIRIN COATED 81 MG TABLET.EC PO SCH (13:25)
[2024-01-19] MEDS: ISOSORBIDE MONONITRATE 30 MG TAB.SR.24H (FP) PO SCH (15:09)
[2024-01-19] MEDS: METHOCARBAMOL 500 MG TABLET PO PRN (15:12)
[2024-01-19] MEDS: ACETAMINOPHEN 325 MG TABLET (FP) PO PRN (15:12)
[2024-01-19] MEDS: hydrOXYzine PAMOATE 25 MG CAPSULE (FP) PO PRN (21:52)
[2024-01-19] MEDS: ATORVASTATIN CA 80 MG TABLET (FP) PO SCH (21:52)
[2024-01-20] MEDS ORDERED: diazePAM 5 MG TABLET PO PRN (10:05)
[2024-01-20] MEDS: PANTOPRAZOLE 40 MG TABLET PO SCH (10:34)
[2024-01-20] MEDS: diazePAM 5 MG TABLET PO SCH (10:35)
[2024-01-21] MEDS: MAGNESIUM HYDROX 2400MG/30ML ORAL SUSPENSION 30 ML CUP PO PRN (15:58)
[2024-01-22] MEDS: diazePAM 5 MG TABLET PO SCH (05:37)
[2024-01-23] MEDS: diazePAM 5 MG TABLET PO SCH (05:45)
[2024-01-24] MEDS: diazePAM 5 MG TABLET PO ONE (05:36)
[2024-01-24 06:17] VITALS: BP 126/61; PULSE 75; RESP 16; TEMP 97.7
== END 2024-01-24 09:08 | disposition home or self-care (01) | DRG 775 ==
LOC: YASAS 16:44 → Y3N 01-19 11:29
PROVIDERS: ADMIT Allergy & Immunology; ATTEND Surgery
PROC: HZ2ZZZZ Detoxification Services for Substance Abuse Treatment (ICD-10-PCS; principal; 2024-01-19)
DX: F10.230 Alcohol dependence with withdrawal, uncomplicated (principal); F31.9 Bipolar disorder, unspecified; I25.10 Atherosclerotic heart disease of native coronary artery without angina pectoris; I10 Essential (primary) hypertension; I25.2 Old myocardial infarction; E78.5 Hyperlipidemia, unspecified; E11.9 Type 2 diabetes mellitus without complications; K21.9 Gastro-esophageal reflux disease without esophagitis; M19.90 Unspecified osteoarthritis, unspecified site; Z86.19 Personal history of other infectious and parasitic diseases; Z91.148 Patient's other noncompliance with medication regimen for other reason
CPT/HCPCS: 36415; 80053; 80305; 80307; 82962; 83036; 85027; 86780; 93005; 93010